=== PATIENT | male | born 1940 | race Caucasian/White ===

== ENCOUNTER 2016-08-03 08:36 | Outpatient (RCR) | payer MEDICARE, OTHER ==
[~2016-08-03 08:36] MED LIST: ACHD5005 PO; ACHYD1T PO; AMLO5TAB2 PO; ASP81TEC PO; BNZ20T PO; BNZ40T PO; CARV25TA PO; CARV6.252 PO; CEFU500T PO; CPR500T PO; CRAN1TAB PO; CRAN450T4 PO; DIGO125T PO; FAMO-119 PO; FAMO20TA5 PO; FENO134C PO; FURO20TA4 PO; GLIP10TA13 PO; HYDR118S PO; LEVO112T55 PO; LEVO125T6 PO; LEVO175T2 PO; LOVA20TA2 PO; MAGN400T6 PO; METF-380 PO; MTF500T PO; NITR100C3 PO; OMG1KC PO; SALM1CAP4 PO; SPIR25TA3 PO; TAMS0.4C98 PO; TRZS2T PO
--- OUTSIDE RECORDS SUMMARY | 2016-08-03 08:39 | XMS REPORT | Continuity of Care Document ---
Author Author [facility] Organization [facility] Address Unknown Phone Unavailable Care Team Providers Care Loader Name Role Phone PCP Unavailable Source Comments Some departments are not documenting in the electronic medical record. If you do not see the information that you expected, contact Release of Information in the Health Information Management department at [phone] for further assistance in locating additional records.[facility] Active Allergies and Adverse Reactions Allergen Noted Date Severity Reactions Comments Sulfa (Sulfonamide 01/20/2014 BLISTERS Antibiotics) Zocor 01/20/2014 BLISTERS Current Medications Prescription Sig. Disp. Refills Start End Date Status Date aspirin EC 81 mg tablet Take 81 mg by mouth Active daily. magnesium 800 mEq. Active CRANBERRY EXTRACT Take 1,000 mg by mouth. Active (CRANBERRY PO) SALMON OIL/OMEGA-3 FATTY Take by mouth four times Active ACIDS (SALMON OIL-1000 daily. PO) digoxin (LANOXIN) 125 mcg Take 0.125 mg by mouth Active tablet daily. carvedilol (COREG) 6.25 Take 6.25 mg by mouth Active mg tablet twice daily with meals. famotidine (PEPCID) 20 mg Take 20 mg by mouth twice Active tablet daily. furosemide (LASIX) 20 mg Take 20 mg by mouth Active tablet daily. levothyroxine (SYNTHROID) Take 112 mcg by mouth Active 112 mcg tablet twice daily. FENOFIBRATE PO Take 134 mg by mouth. Active terazosin (HYTRIN) 2 mg Take 2 mg by mouth twice Active capsule daily. glipiZIDE (GLUCOTROL) 10 Take 10 mg by mouth twice Active mg tablet daily. metFORMIN (GLUCOPHAGE) Take 1,000 mg by mouth Active 500 mg tablet twice daily. lovastatin(+) (MEVACOR) Take 20 mg by mouth at Active 20 mg tablet bedtime daily. benazepril (LOTENSIN) 20 Take 40 mg by mouth Active mg tablet daily. Active Problems Problem Noted Date Prostate cancer (HCC) 01/20/2014 Overview: [place] 3+3=6, [place] 4+3=7, [place] 4+4=8 all on the left side involving between 50-80% of the core. PSA 7.1 at that time. L ast Assessment & Plan: I reviewed with the patient his treatment options one more time including observation, prostatectomy, radiotherapy, hormone therapy as well as cryotherapy. The patient has elected to undergo prostatectomy. I explained to him that I would strongly consider adjuvant radiation therapy for his high risk cancer. We discussed a prostatectomy. I believe the patient is a poor candidate for surgery due to his poor pulmonary functionary status, previous history of [place], and mid section obesity. - We will have him return to radiation oncology for treatment of his prostate cancer. - RTC PRN Social History Tobacco Use Types Packs/Day Years Used Date Former Smoker Cigarettes 3 50 Smokeless Tobacco: Former Chew User Alcohol Use Drinks/Week oz/Week Comments No 24 Cans of 14.4 beer Last Filed Vital Signs Vital Sign Reading Time Taken Blood Pressure 160/80 01/20/2014 1:11 PM CDT Pulse 72 01/20/2014 1:11 PM CDT Temperature - - Respiratory Rate - - Height 1.778 m (5' 10") 01/20/2014 1:11 PM CDT Weight 103.783 kg (228 lb 12.8 01/20/2014 1:11 PM CDT oz) Body Mass Index 32.83 01/20/2014 1:11 PM CDT Oxygen Saturation - - Plan of Care Health Maintenance Due Date Last Done Comments Physical (Comprehensive) 1948 Exam Pertussis Vaccine 1952 Tetanus Vaccine 1958 Colorectal Cancer 1991 Screening Shingles Vaccine 2001 Prevnar/Pneumovax (#1) 2006 Influenza Vaccine 03/02/2016 Results from Last 3 Months Not on file
[2016-08-03 09:26] LABS: BASOPHILS % (AUTO) 0 % (0-10); EOSINOPHILS # (AUTO) 0.3 10^3/uL (0.0-0.3); EOSINOPHILS % (AUTO) 4 % (0-10); LYMPHOCYTES # (AUTO) 1.4 X 10^3 (1.0-4.0); LYMPHOCYTES % (AUTO) 23 % (12-44); MEAN CORPUSCULAR HEMOGLOBIN 33 PG (25-34); MEAN CORPUSCULAR HGB CONC 37 G/DL (32-36); MEAN CORPUSCULAR VOLUME 88 FL (80-99); MEAN PLATELET VOLUME 9.1 FL (7.4-10.4); MONOCYTES # (AUTO) 0.6 X 10^3 (0.0-1.0); MONOCYTES % (AUTO) 9 % (0-12); NEUTROPHILS # (AUTO) 3.9 X 10^3 (1.8-7.8); NEUTROPHILS % (AUTO) 63 % (42-75); PLATELET COUNT 209 10^3/uL (130-400); RED BLOOD COUNT 4.42 10^6/uL (4.35-5.85); RED CELL DISTRIBUTION WIDTH 13.6 % (10.0-14.5); WHITE BLOOD COUNT 6.2 10^3/uL (4.3-11.0)
[2016-08-03 10:17] LABS: ALANINE AMINOTRANSFERASE 15 U/L (0-55); ALBUMIN 4.2 G/DL (3.2-4.5); ANION GAP 10 MMOL/L (5-14); ASPARTATE AMINO TRANSFERASE 16 U/L (5-34); BILIRUBIN,TOTAL 1.2 MG/DL (0.1-1.0); BLOOD UREA NITROGEN 5 MG/DL (7-18); BUN/CREATININE RATIO 6; CALCIUM 9.4 MG/DL (8.5-10.1); CARBON DIOXIDE 21 MMOL/L (21-32); CHLORIDE 106 MMOL/L (98-107); CREATININE SERUM 0.79 MG/DL (0.60-1.30); GFR ESTIMATED > 60; GLUCOSE 197 MG/DL (70-105); POTASSIUM 4.5 MMOL/L (3.6-5.0); SODIUM 137 MMOL/L (135-145)
[2016-08-03 10:36] LABS: THYROID STIMULATING HORMONE 0.03 UIU/ML (0.35-4.94)
[2016-08-04 07:43] LABS: THYROGLOBULIN LEVELC <0.20 ng/mL (1.60-59.90)
[2016-08-04 16:49] LABS: THYROGLOBULIN AUTOANTIBODY PT 0.04 Units (0.00-0.50)
== END 2016-11-01 | disposition home or self-care (01) ==
LOC: ONC 08:36
PROVIDERS: ATTEND Internal Medicine Hematology & Oncology
DX: C73 Malignant neoplasm of thyroid gland (principal); C61 Malignant neoplasm of prostate; I25.10 Atherosclerotic heart disease of native coronary artery without angina pectoris; I10 Essential (primary) hypertension; E11.9 Type 2 diabetes mellitus without complications; E78.5 Hyperlipidemia, unspecified; Z95.1 Presence of aortocoronary bypass graft; Z79.899 Other long term (current) drug therapy
CPT/HCPCS: 36415; 80053; 84153; 84432; 84443; 85025; 86800; 99213

== ENCOUNTER → 2016-08-09 | Outpatient (CLI) | payer MEDICARE, OTHER ==
[~2016-08-09] MED LIST changes: +CATHETER FLUSH 10 ML SYR IV PRN; +IOHEXOL 350 MG/ML 100 ML (OMNIPAQUE 350) VIAL IV ONE; +NS 100 ML (IVPB) BAG IV ONE
--- OUTSIDE RECORDS SUMMARY | 2016-08-09 09:32 | XMS REPORT | Continuity of Care Document ---
Author Author [facility] Organization [facility] Address Unknown Phone Unavailable Care Team Providers Care Javascript Software Engineer Name Role Phone PCP Unavailable Source Comments Some departments are not documenting in the electronic medical record. If you do not see the information that you expected, contact Release of Information in the Health Information Management department at [phone] for further assistance in locating additional records.[facility] Active Allergies and Adverse Reactions Allergen Noted [...] Prostate cancer (HCC) 01/20/2014 Overview: [place] 3+3=6, [place] 4+3=7, [place] 4+4=8 all on the left side involving [...] poor pulmonary functionary status, previous history of [place], and mid section obesity. - We will [...]
--- NOTE | 2016-08-09 11:17 | Diagnostic Imaging Report ---
PROCEDURE: CT abdomen and pelvis with contrast. TECHNIQUE: Multiple contiguous axial images were obtained through the abdomen and pelvis after administration of intravenous contrast. INDICATION: Back pain. COMPARISON: 03/26/2015. FINDINGS: The lung bases demonstrates mild nonspecific scarring. The liver, the spleen, the adrenal glands and the pancreas demonstrate no significant abnormality. A tiny left adrenal myelolipoma is unchanged. The kidneys have symmetric enhancement and contrast excretion. No hydronephrosis. The abdominal aorta is normal in caliber. No para-aortic significantly enlarged lymph nodes is seen. The appendix is normal. There is no bowel obstruction. There is however thickening in the rectosigmoid with no significant surrounding inflammatory changes or fluid collection in the abdomen or pelvis. Tiny amount of free fluid is seen in the pelvis however. There are prostate fiducial markers seen. There are multiple diverticula particularly involving the proximal sigmoid colon. This segment however is not associated with the wall thickening described above seen in the distal sigmoid. Fat-containing tiny umbilical hernia is seen. The osseous structures demonstrate a subtle sclerotic focus seen at lower endplate of T12 vertebral body measuring 1.3 cm. This is more prominent compared to the prior study. The location adjacent to the endplates may suggest degenerative etiology. Old mild compression fracture at this level is seen without change. IMPRESSION: 1. Mild thickening in the rectosigmoid colon wall. This may relate to an inflammatory or infectious colitis. Radiation colitis could be considered. 2. Unchanged fat-containing small umbilical hernia. 3. Subtle sclerotic focus more prominent compared to the prior study near the inferior endplate of T12 could be degenerative. Early metastatic disease is not excluded. Correlation with bone scan and followup studies recommended. Dictated by: Dictated on workstation # [id number]
== END ==
LOC: RAD 09:29
PROVIDERS: ATTEND Internal Medicine Hematology & Oncology
DX: C61 Malignant neoplasm of prostate (principal); K42.9 Umbilical hernia without obstruction or gangrene; K63.89 Other specified diseases of intestine; R93.7 Abnormal findings on diagnostic imaging of other parts of musculoskeletal system
CPT/HCPCS: 74177

== ENCOUNTER → 2016-08-21 | Outpatient (CLI) | payer MEDICARE, OTHER ==
[~2016-08-21] MED LIST changes: -CATHETER FLUSH 10 ML SYR IV PRN; -IOHEXOL 350 MG/ML 100 ML (OMNIPAQUE 350) VIAL IV ONE; -NS 100 ML (IVPB) BAG IV ONE
--- OUTSIDE RECORDS SUMMARY | 2016-08-21 10:30 | XMS REPORT | Continuity of Care Document ---
Author Author [facility] Organization [facility] Address Unknown Phone Unavailable Care Team Providers Care Outboard Motors Experimental Mechanic Name Role Phone PCP Unavailable Source Comments Some departments are not documenting in the electronic medical record. If you do not see the information that you expected, contact Release of Information in the Health Information Management department at [phone] for further assistance in locating additional records.[facility] Active Allergies and Adverse Reactions Allergen Noted [...] Prostate cancer (HCC) 01/20/2014 Overview: [place] 3+3=6, [place] 4+3=7, [place] 4+4=8 all on the left side involving [...] poor pulmonary functionary status, previous history of [place], and mid section obesity. - We will [...]
--- NOTE | 2016-08-21 19:36 | Diagnostic Imaging Report ---
INDICATION: Prostate cancer. TECHNIQUE: Anterior and posterior whole body planar imaging was performed after administration of 26.7 mCi of technetium 99m MDP. FINDINGS: There is persistent uptake overlying the midthoracic spine at approximately T6. There is faint uptake in the lateral aspect of the right scapula. The previously seen rib activity has resolved. There is otherwise normal uptake of isotope throughout the remainder of the axial and appendicular skeleton. There is physiologic uptake in the kidneys bilaterally with excretion into urinary bladder. IMPRESSION: Stable areas of increased activity in midthoracic spine and right scapula. Dictated by: Dictated on workstation # [id number]
== END ==
LOC: CARD 10:25
PROVIDERS: ATTEND Internal Medicine Hematology & Oncology
DX: R93.8 Abnormal findings on diagnostic imaging of other specified body structures (principal); C61 Malignant neoplasm of prostate; C73 Malignant neoplasm of thyroid gland
CPT/HCPCS: 78306

== ENCOUNTER 2016-11-14 06:45 | Day surgery (SDC) | payer MEDICARE, OTHER ==
[2016-11-14] VITALS (11 sets, daily range): BP systolic 131–173; BP diastolic 63–84
[~2016-11-14] VITALS: Ht 177.8 cm; Wt 106.6 kg
[2016-11-14] MEDS ORDERED: NS IV 1000 ML 1,000 ML ONE (06:58)
[2016-11-14] MEDS ORDERED: LIDOCAINE 1% INJ 20 ML (XYLOCAINE) VIAL ONE (06:58)
[2016-11-14] MEDS ORDERED: HEParin (CATH LAB) 2,000 ML IV ONE (06:59)
[2016-11-14 07:30] LABS: MEAN PLATELET VOLUME 9.1 FL (7.4-10.4); RED BLOOD COUNT 4.47 10^6/uL (4.35-5.85); RED CELL DISTRIBUTION WIDTH 12.6 % (10.0-14.5); WHITE BLOOD COUNT 6.4 10^3/uL (4.3-11.0)
[2016-11-14 07:42] LABS: PROTHROMBIN TIME PATIENT 12.9 SEC (12.2-14.7)
[2016-11-14] MEDS ORDERED: NS IV 1000 ML 1,000 ML IV SCH ×3 (07:45→09:42)
[2016-11-14 07:49] LABS: ALANINE AMINOTRANSFERASE 21 U/L (0-55); ALBUMIN 4.3 G/DL (3.2-4.5); ANION GAP 13 MMOL/L (5-14); ASPARTATE AMINO TRANSFERASE 19 U/L (5-34); BILIRUBIN,TOTAL 0.8 MG/DL (0.1-1.0); BLOOD UREA NITROGEN 9 MG/DL (7-18); BUN/CREATININE RATIO 12; CALCIUM 9.5 MG/DL (8.5-10.1); CARBON DIOXIDE 20 MMOL/L (21-32); CHLORIDE 106 MMOL/L (98-107); CHOLESTEROL 104 MG/DL (< 200); CREATININE SERUM 0.77 MG/DL (0.60-1.30); DIRECT LDL 64 MG/DL (1-129); GFR ESTIMATED > 60; GLUCOSE 180 MG/DL (70-105); POTASSIUM 3.7 MMOL/L (3.6-5.0); SODIUM 139 MMOL/L (135-145); TOTAL PROTEIN 7.2 G/DL (6.4-8.2); TRIGLYCERIDES 138 MG/DL (<150); VLDL CHOLESTEROL 28 MG/DL (5-40)
[2016-11-14] MEDS ORDERED: diphenhydrAMINE 50 MG/ML INJ (BENADRYL) ONE (08:20)
[2016-11-14] MEDS ORDERED: MIDAZOLAM 5 MG/5 ML (VERSED) VIAL ONE (08:20)
[2016-11-14] MEDS ORDERED: fentaNYL INJECTION 100 MCG/2 ML AMP ONE (08:20)
[2016-11-14] MEDS ORDERED: NITR0.4T SL (08:39)
[2016-11-14] MEDS ORDERED: LEVO25TA5 PO (08:39)
[2016-11-14] MEDS ORDERED: ALBU2.5V4 NEB (08:39)
[2016-11-14] MEDS ORDERED: MEGE20TA PO (08:39)
[2016-11-14] MEDS ORDERED: LEUP30KI IM (08:39)
[2016-11-14] MEDS ORDERED: FLUT1AER IH (08:39)
[2016-11-14] MEDS ORDERED: DICY20TA10 PO (08:39)
--- NOTE | 2016-11-14 09:42 | Cardiac Procedure Note-CS/ASA ---
Pre-Procedure Note Pre-Op Procedure Note H&P Reviewed The H&P was reviewed, patient examined and no changes noted. Date H&P Reviewed: November 14, 2016 Time H&P Reviewed: 08:50 Conscious Sedation Pre-Proced Time Reviewed: 08:50 ASA Class: 3 Airway Mallampati Classification: (pilot point appropriate class) I. II. III, IV Lungs Heart ASA score ASA 1: a normal healthy patient ASA 2: a patient with a mild systemic disease (mid diabetes, controlled hypertension, obesity ASA 3: a patient with a severe systemic disease that limits activity (angina , COPD, prior Myocardial infarction) ASA 4: a patient with an incapacitating disease that is a constant threat to life (CHF, renal failure) ASA 5: a moribund patient not expected to survive 24 hrs. (ruptured aneurysm) ASA 6: a declared brain patient whose organs are being harvested. For emergent operations, add the letter E after the classification Grade 3 Sedation Plan: Analgesia, Amnesia, Plan communicated to team members, Discussed options with patient/fam, Discussed risks with patient/fam Note The patient is an appropriate candidate to undergo the planned procedure, sedation, and anesthesia. The patient immediately re-assessed prior to indication. BLADE PICKERING MD FACP FAC CCDS November 14, 2016 09:42
[2016-11-14] MEDS ORDERED: PATIENT MAY USE OWN MEDS, ALL PO SCH (09:45)
[2016-11-14] MEDS ORDERED: ASPI-999 PO (09:45)
--- NOTE | 2016-11-14 09:46 | Discharge Inst-Post CATH ---
Discharge Inst-CATH Post Cardiac Cath D/C Inst Follow Up/Plan F/u with Dr Barreto in 1-2 weeks CARDIAC CATH DISCHARGE INSTRUCTIONS *Hold Metformin for 72 hours post heart cath. ACTIVITY * Go Home directly and rest. * Limit activity of the leg (or wrist if it was used) for 7 days including aerobics, swimming, jogging, bicycling, etc. * Restrict stair-climbing for 7 days if possible, if not, climb up with your non -cath leg, then bring together on the same step. * Avoid lifting, pushing, pulling or excessive movement of the affected extremity for 7 days. * Customary sexual activity may be resumed after 2 days-use caution not to use a position that strains or causes pain to the affected extremity. * No driving for 24 hours. * NO SMOKING. * Avoid straining for bowel movements for 7 days. * Gentle walking on level ground is allowed. * Returning to work will depend on the type of procedure and the results. Your doctor will discuss this with you. CALL YOUR DOCTOR FOR ANY OF THE FOLLOWING: *If bleeding from the puncture site occurs- Apply gentle pressure to site with clean cloth and call your doctor or EMS. * If a knot or lump forms under the skin, increases in size, or causes pain. * If bruising appears to be worsening or moving further down your leg instead of disappearing. * Temperature above 101 F. CARE OF YOUR GROIN INCISION; * Bruising or purple discoloration of the skin near the puncture site is common. * You may shower only, no bathtub bathing for 5 days. Be careful to avoid slipping as your leg may feel stiff. * If a closure device was used on your femoral artery, please see the attached guide regarding care of the device and your leg. * REMOVE the dressing from your groin the next day after your procedure in the shower. CARE OF YOUR WRIST INCISION; * Bruising or purple discoloration of the skin near the puncture site is common. * You may shower. * DO NOT submerge wrist. * Remove dressing in 24 hours. BLADE BARRETO MD [facility] CCDS November 14, 2016 09:46
--- NOTE | 2016-11-14 09:48 | Discharge Inst-Cardiology ---
Discharge Inst-Cardiac Discharge Medications New Medications: Aspirin (Aspirin) 81 Mg Tab.chew 81 MG PO DAILY, #90 TAB 3 Refills Continued Medications: Albuterol Sulfate (Albuterol Sulfate) 2.5 Mg/3 Ml Vial.neb 2.5 MG NEB Q6H PRN for SHORTNESS OF BREATH, EA Amlodipine Besylate (Amlodipine Besylate) 5 Mg Tablet 5 MG PO DAILY, TAB Benazepril HCl (Benazepril HCl) 40 Mg Tab 40 MG PO DAILY, TAB Carvedilol (Carvedilol) 25 Mg Tablet 25 MG PO BID, TAB Cranberry Fruit Concentrate (Cranberry) 450 Mg Tablet 450 MG PO BID, TAB Dicyclomine HCl (Dicyclomine HCl) 20 Mg Tablet 20 MG PO QID, TAB Digoxin (Digitek 125 Mcg) 125 Mcg Tablet 125 MCG PO HS, TAB Famotidine (Pepcid) 20 Mg Tablet 20 MG PO DAILY, TAB Fluticasone/Vilanterol (Breo Ellipta 100-25 Mcg INH) 1 Each Blst.w.dev 1 PUFF IH DAILY Furosemide (Furosemide) 20 Mg Tablet 20 MG PO DAILY, TAB Glipizide (Glipizide) 10 Mg Tablet 20 MG PO BID, TAB TAKES 2 (10MG) TABLETS Leuprolide Acetate (Lupron Depot) 30 Mg/Kit Soln 30 MG IM EVERY 4 MONTHS, EA Levothyroxine Sodium (Levothyroxine Sodium) 112 Mcg Tablet 224 MCG PO DAILY, TAB TAKES 2 (112MCG) TABLETS - TAKES ALONG WITH 1 (25MCG) TABLET Levothyroxine Sodium (Levothyroxine Sodium) 25 Mcg Tablet 25 MCG PO DAILY, TAB TAKES ALONG WITH 2 (112MCG) TABLETS Lovastatin (Lovastatin 20 Mg) 20 Mg Tablet 20 MG PO HS, TAB Megestrol Acetate (Megestrol Acetate) 20 Mg Tablet 20 MG PO BID, TAB Nitroglycerin (Nitrostat) 0.4 Mg Tab.subl 0.4 MG SL UD PRN for CHEST PAIN, TAB [place] 3 Polyunsat Fatty Acids (Fish Oil 1,000 mg Capsule) 1,000 Mg Cap 2000 MG PO BID, CAP TAKES 2 (1000MG) CAPSULES Terazosin Hcl (Hytrin 2 Mg) 2 Mg Tab 2 MG PO BID, CAP Discontinued Medications: Aspirin (Aspirin Ec 81 Mg) 81 Mg Tabec 81 MG PO HS, TAB Metformin Hcl (Metformin 500 Mg) 500 Mg Tablet 1000 MG PO BID, TAB TAKES 2 (500MG) TABLETS Patient Instructions Patient Instructions: Change aspirin to 81 mg chewable aspirin daily (instead of coated aspirin) Do NOT stop aspirin Restart metformin at previous home dose beginning on the morning of 11/17/16 BLADE PICKERING MD FACP FAC CCDS November 14, 2016 09:48
--- NOTE | 2016-11-14 19:10 | CARDIAC CATHETERIZATION ---
DATE OF SERVICE: 11/14/2016 HISTORY: The patient is a 76-year-old man with a history of coronary artery bypass surgery several years ago. He has been experiencing exertional angina. Today, his symptoms are lot of felt to be new onset. Cardiac catheterization was carried out the day after having obtained an informed consent. PROCEDURE: He was brought to the cardiac catheterization laboratory in a fasting state. The right groin was prepared and draped in the usual sterile fashion. A 1% lidocaine was used for local anesthesia. A modified Seldinger technique was used to advance a 5-[place] sheath in the right femoral artery. Angiography of the right femoral artery was carried out through the sheath. We used 5-[place] JL4 catheter for left coronary angiography and 5-[place] JR4 catheter for right coronary angiography. We were not able to engage the aortocoronary grafts with the 5-[place] JR4 catheter. We used a pigtail catheter to carry out left heart catheterization, left ventricular angiography. The pigtail catheter was then pulled back to the aortic root and aortic root angiography was performed to delineate the sites of the aortocoronary grafts. The pigtail catheter was removed due to significant tortuosity of the right iliac artery system. We are experiencing significant difficulty in torquing the catheters. Therefore, we anticipated to exchange the short sheath for a 6-[place] 45 cm sheath. We performed the exchange of a 0.035 inch wire. We then used a 6-[place] JR4 catheter to carry out angiography of the aortocoronary graft. We used a 6-[place] EARLENE catheter to carry out selective angiography of the internal mammary artery graft to the left anterior descending artery. Because that was difficulty with advancement of the long sheath across the aortoiliac junction, we decided to carry out angiography of the abdominal aorta and the aortoiliac system. We exchanged the long sheath over a wire for a short 6-[place] sheath and then advanced a pigtail catheter to the level of L1 and abdominal aortic angiography was performed. The catheter was then removed. Mynx was used to achieve hemostasis following sheath removal. He tolerated the procedure well. HEMODYNAMICS: Left ventricular end-diastolic pressure following coronary angiography was 23 mmHg. There was no significant pressure gradient on pullback across the aortic valve. The ascending aortic pressure was 100/71 with a mean of 84 mmHg. CORONARY ANGIOGRAPHY: Coronary artery calcification is present, especially involving the entire extent of the right coronary artery. Left main coronary artery is at least 20-30% proximal and mid vessel stenosis. Left anterior descending artery is completely occluded in its mid portion at the origin of a small caliber first diagonal branch that itself has considerable disease. A ramus intermedius artery has approximately 40% stenosis at its proximal portion. The left circumflex artery is small in caliber, nondominant and does not exhibit significant obstructive disease. Left to right collaterals were seen from the left circumflex system to the distal right coronary artery. The right coronary artery has a severe mid vessel disease and is occluded in its distal portion. AORTOCORONARY GRAFT ANGIOGRAPHY: Aortocoronary graft was noted at the ostia. These are known to be into the right coronary and to the ramus intermedius arteries. LEFT INTERNAL MAMMARY ARTERY ANGIOGRAPHY: Left internal mammary artery graft to the distal left anterior descending artery is likely patent and does not exhibit any significant disease. There is good distal runoff in the left anterior descending artery from the graft. AORTIC ROOT ANGIOGRAPHY: Aortic root angiography did not indicate any ascending aortic aneurysm or dissection. No thickened aortocoronary grafts were identified. There did not appear to be any significant aortic regurgitation. LEFT VENTRICULAR ANGIOGRAPHY: Left ventricular angiography was carried out in right anterior oblique projection. Global left ventricular systolic function is mildly impaired. Left ventricular ejection fraction is 45-50%. There is posterior basal akinesis. There does not appear to be significant mitral regurgitation. ABDOMINAL AORTIC ANGIOGRAPHY: Abdominal aortic angiography did not indicate any abdominal aortic aneurysm or dissection. There is, however, considerable atherosclerosis and ulcerated plaque and calcification of the distal abdominal aorta, aortoiliac bifurcation in both common arteries. There does not appear to be significant obstructive disease in the common iliac arteries. The left internal iliac artery does appear to have severe disease at its ostium. Both renal arteries were identified. The right renal artery has approximately 50% partial stenosis. CONCLUSIONS: 1. Coronary artery disease primarily consisting of mid vessel occlusion of the left anterior descending artery and distal occlusion of the right coronary artery. The distal right coronary artery receives collateral flow from the left circumflex system. The left circumflex artery is patent without significant disease. A ramus intermedius artery is patent with approximately 40% proximal stenosis. 2. Ostial occlusion of aortocoronary grafts to right coronary artery and ramus intermedius arteries. 3. Patent left internal mammary artery graft to distal left anterior descending artery. 4. Mild impairment of global left ventricular systolic function with posterobasal akinesis. 5. Left ventricular ejection fraction of 45-50%. 6. Elevated left ventricular and diastolic pressure. 7. Moderate atherosclerotic disease of the distal abdominal aorta and the aortoiliac bifurcation. 8. A 50% stenosis of the right renal artery. DISCUSSION AND RECOMMENDATIONS: Based on results of the study, it appears appropriate to continue a conservative approach and to optimize medications. This was discussed with him and close outpatient followup is advised for now. Job ID: [id number] DocumentID: [id number] Dictated Date: 11/14/2016 10:13:02 Machine Cage Maker Date: 11/14/2016 17:04:10 Dictated By: BLADE PICKERING MD, MA, FACP, FACC, MTDD
[2016-11-14] MEDS ORDERED: ISOS30TA3 PO (19:36)
== END 2016-11-14 13:10 | disposition home or self-care (01) ==
LOC: CATH 06:45 → SURG 09:56 → ENPENDDIS 13:00 → CATH 13:10
PROVIDERS: ATTEND Internal Medicine Cardiovascular Disease
DX: I25.118 Atherosclerotic heart disease of native coronary artery with other forms of angina pectoris (principal); I25.84 Coronary atherosclerosis due to calcified coronary lesion; I25.82 Chronic total occlusion of coronary artery; I70.1 Atherosclerosis of renal artery; I70.0 Atherosclerosis of aorta; E11.9 Type 2 diabetes mellitus without complications; E78.5 Hyperlipidemia, unspecified; I10 Essential (primary) hypertension; E66.9 Obesity, unspecified; G47.33 Obstructive sleep apnea (adult) (pediatric); Z87.891 Personal history of nicotine dependence; Z95.1 Presence of aortocoronary bypass graft; Z79.84 Long term (current) use of oral hypoglycemic drugs; Z79.899 Other long term (current) drug therapy; Z68.34 Body mass index [BMI] 34.0-34.9, adult
CPT/HCPCS: 36415; 75625; 80053; 80061; 85027; 85610; 85730; 87081; 93459; 93567

== ENCOUNTER 2016-11-14 15:50 | Emergency (ER) | payer MEDICARE, OTHER ==
[~2016-11-14] VITALS: Ht 177.8 cm; Wt 99.3 kg
[~2016-11-14 15:50] MED LIST changes: +ALBU2.5V4 NEB; +ASPI-999 PO; +DICY20TA10 PO; +FLUT1AER IH; +LEUP30KI IM; +LEVO25TA5 PO; +MEGE20TA PO; +NITR0.4T SL
[2016-11-14] MEDS ORDERED: RX-NITROGLYCERIN 0.4 MG TAB BTL 25'S SL PRN (16:00)
[2016-11-14] MEDS ORDERED: ASPIRIN 81 MG CHEW (CHILDREN'S ASA) PO ONE ×2 (16:00→17:45)
[2016-11-14 16:30] LABS: BASOPHILS % (AUTO) 0 % (0-10); EOSINOPHILS # (AUTO) 0.2 10^3/uL (0.0-0.3); EOSINOPHILS % (AUTO) 4 % (0-10); LYMPHOCYTES # (AUTO) 1.3 X 10^3 (1.0-4.0); LYMPHOCYTES % (AUTO) 23 % (12-44); MEAN CORPUSCULAR HEMOGLOBIN 32 PG (25-34); MEAN CORPUSCULAR HGB CONC 36 G/DL (32-36); MEAN CORPUSCULAR VOLUME 89 FL (80-99); MEAN PLATELET VOLUME 9.4 FL (7.4-10.4); MONOCYTES # (AUTO) 0.7 X 10^3 (0.0-1.0); MONOCYTES % (AUTO) 13 % (0-12); NEUTROPHILS # (AUTO) 3.4 X 10^3 (1.8-7.8); NEUTROPHILS % (AUTO) 60 % (42-75); PLATELET COUNT 201 10^3/uL (130-400); RED BLOOD COUNT 4.17 10^6/uL (4.35-5.85); RED CELL DISTRIBUTION WIDTH 12.4 % (10.0-14.5); WHITE BLOOD COUNT 5.7 10^3/uL (4.3-11.0)
[2016-11-14 16:43] LABS: INR 1.1 (0.8-1.4); PROTHROMBIN TIME PATIENT 14.2 SEC (12.2-14.7)
--- NOTE | 2016-11-14 16:43 | Diagnostic Imaging Report ---
INDICATION: Chest pain. Recent catheterization. COMPARISON: 05/04/2015. FINDINGS: Single frontal view of the chest demonstrates normal heart size and pulmonary vascularity. Left-sided AICD is noted. Sternotomy wires are also present. The lungs are well aerated and clear. No large pleural effusion or pneumothorax is seen. The visualized osseous structures show no acute abnormalities. IMPRESSION: 1. No acute cardiopulmonary process. Dictated by: Dictated on workstation # [id number]
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
[2016-11-14 16:51] LABS: ALANINE AMINOTRANSFERASE 18 U/L (0-55); ALBUMIN 3.8 G/DL (3.2-4.5); AMYLASE 30 U/L (25-125); ANION GAP 8 MMOL/L (5-14); ASPARTATE AMINO TRANSFERASE 16 U/L (5-34); BLOOD UREA NITROGEN 9 MG/DL (7-18); BUN/CREATININE RATIO 11; CALCIUM 9.1 MG/DL (8.5-10.1); CARBON DIOXIDE 23 MMOL/L (21-32); CHLORIDE 109 MMOL/L (98-107); CREATINE KINASE 88 U/L (30-200); CREATININE SERUM 0.79 MG/DL (0.60-1.30); GFR ESTIMATED > 60; GLUCOSE 227 MG/DL (70-105); LIPASE 36 U/L (8-78); POTASSIUM 3.8 MMOL/L (3.6-5.0); SODIUM 140 MMOL/L (135-145); TOTAL PROTEIN 6.3 G/DL (6.4-8.2)
[2016-11-14 17:06] LABS: TROPONIN I < 0.30 NG/ML (<0.30)
[2016-11-14] MEDS ORDERED: ISOSORBIDE MONONITRATE 30 MG (IMDUR) TAB PO ONE (17:45)
[2016-11-14] MEDS ORDERED: ISOS30TA3 PO (19:36)
[2016-11-14 19:41] VITALS: BP 126/58
== END 2016-11-14 19:41 | disposition home or self-care (01) ==
LOC: EDUNIT# 15:50 → ER 15:51
DX: R07.9 Chest pain, unspecified (principal); I10 Essential (primary) hypertension; E11.9 Type 2 diabetes mellitus without complications; I25.2 Old myocardial infarction; Z79.82 Long term (current) use of aspirin; Z79.84 Long term (current) use of oral hypoglycemic drugs; Z79.899 Other long term (current) drug therapy; Z98.890 Other specified postprocedural states; Z95.1 Presence of aortocoronary bypass graft; Z95.0 Presence of cardiac pacemaker; Z87.891 Personal history of nicotine dependence
CPT/HCPCS: 36415; 71010; 80053; 82150; 82550; 82553; 83690; 83880; 84484; 85025; 85610; 85730; 93005; 93041

== ENCOUNTER 2017-01-04 08:32 | Outpatient (RCR) | payer MEDICARE, OTHER ==
[~2017-01-04 08:32] MED LIST changes: +ISOS30TA3 PO
[2017-01-04 09:05] LABS: BASOPHILS % (AUTO) 0 % (0-10); EOSINOPHILS # (AUTO) 0.3 10^3/uL (0.0-0.3); EOSINOPHILS % (AUTO) 4 % (0-10); LYMPHOCYTES # (AUTO) 1.5 X 10^3 (1.0-4.0); LYMPHOCYTES % (AUTO) 23 % (12-44); MEAN CORPUSCULAR HEMOGLOBIN 32 PG (25-34); MEAN CORPUSCULAR HGB CONC 36 G/DL (32-36); MEAN CORPUSCULAR VOLUME 88 FL (80-99); MEAN PLATELET VOLUME 8.5 FL (7.4-10.4); MONOCYTES # (AUTO) 0.7 X 10^3 (0.0-1.0); MONOCYTES % (AUTO) 10 % (0-12); NEUTROPHILS # (AUTO) 4.2 X 10^3 (1.8-7.8); NEUTROPHILS % (AUTO) 63 % (42-75); PLATELET COUNT 221 10^3/uL (130-400); RED BLOOD COUNT 4.06 10^6/uL (4.35-5.85); RED CELL DISTRIBUTION WIDTH 12.8 % (10.0-14.5); WHITE BLOOD COUNT 6.7 10^3/uL (4.3-11.0)
[2017-01-04 09:32] LABS: ALANINE AMINOTRANSFERASE 18 U/L (0-55); ALBUMIN 3.9 GM/DL (3.2-4.5); ANION GAP 11 MMOL/L (5-14); ASPARTATE AMINO TRANSFERASE 17 U/L (5-34); BILIRUBIN,TOTAL 0.9 MG/DL (0.1-1.0); BLOOD UREA NITROGEN 8 MG/DL (7-18); BUN/CREATININE RATIO 10; CALCIUM 8.9 MG/DL (8.5-10.1); CARBON DIOXIDE 19 MMOL/L (21-32); CHLORIDE 106 MMOL/L (98-107); GFR ESTIMATED > 60; GLUCOSE 185 MG/DL (70-105); POTASSIUM 3.9 MMOL/L (3.6-5.0); SODIUM 136 MMOL/L (135-145); TOTAL PROTEIN 6.8 GM/DL (6.4-8.2)
[2017-01-04 09:54] LABS: THYROID STIMULATING HORMONE 0.01 UIU/ML (0.35-4.94)
[2017-01-08 07:22] LABS: THYROGLOBULIN LEVELC 0.58 ng/mL (1.60-59.90)
[2017-01-08 07:49] LABS: THYROGLOBULIN AUTOANTIBODY PT 0.05 Units (0.00-0.50)
== END 2017-03-31 | disposition home or self-care (01) ==
LOC: ONC 08:32
PROVIDERS: ATTEND Internal Medicine Hematology & Oncology
DX: E11.9 Type 2 diabetes mellitus without complications; C61 Malignant neoplasm of prostate; Z79.899 Other long term (current) drug therapy; E78.5 Hyperlipidemia, unspecified; C73 Malignant neoplasm of thyroid gland; I25.10 Atherosclerotic heart disease of native coronary artery without angina pectoris; Z95.1 Presence of aortocoronary bypass graft; I10 Essential (primary) hypertension
CPT/HCPCS: 36415; 80053; 84153; 84403; 84432; 84439; 84443; 85025; 86800; 99213

== ENCOUNTER 2017-04-05 09:03 | Outpatient (RCR) | payer MEDICARE, OTHER | END 2017-07-04 10:42 | disposition home or self-care (01) | LOC: ONC 09:03 | PROVIDERS: ATTEND Internal Medicine Hematology & Oncology | DX: C73 Malignant neoplasm of thyroid gland (principal); C61 Malignant neoplasm of prostate; I25.10 Atherosclerotic heart disease of native coronary artery without angina pectoris; I10 Essential (primary) hypertension; E11.9 Type 2 diabetes mellitus without complications; E78.5 Hyperlipidemia, unspecified; Z95.1 Presence of aortocoronary bypass graft; Z79.899 Other long term (current) drug therapy | CPT/HCPCS: 36415; 84443 ==

== ENCOUNTER → 2017-06-12 | Outpatient (CLI) | payer MEDICARE, OTHER ==
[2017-06-12 09:13] LABS: BASOPHILS % (AUTO) 0 % (0-10); EOSINOPHILS # (AUTO) 0.3 10^3/uL (0.0-0.3); EOSINOPHILS % (AUTO) 5 % (0-10); LYMPHOCYTES # (AUTO) 1.2 X 10^3 (1.0-4.0); LYMPHOCYTES % (AUTO) 20 % (12-44); MEAN CORPUSCULAR HEMOGLOBIN 30 PG (25-34); MEAN CORPUSCULAR HGB CONC 35 G/DL (32-36); MEAN CORPUSCULAR VOLUME 85 FL (80-99); MONOCYTES # (AUTO) 0.7 X 10^3 (0.0-1.0); MONOCYTES % (AUTO) 11 % (0-12); NEUTROPHILS # (AUTO) 3.8 X 10^3 (1.8-7.8); NEUTROPHILS % (AUTO) 64 % (42-75); PLATELET COUNT 217 10^3/uL (130-400); RED CELL DISTRIBUTION WIDTH 13.3 % (10.0-14.5); WHITE BLOOD COUNT 6.1 10^3/uL (4.3-11.0)
[2017-06-12 09:35] LABS: ALANINE AMINOTRANSFERASE 10 U/L (0-55); ALBUMIN 4.2 GM/DL (3.2-4.5); ANION GAP 11 MMOL/L (5-14); ASPARTATE AMINO TRANSFERASE 14 U/L (5-34); BILIRUBIN,TOTAL 0.8 MG/DL (0.1-1.0); BLOOD UREA NITROGEN 9 MG/DL (7-18); BUN/CREATININE RATIO 11; CARBON DIOXIDE 21 MMOL/L (21-32); CHLORIDE 103 MMOL/L (98-107); CREATININE SERUM 0.84 MG/DL (0.60-1.30); GFR ESTIMATED > 60; GLUCOSE 236 MG/DL (70-105); MAGNESIUM 1.6 MG/DL (1.8-2.4); POTASSIUM 3.7 MMOL/L (3.6-5.0); SODIUM 135 MMOL/L (135-145)
[2017-06-12 09:54] LABS: THYROID STIMULATING HORMONE 0.44 UIU/ML (0.35-4.94)
== END ==
LOC: LAB 08:53
PROVIDERS: ATTEND Internal Medicine Cardiovascular Disease
DX: E11.9 Type 2 diabetes mellitus without complications (principal); I25.110 Atherosclerotic heart disease of native coronary artery with unstable angina pectoris; I25.5 Ischemic cardiomyopathy; I65.23 Occlusion and stenosis of bilateral carotid arteries; E78.4 Other hyperlipidemia; I10 Essential (primary) hypertension; E66.9 Obesity, unspecified; G47.33 Obstructive sleep apnea (adult) (pediatric)
CPT/HCPCS: 36415; 80053; 83735; 84443; 85025

== ENCOUNTER → 2017-06-28 | Outpatient (CLI) | payer MEDICARE, OTHER ==
[2017-06-28 09:35] LABS: BUN/CREATININE RATIO 13; CALCIUM 9.1 MG/DL (8.5-10.1); CARBON DIOXIDE 19 MMOL/L (21-32); CHLORIDE 106 MMOL/L (98-107); CREATININE SERUM 0.79 MG/DL (0.60-1.30); GFR ESTIMATED > 60; GLUCOSE 199 MG/DL (70-105); MAGNESIUM 1.9 MG/DL (1.8-2.4); POTASSIUM 3.7 MMOL/L (3.6-5.0); SODIUM 137 MMOL/L (135-145)
== END ==
LOC: LAB 08:47
PROVIDERS: ATTEND Internal Medicine Cardiovascular Disease
DX: I25.10 Atherosclerotic heart disease of native coronary artery without angina pectoris (principal); E11.9 Type 2 diabetes mellitus without complications; E05.90 Thyrotoxicosis, unspecified without thyrotoxic crisis or storm; T38.1X5 Adverse effect of thyroid hormones and substitutes; G47.33 Obstructive sleep apnea (adult) (pediatric); E66.8 Other obesity
CPT/HCPCS: 36415; 80048; 83735

== ENCOUNTER 2017-07-12 13:20 | Outpatient (RCR) | payer MEDICARE, OTHER ==
[2017-07-12 13:46] LABS: BASOPHILS % (AUTO) 0 % (0-10); EOSINOPHILS # (AUTO) 0.2 10^3/uL (0.0-0.3); EOSINOPHILS % (AUTO) 3 % (0-10); HEMATOCRIT 36 % (40-54); LYMPHOCYTES # (AUTO) 1.8 X 10^3 (1.0-4.0); LYMPHOCYTES % (AUTO) 26 % (12-44); MEAN CORPUSCULAR HEMOGLOBIN 30 PG (25-34); MEAN CORPUSCULAR HGB CONC 36 G/DL (32-36); MEAN CORPUSCULAR VOLUME 84 FL (80-99); MEAN PLATELET VOLUME 8.9 FL (7.4-10.4); MONOCYTES # (AUTO) 0.8 X 10^3 (0.0-1.0); MONOCYTES % (AUTO) 12 % (0-12); NEUTROPHILS # (AUTO) 4.1 X 10^3 (1.8-7.8); NEUTROPHILS % (AUTO) 59 % (42-75); PLATELET COUNT 242 10^3/uL (130-400); RED CELL DISTRIBUTION WIDTH 13.3 % (10.0-14.5); WHITE BLOOD COUNT 6.9 10^3/uL (4.3-11.0)
[2017-07-12 14:04] LABS: ALANINE AMINOTRANSFERASE 14 U/L (0-55); ALBUMIN 4.3 GM/DL (3.2-4.5); ALKALINE PHOSPHATASE 44 U/L (40-136); BILIRUBIN,TOTAL 0.8 MG/DL (0.1-1.0); BUN/CREATININE RATIO 17; CALCIUM 9.6 MG/DL (8.5-10.1); CARBON DIOXIDE 19 MMOL/L (21-32); CHLORIDE 102 MMOL/L (98-107); CREATININE SERUM 0.78 MG/DL (0.60-1.30); GFR ESTIMATED > 60; GLUCOSE 112 MG/DL (70-105); POTASSIUM 4.4 MMOL/L (3.6-5.0); SODIUM 134 MMOL/L (135-145); TOTAL PROTEIN 7.3 GM/DL (6.4-8.2)
[2017-07-12 14:23] LABS: FREE T4 (FREE THYROXINE) 1.21 NG/DL (0.70-1.48)
== END 2017-10-10 | disposition home or self-care (01) ==
LOC: ONC 13:20
PROVIDERS: ATTEND Internal Medicine Hematology & Oncology
DX: C73 Malignant neoplasm of thyroid gland (principal); C61 Malignant neoplasm of prostate; I25.10 Atherosclerotic heart disease of native coronary artery without angina pectoris; I10 Essential (primary) hypertension; E11.9 Type 2 diabetes mellitus without complications; E78.5 Hyperlipidemia, unspecified; Z95.1 Presence of aortocoronary bypass graft; Z79.899 Other long term (current) drug therapy
CPT/HCPCS: 36415; 80053; 84153; 84432; 84439; 84443; 85025; 99213

== ENCOUNTER → 2017-07-18 | Outpatient (CLI) | payer MEDICARE, OTHER ==
[2017-07-18 09:58] LABS: BASOPHILS % (AUTO) 0 % (0-10); EOSINOPHILS # (AUTO) 0.3 10^3/uL (0.0-0.3); EOSINOPHILS % (AUTO) 4 % (0-10); HEMATOCRIT 36 % (40-54); HEMOGLOBIN 13.1 G/DL (13.3-17.7); LYMPHOCYTES # (AUTO) 1.6 X 10^3 (1.0-4.0); LYMPHOCYTES % (AUTO) 23 % (12-44); MEAN CORPUSCULAR HEMOGLOBIN 30 PG (25-34); MEAN CORPUSCULAR HGB CONC 36 G/DL (32-36); MEAN CORPUSCULAR VOLUME 83 FL (80-99); MONOCYTES # (AUTO) 0.8 X 10^3 (0.0-1.0); MONOCYTES % (AUTO) 11 % (0-12); NEUTROPHILS # (AUTO) 4.2 X 10^3 (1.8-7.8); NEUTROPHILS % (AUTO) 61 % (42-75); PLATELET COUNT 218 10^3/uL (130-400); RED BLOOD COUNT 4.37 10^6/uL (4.35-5.85); RED CELL DISTRIBUTION WIDTH 13.5 % (10.0-14.5); WHITE BLOOD COUNT 6.8 10^3/uL (4.3-11.0)
[2017-07-18 10:12] LABS: PROTHROMBIN TIME PATIENT 13.3 SEC (12.2-14.7)
[2017-07-18 10:17] LABS: BUN/CREATININE RATIO 12; CALCIUM 9.4 MG/DL (8.5-10.1); CARBON DIOXIDE 20 MMOL/L (21-32); CHLORIDE 100 MMOL/L (98-107); CREATININE SERUM 0.74 MG/DL (0.60-1.30); GFR ESTIMATED > 60; GLUCOSE 186 MG/DL (70-105); POTASSIUM 4.4 MMOL/L (3.6-5.0); SODIUM 131 MMOL/L (135-145)
== END ==
LOC: LAB 09:30
DX: R07.9 Chest pain, unspecified (principal)
CPT/HCPCS: 36415; 80048; 85025; 85610

== ENCOUNTER → 2017-09-10 | Outpatient (CLI) | payer MEDICARE, OTHER ==
--- NOTE | 2017-09-10 12:59 | Diagnostic Imaging Report ---
PROCEDURE: CT thoracic spine without contrast. TECHNIQUE: Multiple axial computerized tomography images were obtained from the base of the thoracic spine to the vertex without intravenous contrast. INDICATION: Sclerotic metastasis. FINDINGS: The previous CTA chest exam of 12/02/15 noted a 2.1 x 2.0 x 3.8 cm sclerotic lesion involving the right lateral aspect and the right pedicle of T6. That sclerotic lesion is again identified and now measures 2.1 x 2.1 x 3.8 cm. This area also showed increased activity on the recent nuclear medicine bone scan of 08/21/16. The previous exam also noted a roughly 1 cm rounded sclerotic lesion along the inferior endplate of T12. That sclerotic focus cannot be identified with certainty on this exam. There is another sclerotic focus along the posterior aspect of the inferior endplate of T12 measuring 0.74 cm in maximum dimension. On the prior exam, this lesion measured 0.67 cm. No other sclerotic focus is identified to suggest metastatic disease. The long-standing compression fractures of T3 and T12 noted previously are again identified and stable. The degenerative disc and bony disease at T7-T8 and T8-T9 seen previously has not progressed significantly. No new area of spinal stenosis or nerve root encroachment has developed. The lungs, where visualized, are generally clear. There is no sign of a paraspinal mass. IMPRESSION: 1. The large sclerotic focus involving the right lateral aspect of T6 seen previously is again evident and not significantly changed in size. The sclerotic focus along the anterior inferior endplate of T12 noted previously has resolved but there is still a small sclerotic focus along the posterior inferior endplate of T12. This finding is minimally larger than on the prior exam. 2. The overall appearance of the lumbar spine is stable when compared to the prior study. 3. There are long-standing compression fractures of T3 and T12 but there is no acute bony abnormality noted. Dictated by: Dictated on workstation # [id number]
== END ==
LOC: RAD 11:35
PROVIDERS: ATTEND Internal Medicine Interventional Cardiology
DX: C79.51 Secondary malignant neoplasm of bone (principal); C80.1 Malignant (primary) neoplasm, unspecified; M48.54XA Collapsed vertebra, not elsewhere classified, thoracic region, initial encounter for fracture; I20.9 Angina pectoris, unspecified
CPT/HCPCS: 72128

== ENCOUNTER → 2017-10-02 | Outpatient (CLI) | payer MEDICARE, OTHER ==
[2017-10-02 08:08] LABS: BASOPHILS % (AUTO) 0 % (0-10); EOSINOPHILS # (AUTO) 0.3 10^3/uL (0.0-0.3); EOSINOPHILS % (AUTO) 5 % (0-10); HEMATOCRIT 33 % (40-54); HEMOGLOBIN 11.3 G/DL (13.3-17.7); LYMPHOCYTES # (AUTO) 1.1 X 10^3 (1.0-4.0); LYMPHOCYTES % (AUTO) 20 % (12-44); MEAN CORPUSCULAR HEMOGLOBIN 26 PG (25-34); MEAN CORPUSCULAR HGB CONC 34 G/DL (32-36); MEAN CORPUSCULAR VOLUME 78 FL (80-99); MEAN PLATELET VOLUME 8.5 FL (7.4-10.4); MONOCYTES # (AUTO) 0.7 X 10^3 (0.0-1.0); MONOCYTES % (AUTO) 12 % (0-12); NEUTROPHILS # (AUTO) 3.5 X 10^3 (1.8-7.8); NEUTROPHILS % (AUTO) 63 % (42-75); PLATELET COUNT 246 10^3/uL (130-400); RED BLOOD COUNT 4.28 10^6/uL (4.35-5.85); RED CELL DISTRIBUTION WIDTH 13.9 % (10.0-14.5); WHITE BLOOD COUNT 5.6 10^3/uL (4.3-11.0)
[2017-10-02 08:28] LABS: ALANINE AMINOTRANSFERASE 15 U/L (0-55); ALBUMIN 4.2 GM/DL (3.2-4.5); ALKALINE PHOSPHATASE 41 U/L (40-136); BILIRUBIN,TOTAL 0.9 MG/DL (0.1-1.0); BUN/CREATININE RATIO 13; CALCIUM 9.3 MG/DL (8.5-10.1); CARBON DIOXIDE 18 MMOL/L (21-32); CHLORIDE 103 MMOL/L (98-107); CHOLESTEROL 103 MG/DL (< 200); CREATININE SERUM 0.79 MG/DL (0.60-1.30); GFR ESTIMATED > 60; GLUCOSE 165 MG/DL (70-105); HDL CHOLESTEROL 23 MG/DL (40-60); POTASSIUM 3.9 MMOL/L (3.6-5.0); SODIUM 134 MMOL/L (135-145); TOTAL PROTEIN 6.9 GM/DL (6.4-8.2); TRIGLYCERIDES 173 MG/DL (<150); VLDL CHOLESTEROL 35 MG/DL (5-40)
[2017-10-02 08:33] LABS: DIGOXIN < 0.30 NG/ML (0.80-2.00)
== END ==
LOC: LAB 07:48
PROVIDERS: ATTEND Internal Medicine Cardiovascular Disease
DX: I25.118 Atherosclerotic heart disease of native coronary artery with other forms of angina pectoris (principal); I25.5 Ischemic cardiomyopathy; I65.29 Occlusion and stenosis of unspecified carotid artery; E11.9 Type 2 diabetes mellitus without complications; Z95.1 Presence of aortocoronary bypass graft; E66.8 Other obesity; G47.33 Obstructive sleep apnea (adult) (pediatric); Z95.810 Presence of automatic (implantable) cardiac defibrillator
CPT/HCPCS: 36415; 80053; 80061; 80162; 83735; 83880; 85025

== ENCOUNTER → 2017-11-14 | Outpatient (CLI) | payer MEDICARE, OTHER ==
[~2017-11-14] MED LIST changes: +IOHEXOL 350 MG/ML 100 ML (OMNIPAQUE 350) VIAL IV ONE; +NS 250 ML (IVPB) BAG IV ONE
[2017-11-14 07:56] LABS: BASOPHILS % (AUTO) 0 % (0-10); EOSINOPHILS # (AUTO) 0.2 10^3/uL (0.0-0.3); EOSINOPHILS % (AUTO) 4 % (0-10); HEMATOCRIT 31 % (40-54); HEMOGLOBIN 10.5 G/DL (13.3-17.7); LYMPHOCYTES % (AUTO) 19 % (12-44); MEAN CORPUSCULAR HEMOGLOBIN 25 PG (25-34); MEAN CORPUSCULAR HGB CONC 34 G/DL (32-36); MEAN CORPUSCULAR VOLUME 75 FL (80-99); MEAN PLATELET VOLUME 8.2 FL (7.4-10.4); MONOCYTES # (AUTO) 0.7 X 10^3 (0.0-1.0); MONOCYTES % (AUTO) 13 % (0-12); NEUTROPHILS # (AUTO) 3.3 X 10^3 (1.8-7.8); NEUTROPHILS % (AUTO) 64 % (42-75); PLATELET COUNT 269 10^3/uL (130-400); RED BLOOD COUNT 4.14 10^6/uL (4.35-5.85); RED CELL DISTRIBUTION WIDTH 15.7 % (10.0-14.5); WHITE BLOOD COUNT 5.2 10^3/uL (4.3-11.0)
[2017-11-14 08:07] LABS: ALANINE AMINOTRANSFERASE 11 U/L (0-55); ALBUMIN 4.3 GM/DL (3.2-4.5); ALKALINE PHOSPHATASE 43 U/L (40-136); BILIRUBIN,TOTAL 0.6 MG/DL (0.1-1.0); BUN/CREATININE RATIO 12; CALCIUM 9.1 MG/DL (8.5-10.1); CARBON DIOXIDE 18 MMOL/L (21-32); CHLORIDE 105 MMOL/L (98-107); CREATININE SERUM 0.73 MG/DL (0.60-1.30); GFR ESTIMATED > 60; GLUCOSE 194 MG/DL (70-105); POTASSIUM 3.7 MMOL/L (3.6-5.0); SODIUM 135 MMOL/L (135-145); TOTAL PROTEIN 6.5 GM/DL (6.4-8.2)
[2017-11-14 08:23] LABS: ERYTHROCYTE SEDIMENTATION RATE 13 MM/HR (0-30)
--- NOTE | 2017-11-14 09:21 | Diagnostic Imaging Report ---
PROCEDURE: CT abdomen and pelvis with contrast. TECHNIQUE: Multiple contiguous axial images were obtained through the abdomen and pelvis after administration of intravenous contrast. INDICATION: Abdominal tenderness. COMPARISON: Comparison is made with prior CT from 08/09/2016. FINDINGS: The lung bases are clear. There appears to be trace pleural fluid in the right base, similar to prior exam. The liver demonstrates generalized low density consistent with hepatic steatosis. No discrete liver mass is detected. The gallbladder is surgically absent. The pancreas and spleen are unremarkable. No adrenal mass is identified. The kidneys are unremarkable. Aorta is heavily calcified but not aneurysmal. The small and large bowel loops appear to be normal caliber. No ascites is identified. No abdominal or pelvic lymphadenopathy is identified. The bladder is unremarkable. Prostate gland contains adjacent clips. IMPRESSION: Stable CT of the abdomen and pelvis when compared with prior exam from 08/09/2016. Trace right pleural fluid and hepatic steatosis is again noted. No acute features detected. No abdominal or pelvic lymphadenopathy or evidence of metastatic disease is detected. Dictated by: Dictated on workstation # [id number]
== END ==
LOC: RAD 07:27
PROVIDERS: ATTEND Internal Medicine Gastroenterology
DX: K76.0 Fatty (change of) liver, not elsewhere classified (principal); R16.2 Hepatomegaly with splenomegaly, not elsewhere classified; R79.9 Abnormal finding of blood chemistry, unspecified; R19.07 Generalized intra-abdominal and pelvic swelling, mass and lump
CPT/HCPCS: 36415; 74177; 80053; 82728; 83540; 85025; 85652; 86141

== ENCOUNTER → 2017-12-06 | Outpatient (CLI) | payer MEDICARE, OTHER ==
[~2017-12-06] MED LIST changes: -IOHEXOL 350 MG/ML 100 ML (OMNIPAQUE 350) VIAL IV ONE; -NS 250 ML (IVPB) BAG IV ONE
== END ==
LOC: LAB 08:38
PROVIDERS: ATTEND Internal Medicine Gastroenterology
DX: R19.7 Diarrhea, unspecified (principal)
CPT/HCPCS: 36415; 83880; 85652; 86141; 86200; 86235; 86430

== ENCOUNTER 2017-12-25 08:12 | Outpatient (RCR) | payer MEDICARE, OTHER ==
[~2017-12-25 08:12] MED LIST changes: +BENA40TA5 PO; -BNZ40T PO
== END 2018-03-25 | disposition home or self-care (01) ==
LOC: LAB 08:12
PROVIDERS: ATTEND Internal Medicine Gastroenterology
DX: R79.9 Abnormal finding of blood chemistry, unspecified (principal); R11.0 Nausea; R19.8 Other specified symptoms and signs involving the digestive system and abdomen; I10 Essential (primary) hypertension; K22.70 Barrett's esophagus without dysplasia
CPT/HCPCS: 36415; 82530; 82570; 84156; 84166

== ENCOUNTER 2018-02-21 08:44 | Outpatient (RCR) | payer MEDICARE, OTHER ==
[2018-01-10 09:50] LABS: BASOPHILS % (AUTO) 0 % (0-10); EOSINOPHILS # (AUTO) 0.3 10^3/uL (0.0-0.3); EOSINOPHILS % (AUTO) 5 % (0-10); HEMATOCRIT 33 % (40-54); HEMOGLOBIN 11.5 G/DL (13.3-17.7); LYMPHOCYTES # (AUTO) 1.3 X 10^3 (1.0-4.0); LYMPHOCYTES % (AUTO) 21 % (12-44); MEAN CORPUSCULAR HEMOGLOBIN 26 PG (25-34); MEAN CORPUSCULAR HGB CONC 35 G/DL (32-36); MEAN CORPUSCULAR VOLUME 76 FL (80-99); MEAN PLATELET VOLUME 8.8 FL (7.4-10.4); MONOCYTES # (AUTO) 0.6 X 10^3 (0.0-1.0); MONOCYTES % (AUTO) 10 % (0-12); NEUTROPHILS # (AUTO) 4.2 X 10^3 (1.8-7.8); NEUTROPHILS % (AUTO) 65 % (42-75); PLATELET COUNT 239 10^3/uL (130-400); RED BLOOD COUNT 4.37 10^6/uL (4.35-5.85); RED CELL DISTRIBUTION WIDTH 16.2 % (10.0-14.5); WHITE BLOOD COUNT 6.4 10^3/uL (4.3-11.0)
[2018-01-10 10:09] LABS: ALANINE AMINOTRANSFERASE 16 U/L (0-55); ALBUMIN 4.1 GM/DL (3.2-4.5); ALKALINE PHOSPHATASE 44 U/L (40-136); BILIRUBIN,TOTAL 0.6 MG/DL (0.1-1.0); BUN/CREATININE RATIO 14; CALCIUM 9.2 MG/DL (8.5-10.1); CARBON DIOXIDE 16 MMOL/L (21-32); CHLORIDE 109 MMOL/L (98-107); CREATININE SERUM 0.87 MG/DL (0.60-1.30); GFR ESTIMATED > 60; GLUCOSE 246 MG/DL (70-105); POTASSIUM 4.1 MMOL/L (3.6-5.0); SODIUM 137 MMOL/L (135-145); TOTAL PROTEIN 7.2 GM/DL (6.4-8.2)
== END 2018-04-10 | disposition home or self-care (01) ==
LOC: ONC 08:44
PROVIDERS: ATTEND Internal Medicine Hematology & Oncology
DX: C73 Malignant neoplasm of thyroid gland (principal); C61 Malignant neoplasm of prostate; I25.10 Atherosclerotic heart disease of native coronary artery without angina pectoris; I10 Essential (primary) hypertension; E11.9 Type 2 diabetes mellitus without complications; E78.5 Hyperlipidemia, unspecified; Z95.1 Presence of aortocoronary bypass graft; Z79.899 Other long term (current) drug therapy
CPT/HCPCS: 36415; 80053; 84153; 84432; 84436; 84443; 85025; 86800; 99213

== ENCOUNTER 2018-03-27 10:26 | Outpatient (RCR) | payer MEDICARE, OTHER | END 2018-03-28 | disposition home or self-care (01) | LOC: CR 10:26 | PROVIDERS: ATTEND Internal Medicine Cardiovascular Disease | DX: Z48.812 Encounter for surgical aftercare following surgery on the circulatory system (principal); Z95.5 Presence of coronary angioplasty implant and graft | CPT/HCPCS: 93798 ==

== ENCOUNTER 2018-03-29 10:00 | Outpatient (RCR) | payer MEDICARE, OTHER | END 2018-03-31 | disposition home or self-care (01) | LOC: CR 10:00 | PROVIDERS: ATTEND Internal Medicine Cardiovascular Disease | DX: Z48.812 Encounter for surgical aftercare following surgery on the circulatory system (principal); Z95.5 Presence of coronary angioplasty implant and graft | CPT/HCPCS: 93798 ==

== ENCOUNTER 2018-04-26 08:41 | Outpatient (RCR) | payer MEDICARE, OTHER | END 2018-05-01 | disposition home or self-care (01) | LOC: CR3 08:41 | PROVIDERS: ATTEND Internal Medicine Cardiovascular Disease | DX: Z29.8 Encounter for other specified prophylactic measures (principal); Z48.812 Encounter for surgical aftercare following surgery on the circulatory system; Z95.5 Presence of coronary angioplasty implant and graft ==

== ENCOUNTER 2018-07-11 10:39 | Outpatient (RCR) | payer MEDICARE, OTHER ==
[2018-07-03 10:01] LABS: BASOPHILS % (AUTO) 0 % (0-10); EOSINOPHILS # (AUTO) 0.4 10^3/uL (0.0-0.3); EOSINOPHILS % (AUTO) 7 % (0-10); HEMATOCRIT 37 % (40-54); HEMOGLOBIN 13.7 G/DL (13.3-17.7); LYMPHOCYTES # (AUTO) 1.2 X 10^3 (1.0-4.0); LYMPHOCYTES % (AUTO) 23 % (12-44); MEAN CORPUSCULAR HEMOGLOBIN 31 PG (25-34); MEAN CORPUSCULAR HGB CONC 37 G/DL (32-36); MEAN CORPUSCULAR VOLUME 85 FL (80-99); MONOCYTES # (AUTO) 0.6 X 10^3 (0.0-1.0); MONOCYTES % (AUTO) 12 % (0-12); NEUTROPHILS % (AUTO) 58 % (42-75); PLATELET COUNT 209 10^3/uL (130-400); RED CELL DISTRIBUTION WIDTH 14.2 % (10.0-14.5); WHITE BLOOD COUNT 5.2 10^3/uL (4.3-11.0)
[2018-07-03 10:19] LABS: ALANINE AMINOTRANSFERASE 21 U/L (0-55); ALBUMIN 4.3 GM/DL (3.2-4.5); ALKALINE PHOSPHATASE 70 U/L (40-136); BILIRUBIN,TOTAL 0.6 MG/DL (0.1-1.0); BUN/CREATININE RATIO 14; CALCIUM 9.2 MG/DL (8.5-10.1); CARBON DIOXIDE 18 MMOL/L (21-32); CHLORIDE 104 MMOL/L (98-107); CREATININE SERUM 0.73 MG/DL (0.60-1.30); GFR ESTIMATED > 60; GLUCOSE 171 MG/DL (70-105); SODIUM 137 MMOL/L (135-145); TOTAL PROTEIN 7.6 GM/DL (6.4-8.2)
[2018-07-03 10:41] LABS: FREE T4 (FREE THYROXINE) 1.17 NG/DL (0.70-1.48)
== END 2018-10-01 | disposition home or self-care (01) ==
LOC: ONC 10:39
PROVIDERS: ATTEND Internal Medicine Hematology & Oncology
DX: C73 Malignant neoplasm of thyroid gland (principal); C61 Malignant neoplasm of prostate; I25.10 Atherosclerotic heart disease of native coronary artery without angina pectoris; I10 Essential (primary) hypertension; E11.9 Type 2 diabetes mellitus without complications; E78.5 Hyperlipidemia, unspecified; Z95.1 Presence of aortocoronary bypass graft; Z79.899 Other long term (current) drug therapy
CPT/HCPCS: 80053; 84153; 84432; 84436; 84439; 84443; 85025; 86800; 99213

== ENCOUNTER 2019-01-09 10:17 | Outpatient (RCR) | payer MEDICARE, OTHER ==
[2019-01-01 09:44] LABS: BASOPHILS % (AUTO) 0 % (0-10); EOSINOPHILS # (AUTO) 0.2 10^3/uL (0.0-0.3); EOSINOPHILS % (AUTO) 5 % (0-10); HEMATOCRIT 37 % (40-54); HEMOGLOBIN 13.3 G/DL (13.3-17.7); LYMPHOCYTES # (AUTO) 1.1 X 10^3 (1.0-4.0); LYMPHOCYTES % (AUTO) 21 % (12-44); MEAN CORPUSCULAR HEMOGLOBIN 32 PG (25-34); MEAN CORPUSCULAR HGB CONC 36 G/DL (32-36); MEAN CORPUSCULAR VOLUME 89 FL (80-99); MONOCYTES # (AUTO) 0.5 X 10^3 (0.0-1.0); MONOCYTES % (AUTO) 10 % (0-12); NEUTROPHILS # (AUTO) 3.5 X 10^3 (1.8-7.8); NEUTROPHILS % (AUTO) 65 % (42-75); PLATELET COUNT 190 10^3/uL (130-400); WHITE BLOOD COUNT 5.3 10^3/uL (4.3-11.0)
[2019-01-01 10:02] LABS: ALANINE AMINOTRANSFERASE 22 U/L (0-55); ALBUMIN 4.2 GM/DL (3.2-4.5); ALKALINE PHOSPHATASE 66 U/L (40-136); BILIRUBIN,TOTAL 0.6 MG/DL (0.1-1.0); BUN/CREATININE RATIO 13; CALCIUM 9.3 MG/DL (8.5-10.1); CARBON DIOXIDE 21 MMOL/L (21-32); CHLORIDE 103 MMOL/L (98-107); CREATININE SERUM 0.84 MG/DL (0.60-1.30); GFR ESTIMATED > 60; GLUCOSE 249 MG/DL (70-105); POTASSIUM 3.9 MMOL/L (3.6-5.0); SODIUM 137 MMOL/L (135-145); TOTAL PROTEIN 7.1 GM/DL (6.4-8.2)
== END 2019-04-01 | disposition home or self-care (01) ==
LOC: ONC 10:17
PROVIDERS: ATTEND Internal Medicine Hematology & Oncology
DX: C73 Malignant neoplasm of thyroid gland (principal); C61 Malignant neoplasm of prostate; I25.10 Atherosclerotic heart disease of native coronary artery without angina pectoris; I10 Essential (primary) hypertension; E11.9 Type 2 diabetes mellitus without complications; E78.5 Hyperlipidemia, unspecified; Z95.1 Presence of aortocoronary bypass graft; Z79.899 Other long term (current) drug therapy
CPT/HCPCS: 36415; 80053; 84153; 84432; 84436; 84443; 85025; 86800; 99213

== ENCOUNTER → 2019-03-25 | Outpatient (CLI) | payer MEDICARE, OTHER ==
[2019-03-25 09:19] LABS: ALANINE AMINOTRANSFERASE 11 U/L (0-55); ALBUMIN 4.4 GM/DL (3.2-4.5); ALKALINE PHOSPHATASE 58 U/L (40-136); BILIRUBIN,TOTAL 0.6 MG/DL (0.1-1.0); BUN/CREATININE RATIO 12; CALCIUM 9.3 MG/DL (8.5-10.1); CARBON DIOXIDE 19 MMOL/L (21-32); CHLORIDE 107 MMOL/L (98-107); CREATININE SERUM 0.81 MG/DL (0.60-1.30); GFR ESTIMATED > 60; GLUCOSE 245 MG/DL (70-105); MAGNESIUM 1.9 MG/DL (1.6-2.4); POTASSIUM 3.7 MMOL/L (3.6-5.0); SODIUM 136 MMOL/L (135-145); TOTAL PROTEIN 7.4 GM/DL (6.4-8.2)
== END ==
LOC: LAB 08:49
PROVIDERS: ATTEND Internal Medicine Cardiovascular Disease
DX: I25.10 Atherosclerotic heart disease of native coronary artery without angina pectoris (principal); I50.22 Chronic systolic (congestive) heart failure; E11.9 Type 2 diabetes mellitus without complications; E78.5 Hyperlipidemia, unspecified; Z95.810 Presence of automatic (implantable) cardiac defibrillator
CPT/HCPCS: 36415; 80053; 83735

== ENCOUNTER → 2019-05-14 | Outpatient (CLI) | payer MEDICARE, OTHER ==
[2019-05-14 15:14] LABS: HEMOGLOBIN 14.5 G/DL (13.3-17.7); MEAN PLATELET VOLUME 9.2 FL (7.4-10.4); RED CELL DISTRIBUTION WIDTH 13.7 % (10.0-14.5); WHITE BLOOD COUNT 7.6 10^3/uL (4.3-11.0)
[2019-05-14 15:35] LABS: ALANINE AMINOTRANSFERASE 16 U/L (0-55); ALBUMIN 4.7 GM/DL (3.2-4.5); ALKALINE PHOSPHATASE 48 U/L (40-136); BILIRUBIN,TOTAL 0.9 MG/DL (0.1-1.0); BUN/CREATININE RATIO 9; CALCIUM 9.4 MG/DL (8.5-10.1); CARBON DIOXIDE 20 MMOL/L (21-32); CHLORIDE 108 MMOL/L (98-107); CREATININE SERUM 0.76 MG/DL (0.60-1.30); GFR ESTIMATED > 60; GLUCOSE 91 MG/DL (70-105); POTASSIUM 3.7 MMOL/L (3.6-5.0); SODIUM 139 MMOL/L (135-145); TOTAL PROTEIN 7.8 GM/DL (6.4-8.2)
== END ==
LOC: LAB 14:59
PROVIDERS: ATTEND Nurse Practitioner Community Health
DX: C61 Malignant neoplasm of prostate (principal)
CPT/HCPCS: 36415; 80053; 85027

== ENCOUNTER → 2019-07-07 | Outpatient (CLI) | payer MEDICARE, OTHER ==
[2019-07-07 09:49] LABS: BUN/CREATININE RATIO 11; CALCIUM 9.3 MG/DL (8.5-10.1); CARBON DIOXIDE 18 MMOL/L (21-32); CHLORIDE 104 MMOL/L (98-107); CREATININE SERUM 0.74 MG/DL (0.60-1.30); GFR ESTIMATED > 60; GLUCOSE 190 MG/DL (70-105); POTASSIUM 3.8 MMOL/L (3.6-5.0); SODIUM 136 MMOL/L (135-145)
== END ==
LOC: LAB 08:48
PROVIDERS: ATTEND Internal Medicine Interventional Cardiology
DX: R07.9 Chest pain, unspecified (principal)
CPT/HCPCS: 36415; 80048

== ENCOUNTER 2019-07-10 09:31 | Outpatient (RCR) | payer MEDICARE, OTHER ==
[~2019-07-10 09:31] MED LIST changes: -MAGN400T6 PO; +MAGN400T8 PO; -MEGE20TA PO; +MEGE20TA3 PO; -TAMS0.4C98 PO; +TMSL.4C PO
[2019-07-10 09:47] LABS: BASOPHILS % (AUTO) 0 % (0-10); EOSINOPHILS # (AUTO) 0.3 10^3/uL (0.0-0.3); EOSINOPHILS % (AUTO) 4 % (0-10); HEMATOCRIT 39 % (40-54); HEMOGLOBIN 14.1 G/DL (13.3-17.7); LYMPHOCYTES # (AUTO) 1.3 X 10^3 (1.0-4.0); LYMPHOCYTES % (AUTO) 18 % (12-44); MEAN CORPUSCULAR HEMOGLOBIN 32 PG (25-34); MEAN CORPUSCULAR HGB CONC 36 G/DL (32-36); MEAN CORPUSCULAR VOLUME 88 FL (80-99); MEAN PLATELET VOLUME 8.6 FL (7.4-10.4); MONOCYTES # (AUTO) 0.8 X 10^3 (0.0-1.0); MONOCYTES % (AUTO) 11 % (0-12); NEUTROPHILS % (AUTO) 67 % (42-75); PLATELET COUNT 203 10^3/uL (130-400); RED CELL DISTRIBUTION WIDTH 12.4 % (10.0-14.5); WHITE BLOOD COUNT 7.4 10^3/uL (4.3-11.0)
[2019-07-10 10:08] LABS: ALANINE AMINOTRANSFERASE 18 U/L (0-55); ALBUMIN 4.3 GM/DL (3.2-4.5); ALKALINE PHOSPHATASE 45 U/L (40-136); BILIRUBIN,TOTAL 0.7 MG/DL (0.1-1.0); BUN/CREATININE RATIO 9; CALCIUM 9.2 MG/DL (8.5-10.1); CARBON DIOXIDE 19 MMOL/L (21-32); CHLORIDE 104 MMOL/L (98-107); CREATININE SERUM 0.74 MG/DL (0.60-1.30); GFR ESTIMATED > 60; GLUCOSE 179 MG/DL (70-105); POTASSIUM 4.2 MMOL/L (3.6-5.0); SODIUM 135 MMOL/L (135-145); TOTAL PROTEIN 7.1 GM/DL (6.4-8.2)
[2019-07-31] MEDS ORDERED: FURO20TA4 PO (11:47)
[2019-07-31] MEDS ORDERED: LOVA40TA2 PO (11:47)
[2019-07-31] MEDS ORDERED: DIGO125T3 PO (11:47)
[2019-07-31] MEDS ORDERED: TERA2CAP4 PO (11:47)
[2019-07-31] MEDS ORDERED: AMLO10TA7 PO (11:47)
[2019-07-31] MEDS ORDERED: OMEP40CA27 PO (11:48)
[2019-07-31] MEDS ORDERED: CALC600T12 PO (11:48)
[2019-07-31] MEDS ORDERED: BUDE0.5A IH (11:48)
[2019-07-31] MEDS ORDERED: ARFO15VI3 IH (11:48)
[2019-07-31] MEDS ORDERED: METF-397 PO (11:48)
[2019-07-31] MEDS ORDERED: CRAN450C PO (11:48)
[2019-07-31] MEDS ORDERED: CLOP75TA69 PO (11:48)
[2019-07-31] MEDS ORDERED: ISM60TCR PO (11:48)
[2019-07-31] MEDS ORDERED: ACET-93 PO (11:48)
[2019-07-31] MEDS ORDERED: ASPI-983 PO (11:48)
[2019-07-31] MEDS ORDERED: PEDI300T11 PO (11:48)
[2019-08-06] MEDS ORDERED: ACHD5005 PO (09:56)
== END 2019-10-08 | disposition home or self-care (01) ==
LOC: ONC 09:31
PROVIDERS: ATTEND Internal Medicine Hematology & Oncology
DX: C73 Malignant neoplasm of thyroid gland (principal); C61 Malignant neoplasm of prostate; I25.10 Atherosclerotic heart disease of native coronary artery without angina pectoris; I10 Essential (primary) hypertension; E11.9 Type 2 diabetes mellitus without complications; E78.5 Hyperlipidemia, unspecified; I25.5 Ischemic cardiomyopathy; K43.9 Ventral hernia without obstruction or gangrene; Z95.1 Presence of aortocoronary bypass graft; Z79.899 Other long term (current) drug therapy; Z95.810 Presence of automatic (implantable) cardiac defibrillator; Z90.89 Acquired absence of other organs
CPT/HCPCS: 80053; 84153; 84432; 84436; 84443; 85025; 86800; 99213

== ENCOUNTER 2019-07-30 12:51 | Outpatient (CLI) | payer MEDICARE, OTHER ==
[~2019-07-30] VITALS: Ht 172.7 cm; Wt 94.2 kg
[~2019-07-30 12:51] MED LIST changes: +MEGE20TA PO; -MEGE20TA3 PO
[2019-07-30 12:57] VITALS: BP 152/72
[2019-07-31] MEDS ORDERED: DIGO125T3 PO (11:47)
[2019-07-31] MEDS ORDERED: TERA2CAP4 PO (11:47)
[2019-07-31] MEDS ORDERED: LOVA40TA2 PO (11:47)
[2019-07-31] MEDS ORDERED: FURO20TA4 PO (11:47)
[2019-07-31] MEDS ORDERED: AMLO10TA7 PO (11:47)
[2019-07-31] MEDS ORDERED: METF-397 PO (11:48)
[2019-07-31] MEDS ORDERED: BUDE0.5A IH (11:48)
[2019-07-31] MEDS ORDERED: ACET-93 PO (11:48)
[2019-07-31] MEDS ORDERED: CLOP75TA69 PO (11:48)
[2019-07-31] MEDS ORDERED: CRAN450C PO (11:48)
[2019-07-31] MEDS ORDERED: ASPI-983 PO (11:48)
[2019-07-31] MEDS ORDERED: PEDI300T11 PO (11:48)
[2019-07-31] MEDS ORDERED: OMEP40CA27 PO (11:48)
[2019-07-31] MEDS ORDERED: ISM60TCR PO (11:48)
[2019-07-31] MEDS ORDERED: CALC600T12 PO (11:48)
[2019-07-31] MEDS ORDERED: ARFO15VI3 IH (11:48)
== END 2019-07-30 13:30 | disposition home or self-care (01) ==
LOC: PREOP 12:51
PROVIDERS: ATTEND Surgery
DX: Z01.818 Encounter for other preprocedural examination (principal)
CPT/HCPCS: 87081

== ENCOUNTER 2020-01-08 09:39 | Outpatient (RCR) | payer MEDICARE, OTHER ==
[2020-01-01 10:00] LABS: BASOPHILS % (AUTO) 0 % (0-10); EOSINOPHILS # (AUTO) 0.3 10^3/uL (0.0-0.3); EOSINOPHILS % (AUTO) 5 % (0-10); HEMATOCRIT 36 % (40-54); HEMOGLOBIN 13.6 G/DL (13.3-17.7); LYMPHOCYTES # (AUTO) 1.4 X 10^3 (1.0-4.0); LYMPHOCYTES % (AUTO) 20 % (12-44); MEAN CORPUSCULAR HEMOGLOBIN 34 PG (25-34); MEAN CORPUSCULAR HGB CONC 38 G/DL (32-36); MEAN CORPUSCULAR VOLUME 89 FL (80-99); MEAN PLATELET VOLUME 8.9 FL (7.4-10.4); MONOCYTES # (AUTO) 0.7 X 10^3 (0.0-1.0); MONOCYTES % (AUTO) 10 % (0-12); NEUTROPHILS # (AUTO) 4.4 X 10^3 (1.8-7.8); NEUTROPHILS % (AUTO) 65 % (42-75); PLATELET COUNT 190 10^3/uL (130-400); WHITE BLOOD COUNT 6.8 10^3/uL (4.3-11.0)
[2020-01-01 10:23] LABS: ALANINE AMINOTRANSFERASE 14 U/L (0-55); ALBUMIN 4.3 GM/DL (3.2-4.5); ALKALINE PHOSPHATASE 38 U/L (40-136); BILIRUBIN,TOTAL 0.9 MG/DL (0.1-1.0); BUN/CREATININE RATIO 10; CALCIUM 8.9 MG/DL (8.5-10.1); CARBON DIOXIDE 19 MMOL/L (21-32); CHLORIDE 106 MMOL/L (98-107); CREATININE SERUM 0.71 MG/DL (0.60-1.30); GFR ESTIMATED > 60; GLUCOSE 142 MG/DL (70-105); POTASSIUM 3.4 MMOL/L (3.6-5.0); SODIUM 136 MMOL/L (135-145)
[2020-01-01 10:44] LABS: FREE T4 (FREE THYROXINE) 1.24 NG/DL (0.70-1.48)
[~2020-01-08 09:39] MED LIST changes: +ACET-93 PO; +AMLO10TA7 PO; +ARFO15VI3 IH; +ASPI-1238 PO; +BUDE0.5A IH; +CLC600T PO; +CLOP75TA69 PO; +CRAN450C PO; +DIGO125T3 PO; +ISM60TCR PO; +LOVA40TA2 PO; -MEGE20TA PO; +MEGE20TA3 PO; +METF-397 PO; +OMEP40CA27 PO; +PEDI300T11 PO; +TERA2CAP4 PO
== END 2020-03-19 11:10 | disposition home or self-care (01) ==
LOC: ONC 09:39
PROVIDERS: ATTEND Internal Medicine Hematology & Oncology
DX: C73 Malignant neoplasm of thyroid gland (principal); C61 Malignant neoplasm of prostate; I25.10 Atherosclerotic heart disease of native coronary artery without angina pectoris; I10 Essential (primary) hypertension; E11.9 Type 2 diabetes mellitus without complications; E78.5 Hyperlipidemia, unspecified; I25.5 Ischemic cardiomyopathy; K43.9 Ventral hernia without obstruction or gangrene; Z95.1 Presence of aortocoronary bypass graft; Z79.899 Other long term (current) drug therapy; Z95.810 Presence of automatic (implantable) cardiac defibrillator; Z90.89 Acquired absence of other organs
CPT/HCPCS: 80053; 84153; 84432; 84439; 84443; 85025; 86800; 99213

== ENCOUNTER 2020-08-10 10:07 | Outpatient (RCR) | payer MEDICARE, OTHER ==
[2020-08-03 09:24] LABS: BASOPHILS % (AUTO) 0 % (0-10); EOSINOPHILS # (AUTO) 0.3 10^3/uL (0.0-0.3); EOSINOPHILS % (AUTO) 5 % (0-10); HEMATOCRIT 38 % (40-54); HEMOGLOBIN 13.5 g/dL (13.3-17.7); LYMPHOCYTES # (AUTO) 1.7 10^3/uL (1.0-4.0); LYMPHOCYTES % (AUTO) 23 % (12-44); MEAN CORPUSCULAR HEMOGLOBIN 33 pg (25-34); MEAN CORPUSCULAR HGB CONC 36 g/dL (32-36); MEAN CORPUSCULAR VOLUME 91 fL (80-99); MEAN PLATELET VOLUME 9.2 fL (9.0-12.2); MONOCYTES # (AUTO) 0.8 10^3/uL (0.0-1.0); MONOCYTES % (AUTO) 10 % (0-12); NEUTROPHILS # (AUTO) 4.5 10^3/uL (1.8-7.8); NEUTROPHILS % (AUTO) 62 % (42-75); PLATELET COUNT 191 10^3/uL (130-400); WHITE BLOOD COUNT 7.3 10^3/uL (4.3-11.0)
[2020-08-03 09:49] LABS: ALANINE AMINOTRANSFERASE 13 U/L (0-55); ALBUMIN 4.2 GM/DL (3.2-4.5); ALKALINE PHOSPHATASE 47 U/L (40-136); BILIRUBIN,TOTAL 0.7 MG/DL (0.1-1.0); BUN/CREATININE RATIO 11; CALCIUM 8.9 MG/DL (8.5-10.1); CARBON DIOXIDE 19 MMOL/L (21-32); CHLORIDE 103 MMOL/L (98-107); GFR ESTIMATED > 60; GLUCOSE 199 MG/DL (70-105); POTASSIUM 3.9 MMOL/L (3.6-5.0); SODIUM 135 MMOL/L (135-145); TOTAL PROTEIN 7.3 GM/DL (6.4-8.2)
[2020-08-03 10:13] LABS: FREE T4 (FREE THYROXINE) 1.22 NG/DL (0.70-1.48)
[~2020-08-10 10:07] MED LIST changes: +AMLO-251 PO; -AMLO10TA7 PO; +CALC600T91 PO; -CLC600T PO; -ISM60TCR PO; -ISOS30TA3 PO; +ISOS30TA82 PO; +ISOS60TA63 PO
[2020-10-18] MEDS ORDERED: ONDA4TAB11 PO (16:06)
[2020-10-20] MEDS ORDERED: GLIP10TA13 PO ×2 (10:05)
[2020-10-20] MEDS ORDERED: OMG1KC PO ×2 (10:05)
[2020-10-20] MEDS ORDERED: ONDA4TAB11 PO ×2 (10:05)
[2020-10-20] MEDS ORDERED: CLOP75TA28 PO ×2 (10:05)
[2020-10-20] MEDS ORDERED: ISOS120T9 PO ×2 (10:05)
[2020-10-20] MEDS ORDERED: CRAN500C8 PO ×2 (10:05)
[2020-10-27] MEDS ORDERED: CHOL4PAC3 PO (09:14)
[2020-10-27] MEDS ORDERED: LEVO500T80 PO (09:14)
[2020-11-08] MEDS ORDERED: ACHD5005 PO ×2 (09:36)
[2020-11-08] MEDS ORDERED: GLIP5TAB13 PO ×2 (09:36)
[2020-11-08] MEDS ORDERED: LISI20TA26 PO ×2 (09:36)
[2020-11-08] MEDS ORDERED: FURO20TA4 PO ×2 (09:36)
[2020-11-08] MEDS ORDERED: CARV12.53 PO ×2 (09:36)
== END 2020-11-01 | disposition home or self-care (01) ==
LOC: ONC 10:07
PROVIDERS: ATTEND Internal Medicine Hematology & Oncology
DX: C73 Malignant neoplasm of thyroid gland (principal); C61 Malignant neoplasm of prostate; E11.9 Type 2 diabetes mellitus without complications; K21.9 Gastro-esophageal reflux disease without esophagitis; I50.22 Chronic systolic (congestive) heart failure; I25.10 Atherosclerotic heart disease of native coronary artery without angina pectoris; Z95.1 Presence of aortocoronary bypass graft
CPT/HCPCS: 80053; 84153; 84432; 84439; 84443; 85025; 86800; 99213

== ENCOUNTER 2020-10-18 11:35 | Emergency (ER) | payer MEDICARE, OTHER ==
[~2020-10-18] VITALS: Ht 170.1 cm; Wt 94.0 kg
[~2020-10-18 11:35] MED LIST changes: -CALC600T91 PO; +CLC600T PO
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
[2020-10-18] MEDS ORDERED: ONDANSETRON 4 MG/2 ML (SDV) Z0FRAN IVP ONE (12:15)
[2020-10-18] MEDS ORDERED: fentaNYL INJ 100 MCG/2 ML AMP IVP ONE (12:15)
[2020-10-18] MEDS ORDERED: NS IV 1000 ML 1,000 ML IV SCH (12:15)
[2020-10-18 12:17] LABS: BASOPHILS % (AUTO) 0 % (0-10); EOSINOPHILS % (AUTO) 0 % (0-10); HEMATOCRIT 42 % (40-54); HEMOGLOBIN 14.8 g/dL (13.3-17.7); LYMPHOCYTES # (AUTO) 0.8 10^3/uL (1.0-4.0); LYMPHOCYTES % (AUTO) 11 % (12-44); MEAN CORPUSCULAR HEMOGLOBIN 32 pg (25-34); MEAN CORPUSCULAR HGB CONC 35 g/dL (32-36); MEAN CORPUSCULAR VOLUME 92 fL (80-99); MEAN PLATELET VOLUME 9.5 fL (9.0-12.2); MONOCYTES # (AUTO) 1.1 10^3/uL (0.0-1.0); MONOCYTES % (AUTO) 15 % (0-12); NEUTROPHILS # (AUTO) 5.2 10^3/uL (1.8-7.8); NEUTROPHILS % (AUTO) 73 % (42-75); PLATELET COUNT 191 10^3/uL (130-400); WHITE BLOOD COUNT 7.1 10^3/uL (4.3-11.0)
[2020-10-18 12:18] LABS: ALBUMIN 4.4 GM/DL (3.2-4.5); POTASSIUM 3.2 MMOL/L (3.6-5.0)
[2020-10-18 12:19] LABS: CALCIUM 9.4 MG/DL (8.5-10.1)
[2020-10-18 12:21] LABS: TOTAL PROTEIN 7.9 GM/DL (6.4-8.2)
[2020-10-18 12:22] LABS: BILIRUBIN,TOTAL 1.1 MG/DL (0.1-1.0)
[2020-10-18 12:24] LABS: CREATININE SERUM 1.2 MG/DL (0.60-1.30)
[2020-10-18] MEDS ORDERED: CATHETER FLUSH 10 ML SYR IV PRN (13:15)
[2020-10-18] MEDS ORDERED: HOLD METFORMIN - RECEIVED CONTRAST 20 ML VIAL IV SCH (13:15)
[2020-10-18] MEDS ORDERED: NS 100 ML (IVPB) BAG IV ONE (13:15)
[2020-10-18] MEDS ORDERED: IOHEXOL 350 MG/ML 100 ML (OMNIPAQUE 350) VIAL IV ONE (13:15)
--- NOTE | 2020-10-18 13:48 | Diagnostic Imaging Report ---
INDICATION: Left ankle pain. EXAMINATION: AP, oblique, and lateral views of the left ankle are obtained. FINDINGS: No fracture or acute bony abnormality is seen. Joint spaces are unremarkable. IMPRESSION: Negative left ankle. Dictated by: Dictated on workstation # [id number]
--- NOTE | 2020-10-18 14:27 | Diagnostic Imaging Report ---
PROCEDURE: CT abdomen and pelvis with contrast. TECHNIQUE: Multiple contiguous axial images were obtained through the abdomen and pelvis after administration of intravenous contrast. Auto Exposure Controls were utilized during the CT exam to meet ALARA standards for radiation dose reduction. All CT scans use one or more of the following dose optimizing techniques: automated exposure control, MA and/or KvP adjustment based on patient size and exam type or iterative reconstruction. INDICATION: Nausea and vomiting and abdominal pain. COMPARISON: Correlation is made with prior CT from 11/14/2017. FINDINGS: Lung bases demonstrate trace bilateral effusions. Subsegmental atelectasis or scarring in both lung bases is noted. Liver again demonstrates diffuse low density, consistent with hepatic steatosis. No discrete liver mass is detected. Gallbladder is surgically absent. No biliary ductal dilatation is seen. The pancreas is unremarkable. The spleen contains a mass in the inferior aspect measuring 4.8 cm in size. This appears to be increased in size when compared with prior imaging. No adrenal mass is identified. The kidneys are unremarkable. Aorta and iliac vessels are heavily calcified but nonaneurysmal. No central retroperitoneal or mesenteric lymphadenopathy is identified. The small and large bowel loops are normal in caliber. No obstruction is identified. There is no free fluid or fluid collection. No pneumoperitoneum is identified. No iliac or inguinal lymphadenopathy is identified. The bladder is unopacified but otherwise unremarkable. Prostate is normal in size. The bony structures are nonacute. IMPRESSION: 1. Trace bilateral pleural effusions with bibasilar atelectasis or scarring. 2. Hepatic steatosis. 3. Increase in size of splenic mass when compared with prior exam. 4. No evidence of abdominal or pelvic lymphadenopathy. 5. No acute feature in the abdomen or pelvis is identified. Dictated by: Dictated on workstation # [id number]
--- NOTE | 2020-10-18 15:21 | Diagnostic Imaging Report ---
PROCEDURE: US left lower extremity venous. TECHNIQUE: Multiple Real-time grayscale images were obtained over the left lower extremity in various projections. Additional duplex Doppler and color Doppler images were also obtained. INDICATION: Swelling and pain. FINDINGS: The left lower extremity femoropopliteal deep venous system reveals normal color flow, normal compressibility, and normal waveforms. No deep or superficial thrombus is identified and there was no mass or fluid collection noted. IMPRESSION: Normal negative unilateral left lower extremity venous Doppler and ultrasound. Dictated by: Dictated on workstation # [id number]
[2020-10-18] MEDS ORDERED: ONDA4TAB11 PO (16:06)
[2020-10-18 16:13] VITALS: BP 126/62
== END 2020-10-18 16:28 | disposition home or self-care (01) ==
LOC: EDUNIT# 11:35 → ER 11:37
DX: R11.2 Nausea with vomiting, unspecified (principal); R16.1 Splenomegaly, not elsewhere classified; J44.9 Chronic obstructive pulmonary disease, unspecified; I25.2 Old myocardial infarction; I11.0 Hypertensive heart disease with heart failure; I50.9 Heart failure, unspecified; I25.10 Atherosclerotic heart disease of native coronary artery without angina pectoris; E78.00 Pure hypercholesterolemia, unspecified; E11.9 Type 2 diabetes mellitus without complications; Z95.810 Presence of automatic (implantable) cardiac defibrillator; Z95.1 Presence of aortocoronary bypass graft; Z95.5 Presence of coronary angioplasty implant and graft; Z79.82 Long term (current) use of aspirin; Z79.84 Long term (current) use of oral hypoglycemic drugs
CPT/HCPCS: 36415; 73610; 74177; 80053; 83690; 85025; 85379; 86141

== ENCOUNTER 2020-10-19 23:08 | Inpatient (IN) | payer MEDICARE, OTHER ==
[~2020-10-19] VITALS: Ht 170 cm; Wt 96.5 kg
[~2020-10-19 23:08] MED LIST changes: +CALC600T91 PO; -CLC600T PO; +ONDA4TAB11 PO
[2020-10-19] MEDS ORDERED: LACTATED RINGERS 1,000 ML IV ONE (23:15)
[2020-10-19] MEDS ORDERED: NS IV 1000 ML 1,000 ML ONE (23:24)
[2020-10-19] MEDS ORDERED: fentaNYL INJ 100 MCG/2 ML AMP IVP STA (23:24)
[2020-10-19] MEDS ORDERED: ONDANSETRON 4 MG/2 ML (SDV) Z0FRAN IVP ONE (23:30)
[2020-10-19] MEDS ORDERED: NS IV 1000 ML 1,000 ML IV SCH (23:30)
[2020-10-19 23:44] LABS: BASOPHILS % (AUTO) 1 % (0-10); EOSINOPHILS % (AUTO) 0 % (0-10); HEMATOCRIT 41 % (40-54); HEMOGLOBIN 15.1 g/dL (13.3-17.7); LYMPHOCYTES # (AUTO) 0.8 10^3/uL (1.0-4.0); LYMPHOCYTES % (AUTO) 12 % (12-44); MEAN CORPUSCULAR HEMOGLOBIN 32 pg (25-34); MEAN CORPUSCULAR HGB CONC 37 g/dL (32-36); MEAN CORPUSCULAR VOLUME 87 fL (80-99); MEAN PLATELET VOLUME 9.8 fL (9.0-12.2); MONOCYTES # (AUTO) 1.6 10^3/uL (0.0-1.0); MONOCYTES % (AUTO) 23 % (0-12); NEUTROPHILS # (AUTO) 4.4 10^3/uL (1.8-7.8); NEUTROPHILS % (AUTO) 63 % (42-75); PLATELET COUNT 230 10^3/uL (130-400)
[2020-10-19 23:49] LABS: BILIRUBIN,URINE NEGATIVE (NEGATIVE); CLARITY,URINE CLEAR; COLOR,URINE YELLOW; GLUCOSE, URINE (UA) NEGATIVE (NEGATIVE); KETONES,URINE NEGATIVE (NEGATIVE); LEUKOCYTE ESTERASE ,URINE NEGATIVE (NEGATIVE); NITRITE,URINE NEGATIVE (NEGATIVE); PH,URINE 5.5 (5-9); PROTEIN,URINE 1+ (NEGATIVE)
[2020-10-19 23:55] LABS: BACTERIA,URINE NEGATIVE /HPF; RBC,URINE RARE /HPF; SQUAMOUS EPITHELIAL CELL,UR RARE /HPF
[2020-10-19 23:55] LABS: ALBUMIN 4.6 GM/DL (3.2-4.5); CHLORIDE 94 MMOL/L (98-107); INR 1.1 (0.8-1.4); POTASSIUM 2.8 MMOL/L (3.6-5.0); PROTHROMBIN TIME PATIENT 14.1 SEC (12.2-14.7); SODIUM 132 MMOL/L (135-145)
[2020-10-19 23:57] LABS: AMYLASE 18 U/L (25-125); CALCIUM 9.5 MG/DL (8.5-10.1)
[2020-10-19 23:58] LABS: GLUCOSE 202 MG/DL (70-105); TOTAL PROTEIN 8.5 GM/DL (6.4-8.2)
[2020-10-19 23:59] LABS: CARBON DIOXIDE 10 MMOL/L (21-32)
[2020-10-20] LABS: BILIRUBIN,TOTAL 0.9 MG/DL (0.1-1.0)
[2020-10-20 00:01] LABS: ALKALINE PHOSPHATASE 41 U/L (40-136); CREATININE SERUM 3.96 MG/DL (0.60-1.30); GFR ESTIMATED 15
[2020-10-20 00:02] LABS: BUN/CREATININE RATIO 15
[2020-10-20 00:04] LABS: ALANINE AMINOTRANSFERASE 17 U/L (0-55)
[2020-10-20 00:06] LABS: LIPASE 12 U/L (8-78)
[2020-10-20 00:11] LABS: BAND NEUTROPHILS 19 %; LYMPHOCYTES % (MANUAL) 11 %; MONOCYTES % (MANUAL) 23 %; NEUTROPHILS % (MANUAL) 47 %; RBC MORPH NORMAL; TOXIC GRANULATION/VACUOLAZATIO 2+
[2020-10-20] MEDS ORDERED: NS IV 1000 ML 1,000 ML IV SCH ×2 (00:15→02:15)
[2020-10-20] MEDS ORDERED: LACTATED RINGERS 1,000 ML IV ONE (00:15)
[2020-10-20 00:26] LABS: TSH (THYROID ANALYZER) 0.82 UIU/ML (0.35-4.94)
[2020-10-20] MEDS ORDERED: CEFEPIME INJECTION 1,000 MG in WATER (STERILE) FOR INJECTION 10 ML IV ONE (00:45)
[2020-10-20] MEDS ORDERED: D5 1/2 NS W/KCL 20 MEQ/L 1,000 ML IV ONE (01:43)
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
[2020-10-20 01:55] LABS: BASOPHILS % (AUTO) 1 % (0-10); EOSINOPHILS % (AUTO) 0 % (0-10); HEMATOCRIT 36 % (40-54); HEMOGLOBIN 13.1 g/dL (13.3-17.7); LYMPHOCYTES # (AUTO) 0.6 10^3/uL (1.0-4.0); LYMPHOCYTES % (AUTO) 11 % (12-44); MEAN CORPUSCULAR HEMOGLOBIN 32 pg (25-34); MEAN CORPUSCULAR HGB CONC 36 g/dL (32-36); MEAN CORPUSCULAR VOLUME 89 fL (80-99); MEAN PLATELET VOLUME 9.6 fL (9.0-12.2); MONOCYTES # (AUTO) 1.5 10^3/uL (0.0-1.0); MONOCYTES % (AUTO) 25 % (0-12); NEUTROPHILS # (AUTO) 3.7 10^3/uL (1.8-7.8); NEUTROPHILS % (AUTO) 63 % (42-75); PLATELET COUNT 197 10^3/uL (130-400); WHITE BLOOD COUNT 5.8 10^3/uL (4.3-11.0)
[2020-10-20 02:01] LABS: ALBUMIN 3.7 GM/DL (3.2-4.5); POTASSIUM 2.9 MMOL/L (3.6-5.0)
[2020-10-20 02:03] LABS: CALCIUM 8.1 MG/DL (8.5-10.1)
[2020-10-20 02:04] LABS: TOTAL PROTEIN 6.8 GM/DL (6.4-8.2)
[2020-10-20 02:06] LABS: BILIRUBIN,TOTAL 0.7 MG/DL (0.1-1.0)
[2020-10-20 02:07] LABS: PHOSPHORUS 7.6 MG/DL (2.3-4.7)
[2020-10-20 02:08] LABS: CREATININE SERUM 3.52 MG/DL (0.60-1.30)
[2020-10-20 02:11] LABS: MAGNESIUM 1.7 MG/DL (1.6-2.4)
[2020-10-20] MEDS ORDERED: D5 1/2 NS W/KCL 20 MEQ/L 1,000 ML IV SCH (02:15)
[2020-10-20] MEDS ORDERED: ONDANSETRON 4 MG/2 ML (SDV) Z0FRAN IV PRN (02:15)
[2020-10-20] MEDS ORDERED: fentaNYL INJ 100 MCG/2 ML AMP IV PRN (02:15)
[2020-10-20] MEDS: DIPHENOXYLATE/ATROPINE 2.5MG/0.025MG (LOMOTIL) TAB PO PRN ×3 (02:25→18:03)
[2020-10-20] MEDS ORDERED: LACTATED RINGERS 1,000 ML IV SCH (03:00)
[2020-10-20] MEDS ORDERED: AZITHROMYCIN INJECTION 500 MG/5 ML VIAL ONE (03:39)
[2020-10-20] MEDS ORDERED: NS (IVPB) 250 ML ONE (03:39)
[2020-10-20] MEDS: POTASSIUM CL 10MEQ/50ML IVPB 50 ML IV SCH ×7 (03:51→16:06)
[2020-10-20 04:57] LABS: ABG BASE EXCESS -13.6 MMOL/L (-2.5-2.5); ABG OXYGEN SATURATION 97 % (94-100); ABG PCO2 24 MMHG (35-45); ABG PO2 97 MMHG (79-93); ABG TCO2 12.4 MMOL/L (21.0-31.0)
[2020-10-20 04:59] LABS: ALLENS TEST YES-POS; INSPIRED O2 3L
[2020-10-20 05:00] LABS: PATIENT TEMP 36.2; VENTILATOR NO
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
[2020-10-20] MEDS: inSUlin ASPART (NovoLOG) 1 UNIT/0.01 ML (CHARGE PER UNIT) SC SCH ×4 (05:27→23:05)
[2020-10-20] MEDS ORDERED: SODIUM BICARB 8.4% 50 MEQ/50 ML VIAL IV ONE (05:30)
--- NOTE | 2020-10-20 05:30 | Diagnostic Imaging Report ---
INDICATION: Chest pain COMPARISON: 11/14/2016 FINDINGS: Single frontal view of the chest demonstrates normal heart size and pulmonary vascularity. The lungs are hyperinflated with flattening of the hemidiaphragms and hyperlucent appearance of the lung bases, but are otherwise clear. No large pleural effusion or pneumothorax is seen. The visualized osseous structures show no acute abnormalities. Left-sided AICD and sternotomy wires are noted. IMPRESSION: 1. No acute cardiopulmonary process. 2. Background COPD changes. Dictated by: Dictated on workstation # [id number]
[2020-10-20] MEDS ORDERED: 1/2 NS IV SOLUTION 1,000 ML IV ONE (05:38)
[2020-10-20] MEDS ORDERED: SODIUM BICARBONATE 8.4% VIAL 100 MEQ in 1/2 NS IV SOLUTION 1,000 ML IV SCH (06:00)
[2020-10-20] MEDS: MAGNESIUM 1 GM/100 ML IVPB 100 ML IV SCH ×2 (06:33→07:34)
--- NOTE | 2020-10-20 08:16 | Consultation-Cardiology ---
HPI-Cardiology Cardiology Consultation: Date of Consultation 10/20/20 Date of Admission Attending Physician Joan Carrillo DO Admitting Physician [facility] Consulting Physician CANDY TRUJILLO PVI-Tozddo-Qeyizy Hx Patient Social History Smoking Status: Never a Smoker Former smoker/When Quit: May 04, 1992 Alcohol Use?: No Pt feels they are or have been: No Immunizations Up To Date Date of Pneumonia Vaccine: May 04, 2019 Date of Influenza Vaccine: Apr 10, 2020 Past Medical History PMH As described under Assessment. Allergies and Home Medications Allergies Coded Allergies: sulfamethoxazole (Verified Allergy, Severe, HIVES, 05/04/15) trimethoprim (Verified Allergy, Severe, HIVES, 05/04/15) Sulfa (Sulfonamide Antibiotics) (Verified Allergy, Unknown, HIVES, 05/04/15) dapagliflozin (Verified Allergy, Unknown, DIZZINESS, 05/04/15) simvastatin (Unverified Allergy, Unknown, TAKES LOVASTATIN AT HOME, 02/22/10) Home Medications Albuterol Sulfate 2.5 Mg/3 Ml Vial.neb, 2.5 MG NEB 1500, (Reported) Last Action: Reviewed Amlodipine Besylate 10 Mg Tablet, 10 MG PO DAILY, (Reported) Last Action: Reviewed Arformoterol Tartrate 15 Mcg/2 Ml Vial.neb, 15 MCG IH 2130, (Reported) MIXES BUDESONIDE AND BROVANA TOGETHER FOR NEBULIZER TREATMENT Last Action: Reviewed Aspirin 81 Mg Tablet.dr, 81 MG PO 1800, (Reported) Last Action: Reviewed Benazepril HCl 40 Mg Tab, 40 MG PO DAILY, (Reported) Last Action: Reviewed Budesonide 0.5 Mg/2 Ml Ampul.neb, 0.5 MG IH 2130, (Reported) MIXES BUDESONIDE AND BROVANA TOGETHER FOR NEBULIZER TREATMENT Last Action: Reviewed Calcium Carbonate 600 Mg Tablet, 600 MG PO DAILY, (Reported) Last Action: Reviewed Carvedilol 25 Mg Tablet, 25 MG PO BID, (Reported) Last Action: Reviewed Clopidogrel Bisulfate 75 Mg Tablet, 75 MG PO DAILY, (Reported) Last Action: Reviewed Cranberry Fruit Concentrate 500 Mg Capsule, 500 MG PO DAILY, (Reported) Last Action: Reviewed Dicyclomine HCl 20 Mg Tablet, 40 MG PO BID, (Reported) TAKES 2 (20MG) TABS Last Action: Reviewed Digoxin 125 Mcg Tablet, 125 MCG PO 1800, (Reported) Last Action: Reviewed Furosemide 20 Mg Tablet, 20 MG PO DAILY, (Reported) Last Action: Reviewed Glipizide 10 Mg Tablet, 10 MG PO BID, (Reported) Last Action: Reviewed Isosorbide Mononitrate 120 Mg Tab.er.24h, 60 MG PO BID, (Reported) TAKES OF A 120MG Last Action: Converted Levothyroxine Sodium 112 Mcg Tablet, 224 MCG PO DAILY, (Reported) TAKES 2 (112MCG) TABLETS Last Action: Reviewed Lovastatin 40 Mg Tablet, 40 MG PO DAILY, (Reported) Last Action: Reviewed Metformin HCl 500 Mg Tablet, 1,000 MG PO BID, (Reported) TAKES 2 (500MG) TABS Last Action: Reviewed Nitroglycerin 0.4 Mg Tab.subl, 0.4 MG SL UD PRN for CHEST PAIN, (Reported) Last Action: Reviewed [place] 3 Polyunsat Fatty Acids 1,000 Mg Cap, 2,000 MG PO DAILY, (Reported) TAKES 2 (1000MG) CAPSULES Last Action: Reviewed [place] 3 Polyunsat Fatty Acids 1,000 Mg Cap, 1,000 MG PO 1800, (Reported) Last Action: Reviewed Ondansetron 4 Mg Tab.rapdis, 4 MG PO Q6H PRN for NAUSEA/VOMITING-1ST LINE, (Reported) Last Action: Reviewed Terazosin HCl 2 Mg Capsule, 2 MG PO BID, (Reported) Last Action: Reviewed Physical Exam-Cardiology Physical Exam Vital Signs/I&O 10/21/20 10/21/20 10/21/20 10/21/20 19:57 20:00 21:00 21:00 Temp 36.7 Pulse 89 98 B/P (MAP) 153/67 (95) 136/73 (94) Pulse Ox 94 95 95 O2 Delivery Nasal Cannula Room Air Nasal Cannula O2 Flow Rate 3.00 3.00 10/21/20 10/21/20 10/22/20 10/22/20 22:00 23:00 00:00 01:00 Pulse 89 87 82 84 B/P (MAP) 154/70 (98) 144/66 (92) 168/75 (106) Pulse Ox 94 94 94 O2 Delivery Nasal Cannula Nasal Cannula Nasal Cannula O2 Flow Rate 3.00 3.00 3.00 10/22/20 10/22/20 10/22/20 10/22/20 01:00 02:00 03:00 04:00 Pulse 84 82 87 87 B/P (MAP) 178/72 (107) 184/74 (110) 172/70 (104) Pulse Ox 93 96 93 93 O2 Delivery Nasal Cannula Nasal Cannula Nasal Cannula Nasal Cannula O2 Flow Rate 3.00 3.00 3.00 3.00 10/22/20 10/22/20 10/22/20 10/22/20 05:00 06:00 07:00 07:00 Pulse 87 81 86 86 B/P (MAP) Pulse Ox 95 94 94 O2 Delivery Nasal Cannula Nasal Cannula Nasal Cannula O2 Flow Rate 3.00 3.00 3.00 10/22/20 07:52 Pulse Ox 96 O2 Delivery Room Air 10/22/20 00:00 Intake Total 2920 ml Output Total 3950 ml Balance -1030 ml Capillary Refill : Less Than 3 Seconds Skin: normal color, warm/dry Data Review Labs Laboratory Tests 10/21/20 12:22: Glucometer 141H 10/21/20 18:23: Sodium Level 135, Potassium Level 3.0L, Chloride Level 99, Carbon Dioxide Level 22, Anion Gap 14, Blood Urea Nitrogen 48H, Creatinine 1.65H, Estimat Glomerular Filtration Rate 40, BUN/Creatinine Ratio 29, Glucose Level 166H, Calcium Level 8.2L, Corrected Calcium 8.6, Phosphorus Level 1.5L, Magnesium Level 2.4, Total Bilirubin 0.9, Aspartate Amino Transf (AST/SGOT) 17, Alanine Aminotransferase (ALT/SGPT) 13, Alkaline Phosphatase 39L, Total Protein 6.5, Albumin 3.5 10/21/20 21:14: Glucometer 154H 10/22/20 01:37: Sodium Level 140, Potassium Level 2.4*L, Chloride Level 93L, Carbon Dioxide Level 35H, Anion Gap 12, Blood Urea Nitrogen 32H, Creatinine 0.86, Estimat Glomerular Filtration Rate > 60, BUN/Creatinine Ratio 37, Glucose Level 120H, Calcium Level 6.3L, Phosphorus Level 2.4, Magnesium Level 1.8, White Blood Count 4.4, Red Blood Count 3.35L, Hemoglobin 10.8L, Hematocrit 29L, Mean Corpuscular Volume 86, Mean Corpuscular Hemoglobin 32, Mean Corpuscular Hemoglobin Concent 38H, Red Cell Distribution Width 12.4, Platelet Count 164, Mean Platelet Volume 9.2, Immature Granulocyte % (Auto) 4, Neutrophils (%) (Auto) 53, Lymphocytes (%) (Auto) 17, Monocytes (%) (Auto) 23H, Eosinophils (%) (Auto) 3, Basophils (%) (Auto) 1, Neutrophils # (Auto) 2.4, Lymphocytes # (Auto) 0.8L, Monocytes # (Auto) 1.0, Eosinophils # (Auto) 0.1, Basophils # (Auto) 0.0, Immature Granulocyte # (Auto) 0.2H Microbiology 10/20/20 C. difficile GDH Antigen & Toxins - Final, Complete 10/20/20 MRSA Screen - Final, Complete MRSA not isolated 10/19/20 Blood Culture - Preliminary, Resulted No growth Radiology NAME: OSMAR MATTHEW [facility] REC#: [id number] PT STATUS: ADM IN : 1940 PHYSICIAN: CHELSEY TONG DO ADMIT DATE: 10/20/20/ICU Draft Date of Exam:10/20/20 CHEST 1 VIEW, AP/PA ONLY INDICATION: Chest pain COMPARISON: 11/14/2016 FINDINGS: Single frontal view of the chest demonstrates normal heart size and pulmonary vascularity. The lungs are hyperinflated with flattening of the hemidiaphragms and hyperlucent appearance of the lung bases, but are otherwise clear. No large pleural effusion or pneumothorax is seen. The visualized osseous structures show no acute abnormalities. Left-sided AICD and sternotomy wires are noted. IMPRESSION: 1. No acute cardiopulmonary process. 2. Background COPD changes. Dictated on workstation # [id number] Dict: 10/20/2028 Trans: 10/20/20 0530 KIMBERLY [id number] Interpreted by: JAXSON MONTILLA MD Electronically signed by: A/P-Cardiology Assessment/Admission Diagnosis Chronic stable exertional angina pectoris CAD, s/p CABG x 3 in 2004 - Last cath and PCI at [facility] in late 2017: LM 30 ostial, LAD 100 after D2, D2 with severe prox stenosis, LCS mod diff, RI 30-40 prox, RCA occluded distally and collateralized; underwent laser atherectomy and 2.5x22 Resolute Anastacio MARCUS to D2 that was post dilated with 3 mm balloon (RCA not intervened on) Rest/Stress Regadenoson Rubidium-82 PET/CT on 04/25/17: mild to mod ischemia in LAD territory mod-sized infarction with mild residual ischemia in the RCA territory, LVEF 36% Ischemic cardiomyopathy. Echo of 05-23-16 showed LVEF approx 35%. Global hypokinesis of the LV, somewhat more marked at the distal anteroapical area. Mild diastolic dysfunction of the LV. Mild diastolic dysfunction. Mild aortic, mitral and tricuspid regurg. No evidence of significant valvular stenosis. Mod enlargement of the LA and LV. Mild LVH Chronic systolic CHF, currently clinically compensated S/p single ch ICD implant on 05/04/15; device functioning normally per interrogation of May 2020 DM II Hyperlipidemia Hypertension Obesity with BMI approx 33.5 Obstructive sleep apnea, treated with CPAP, managed by Dr Wiley H/o prostate and thyroid cancers for which he has been fully treated and they are stated to be in chronic remission. Prostate cancer followed by Dr Lilly; thyroid cancer followed by Dr Blanco and Dr. De Los Santos Mild bilat carotid plaque per u/s of 08/19/18 Chronic hardness of hearing CANDY GARCIA Oct 20, 2020 08:16
[2020-10-20] MEDS: CALCIUM ACETATE 667 MG CAP (PHOSLO) PO SCH ×3 (09:45→18:05)
[2020-10-20] MEDS: CEFEPIME 1,000 MG/SWFI 10 ML IV PUSH IV SCH ×4 (09:45→22:51)
[2020-10-20] MEDS: AZITHROMYCIN INJECTION 500 MG in NS (IVPB) 250 ML IV SCH (09:45)
[2020-10-20] MEDS ORDERED: CLOP75TA28 PO (10:05)
[2020-10-20] MEDS ORDERED: ONDA4TAB11 PO (10:05)
[2020-10-20] MEDS ORDERED: GLIP10TA13 PO (10:05)
[2020-10-20] MEDS ORDERED: CRAN500C8 PO (10:05)
[2020-10-20] MEDS ORDERED: OMG1KC PO (10:05)
[2020-10-20] MEDS ORDERED: ISOS120T9 PO (10:05)
[2020-10-20 12:02] LABS: ALBUMIN 3.5 GM/DL (3.2-4.5); BILIRUBIN,TOTAL 0.7 MG/DL (0.1-1.0); CALCIUM 7.9 MG/DL (8.5-10.1); CREATININE SERUM 3.44 MG/DL (0.60-1.30); MAGNESIUM 2.5 MG/DL (1.6-2.4); PHOSPHORUS 6.1 MG/DL (2.3-4.7); POTASSIUM 2.6 MMOL/L (3.6-5.0); TOTAL PROTEIN 6.3 GM/DL (6.4-8.2)
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
--- NOTE | 2020-10-20 12:28 | Diagnostic Imaging Report ---
INDICATION: Pain. COMPARISON: None available. TECHNIQUE: Two radiographs of the left foot dated 10/20/2020. FINDINGS: A recent appearing nondisplaced fracture involving the proximal shaft of the 2nd metatarsal is noted. Based on the lateral radiograph, there may be an additional fracture involving the proximal shaft of the metatarsal although this is not well seen on the frontal radiograph. No additional acute fracture or dislocation. No destructive osseous process. The toes are flexed on all imaging which slightly limits evaluation of the toes themselves. Small plantar calcaneal enthesophyte. Mild vascular calcifications. Diffuse soft tissue swelling. IMPRESSION: Acute nondisplaced fracture involving the proximal shaft of the 2nd metatarsal. Lateral radiographs suggest possible additional fractures associated with a proximal metatarsal; therefore, recommend additional oblique imaging of the foot for further evaluation. Diffuse soft tissue swelling. The report was called to Dr. Carrillo by moises@12:27 PM. . Dictated by: Dictated on workstation # [id number]
--- NOTE | 2020-10-20 12:56 | Diagnostic Imaging Report ---
INDICATION: Fractures, broken foot. COMPARISON: Imaging from the same date. TECHNIQUE: A single oblique radiograph of the left foot was obtained dated 10/20/2020. FINDINGS: Essentially nondisplaced acute fractures involving the bases of the 2nd and 3rd metatarsals are identified without definite intra-articular extension. No additional fracture or dislocation. Lisfranc joint is not optimally visualized secondary to positioning. IMPRESSION: Acute nondisplaced fractures involving the bases of the 2nd and 3rd metatarsals without definite intra-articular extension. Dictated by: Dictated on workstation # [id number]
[2020-10-20] MEDS: SODIUM BICARBONATE 8.4% VIAL 100 MEQ in 1/2 NS IV SOLUTION 1,000 ML IV SCH ×2 (13:28→20:53)
[2020-10-20] MEDS ORDERED: POTASSIUM CL 10MEQ/50ML IVPB 250 ML IV ONE (13:48)
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
[2020-10-20] MEDS ORDERED: POTASSIUM CL 10MEQ/50ML IVPB 50 ML IV ONE (14:00)
[2020-10-20] MEDS ORDERED: CHOLESTYRAMINE 4 GM (QUESTRAN LITE, PREVALITE) PKT ONE (14:20)
[2020-10-20] MEDS ORDERED: CHOLESTYRAMINE 4 GM (QUESTRAN LITE, PREVALITE) PKT PO ONE (14:30)
[2020-10-20 15:26] LABS: CALCIUM 8.1 MG/DL (8.5-10.1)
[2020-10-20 15:31] LABS: CREATININE SERUM 3.2 MG/DL (0.60-1.30); PHOSPHORUS 5.5 MG/DL (2.3-4.7)
[2020-10-20 15:33] LABS: MAGNESIUM 2.3 MG/DL (1.6-2.4)
[2020-10-20 15:39] LABS: POTASSIUM 2.5 MMOL/L (3.6-5.0)
--- NOTE | 2020-10-20 16:04 | Consultation-Cardiology ---
HPI-Cardiology Cardiology Consultation: Date of Consultation 10/20/20 Time Seen by a Provider: 09:00 Date of Admission Attending Physician Joan Carrillo DO Admitting Physician [facility] Consulting Physician BLADE PICKERING MD, MA, FACP, FACC, [facility] [place], [facility] HPI: Chief Complaint: CC: Abdominal pain, nausea, vomiting, poor oral intake HPI 80 yo man admitted with abd pain and nausea and vomiting and poor oral intake. Found to have hypotension and acute renal failure at admission. Denies palp or syncope. Denies cp. Notes gen malaise and weakness. Denies fever or chills. Reports shortness of breath with mild activity Review of Systems-Cardiology Review of Systems Constitutional: As described under HPI Eyes: No vision change Ears/Nose/Throat: No ear discharge, No nasal drainage, No recent hearing loss Respiratory: As described under HPI Cardiovascular: As described under HPI Gastrointestinal: As described under HPI Genitourinary: No dysuria, No hematuria, No urine frequency changes Musculoskeletal: back pain (chronic), joint pain (chronic) Skin: No rash on exposed areas, No ulcerations on exposed areas Psychiatric/Neurological: No seizure, No focal weakness, No syncope [id number] Hx Patient Social History Smoking Status: Never a Smoker Former smoker/When Quit: May 04, 1992 Alcohol Use?: No Pt feels they are or have been: No Immunizations Up To Date Date of Pneumonia Vaccine: May 04, 2019 Date of Influenza Vaccine: Apr 10, 2020 Past Medical History PMH As described under Assessment. Family Medical History Family Medical History: Does not report fam h/o early CAD or SCD Allergies and Home Medications Allergies Coded Allergies: sulfamethoxazole (Verified Allergy, Severe, HIVES, 05/04/15) trimethoprim (Verified Allergy, Severe, HIVES, 05/04/15) Sulfa (Sulfonamide Antibiotics) (Verified Allergy, Unknown, HIVES, 05/04/15) dapagliflozin (Verified Allergy, Unknown, DIZZINESS, 05/04/15) simvastatin (Unverified Allergy, Unknown, TAKES LOVASTATIN AT HOME, 02/22/10) Home Medications Albuterol Sulfate 2.5 Mg/3 Ml Vial.neb, 2.5 MG NEB 1500, (Reported) Last Action: Reviewed Amlodipine Besylate 10 Mg Tablet, 10 MG PO DAILY, (Reported) Last Action: Reviewed Arformoterol Tartrate 15 Mcg/2 Ml Vial.neb, 15 MCG IH 2129, (Reported) MIXES BUDESONIDE AND BROVANA TOGETHER FOR NEBULIZER TREATMENT Last Action: Reviewed Aspirin 81 Mg Tablet.dr, 81 MG PO 1800, (Reported) Last Action: Reviewed Benazepril HCl 40 Mg Tab, 40 MG PO DAILY, (Reported) Last Action: Reviewed Budesonide 0.5 Mg/2 Ml Ampul.neb, 0.5 MG IH 2129, (Reported) MIXES BUDESONIDE AND BROVANA TOGETHER FOR NEBULIZER TREATMENT Last Action: Reviewed Calcium Carbonate 600 Mg Tablet, 600 MG PO DAILY, (Reported) Last Action: Reviewed Carvedilol 25 Mg Tablet, 25 MG PO BID, (Reported) Last Action: Reviewed Clopidogrel Bisulfate 75 Mg Tablet, 75 MG PO DAILY, (Reported) Last Action: Reviewed Cranberry Fruit Concentrate 500 Mg Capsule, 500 MG PO DAILY, (Reported) Last Action: Reviewed Dicyclomine HCl 20 Mg Tablet, 40 MG PO BID, (Reported) TAKES 2 (20MG) TABS Last Action: Reviewed Digoxin 125 Mcg Tablet, 125 MCG PO 1800, (Reported) Last Action: Reviewed Furosemide 20 Mg Tablet, 20 MG PO DAILY, (Reported) Last Action: Reviewed Glipizide 10 Mg Tablet, 10 MG PO BID, (Reported) Last Action: Reviewed Isosorbide Mononitrate 120 Mg Tab.er.24h, 60 MG PO BID, (Reported) TAKES OF A 120MG Last Action: Reviewed Levothyroxine Sodium 112 Mcg Tablet, 224 MCG PO DAILY, (Reported) TAKES 2 (112MCG) TABLETS Last Action: Reviewed Lovastatin 40 Mg Tablet, 40 MG PO DAILY, (Reported) Last Action: Reviewed Metformin HCl 500 Mg Tablet, 1,000 MG PO BID, (Reported) TAKES 2 (500MG) TABS Last Action: Reviewed Nitroglycerin 0.4 Mg Tab.subl, 0.4 MG SL UD PRN for CHEST PAIN, (Reported) Last Action: Reviewed [place] 3 Polyunsat Fatty Acids 1,000 Mg Cap, 2,000 MG PO DAILY, (Reported) TAKES 2 (1000MG) CAPSULES Last Action: Reviewed [place] 3 Polyunsat Fatty Acids 1,000 Mg Cap, 1,000 MG PO 1800, (Reported) Last Action: Reviewed Ondansetron 4 Mg Tab.rapdis, 4 MG PO Q6H PRN for NAUSEA/VOMITING-1ST LINE, (Reported) Last Action: Reviewed Terazosin HCl 2 Mg Capsule, 2 MG PO BID, (Reported) Last Action: Reviewed Patient Home Medication List Home Medication List Reviewed: Yes Physical Exam-Cardiology Physical Exam Vital Signs/I&O 10/20/20 10/20/20 10/20/20 10/20/20 04:00 04:00 05:00 06:00 Temp 36.0 36.0 Pulse 80 88 Resp 16 B/P (MAP) 106/48 (67) 104/44 (64) Pulse Ox 95 96 O2 Delivery Nasal Cannula Nasal Cannula O2 Flow Rate 3.00 3.00 3.00 10/20/20 10/20/20 10/20/20 10/20/20 06:30 06:42 07:00 07:55 Temp 36.4 Pulse 90 91 86 Resp 5 B/P (MAP) 121/56 (77) 132/56 (81) Pulse Ox 96 95 O2 Delivery Nasal Cannula Nasal Cannula O2 Flow Rate 3.00 3.00 10/20/20 10/20/20 10/20/20 10/20/20 08:00 08:00 09:00 10:00 Pulse 81 85 84 Resp 5 9 7 B/P (MAP) 125/54 (77) 121/62 (81) 127/53 (77) Pulse Ox 96 96 96 96 O2 Delivery Nasal Cannula Nasal Cannula Nasal Cannula Nasal Cannula O2 Flow Rate 3.00 3.00 3.00 3.00 10/20/20 10/20/20 10/20/20 10/20/20 11:00 11:30 13:11 14:00 Temp 36.5 Pulse 85 80 84 B/P (MAP) 129/49 (75) 116/98 (104) Pulse Ox 97 96 O2 Delivery Nasal Cannula Nasal Cannula O2 Flow Rate 3.00 3.00 10/20/20 10/20/20 15:00 15:30 Temp 36.2 Pulse 84 B/P (MAP) 123/56 (78) Pulse Ox 96 O2 Delivery Nasal Cannula O2 Flow Rate 3.00 10/20/20 00:00 Intake Total 2000 ml Balance 2000 ml Capillary Refill : Less Than 3 Seconds Constitutional: AAO x 3, well-developed, well-nourished HEENT: PERRL, EOMI, hard of hearing Neck: carotid pulses are 2 + bilaterally, with good upstrokes Respiratory: No accessory muscle use; other (fair to good, bilateral air entry, diminished at te bases) Cardiovascular: regular rate-rhythm, S1 and S2, systolic murmur (soft SHIKHA at card base) Gastrointestinal: distended; No guarding, No rebound; audible bowel sounds Rectal: deferred Extremities: No clubbing, No cyanosis Skin: normal color, warm/dry Lymphatic: no adenopathy (neck, axilla or groin) Data Review Labs Laboratory Tests 10/19/20 23:30: White Blood Count 7.0, Red Blood Count 4.69, Hemoglobin 15.1, Hematocrit 41, Mean Corpuscular Volume 87, Mean Corpuscular Hemoglobin 32, Mean Corpuscular Hemoglobin Concent 37H, Red Cell Distribution Width 12.9, Platelet Count 230, Mean Platelet Volume 9.8, Immature Granulocyte % (Auto) 1, Neutrophils (%) (Auto) 63, Lymphocytes (%) (Auto) 12, Monocytes (%) (Auto) 23H, Eosinophils (%) (Auto) 0, Basophils (%) (Auto) 1, Neutrophils # (Auto) 4.4, Lymphocytes # (Auto) 0.8L, Monocytes # (Auto) 1.6H, Eosinophils # (Auto) 0.0, Basophils # (Auto) 0.0, Immature Granulocyte # (Auto) 0.1, Neutrophils % (Manual) 47, Lymphocytes % (Manual) 11, Monocytes % (Manual) 23, Band Neutrophils 19, Toxic Granulation 2+, Blood Morphology Comment NORMAL, Prothrombin Time 14.1, INR Comment 1.1, Activated Partial Thromboplast Time 23L, Sodium Level 132L, Potassium Level 2.8L , Chloride Level 94L, Carbon Dioxide Level 10L, Anion Gap 28H, Blood Urea Nitrogen 59H, Creatinine 3.96#H, Estimat Glomerular Filtration Rate 15, BUN/Creatinine Ratio 15, Glucose Level 202H, Lactic Acid Level 3.68*H, Calcium Level 9.5, Corrected Calcium , Magnesium Level 2.0, Total Bilirubin 0.9, Aspartate Amino Transf (AST/SGOT) 15, Alanine Aminotransferase (ALT/SGPT) 17, Alkaline Phosphatase 41, Troponin I 0.058H, Total Protein 8.5H, Albumin 4.6H, Amylase Level 18L, Lipase 12, Procalcitonin 3.08H, TSH [place] Testing 0.82, Digoxin Level < 0.30L 10/19/20 23:40: Urine Color YELLOW, Urine Clarity CLEAR, Urine pH 5.5, Urine Specific [place] 1.025H, Urine Protein 1+H, Urine Glucose (UA) NEGATIVE, Urine Ketones NEGATIVE, Urine Nitrite NEGATIVE, Urine Bilirubin NEGATIVE, Urine Urobilinogen 0.2, Urine Leukocyte Esterase NEGATIVE, Urine RBC (Auto) NEGATIVE, Urine RBC RARE, Urine WBC NONE, Urine Squamous Epithelial Cells RARE, Urine Crystals NONE, Urine Bacteria NEGATIVE, Urine Casts NONE, Urine Mucus SMALLH, Urine Culture Indicated NO 10/20/20 01:40: White Blood Count 5.8, Red Blood Count 4.04L, Hemoglobin 13.1L, Hematocrit 36L, Mean Corpuscular Volume 89, Mean Corpuscular Hemoglobin 32, Mean Corpuscular Hemoglobin Concent 36, Red Cell Distribution Width 12.9, Platelet Count 197, Mean Platelet Volume 9.6, Immature Granulocyte % (Auto) 1, Neutrophils (%) (Auto) 63, Lymphocytes (%) (Auto) 11L, Monocytes (%) (Auto) 25H, Eosinophils (%) (Auto) 0, Basophils (%) (Auto) 1, Neutrophils # (Auto) 3.7, Lymphocytes # (Auto) 0.6L, Monocytes # (Auto) 1.5H, Eosinophils # (Auto) 0.0, Basophils # (Auto) 0.0, Immature Granulocyte # (Auto) 0.0, Sodium Level 132L, Potassium Level 2.9L, Chloride Level 101, Carbon Dioxide Level 10L, Anion Gap 21H, Blood Urea Nitrogen 57H, Creatinine 3.52#H, Estimat Glomerular Filtration Rate 17, BUN/Creatinine Ratio 16, Glucose Level 142H, Lactic Acid Level 3.60*H, Calcium Level 8.1L, Corrected Calcium 8.3L, Magnesium Level 1.7, Total Bilirubin 0.7, Aspartate Amino Transf (AST/SGOT) 13, Alanine Aminotransferase (ALT/SGPT) 15, Alkaline Phosphatase 34L, Troponin I 0.048H, Total Protein 6.8, Albumin 3.7, Phosphorus Level 7.6H, Total Creatine Kinase 35 10/20/20 02:45: Coronavirus 2019 (ROSIE) Not Detected 10/20/20 04:10: Lactic Acid Level 2.32*H 10/20/20 04:44: Blood Gas Puncture Site RIGHT RADIAL, Blood Gas Patient Temperature 36.2, Arterial Blood pH 7.30*L, Arterial Blood Partial Pressure CO2 24L, Arterial Blood Partial Pressure O2 97H, Arterial Blood HCO3 12*L, Arterial Blood Total CO2 12.4L, Arterial Blood Oxygen Saturation 97, Arterial Blood Base Excess - 13.6L, Samir Test YES-POS, Blood Gas Ventilator Setting NO, Blood Gas Inspired Oxygen 3L 10/20/20 06:49: Lactic Acid Level 1.85 10/20/20 11:31: Glucometer 146H 10/20/20 11:32: Sodium Level 134L, Potassium Level 2.6L, Chloride Level 100, Carbon Dioxide Level 13L, Anion Gap 21H, Blood Urea Nitrogen 61H, Creatinine 3.44H, Estimat Glomerular Filtration Rate 17, BUN/Creatinine Ratio 18, Glucose Level 145H, Calcium Level 7.9L, Corrected Calcium 8.3L, Phosphorus Level 6.1H, Magnesium Level 2.5H, Total Bilirubin 0.7, Aspartate Amino Transf (AST/SGOT) 16, Alanine Aminotransferase (ALT/SGPT) 15, Alkaline Phosphatase 36L, Total Protein 6.3L, Albumin 3.5 10/20/20 15:05: Sodium Level 134L, Potassium Level 2.5*L, Chloride Level 98, Carbon Dioxide Level 17L, Anion Gap 19H, Blood Urea Nitrogen 63H, Creatinine 3.20H, Estimat Glomerular Filtration Rate 19, BUN/Creatinine Ratio 20, Glucose Level 127H, Calcium Level 8.1L, Phosphorus Level 5.5H, Magnesium Level 2.3, Total Creatine Kinase 147 Microbiology 10/19/20 Blood Culture - Preliminary, Resulted No growth A/P-Cardiology Assessment/Admission Diagnosis Sepsis of undetermined source associated with septic shock Ac renal failure: likely ATN due to shock CAD, s/p CABG x 3 in 2004 - Rest/Stress Regadenoson Rubidium-82 PET/CT on 04/25/17: mild to mod ischemia in LAD territory mod-sized infarction with mild residual ischemia in the RCA territory, LVEF 36% Ischemic cardiomyopathy. - Last cath and PCI at [facility] in late 2016: LM 30 ostial, LAD 100 after D2, D2 with severe prox stenosis, LCS mod diff, RI 30-40 prox, RCA occluded distally and collateralized; underwent laser atherectomy and 2.5x22 Resolute [place] MARCUS to D2 that was post dilated with 3 mm balloon (RCA not intervened on) - Chronic stable exertional angina pectoris Ischemic cm and HFrEF - Echo of 05-23-16 showed LVEF approx 35%. Global hypokinesis of the LV, somewhat more marked at the distal anteroapical area. Mild diastolic dysfunction of the LV. Mild diastolic dysfunction. Mild aortic, mitral and tricuspid regurg. No evidence of significant valvular stenosis. Mod enlargement of the LA and LV. Mild LVH S/p single ch ICD implant on 05/04/15; device functioning normally per interrogation of May 2020 DM II Hyperlipidemia Hypertension Obesity with BMI approx 33.5 Obstructive sleep apnea, treated with CPAP, managed by Dr Wiley H/o prostate and thyroid cancers for which he has been fully treated and they are stated to be in chronic remission. Prostate cancer followed by Dr Lilly; thyroid cancer [facility] Mild bilat carotid plaque per u/s of 08/19/18 Chronic hardness of hearing Splenic mass diagnosed in September 2020 being managed by Med and Surg svces Discussion and Recomendations * iv fluids * Treat shock * Monitor labs * Prognosis guarded BLADE PICKERING MD FACP FAC CCDS Oct 20, 2020 16:04
[2020-10-20] MEDS ORDERED: KCL 20 MEQ TAB (K-DUR) PO ONE ×3 (20:44→22:45)
[2020-10-20] MEDS: ISOSORBIDE MONONITRATE 60 MG (IMDUR) TAB PO SCH (20:54)
[2020-10-20] MEDS ORDERED: ISOSORBIDE MONONITRATE 60 MG PO SCH (21:00)
[2020-10-21] MEDS: SODIUM BICARBONATE 8.4% VIAL 100 MEQ in 1/2 NS IV SOLUTION 1,000 ML IV SCH ×4 (00:01→22:19)
[2020-10-21] MEDS ORDERED: KCL 20 MEQ TAB (K-DUR) PO ONE (00:45)
[2020-10-21 03:31] LABS: BASOPHILS % (AUTO) 0 % (0-10); EOSINOPHILS # (AUTO) 0.1 10^3/uL (0.0-0.3); EOSINOPHILS % (AUTO) 3 % (0-10); HEMATOCRIT 34 % (40-54); HEMOGLOBIN 12.7 g/dL (13.3-17.7); LYMPHOCYTES # (AUTO) 0.8 10^3/uL (1.0-4.0); LYMPHOCYTES % (AUTO) 17 % (12-44); MEAN CORPUSCULAR HEMOGLOBIN 32 pg (25-34); MEAN CORPUSCULAR HGB CONC 37 g/dL (32-36); MEAN CORPUSCULAR VOLUME 86 fL (80-99); MEAN PLATELET VOLUME 9.6 fL (9.0-12.2); MONOCYTES # (AUTO) 1.5 10^3/uL (0.0-1.0); MONOCYTES % (AUTO) 31 % (0-12); NEUTROPHILS # (AUTO) 2.2 10^3/uL (1.8-7.8); NEUTROPHILS % (AUTO) 47 % (42-75); PLATELET COUNT 199 10^3/uL (130-400); WHITE BLOOD COUNT 4.8 10^3/uL (4.3-11.0)
[2020-10-21 03:41] LABS: POTASSIUM 2.8 MMOL/L (3.6-5.0)
[2020-10-21 03:42] LABS: CALCIUM 8.1 MG/DL (8.5-10.1)
[2020-10-21 03:46] LABS: CREATININE SERUM 2.73 MG/DL (0.60-1.30); PHOSPHORUS 3.5 MG/DL (2.3-4.7)
[2020-10-21 03:49] LABS: MAGNESIUM 2.4 MG/DL (1.6-2.4)
[2020-10-21] MEDS ORDERED: LACTATED RINGERS 1,000 ML IV SCH (04:45)
--- NOTE | 2020-10-21 04:46 | Pulmonary Progress Note ---
Subjective Time Seen by a Provider: 04:40 Subjective/Events-last exam No complications noted. Sepsis Event Evaluation Height, Weight, BMI Height: 5'10.00" Weight: 219lbs. 0.0oz. 99.423014mq; 32.52 BMI Method:Stated Focused Exam Lactate Level 10/20/20 01:40: Lactic Acid Level 3.60*H 10/20/20 04:10: Lactic Acid Level 2.32*H 10/20/20 06:49: Lactic Acid Level 1.85 Time of Focused Exam: 23:30 Exam Exam Vital Signs Date Time Temp Pulse Resp B/P (MAP) Pulse Ox O2 Delivery O2 Flow Rate FiO2 10/21/20 04:00 77 136/54 (81) 98 Nasal Cannula 3.00 10/21/20 03:00 90 142/56 (84) 90 Nasal Cannula 3.00 10/21/20 02:00 75 135/58 (83) 97 Nasal Cannula 3.00 10/21/20 01:00 79 134/58 (83) 96 Nasal Cannula 3.00 10/21/20 00:16 83 10/21/20 00:00 85 141/58 (85) 97 Nasal Cannula 3.00 10/20/20 23:00 89 134/67 (89) 96 Nasal Cannula 3.00 10/20/20 22:00 88 137/54 (81) 95 Nasal Cannula 3.00 10/20/20 21:00 90 126/73 (90) 96 Nasal Cannula 3.00 10/20/20 21:00 96 Nasal Cannula 3.00 10/20/20 20:00 81 176/64 (101) 95 Nasal Cannula 3.00 10/20/20 19:46 36.3 10/20/20 19:00 84 10/20/20 19:00 80 172/52 (92) 97 Nasal Cannula 3.00 10/20/20 18:00 81 20 165/69 (101) 96 Nasal Cannula 3.00 10/20/20 17:00 81 20 149/61 (90) 96 Nasal Cannula 3.00 10/20/20 16:00 83 18 171/67 (101) 96 Nasal Cannula 3.00 10/20/20 15:30 36.2 10/20/20 15:00 84 123/56 (78) 96 Nasal Cannula 3.00 10/20/20 14:00 84 116/98 (104) 96 Nasal Cannula 3.00 10/20/20 13:11 80 10/20/20 11:30 36.5 10/20/20 11:00 85 129/49 (75) 97 Nasal Cannula 3.00 10/20/20 10:00 84 7 127/53 (77) 96 Nasal Cannula 3.00 10/20/20 09:00 85 9 121/62 (81) 96 Nasal Cannula 3.00 10/20/20 08:00 96 Nasal Cannula 3.00 10/20/20 08:00 81 5 125/54 (77) 96 Nasal Cannula 3.00 10/20/20 07:55 36.4 10/20/20 07:00 86 5 132/56 (81) 95 Nasal Cannula 3.00 10/20/20 06:42 91 10/20/20 06:30 90 121/56 (77) 96 Nasal Cannula 3.00 10/20/20 06:00 36.0 10/20/20 05:00 88 104/44 (64) 96 Nasal Cannula 3.00 I & O 10/21/20 07:00 Intake Total 4800 ml Output Total 2100 ml Balance 2700 ml Height & Weight Height: 5'10.00" Weight: 219lbs. 0.0oz. [id number]; 32.52 BMI Method:Stated General Appearance: No Apparent Distress, WD/WN HEENT: PERRL/EOMI Neck: Normal Inspection, Non Tender, Supple Respiratory: Chest Non Tender, Lungs Clear, Normal Breath Sounds, No Accessory Muscle Use, No Respiratory Distress Cardiovascular: Regular Rate, Rhythm, No Edema, No JVD, No Murmur, Normal Peripheral Pulses Capillary Refill: Less Than 3 Seconds Gastrointestinal: soft, no organomegaly; No distended; guarding (voluntary); No rebound; tenderness (diffusely) Extremity: Normal Capillary Refill, No Pedal Edema, Other (L mangle tender to palpation especially dorsum of foot) Neurologic/Psychiatric: Alert, Oriented x3, Normal Mood/Affect Skin: Normal Color, Warm/Dry, Erythema (dorsum of left foot), Other (abrasion R knee) Lymphatic: No Adenopathy Results Lab Laboratory Tests 10/19/20 23:30 10/20/20 01:40 10/20/20 11:32 10/20/20 15:05 10/20/20 19:29 10/21/20 03:18 Assessment/Plan Assessment/Plan Acute renal failure with hyperkalemia and metabolic acidosis -Start Bicarb gtt -IVF -monitor UO -Possible need for transfer for HD -Repeat Labs 2hrs after KCL replacement. Hypokalemia -Replace -Monitor Abdominal pain with N/V Diarrhea -CDiff and cultures pending Splenic mass -Dr. Carrillo has working up as out patient CAD with hx of CABG Dehydration HX colon resection 5yrs ago RAMANA SUBRAMANIAN DO Oct 21, 2020 04:45
--- NOTE | 2020-10-21 05:25 | Diagnostic Imaging Report ---
INDICATION: Chest pain Portable chest 3:24 AM There are postoperative changes from median sternotomy. There is a single chamber pacemaker with lead projecting over the right ventricle. Heart size and pulmonary vascularity are normal. Lungs are clear. There are no effusions or pneumothoraces. IMPRESSION: Postsurgical changes in the chest. No acute abnormality seen. Dictated by: Dictated on workstation # [id number]
[2020-10-21] MEDS: DIPHENOXYLATE/ATROPINE 2.5MG/0.025MG (LOMOTIL) TAB PO PRN (05:27)
[2020-10-21] MEDS: POTASSIUM CL 10MEQ/50ML IVPB 50 ML IV SCH ×13 (05:27→20:55)
[2020-10-21] MEDS: inSUlin ASPART (NovoLOG) 1 UNIT/0.01 ML (CHARGE PER UNIT) SC SCH ×3 (07:33→21:56)
[2020-10-21] MEDS: MAGNESIUM 1 GM/100 ML IVPB 100 ML IV SCH (07:33)
[2020-10-21] MEDS: AZITHROMYCIN INJECTION 500 MG in NS (IVPB) 250 ML IV SCH (08:08)
[2020-10-21] MEDS: ISOSORBIDE MONONITRATE 60 MG (IMDUR) TAB PO SCH ×2 (08:09→20:06)
[2020-10-21] MEDS: CALCIUM ACETATE 667 MG CAP (PHOSLO) PO SCH ×3 (08:09→18:58)
[2020-10-21] MEDS: KCL 20 MEQ TAB (K-DUR) PO SCH (08:09)
--- NOTE | 2020-10-21 08:17 | Progress Note - Surgery ---
SALVADOR DA SILVA MED STUDENT 10/21/20 0817: Subjective Date Seen by a Provider: Oct 21, 2020 Time Seen by a Provider: 07:20 Subjective/Events-last exam Mr. Beck states his pain is decreased compared to previously. he admits to diarrhea but does not feel this is worse than he has had over the past 5 years. Admits some LLE pain near recently fractured foot as well. He denies fever, chills, cough, or SOB. Focused Exam Lactate Level 10/20/20 01:40: Lactic Acid Level 3.60*H 10/20/20 04:10: Lactic Acid Level 2.32*H 10/20/20 06:49: Lactic Acid Level 1.85 Time of Focused Exam: 23:30 Objective Exam Vital Signs Date Time Temp Pulse Resp B/P (MAP) Pulse Ox O2 Delivery O2 Flow Rate FiO2 10/21/20 07:00 81 10/21/20 06:00 84 146/67 (93) 96 Nasal Cannula 3.00 10/21/20 05:00 86 131/53 (79) 97 Nasal Cannula 3.00 10/21/20 04:00 77 136/54 (81) 98 Nasal Cannula 3.00 10/21/20 03:00 90 142/56 (84) 90 Nasal Cannula 3.00 10/21/20 02:00 75 135/58 (83) 97 Nasal Cannula 3.00 10/21/20 01:00 79 134/58 (83) 96 Nasal Cannula 3.00 10/21/20 00:16 83 10/21/20 00:00 85 141/58 (85) 97 Nasal Cannula 3.00 10/20/20 23:00 89 134/67 (89) 96 Nasal Cannula 3.00 10/20/20 22:00 88 137/54 (81) 95 Nasal Cannula 3.00 10/20/20 21:00 90 126/73 (90) 96 Nasal Cannula 3.00 10/20/20 21:00 96 Nasal Cannula 3.00 10/20/20 20:00 81 176/64 (101) 95 Nasal Cannula 3.00 10/20/20 19:46 36.3 10/20/20 19:00 84 10/20/20 19:00 80 172/52 (92) 97 Nasal Cannula 3.00 10/20/20 18:00 81 20 165/69 (101) 96 Nasal Cannula 3.00 10/20/20 17:00 81 20 149/61 (90) 96 Nasal Cannula 3.00 10/20/20 16:00 83 18 171/67 (101) 96 Nasal Cannula 3.00 10/20/20 15:30 36.2 10/20/20 15:00 84 123/56 (78) 96 Nasal Cannula 3.00 10/20/20 14:00 84 116/98 (104) 96 Nasal Cannula 3.00 10/20/20 13:11 80 10/20/20 11:30 36.5 10/20/20 11:00 85 129/49 (75) 97 Nasal Cannula 3.00 10/20/20 10:00 84 7 127/53 (77) 96 Nasal Cannula 3.00 10/20/20 09:00 85 9 121/62 (81) 96 Nasal Cannula 3.00 I & O 10/21/20 07:00 Intake Total 4800 ml Output Total 2100 ml Balance 2700 ml Capillary Refill : Less Than 3 Seconds General Appearance: Anxious, Chronically ill, Mild Distress HEENT: PERRL/EOMI, Normal ENT Inspection, Pharynx Normal, Moist Mucous Membranes Neck: Full Range of Motion, Normal Inspection, Non Tender Respiratory: Chest Non Tender, Lungs Clear, No Accessory Muscle Use, No Respiratory Distress, Decreased Breath Sounds Cardiovascular: Regular Rate, Rhythm, No Edema, No Gallop, No JVD, No Murmur, Normal Peripheral Pulses Gastrointestinal: soft, no organomegaly; No distended, No guarding, No rebound; tenderness (left upper quadrant) Extremity: Normal Capillary Refill, Normal Inspection, Normal Range of Motion, Non Tender, No Calf Tenderness, No Pedal Edema Neurologic/Psychiatric: Alert; No Oriented x3 (not oriented to place, thought he was in [facility]. Oriented x2); No Motor/Sensory Deficits, Normal Mood/Affect Skin: Normal Color, Warm/Dry Lymphatic: No Adenopathy Results Lab Laboratory Tests 10/20/20 11:31: Glucometer 146H 10/20/20 11:32: Sodium Level 134L, Potassium Level 2.6L, Chloride Level 100, Carbon Dioxide Level 13L, Anion Gap 21H, Blood Urea Nitrogen 61H, Creatinine 3.44H, Estimat Glomerular Filtration Rate 17, BUN/Creatinine Ratio 18, Glucose Level 145H, Calcium Level 7.9L, Corrected Calcium 8.3L, Phosphorus Level 6.1H, Magnesium Level 2.5H, Total Bilirubin 0.7, Aspartate Amino Transf (AST/SGOT) 16, Alanine Aminotransferase (ALT/SGPT) 15, Alkaline Phosphatase 36L, Total Protein 6.3L, Albumin 3.5 10/20/20 15:05: Sodium Level 134L, Potassium Level 2.5*L, Chloride Level 98, Carbon Dioxide Level 17L, Anion Gap 19H, Blood Urea Nitrogen 63H, Creatinine 3.20H, Estimat Glomerular Filtration Rate 19, BUN/Creatinine Ratio 20, Glucose Level 127H, Calcium Level 8.1L, Phosphorus Level 5.5H, Magnesium Level 2.3, Total Creatine Kinase 147 10/20/20 17:55: Glucometer 142H 10/20/20 19:29: Potassium Level 2.6L 10/20/20 23:01: Glucometer 120H 10/21/20 03:18: Potassium Level 2.8L, White Blood Count 4.8, Red Blood Count 3.96L, Hemoglobin 12.7L, Hematocrit 34L, Mean Corpuscular Volume 86, Mean Corpuscular Hemoglobin 32, Mean Corpuscular Hemoglobin Concent 37H, Red Cell Distribution Width 12.6, Platelet Count 199, Mean Platelet Volume 9.6, Immature Granulocyte % (Auto) 1, Neutrophils (%) (Auto) 47, Lymphocytes (%) (Auto) 17, Monocytes (%) (Auto) 31H, Eosinophils (%) (Auto) 3, Basophils (%) (Auto) 0, Neutrophils # (Auto) 2.2, Lymphocytes # (Auto) 0.8L, Monocytes # (Auto) 1.5H, Eosinophils # (Auto) 0.1, Basophils # (Auto) 0.0, Immature Granulocyte # (Auto) 0.1, Sodium Level 133L, Chloride Level 97L, Carbon Dioxide Level 17L, Anion Gap 19H, Blood Urea Nitrogen 61H, Creatinine 2.73#H, Estimat Glomerular Filtration Rate 23, BUN/Creatinine Ratio 22, Glucose Level 120H, Calcium Level 8.1L, Phosphorus Level 3.5, Magnesium Level 2.4 Microbiology 10/20/20 MRSA Screen - Final, Complete MRSA not isolated 10/19/20 Blood Culture - Preliminary, Resulted No growth Assessment/Plan Assessment/Plan Assessment/Plan Abdominal Pain Diarrhea -chronic plus tested + for c diff Nausea and Vomiting Dehydration Splenic Mass Hyponatremia Hypokalemia -continues to be severe despite replacement Acute Renal Failure -Creatinine 2.73 today, was 3.2 yesterday -Dr. doss would like central line for both K+ replacement and considering that dialysis may be necessary Foot fracture CAD s/p pacemaker implantation Pt has multiple medical problems, I am unsure why he is having abdominal pain. I doubt it is the splenic mass causing his pain; nothing acute about that. states pain is overall decreased. Priority should be management of electrolyte issues, renal problems, c. diff diarrhea. His CT abd/pelvis from 10/18 has nothing acute seen in the abdomen, no inflammatory process or indication of obstruction. Will monitor closely, but no surgical indications at this time. PRANEETH MERCER DO 10/21/20 1604: Subjective Time Seen by a Provider: 12:51 Subjective/Events-last exam Pt seen and examined, states his abdominal pain is much better. "I've got food in there now". Review of Systems General: Fatigue Pulmonary: No Dyspnea, No Cough Cardiovascular: No: Chest Pain, Palpitations Gastrointestinal: No: Nausea, Vomiting, Abdominal Pain Objective Exam General Appearance: No Apparent Distress, Chronically ill HEENT: Moist Mucous Membranes Respiratory: No Accessory Muscle Use, No Respiratory Distress, Decreased Breath Sounds Cardiovascular: Regular Rate, Rhythm, No Murmur Gastrointestinal: no organomegaly; No distended, No guarding, No rebound; tenderness (left upper quadrant) Assessment/Plan Assessment/Plan Assessment/Plan Abdominal Pain Diarrhea - tested negative for c diff, has rectal tube in place Nausea and Vomiting - resolved Dehydration - continue fluid Splenic Mass Hyponatremia Hypokalemia -continues to be severe despite replacement Acute Renal Failure -Creatinine 2.73 today, was 3.2 yesterday Foot fracture CAD s/p pacemaker implantation Pt has multiple medical problems, I am unsure why he is having abdominal pain. I doubt it is the splenic mass causing his pain; nothing acute about that. states pain is overall decreased. Priority should be management of electrolyte issues, renal problems, diarrhea. His CT abd/pelvis from 10/18 has nothing acute seen in the abdomen, no inflammatory process or indication of obstruction. Will monitor closely, but no surgical indications at this time. Supervisory-Addendum Brief Verification & Attestation Participated in pt care: history, MDM, physical Personally performed: exam, history, MDM Care discussed with: Medical Student Procedures: n/a Verification and Attestation of Medical Student E/M Service A medical student performed and documented this service. I then reviewed and verified all information documented by the medical student and made modifications to such information, when appropriate. I personally performed a physical exam, medical decision making and then discussed any differences between the notes and made revisions as necessary to create one note. Praneeth Mercer , 10/21/20 , 16:04 SALVADOR DA SILVA MED STUDENT Oct 21, 2020 08:17 PRANEETH MERCER DO Oct 21, 2020 16:04
--- NOTE | 2020-10-21 08:31 | Progress Note - Cardiology ---
Cardiology SOAP Progress Note Objective: I&O/Vital Signs 10/21/20 10/21/20 10/21/20 10/21/20 19:57 20:00 21:00 21:00 Temp 36.7 Pulse 89 98 B/P (MAP) 153/67 (95) 136/73 (94) Pulse Ox 94 95 95 O2 Delivery Nasal Cannula Room Air Nasal Cannula O2 Flow Rate 3.00 3.00 10/21/20 10/21/20 10/22/20 10/22/20 22:00 23:00 00:00 01:00 Pulse 89 87 82 84 B/P (MAP) 154/70 (98) 144/66 (92) 168/75 (106) Pulse Ox 94 94 94 O2 Delivery Nasal Cannula Nasal Cannula Nasal Cannula O2 Flow Rate 3.00 3.00 3.00 10/22/20 10/22/20 10/22/20 10/22/20 01:00 02:00 03:00 04:00 Pulse 84 82 87 87 B/P (MAP) 178/72 (107) 184/74 (110) 172/70 (104) Pulse Ox 93 96 93 93 O2 Delivery Nasal Cannula Nasal Cannula Nasal Cannula Nasal Cannula O2 Flow Rate 3.00 3.00 3.00 3.00 10/22/20 10/22/20 10/22/20 10/22/20 05:00 06:00 07:00 07:00 Pulse 87 81 86 86 B/P (MAP) Pulse Ox 95 94 94 O2 Delivery Nasal Cannula Nasal Cannula Nasal Cannula O2 Flow Rate 3.00 3.00 3.00 10/22/20 07:52 Pulse Ox 96 O2 Delivery Room Air 10/22/20 00:00 Intake Total 2920 ml Output Total 3950 ml Balance -1030 ml Weight (Pounds): 219 Weight (Ounces): 0.0 Weight (Calculated Kilograms): [id number] Constitutional: AAO x 3, well-developed, well-nourished Respiratory: No accessory muscle use; other (fair to good, bilateral air entry, diminished at te bases) Cardiovascular: regular rate-rhythm, S1 and S2, systolic murmur (soft SHIKHA at card base) Gastrointestional: distended; No guarding, No rebound; audible bowel sounds Extremities: No clubbing, No cyanosis Skin: normal color, warm/dry Results/Procedures: Labs Laboratory Tests 10/21/20 12:22: Glucometer 141H 10/21/20 18:23: Sodium Level 135, Potassium Level 3.0L, Chloride Level 99, Carbon Dioxide Level 22, Anion Gap 14, Blood Urea Nitrogen 48H, Creatinine 1.65H, Estimat Glomerular Filtration Rate 40, BUN/Creatinine Ratio 29, Glucose Level 166H, Calcium Level 8.2L, Corrected Calcium 8.6, Phosphorus Level 1.5L, Magnesium Level 2.4, Total Bilirubin 0.9, Aspartate Amino Transf (AST/SGOT) 17, Alanine Aminotransferase (ALT/SGPT) 13, Alkaline Phosphatase 39L, Total Protein 6.5, Albumin 3.5 10/21/20 21:14: Glucometer 154H 10/22/20 01:37: Sodium Level 140, Potassium Level 2.4*L, Chloride Level 93L, Carbon Dioxide Level 35H, Anion Gap 12, Blood Urea Nitrogen 32H, Creatinine 0.86, Estimat Glomerular Filtration Rate > 60, BUN/Creatinine Ratio 37, Glucose Level 120H, Calcium Level 6.3L, Phosphorus Level 2.4, Magnesium Level 1.8, White Blood Count 4.4, Red Blood Count 3.35L, Hemoglobin 10.8L, Hematocrit 29L, Mean Corpuscular Volume 86, Mean Corpuscular Hemoglobin 32, Mean Corpuscular Hemoglobin Concent 38H, Red Cell Distribution Width 12.4, Platelet Count 164, Mean Platelet Volume 9.2, Immature Granulocyte % (Auto) 4, Neutrophils (%) (Auto) 53, Lymphocytes (%) (Auto) 17, Monocytes (%) (Auto) 23H, Eosinophils (%) (Auto) 3, Basophils (%) (Auto) 1, Neutrophils # (Auto) 2.4, Lymphocytes # (Auto) 0.8L, Monocytes # (Aut o) 1.0, Eosinophils # (Auto) 0.1, Basophils # (Auto) 0.0, Immature Granulocyte # (Auto) 0.2H Microbiology 10/20/20 C. difficile GDH Antigen & Toxins - Final, Complete 10/20/20 MRSA Screen - Final, Complete MRSA not isolated 10/19/20 Blood Culture - Preliminary, Resulted No growth Procedures NAME: OSMAR [facility]THEW [facility] REC#: [id number] PT STATUS: ADM IN : 1940 PHYSICIAN: MARY ARGUETA DO ADMIT DATE: 10/20/20/ICU Signed Date of Exam:10/21/20 CHEST 1 VIEW, AP/PA ONLY INDICATION: Chest pain Portable chest 3:24 AM There are postoperative changes from median sternotomy. There is a single chamber pacemaker with lead projecting over the right ventricle. Heart size and pulmonary vascularity are normal. Lungs are clear. There are no effusions or pneumothoraces. IMPRESSION: Postsurgical changes in the chest. No acute abnormality seen. Dictated by: Dictated on workstation # [id number] Dict: 10/21/20 0432 Trans: 10/21/20 0647 KIMBERLY [id number] Interpreted by: NAT RAYMOND MD Electronically signed by: NTA RAYMOND MD 10/21/20 0647 A/P: Assessment: Sepsis of undetermined source associated with septic shock Ac renal failure: likely ATN due to shock Abdominal pain - management per medical/surgical services C-diff (+) CAD, s/p CABG x 3 in 2004 - Rest/Stress Regadenoson Rubidium-82 PET/CT on 04/25/17: mild to mod ischemia in LAD territory mod-sized infarction with mild residual ischemia in the RCA territory, LVEF 36% Ischemic cardiomyopathy. - Last cath and PCI at [facility] in late 2016: LM 30 ostial, LAD 100 after D2, D2 with severe prox stenosis, LCS mod diff, RI 30-40 prox, RCA occluded distally and collateralized; underwent laser atherectomy and 2.5x22 Resolute Anastacio MARCUS to D2 that was post dilated with 3 mm balloon (RCA not intervened on) - Chronic stable exertional angina pectoris Ischemic cm and HFrEF - Echo of 05-23-16 showed LVEF approx 35%. Global hypokinesis of the LV, somewhat more marked at the distal anteroapical area. Mild diastolic dysfunction of the LV. Mild diastolic dysfunction. Mild aortic, mitral and tricuspid regurg. No evidence of significant valvular stenosis. Mod enlargement of the LA and LV. Mild LVH S/p single ch ICD implant on 05/04/15; device functioning normally per interrogation of May 2020 DM II Hyperlipidemia Hypertension Obesity with BMI approx 33.5 Obstructive sleep apnea, treated with CPAP, managed by Dr Wiley H/o prostate and thyroid cancers for which he has been fully treated and they are stated to be in chronic remission. Prostate cancer followed by Dr Lilly; thyroid cancer [facility] Mild bilat carotid plaque per u/s of 08/19/18 Chronic hardness of hearing Splenic mass diagnosed in September 2020 being managed by Med and Surg svces Plan: * Management of c-diff is per medical/surgical services * Replace electrolytes * Continue IV fluids * Treat shock * Renal function improving * Monitor labs CANDY GARCIA Oct 21, 2020 08:31
[2020-10-21] MEDS: CEFEPIME 1,000 MG/SWFI 10 ML IV PUSH IV SCH ×4 (09:59→22:18)
[2020-10-21] MEDS: CHOLESTYRAMINE 4 GM (QUESTRAN LITE, PREVALITE) PKT PO SCH (09:59)
--- NOTE | 2020-10-21 10:04 | Consultation - Ortho ---
Consult - Ortho Subjective Date of Exam 10/21/20 Chief Complaint Metatarsal fractures left foot HPI/Events since last exam Mr. Plascencia is a 80-year-old white male who is complaining of pain in left foot. He denies any fall or injury to the foot. Nothing dropped on his foot. He stated it started bothering him when he came into the hospital. He was seen in the emergency room on 10/18 and x-rays were obtained of his ankle which were negative.He had x-rays taken on 10/20 which did show a nondisplaced fracture of the base of the second and third metatarsal left foot. At the present time he is still at bedrest.He is having some mild pain but nothing significant since he is not been Medical, Surgical History Reviewed and no additions or changes Social History Reviewed and no additions or changes Family History Reviewed and no additions or changes Review of Systems Reviewed and no additions or changes Allergies: Coded Allergies: sulfamethoxazole (Verified Allergy, Severe, HIVES, 05/04/15) trimethoprim (Verified Allergy, Severe, HIVES, 05/04/15) Sulfa (Sulfonamide Antibiotics) (Verified Allergy, Unknown, HIVES, 05/04/15) dapagliflozin (Verified Allergy, Unknown, DIZZINESS, 05/04/15) simvastatin (Unverified Allergy, Unknown, TAKES LOVASTATIN AT HOME, 02/22/10) Home Meds Reported Medications [place] 3 Polyunsat Fatty Acids (Fish Oil 1,000 mg Capsule) 1,000 Mg Cap, 1000 MG PO 1800, CAP 10/20/20 Clopidogrel Bisulfate (Clopidogrel) 75 Mg Tablet, 75 MG PO DAILY, TAB 10/20/20 Isosorbide Mononitrate (Isosorbide Mononitrate ER) 120 Mg Tab.er.24h, 60 MG PO BID, TAB TAKES OF A 120MG 10/20/20 Glipizide (Glipizide) 10 Mg Tablet, 10 MG PO BID, TAB 10/20/20 Ondansetron (Ondansetron Odt) 4 Mg Tab.rapdis, 4 MG PO Q6H PRN for NAUSEA/VOMITING-1ST LINE, TAB 10/20/20 Cranberry Fruit Concentrate (Cran-Max) 500 Mg Capsule, 500 MG PO DAILY, CAP 10/20/20 Budesonide (Budesonide) 0.5 Mg/2 Ml Ampul.neb, 0.5 MG IH 2130, ML MIXES BUDESONIDE AND BROVANA TOGETHER FOR NEBULIZER TREATMENT 07/31/19 Arformoterol Tartrate (Brovana) 15 Mcg/2 Ml Vial.neb, 15 MCG IH 2130, VIAL MIXES BUDESONIDE AND BROVANA TOGETHER FOR NEBULIZER TREATMENT 07/31/19 Aspirin (Aspirin EC) 81 Mg Tablet.dr, 81 MG PO 1800, TAB 07/31/19 Metformin HCl (Metformin HCl) 500 Mg Tablet, 1000 MG PO BID, TAB TAKES 2 (500MG) TABS 07/31/19 Calcium Carbonate (Calcium) 600 Mg Tablet, 600 MG PO DAILY, TAB 07/31/19 Amlodipine Besylate (Amlodipine Besylate) 10 Mg Tablet, 10 MG PO DAILY, TAB 07/31/19 Lovastatin (Lovastatin) 40 Mg Tablet, 40 MG PO DAILY, TAB 07/31/19 Terazosin HCl (Terazosin HCl) 2 Mg Capsule, 2 MG PO BID, CAP 07/31/19 Furosemide (Furosemide) 20 Mg Tablet, 20 MG PO DAILY, TAB 07/31/19 Digoxin (Digoxin) 125 Mcg Tablet, 125 MCG PO 1800, TAB 07/31/19 Albuterol Sulfate (Albuterol Sulfate) 2.5 Mg/3 Ml Vial.neb, 2.5 MG NEB 1500, EA 11/14/16 Nitroglycerin (Nitrostat) 0.4 Mg Tab.subl, 0.4 MG SL UD PRN for CHEST PAIN, TAB 11/14/16 Dicyclomine HCl (Dicyclomine HCl) 20 Mg Tablet, 40 MG PO BID, TAB TAKES 2 (20MG) TABS 11/14/16 [place] 3 Polyunsat Fatty Acids (Fish Oil 1,000 mg Capsule) 1,000 Mg Cap, 2000 MG PO DAILY, CAP TAKES 2 (1000MG) CAPSULES 05/04/15 Levothyroxine Sodium (Levothyroxine Sodium) 112 Mcg Tablet, 224 MCG PO DAILY, TAB TAKES 2 (112MCG) TABLETS 05/04/15 Carvedilol (Carvedilol) 25 Mg Tablet, 25 MG PO BID, TAB 05/04/15 Benazepril HCl (Benazepril HCl) 40 Mg Tab, 40 MG PO DAILY, TAB 05/04/15 Discontinued Reported Medications Acetaminophen (Acetaminophen) Unknown Strength Tablet, 4 TAB PO DAILY, TAB 07/31/19 Pediatric Multivit Comb #25/FA (Flintstones Multivit Chew Tab) 300 Mcg Tab.chew, 300 MCG PO DAILY, TAB 07/31/19 Isosorbide Mononitrate (Isosorbide Mononitrate ER) 60 Mg Tab, 60 MG PO BID, TAB 07/31/19 Omeprazole (Omeprazole) 40 Mg Capsule.dr, 40 MG PO DAILY, CAP 07/31/19 Clopidogrel Bisulfate (Plavix) 75 Mg Tablet, 75 MG PO DAILY, TAB 07/31/19 Cranberry Fruit Concentrate (Cranberry) 450 Mg Capsule, 450 MG PO BID, CAP 07/31/19 Levothyroxine Sodium (Levothyroxine Sodium) 25 Mcg Tablet, 25 MCG PO DAILY, TAB TAKES ALONG WITH 2 (112MCG) TABLETS 11/14/16 Glipizide (Glipizide) 10 Mg Tablet, 10 MG PO BID, TAB 11/24/09 Discontinued Scripts Ondansetron (Ondansetron Odt) 4 Mg Tab.rapdis, 4 MG PO Q6H PRN for NAUSEA/VOMITING, #15 TAB 0 Refills Prov:KALEB MILLS 10/18/20 Hydrocodone Bit/Acetaminophen (LORTAB 5 MG TABLET) 1 Tab Tab, 1 TAB PO Q6H PRN for PAIN-MODERATE MDD 10, #14 TAB Prov:JUAN LUIS MERCER DO 08/06/19 Objective Exam Constitutional: [] HEENT: [] Neck: [] Cardiovascular: [] Respiratory: [] Gastrointestinal: [] Genitourinary: [] Skin: [] Back/Spine: [] Extremities: [Left lower extremityshe does have calf tenderness on the left. He does have a see the both lower extremities. He has some mild swelling in the ankle and foot. No pain over the Achilles. Pain both medial and lateral ankle. No obvious deformity.Minimal bruising is noted. Pain over the midfoot.No skin changes or breakdown.He can move his foot and toes with minimal pain] Neurologic: [] Psychiatric: [] Hematologic/lymphatic/immunologic: [] Vital Signs Vital Signs Date Time Temp Pulse Resp B/P (MAP) Pulse Ox O2 Delivery O2 Flow Rate FiO2 10/21/20 08:38 36.6 10/21/20 08:00 93 161/76 (104) 96 Nasal Cannula 3.00 10/21/20 07:45 Nasal Cannula 3.00 10/21/20 07:00 81 10/21/20 07:00 80 155/65 (95) 96 Nasal Cannula 3.00 10/21/20 06:00 84 146/67 (93) 96 Nasal Cannula 3.00 10/21/20 05:00 86 131/53 (79) 97 Nasal Cannula 3.00 10/21/20 04:00 77 136/54 (81) 98 Nasal Cannula 3.00 10/21/20 03:00 90 142/56 (84) 90 Nasal Cannula 3.00 10/21/20 02:00 75 135/58 (83) 97 Nasal Cannula 3.00 10/21/20 01:00 79 134/58 (83) 96 Nasal Cannula 3.00 10/21/20 00:16 83 10/21/20 00:00 85 141/58 (85) 97 Nasal Cannula 3.00 10/20/20 23:00 89 134/67 (89) 96 Nasal Cannula 3.00 10/20/20 22:00 88 137/54 (81) 95 Nasal Cannula 3.00 10/20/20 21:00 90 126/73 (90) 96 Nasal Cannula 3.00 10/20/20 21:00 96 Nasal Cannula 3.00 10/20/20 20:00 81 176/64 (101) 95 Nasal Cannula 3.00 10/20/20 19:46 36.3 10/20/20 19:00 84 10/20/20 19:00 80 172/52 (92) 97 Nasal Cannula 3.00 10/20/20 18:00 81 20 165/69 (101) 96 Nasal Cannula 3.00 10/20/20 17:00 81 20 149/61 (90) 96 Nasal Cannula 3.00 10/20/20 16:00 83 18 171/67 (101) 96 Nasal Cannula 3.00 10/20/20 15:30 36.2 10/20/20 15:00 84 123/56 (78) 96 Nasal Cannula 3.00 10/20/20 14:00 84 116/98 (104) 96 Nasal Cannula 3.00 10/20/20 13:11 80 10/20/20 11:30 36.5 10/20/20 11:00 85 129/49 (75) 97 Nasal Cannula 3.00 10/20/20 10:00 84 7 127/53 (77) 96 Nasal Cannula 3.00 I & O 10/21/20 07:00 Intake Total 5800 ml Output Total 2100 ml Balance 3700 ml Lab Results Laboratory Tests 10/20/20 11:31: Glucometer 146H 10/20/20 11:32: Sodium Level 134L, Potassium Level 2.6L, Chloride Level 100, Carbon Dioxide Level 13L, Anion Gap 21H, Blood Urea Nitrogen 61H, Creatinine 3.44H, Estimat Glomerular Filtration Rate 17, BUN/Creatinine Ratio 18, Glucose Level 145H, Calcium Level 7.9L, Corrected Calcium 8.3L, Phosphorus Level 6.1H, Magnesium Level 2.5H, Total Bilirubin 0.7, Aspartate Amino Transf (AST/SGOT) 16, Alanine Aminotransferase (ALT/SGPT) 15, Alkaline Phosphatase 36L, Total Protein 6.3L, Albumin 3.5 10/20/20 15:05: Sodium Level 134L, Potassium Level 2.5*L, Chloride Level 98, Carbon Dioxide Level 17L, Anion Gap 19H, Blood Urea Nitrogen 63H, Creatinine 3.20H, Estimat Glomerular Filtration Rate 19, BUN/Creatinine Ratio 20, Glucose Level 127H, Calcium Level 8.1L, Phosphorus Level 5.5H, Magnesium Level 2.3, Total Creatine Kinase 147 10/20/20 17:55: Glucometer 142H 10/20/20 19:29: Potassium Level 2.6L 10/20/20 23:01: Glucometer 120H 10/21/20 03:18: Potassium Level 2.8L, White Blood Count 4.8, Red Blood Count 3.96L, Hemoglobin 12.7L, Hematocrit 34L, Mean Corpuscular Volume 86, Mean Corpuscular Hemoglobin 32, Mean Corpuscular Hemoglobin Concent 37H, Red Cell Distribution Width 12.6, Platelet Count 199, Mean Platelet Volume 9.6, Immature Granulocyte % (Auto) 1, Neutrophils (%) (Auto) 47, Lymphocytes (%) (Auto) 17, Monocytes (%) (Auto) 31H, Eosinophils (%) (Auto) 3, Basophils (%) (Auto) 0, Neutrophils # (Auto) 2.2, Lymphocytes # (Auto) 0.8L, Monocytes # (Auto) 1.5H, Eosinophils # (Auto) 0.1, Basophils # (Auto) 0.0, Immature Granulocyte # (Auto) 0.1, Sodium Level 133L, Chloride Level 97L, Carbon Dioxide Level 17L, Anion Gap 19H, Blood Urea Nitrogen 61H, Creatinine 2.73#H, Estimat Glomerular Filtration Rate 23, BUN/Creatinine Ratio 22, Glucose Level 120H, Calcium Level 8.1L, Phosphorus Level 3.5, Magnesium Level 2.4 Microbiology 10/20/20 C. difficile GDH Antigen & Toxins - Final, Complete 10/20/20 MRSA Screen - Final, Complete MRSA not isolated 10/19/20 Blood Culture - Preliminary, Resulted No growth Imaging X-rays of the left ankle were reviewed which shows no evidence of fracture on 10/18. X-rays of the left foot were obtained on 10/20 which shows fractures of the base of the second and third metatarsals which are minimally displaced Assessment and Plan Assessment Fracture base of the second third metatarsal left foot Problem List Sprain left ankle Minimally displaced fractures base of the second and third metatarsals left foot Plan At the present time, I would recommend holding off on any immobilization to keep an eye on his skin around the heel.He is comfortable with no immobilization right now. Once he gets up and starts transferring And ambulating then we will apply a cam walker. This can be done by physical therapy. I would recommend partial weightbearing for about 3 weeks and then full weightbearing at that point. Final Diagonsis Fracture of the base of the second and third metatarsals left foot Level of the visit: Level 3 LOR DAVIS MD Oct 21, 2020 10:04
--- NOTE | 2020-10-21 10:52 | Progress Note - Cardiology ---
Cardiology SOAP Progress Note Subjective: No cp or palp or syncope No shortness of breath at rest Diarrhea and nausea have improved Gen malaise and weakness present Objective: I&O/Vital Signs 10/20/20 10/21/20 10/21/20 10/21/20 23:00 00:00 00:16 01:00 Pulse 89 85 83 79 B/P (MAP) 134/67 (89) 141/58 (85) 134/58 (83) Pulse Ox 96 97 96 O2 Delivery Nasal Cannula Nasal Cannula Nasal Cannula O2 Flow Rate 3.00 3.00 3.00 10/21/20 10/21/20 10/21/20 10/21/20 02:00 03:00 04:00 05:00 Pulse 75 90 77 86 B/P (MAP) 135/58 (83) 142/56 (84) 136/54 (81) 131/53 (79) Pulse Ox 97 90 98 97 O2 Delivery Nasal Cannula Nasal Cannula Nasal Cannula Nasal Cannula O2 Flow Rate 3.00 3.00 3.00 3.00 10/21/20 10/21/20 10/21/20 10/21/20 06:00 07:00 07:00 07:45 Pulse 84 80 81 B/P (MAP) 146/67 (93) 155/65 (95) Pulse Ox 96 96 O2 Delivery Nasal Cannula Nasal Cannula Nasal Cannula O2 Flow Rate 3.00 3.00 3.00 10/21/20 10/21/20 08:00 08:38 Temp 36.6 Pulse 93 B/P (MAP) 161/76 (104) Pulse Ox 96 O2 Delivery Nasal Cannula O2 Flow Rate 3.00 10/21/20 00:00 Intake Total 3730 ml Output Total 450 ml Balance 3280 ml Weight (Pounds): 219 Weight (Ounces): 0.0 Weight (Calculated Kilograms): [id number] Constitutional: AAO x 3, well-developed, well-nourished Respiratory: No accessory muscle use; other (fair to good, bilateral air entry, diminished at te bases) Cardiovascular: regular rate-rhythm, S1 and S2, systolic murmur (soft SHIKHA at card base) Gastrointestional: distended; No guarding, No rebound; audible bowel sounds Extremities: No clubbing, No cyanosis Skin: normal color, warm/dry Results/Procedures: Labs Laboratory Tests 10/20/20 11:31: Glucometer 146H 10/20/20 11:32: Sodium Level 134L, Potassium Level 2.6L, Chloride Level 100, Carbon Dioxide Level 13L, Anion Gap 21H, Blood Urea Nitrogen 61H, Creatinine 3.44H, Estimat Glomerular Filtration Rate 17, BUN/Creatinine Ratio 18, Glucose Level 145H, C alcium Level 7.9L, Corrected Calcium 8.3L, Phosphorus Level 6.1H, Magnesium Level 2.5H, Total Bilirubin 0.7, Aspartate Amino Transf (AST/SGOT) 16, Alanine Aminotransferase (ALT/SGPT) 15, Alkaline Phosphatase 36L, Total Protein 6.3L, Albumin 3.5 10/20/20 15:05: Sodium Level 134L, Potassium Level 2.5*L, Chloride Level 98, Carbon Dioxide Level 17L, Anion Gap 19H, Blood Urea Nitrogen 63H, Creatinine 3.20H, Estimat Glomerular Filtration Rate 19, BUN/Creatinine Ratio 20, Glucose Level 127H, Calcium Level 8.1L, Phosphorus Level 5.5H, Magnesium Level 2.3, Total Creatine Kinase 147 10/20/20 17:55: Glucometer 142H 10/20/20 19:29: Potassium Level 2.6L 10/20/20 23:01: Glucometer 120H 10/21/20 03:18: Potassium Level 2.8L, White Blood Count 4.8, Red Blood Count 3.96L, Hemoglobin 12.7L, Hematocrit 34L, Mean Corpuscular Volume 86, Mean Corpuscular Hemoglobin 32, Mean Corpuscular Hemoglobin Concent 37H, Red Cell Distribution Width 12.6, Platelet Count 199, Mean Platelet Volume 9.6, Immature Granulocyte % (Auto) 1, Neutrophils (%) (Auto) 47, Lymphocytes (%) (Auto) 17, Monocytes (%) (Auto) 31H, Eosinophils (%) (Auto) 3, Basophils (%) (Auto) 0, Neutrophils # (Auto) 2.2, Lymphocytes # (Auto) 0.8L, Monocytes # (Auto) 1.5H, Eosinophils # (Auto) 0.1, Basophils # (Auto) 0.0, Immature Granulocyte # (Auto) 0.1, Sodium Level 133L, Chloride Level 97L, Carbon Dioxide Level 17L, Anion Gap 19H, Blood Urea Nitrogen 61H, Creatinine 2.73#H, Estimat Glomerular Filtration Rate 23, BUN/Creatinine Ratio 22, Glucose Level 120H, Calcium Level 8.1L, Phosphorus Level 3.5, Magnesi um Level 2.4 Microbiology 10/20/20 C. difficile GDH Antigen & Toxins - Final, Complete 10/20/20 MRSA Screen - Final, Complete MRSA not isolated 10/19/20 Blood Culture - Preliminary, Resulted No growth Laboratory Tests 10/19/20 23:30 10/20/20 01:40 10/20/20 11:32 10/20/20 15:05 10/20/20 19:29 10/21/20 03:18 A/P: Assessment: Sepsis of undetermined source associated with septic shock Ac renal failure: likely ATN due to shock Abdominal pain - management per medical/surgical services C-diff (+) CAD, s/p CABG x 3 in 2004 - Rest/Stress Regadenoson Rubidium-82 PET/CT on 04/25/17: mild to mod ischemia in LAD territory mod-sized infarction with mild residual ischemia in the RCA territory, LVEF 36% Ischemic cardiomyopathy. - Last cath and PCI at [facility] in late 2016: LM 30 ostial, LAD 100 after D2, D2 with severe prox stenosis, LCS mod diff, RI 30-40 prox, RCA occluded distally and collateralized; underwent laser atherectomy and 2.5x22 Resolute [place] MARCUS to D2 that was post dilated with 3 mm balloon (RCA not intervened on) - Chronic stable exertional angina pectoris Ischemic cm and HFrEF - Echo of 05-23-16 showed LVEF approx 35%. Global hypokinesis of the LV, somewhat more marked at the distal anteroapical area. Mild diastolic dysfunction of the LV. Mild diastolic dysfunction. Mild aortic, mitral and tricuspid regurg. No evidence of significant valvular stenosis. Mod enlargement of the LA and LV. Mild LVH S/p single ch ICD implant on 05/04/15; device functioning normally per interrogation of May 2020 DM II Hyperlipidemia Hypertension Obesity with BMI approx 33.5 Obstructive sleep apnea, treated with CPAP, managed by Dr Wiley H/o prostate and thyroid cancers for which he has been fully treated and they are stated to be in chronic remission. Prostate cancer followed by Dr Lilly; thyroid cancer [facility] Mild bilat carotid plaque per u/s of 08/19/18 Chronic hardness of hearing Splenic mass diagnosed in September 2020 being managed by Med and Surg svces Plan: * Management of c-diff is per medical/surgical services * Replace electrolytes * Continue IV fluids * Treat shock * Renal function improving * Monitor labs BLADE PICKERING MD FACP FAC CCDS Oct 21, 2020 10:52
--- NOTE | 2020-10-21 13:04 | Progress Note - Hospitalist ---
SIMEON BALDERAS MED STUDENT 10/21/20 1304: Subjective HPI/CC On Admission Date Seen by Provider: Oct 21, 2020 Time Seen by Provider: 09:15 CC: Abdominal pain HPI: This is a 80yoWM who presented Sunday with flu-like symptoms. Sunday he went to the ER found to have a splenic mass and a PET scan was ordered by Dr. Bernstein and Dr. Hurd. Elevated lactic acid prompted admission of 3.38, creatinine did go from 3.9 to 3.5 overnight with IV fluids and hypokalemia continues and ordered supplement. He did have multiple falls and left foot appeared to be fractured so will consult Dr. Nicholas. Pt also has had diarrhea for five years, he also has a history of thyroid cancer and prostate cancer along with CAD, pre vious bypass, peripheral vascular disease, DM and ELLA. His daughter is at the bedside. Currently, he is doing okay and feels much better than last night. Subjective/Events-last exam 10/21/20 Pt feeling much better today, abdominal pain subsided Clinical Documentation Clerk improved 2.73 today down from 3.2 Continues to be hypokalemic (2.8) but did have 10 bowel movements yesterday Aggressively replacing potassium and will recheck labs - possible central line for larger dose of K Surgery consulted regarding splenic mass and does not see any indication to operate Base of 2nd and 3rd metatarsals are fractured; Dr. Nicholas consulted and will place patient in boot when discharged PT will work with patient to get him moving around today Encouraged use of IS Focused Exam Lactate Level 10/20/20 01:40: Lactic Acid Level 3.60*H 10/20/20 04:10: Lactic Acid Level 2.32*H 10/20/20 06:49: Lactic Acid Level 1.85 Time of Focused Exam: 23:30 Objective Exam Vital Signs Vital Signs Date Time Temp Pulse Resp B/P (MAP) Pulse Ox O2 Delivery O2 Flow Rate FiO2 10/21/20 12:36 36.5 10/21/20 11:00 91 147/68 (94) 94 Nasal Cannula 3.00 10/20/20 18:00 20 Capillary Refill : Less Than 3 Seconds General Appearance: No Apparent Distress, WD/WN HEENT: PERRL/EOMI, Moist Mucous Membranes Neck: Full Range of Motion, Non Tender Respiratory: Chest Non Tender, Lungs Clear, Normal Breath Sounds, No Accessory Muscle Use, No Respiratory Distress Cardiovascular: Regular Rate, Rhythm, No Edema, No JVD, No Murmur, Normal Peripheral Pulses Gastrointestinal: Normal Bowel Sounds, Non Tender, Soft Extremity: Normal Capillary Refill, Non Tender, No Calf Tenderness, No Pedal Edema, Other (L crusher tender at fracture) Neurologic/Psychiatric: Alert, Oriented x3, No Motor/Sensory Deficits Skin: Normal Color, Warm/Dry Lymphatic: No Adenopathy Results/Procedures Lab Laboratory Tests 10/20/20 15:05 10/20/20 19:29 10/21/20 03:18 Patient resulted labs reviewed. Assessment/Plan Assessment and Plan Assess & Plan/Chief Complaint Assessment: -Splenic mass : Surgery consulted. Reviewed imaging with radiology and no acute issue; surgical intervention not recommended. 4.8 cm. Enlarged compared to previous CT. Ddx: Benign splenic cyst, hamartoma, lymphangioma, sarcoidosis, lymphoma, splenic angiosarcoma, METS from undiagnosed primary -Sepsis -ARF; improving -Metabolic acidosis; improving -Hypokalemia -Hyponatremia -Dehydration; improving -Elevated Troponin -Abdominal pain; epigastric and LLQ - resolved -Diarrhea; chronic -Left 2nd and 3rd metatarsal fracture DM HTN HLD CHF CAD/PVD/ASVD post stent placement Hx of [place] x2 Hx of CABG ELLA COPD Hx of prostate cancer Hx of thyroid cancer Plan: IVF IV abx Central line to replace K Pain control Monitor closely in ICU PT started Diagnosis/Problems Diagnosis/Problems (1) Acute renal failure Status: Acute (2) Diarrhea Status: Chronic (3) Electrolyte imbalance Status: Acute (4) Elevated troponin Status: Acute (5) Splenic mass Status: Acute (6) Dehydration Status: Acute (7) Sepsis Status: Acute (8) Hypotension Status: Resolved Resolution Date/Time: 10/20/20 @ 13:13 (9) Cardiac defibrillator in place Status: Chronic (10) Metabolic acidosis Status: Acute (11) CAD (coronary artery disease) Status: Chronic (12) PVD (peripheral vascular disease) Status: Chronic (13) ASCVD (arteriosclerotic cardiovascular disease) Status: Chronic (14) History of [place] (myocardial infarction) Status: Chronic (15) HTN (hypertension) Status: Chronic (16) HLD (hyperlipidemia) Status: Chronic (17) Diabetes Status: Chronic (18) History of prostate cancer Status: Resolved (19) History of thyroid cancer Status: Resolved JOAN ARGUETA DO 10/22/20 0539: Subjective Subjective/Events-last exam Pt much improved Left foot fracture managed by Dr. Nicholas with placement of boot Central line will be placed for aggressive potassium supplementation CXR was negative Hypotension resolved C-diff is negative Overall much improved Review of Systems General: Fatigue Neurological: Weakness Objective Exam General Appearance: No Apparent Distress, WD/WN Respiratory: Lungs Clear Cardiovascular: Regular Rate, Rhythm Neurologic/Psychiatric: Alert, Oriented x3 Assessment/Plan Assessment and Plan Assess & Plan/Chief Complaint ICU Replace potassium Left foot bot Supervisory-Addendum Brief Verification & Attestation Participated in pt care: history, MDM, physical Personally performed: exam, history, MDM, supervision of care Care discussed with: Medical Student Procedures: n/a Results interpretation: Verified all documentation Verification and Attestation of Medical Student E/M Service A medical student performed and documented this service in my presence. I reviewed and verified all information documented by the medical student and made modifications to such information, when appropriate. I personally performed the physical exam and medical decision making. Joan Argueta, Oct 22, 2020,05:37 SIMEON BALDERAS MED STUDENT Oct 21, 2020 13:04 JOAN ARGUETA DO Oct 22, 2020 05:39
--- NOTE | 2020-10-21 13:41 | Occupational Therapy Eval ---
OT Evaluation-General/PLF Medical Diagnosis Admission Date Oct 20, 2020 at 00:25 Medical Diagnosis: ABD pain, n/v, splemic mass Onset Date: Oct 18, 2020 Therapy Diagnosis Therapy Diagnosis: weakness, decreased ADL Status Height/Weight Height (Feet): 5 Height (Inches): 10.00 Weight (Pounds): 219 Weight (Ounces): 0.0 Precautions Precautions/Isolations: Contact Isolation, Fall Prevention, Standard Precautions Referral Physician: Lorena Referral Reason: Evaluation/Treatment Medical History Pertinent Medical History: CAD, COPD, DM, HTN, [place], Prostate CA, PVD Additional Medical History ICD, HLD, ELLA, thyroid cancer Current History ED Via EMS 10/18/20 due to nausea, abdominal pain, L leg cramp. CT showed mass on spleen. D/C from ED 10/18/20. Returned to ED 10/19 with worsening symptoms. Acute nondisplaced fractures involving bases of 2nd & 3rd metatarsals. Social History Home: Single Level Current Living Status: Alone Entry Into Home: Stairs With Railing Steps Into Home: 3 ADL-Prior Level of Function SCALE: Activities may be completed with or without assistive devices. 0-Kdwaaufuyf-ukuyalj completes the activity by him/herself with no assistance from a helper. 5-Set-up or Clean-up Assistance-helper sets up or cleans up; patient completes activity. [place] assists only prior to or following the activity. 4-Supervision or Touching Assistance-helper provides verbal cues and/or touchi ng/steadying and/or contact guard assistance as patient completes activity. Assistance may be provided throughout the activity or intermittently. 3-Partial/Moderate Assistance-helper does LESS THAN HALF the effort. [place] lifts, holds or supports trunk or limbs, but provides less than half the effort. 2-Substantial/Maximal Assistance-helper does MORE THAN HALF the effort. [place] lifts or holds trunk or limbs and provides more than half the effort. 8-Iqnhpdpox-xveakg does ALL the effort. Patient does none of the effort to complete the activity. Or, the assistance of 2 or more helpers is required for the patient to complete the activity. If activity was not attempted, code reason: 7-Patient Refused. 9-Not Applicable-not attempted and the patient did not perform the activity before the current illness, exacerbation or injury. 10-Not Attempted due to Environmental Limitations-(lack of equipment, weather restraints, etc.). 88-Not Attempted due to Medical Conditions or Safety Concerns. ADL PLOF Comments Pt reports IND with ADLS and functional mobility at PLOF, no AD/AE Self Care: Independent Functional Cognition: Independent DME/Equipment: Tub/Shower OT Current Status Subjective Pt laying in bed, agreeable to OT evaluation and tx. Nurse states pt OK for therapy, but requests for bed level activity as pt has rectal tubing for management of bowels. Mental Status/Objective Attachments: Torres Catheter, IV, Oxygen, Other-See Comments (rectal tubing) Current Glasses/Contacts: Yes Hand Dominance: Right Upper Extremity ROM WFL, BUE shoulder flexion to approx 140 degrees. Upper Extremity Coordination WFL Upper Extremity Sensation WFL, pt denies tingling/numbness Upper Extremity Strength grossly 3+/5 ADL-Treatment Eating (QC): 6 (Pt independent with liquid diet, able to open containers.) Oral Hygiene (QC): 5 (based on clinical jdugement, pt would require set up assist with task.) On/Off Footwear (QC): 1 (Based on clinical judgement, pt would require total assist with footwear due to pain/fractures in L foot.) Toileting Hygiene (QC): 88 (Pt had torres catheter and rectal tube) Other Treatments Pt laying in bed, agreeable to OT eval/tx. OT educated pt on purpose and benefit of OT, he verbalized understanding. Pt provided information about PLOF and home set up, and participated in UE screen. Pt indicates L foot pain with movement/touch due to having broken 2nd and 3rd metatarsals. Nurse states pt ok for bed level activities as he has rectal tubing to manage bowels. OT educated pt on purpose and benefit of exercises, instructing him to complete exercises throughout the day, increasing reps as tolerated, he verbalized understanding. Pt completed x10 reps BUE shoulder flexion, elbow flexion/extension, and wrist flexion/extension. Pt repositioned and boosted towards HOB, assist x2. Post tx, pt laying in bed, call light in reach and all needs met. Education OT Patient Education: Correct positioning, Modified ADL techniques, Progress toward Goal/Update tx plan, Purpose of tx/functional activities Teaching Recipient: Patient Teaching Methods: Discussion Response to Teaching: Verbalize Understanding OT Fdc Goals Scout Executive Goals Time Frame: November 12, 2020 Eating (QC): 6 Oral Hygiene (QC): 6 Toileting Hygiene (QC): 6 Shower/Bathe Self (QC): 6 Upper Body Dressing (QC): 6 Lower Body Dressing (QC): 6 On/Off Footwear (QC): 6 Additional Goals: 1-Demonstrate ADL Tasks, 2-Verbalize Understanding, 3- ImproveStrength/Ashley 1=Demonstrate adherence to instructed precautions during ADL tasks. 2=Patient will verbalize/demonstrate understanding of assistive devices/modifications for ADL. 3=Patient will improve strength/tolerance for activity to enable patient to perform ADL's. OT Education/Plan Problem List/Assessment Assessment: Decreased Activ Tolerance, Decreased UE Strength, Impaired Bed Mobility, Impaired Funct Balance, Impaired I ADL's, Impaired Self-Care Skills Discharge Recommendations Plan/Recommendations: Continue POC Treatment Plan/Plan of Care Patient would benefit from OT for education, treatment and training to promote independence in ADL's, mobility, safety and/or upper extremity function for ADL's. Plan of Care: ADL Retraining, Functional Mobility, UE Funct Exercise/Act Treatment Duration: November 12, 2020 Frequency: 5 times per week Estimated Hrs Per Day: .25 hour per day Time/GCodes Start Time: 13:15 Stop Time: 13:30 Total Time Billed (hr/min): 15 Billed Treatment Time 1, PETEY DELA CRUZ OT Oct 21, 2020 13:41
--- NOTE | 2020-10-21 13:55 | Physical Therapy Evaluation ---
PT Evaluation-General Medical Diagnosis Admission Date Oct 20, 2020 at 00:25 Medical Diagnosis: ABD pain, n/v, splenic mass Onset Date: Oct 18, 2020 Therapy Diagnosis Therapy Diagnosis: generalized weakness/debility Height/Weight Height (Feet): 5 Height (Inches): 10.00 Weight (Pounds): 219 Weight (Ounces): 0.0 Precautions Precautions/Isolations: Contact Isolation, Fall Prevention, Standard Precautions Weight Bear Status Right Lower Extremity: Right Full Weight Bearing Left Lower Extremity: Left Partial Weight Bearing with CAM boot in place and FWW use Referral Physician: Lorena Reason for Referral: Evaluation/Treatment Medical History Pertinent Medical History: CAD, COPD, DM, HTN, [place], Prostate CA, PVD Current History EMS secondary to N&V Reviewed History: Yes Social History Home: Single Level Current Living Status: Alone Entry Into Home: Stairs With Railing PT Steps Into Home: 3 Prior Prior Level of Function SCALE: Activities may be completed with or without assistive devices. 7-Vhtjehgyax-qgsjwul completes the activity by him/herself with no assistance fr om a helper. 5-Set-up or Clean-up Assistance-helper sets up or cleans up; patient completes activity. [place] assists only prior to or following the activity. 4-Supervision or Touching Assistance-helper provides verbal cues and/or touching/steadying and/or contact guard assistance as patient completes activity. Assistance may be provided throughout the activity or intermittently. 3-Partial/Moderate Assistance-helper does LESS THAN HALF the effort. [place] lifts, holds or supports trunk or limbs, but provides less than half the effort. 2-Substantial/Maximal Assistance-helper does MORE THAN HALF the effort. [place] lifts or holds trunk or limbs and provides more than half the effort. 2-Igukpdase-megczx does ALL the effort. Patient does none of the effort to complete the activity. Or, the assistance of 2 or more helpers is required for the patient to complete the activity. If activity was not attempted, code reason: 7-Patient Refused. 9-Not Applicable-not attempted and the patient did not perform the activity before the current illness, exacerbation or injury. 10-Not Attempted due to Environmental Limitations-(lack of equipment, weather restraints, etc.). 88-Not Attempted due to Medical Conditions or Safety Concerns. Bed Mobility: 6 Transfers (B,C,W/C): 6 Gait: 6 Stairs: 6 Indoor Mobility (Ambulation): Independent Stairs: Independent Prior Devices Use: None PT Evaluation-Current Subjective Patient agrees to PT. Pain Numeric Pain Scale: 5-Moderate Pain Location: Left Location Body Site: Foot Pain Description: Acute Objective Patient Orientation: Normal For Age Attachments: Oxygen, Taylor Catheter, IV rectal tube ROM/Strength ROM Lower Extremities bilateral LE WFL Strength Lower Extremities 3/5 grossly bilateral LE Integumentary/Posture Bladder Incontinence: Taylor Cath Neuromuscular (Tone, Coordination, Reflexes) grossly intact Sensory Vision: Wears Glasses Hearing: Impaired Hand Dominance: Right Transfers Roll Left to Right (QC): 1 no OOB activity per RN due to rectal tube Gait Does the Patient Walk?: No and Walking Goal IS indicated Assessment/Needs 80 y.o. male, will benefit from skilled PT to address functional strength and mobility to improve current LOF to safely return to home at maximum LOF. Rehab Potential: Fair PT Short Term Goals Short Term Goals Time Frame: Oct 29, 2020 Roll Left & Right: 3 Sit to lyin Lying to sitting on side of be: 3 Sit to stand: 3 Chair/zqw-lb-ascof transfer: 3 Walk 10 feet: 3 Walk 50 feet with two turns: 3 Walk 150 feet: 3 PT Skilled Nursing Goals Skilled Nursing Goals PT Front Office Specialist Goals Time Frame: November 06, 2020 Roll Left & Right (QC): 5 Sit to Lying (QC): 5 Lying-Sitting on Side/Bed(QC): 5 Sit to Stand (QC): 5 Chair/Czv-ga-Rkxta Xfer(QC): 5 Toilet Transfer (QC): 5 Does the Patient Walk: Yes Walk 10 feet (QC): 5 Walk 50ft with 2 Turns (QC): 5 Walk 150 ft (QC): 5 PT Plan Problem List Problem List: Activity Tolerance, Functional Strength, Safety, Balance, Gait, Transfer, Bed Mobility Treatment/Plan Treatment Plan: Continue Plan of Care Treatment Plan: Bed Mobility, Education, Functional Activity [place], Functional Strength, Gait, Safety, Therapeutic Exercise, Transfers Treatment Duration: November 06, 2020 Frequency: 6 times per week Estimated Hrs Per Day: .25 hour per day Patient and/or Family Agrees t: Yes Time/GCodes Time In: 1320 Time Out: 1330 Total Billed Treatment Time: 101 Total Billed Treatment 1 visit EVModC 10 min DORI ADAMS PT Oct 21, 2020 13:55
[2020-10-21 18:37] LABS: ALBUMIN 3.5 GM/DL (3.2-4.5)
[2020-10-21 18:38] LABS: CALCIUM 8.2 MG/DL (8.5-10.1)
[2020-10-21 18:40] LABS: TOTAL PROTEIN 6.5 GM/DL (6.4-8.2)
[2020-10-21 18:41] LABS: BILIRUBIN,TOTAL 0.9 MG/DL (0.1-1.0)
[2020-10-21 18:43] LABS: CREATININE SERUM 1.65 MG/DL (0.60-1.30); PHOSPHORUS 1.5 MG/DL (2.3-4.7)
[2020-10-21 18:46] LABS: MAGNESIUM 2.4 MG/DL (1.6-2.4)
[2020-10-21] MEDS ORDERED: POTASSIUM PHOSPHATE INJ 30 MM in NS (IVPB) 250 ML IV ONE (19:30)
[2020-10-22 01:48] LABS: BASOPHILS % (AUTO) 1 % (0-10); EOSINOPHILS # (AUTO) 0.1 10^3/uL (0.0-0.3); EOSINOPHILS % (AUTO) 3 % (0-10); HEMATOCRIT 29 % (40-54); HEMOGLOBIN 10.8 g/dL (13.3-17.7); LYMPHOCYTES # (AUTO) 0.8 10^3/uL (1.0-4.0); LYMPHOCYTES % (AUTO) 17 % (12-44); MEAN CORPUSCULAR HEMOGLOBIN 32 pg (25-34); MEAN CORPUSCULAR HGB CONC 38 g/dL (32-36); MEAN CORPUSCULAR VOLUME 86 fL (80-99); MEAN PLATELET VOLUME 9.2 fL (9.0-12.2); MONOCYTES % (AUTO) 23 % (0-12); NEUTROPHILS # (AUTO) 2.4 10^3/uL (1.8-7.8); NEUTROPHILS % (AUTO) 53 % (42-75); PLATELET COUNT 164 10^3/uL (130-400); WHITE BLOOD COUNT 4.4 10^3/uL (4.3-11.0)
[2020-10-22 01:54] LABS: CHLORIDE 93 MMOL/L (98-107); SODIUM 140 MMOL/L (135-145)
[2020-10-22 01:55] LABS: CALCIUM 6.3 MG/DL (8.5-10.1); GLUCOSE 120 MG/DL (70-105)
[2020-10-22 01:57] LABS: CARBON DIOXIDE 35 MMOL/L (21-32)
[2020-10-22 01:59] LABS: CREATININE SERUM 0.86 MG/DL (0.60-1.30); GFR ESTIMATED > 60; PHOSPHORUS 2.4 MG/DL (2.3-4.7)
[2020-10-22 02:00] LABS: BUN/CREATININE RATIO 37
[2020-10-22 02:01] LABS: MAGNESIUM 1.8 MG/DL (1.6-2.4)
[2020-10-22 02:07] LABS: POTASSIUM 2.4 MMOL/L (3.6-5.0)
[2020-10-22] MEDS: POTASSIUM CL 10MEQ/50ML IVPB 50 ML IV SCH ×11 (03:00→09:29)
--- NOTE | 2020-10-22 04:30 | Pulmonary Progress Note ---
Subjective Time Seen by a Provider: 04:23 Subjective/Events-last exam Pt now has central access with PICC line. We can now transfuse KCL at 20meq/hr Sepsis Event Evaluation Height, Weight, BMI Height: 5'10.00" Weight: 219lbs. 0.0oz. [id number]; 32.52 BMI Method:Stated Focused Exam Lactate Level 10/20/20 01:40: Lactic Acid Level 3.60*H 10/20/20 04:10: Lactic Acid Level 2.32*H 10/20/20 06:49: Lactic Acid Level 1.85 Time of Focused Exam: 23:30 Exam Exam Vital Signs Date Time Temp Pulse Resp B/P (MAP) Pulse Ox O2 Delivery O2 Flow Rate FiO2 10/22/20 02:00 82 184/74 (110) 96 Nasal Cannula 3.00 10/22/20 01:00 84 178/72 (107) 93 Nasal Cannula 3.00 10/22/20 01:00 84 10/22/20 00:00 82 168/75 (106) 94 Nasal Cannula 3.00 10/21/20 23:00 87 144/66 (92) 94 Nasal Cannula 3.00 10/21/20 22:00 89 154/70 (98) 94 Nasal Cannula 3.00 10/21/20 21:00 98 136/73 (94) 95 Nasal Cannula 3.00 10/21/20 21:00 95 Room Air 10/21/20 20:00 89 153/67 (95) 94 Nasal Cannula 3.00 10/21/20 19:57 36.7 10/21/20 19:00 86 10/21/20 19:00 86 165/69 (101) 94 Nasal Cannula 3.00 10/21/20 18:00 90 95 Nasal Cannula 3.00 10/21/20 17:00 98 96 Nasal Cannula 3.00 10/21/20 16:00 92 175/73 (107) 96 Nasal Cannula 3.00 10/21/20 15:00 90 180/92 (121) 96 Nasal Cannula 3.00 10/21/20 14:00 96 179/79 (112) 97 Nasal Cannula 3.00 10/21/20 13:07 90 10/21/20 13:00 90 146/78 (100) 96 Nasal Cannula 3.00 10/21/20 12:36 36.5 10/21/20 12:00 85 158/97 (117) 96 Nasal Cannula 3.00 10/21/20 11:00 92 3.00 10/21/20 11:00 91 147/68 (94) 94 Nasal Cannula 3.00 10/21/20 10:00 97 172/83 (112) 95 Nasal Cannula 3.00 10/21/20 09:00 89 147/69 (95) 97 Nasal Cannula 3.00 10/21/20 08:38 36.6 10/21/20 08:00 93 161/76 (104) 96 Nasal Cannula 3.00 10/21/20 07:45 Nasal Cannula 3.00 10/21/20 07:00 81 10/21/20 07:00 80 155/65 (95) 96 Nasal Cannula 3.00 10/21/20 06:00 84 146/67 (93) 96 Nasal Cannula 3.00 10/21/20 05:00 86 131/53 (79) 97 Nasal Cannula 3.00 I & O 10/22/20 07:00 Intake Total 4220 ml Output Total 6750 ml Balance -2530 ml Height & Weight Height: 5'10.00" Weight: 219lbs. 0.0oz. 99.614390fs; 32.52 BMI Method:Stated General Appearance: No Apparent Distress, Chronically ill HEENT: Moist Mucous Membranes Neck: Full Range of Motion, Non Tender Respiratory: No Accessory Muscle Use, No Respiratory Distress, Decreased Breath Sounds Cardiovascular: Regular Rate, Rhythm, No Murmur Capillary Refill: Less Than 3 Seconds Gastrointestinal: no organomegaly; No distended, No guarding, No rebound; tenderness (left upper quadrant) Extremity: Normal Capillary Refill, Non Tender, No Calf Tenderness, No Pedal Edema, Other (L quill machine tender at fracture) Neurologic/Psychiatric: Alert, Oriented x3, No Motor/Sensory Deficits Skin: Normal Color, Warm/Dry Lymphatic: No Adenopathy Results Lab Laboratory Tests 10/20/20 11:32 10/20/20 15:05 10/20/20 19:29 10/21/20 03:18 10/21/20 18:23 10/22/20 01:37 Assessment/Plan Assessment/Plan Acute renal failure with hyperkalemia and metabolic acidosis -- Improving -D/C Bicarb gtt -Start LR at 100 -IVF -monitor UO -Possible need for transfer for HD -Repeat Labs 2hrs after KCL replacement. Hypokalemia -Replace -Pt finally has central access with Picc line. -We can now replace KCL at 20meq/hr -Will keep in ICU until K+ >3.5 -Monitor Abdominal pain with N/V Diarrhea -CDiff and cultures pending Splenic mass -Dr. Carrillo has working up as out patient CAD with hx of CABG Dehydration HX colon resection 5yrs ago RAMANA SUBRAMANIAN DO Oct 22, 2020 04:30
[2020-10-22] MEDS: LACTATED RINGERS 1,000 ML IV SCH ×2 (04:37→14:28)
[2020-10-22] MEDS: MAGNESIUM 1 GM/100 ML IVPB 100 ML IV SCH (04:40)
[2020-10-22] MEDS: KCL 20 MEQ TAB (K-DUR) PO SCH (04:40)
[2020-10-22] MEDS: inSUlin ASPART (NovoLOG) 1 UNIT/0.01 ML (CHARGE PER UNIT) SC SCH ×4 (04:41→20:49)
--- NOTE | 2020-10-22 06:22 | Diagnostic Imaging Report ---
INDICATION: Hypotension, sepsis. Portable chest 3:24 AM FINDINGS: There are postoperative changes from median sternotomy. There is unipolar pacemaker. Right upper extremity PICC line tip projects over the SVC. Heart size and pulmonary vascularity are normal. Lungs are clear. There are no effusions or pneumothoraces. IMPRESSION: No acute abnormalities in the chest. Dictated by: Dictated on workstation # [id number]
[2020-10-22] MEDS: ISOSORBIDE MONONITRATE 60 MG (IMDUR) TAB PO SCH ×2 (07:41→21:00)
[2020-10-22] MEDS: AZITHROMYCIN INJECTION 500 MG in NS (IVPB) 250 ML IV SCH (07:41)
[2020-10-22] MEDS: CALCIUM ACETATE 667 MG CAP (PHOSLO) PO SCH (07:51)
[2020-10-22 09:27] LABS: ALANINE AMINOTRANSFERASE 14 U/L (0-55); ALBUMIN 3.5 GM/DL (3.2-4.5); ALKALINE PHOSPHATASE 43 U/L (40-136); BILIRUBIN,TOTAL 0.8 MG/DL (0.1-1.0); BUN/CREATININE RATIO 29; CALCIUM 8.2 MG/DL (8.5-10.1); CARBON DIOXIDE 23 MMOL/L (21-32); CHLORIDE 99 MMOL/L (98-107); CREATININE SERUM 1.03 MG/DL (0.60-1.30); GFR ESTIMATED > 60; GLUCOSE 181 MG/DL (70-105); MAGNESIUM 2.3 MG/DL (1.6-2.4); PHOSPHORUS 1.5 MG/DL (2.3-4.7); POTASSIUM 3.2 MMOL/L (3.6-5.0); SODIUM 136 MMOL/L (135-145); TOTAL PROTEIN 6.6 GM/DL (6.4-8.2)
[2020-10-22] MEDS: CHOLESTYRAMINE 4 GM (QUESTRAN LITE, PREVALITE) PKT PO SCH (09:28)
[2020-10-22] MEDS: CEFEPIME 1,000 MG/SWFI 10 ML IV PUSH IV SCH ×4 (09:28→21:01)
--- NOTE | 2020-10-22 09:38 | Progress Note - Cardiology ---
Cardiology SOAP Progress Note Subjective: Sitting up in bed No c/o CP or SOB C/O RLE discomfort Objective: I&O/Vital Signs 10/25/20 10/26/20 10/26/20 10/26/20 23:45 01:00 04:22 06:33 Temp 36.1 35.7 Pulse 77 70 77 Resp 22 22 B/P (MAP) 134/74 (94) 152/78 (102) Pulse Ox 95 96 96 O2 Delivery Room Air Room Air Nasal Cannula O2 Flow Rate 1.00 10/26/20 10/26/20 10/26/20 06:45 07:40 08:00 Temp 36.3 Pulse 77 66 Resp 17 B/P (MAP) 155/82 (106) Pulse Ox 95 O2 Delivery Room Air Room Air 10/25/20 23:59 Intake Total 3005 ml Output Total 2450 ml Balance 555 ml Weight (Pounds): 219 Weight (Ounces): 0.0 Weight (Calculated Kilograms): 99.080841 Constitutional: AAO x 3, well-developed, well-nourished Respiratory: No accessory muscle use; other (fair to good, bilateral air entry, diminished at te bases) Cardiovascular: regular rate-rhythm, S1 and S2, systolic murmur (soft SHIKHA at card base) Gastrointestional: distended; No guarding, No rebound; audible bowel sounds Extremities: No clubbing, No cyanosis Skin: normal color, warm/dry Results/Procedures: Labs Laboratory Tests 10/25/20 11:12: Glucometer 197H 10/25/20 16:11: Glucometer 143H 10/25/20 20:27: Glucometer 194H 10/26/20 05:15: White Blood Count 11.3H, Red Blood Count 3.76L, Hemoglobin 12.2L, Hematocrit 34L , Mean Corpuscular Volume 91, Mean Corpuscular Hemoglobin 32, Mean Corpuscular Hemoglobin Concent 36, Red Cell Distribution Width 12.6, Platelet Count 198, Mean Platelet Volume 9.0, Sodium Level 137, Potassium Level 4.1, Chloride Level 104, Carbon Dioxide Level 24, Anion Gap 9, Blood Urea Nitrogen 8, Creatinine 0.70, Estimat Glomerular Filtration Rate > 60, BUN/Creatinine Ratio 11, Glucose Level 155H, Calcium Level 8.4L 10/26/20 05:35: Glucometer 155H Microbiology 10/22/20 Cryptosporidium/Giardia - Final, Complete 10/20/20 MRSA Screen - Final, Complete MRSA not isolated 10/19/20 Blood Culture - Final, Complete No growth A/P: Assessment: Sepsis of undetermined source associated with septic shock Ac renal failure: likely ATN due to shock - renal function improving Abdominal pain - management per medical/surgical services C-diff (+) CAD, s/p CABG x 3 in 2004 - Rest/Stress Regadenoson Rubidium-82 PET/CT on 04/25/17: mild to mod ischemia in LAD territory mod-sized infarction with mild residual ischemia in the RCA territory, LVEF 36% Ischemic cardiomyopathy. - Last cath and PCI at [facility] in late 2016: LM 30 ostial, LAD 100 after D2, D2 with severe prox stenosis, LCS mod diff, RI 30-40 prox, RCA occluded distally and collateralized; underwent laser atherectomy and 2.5x22 Resolute Anastacio MARCUS to D2 that was post dilated with 3 mm balloon (RCA not intervened on) - Chronic stable exertional angina pectoris Ischemic cm and HFrEF - Echo of 05-23-16 showed LVEF approx 35%. Global hypokinesis of the LV, somewhat more marked at the distal anteroapical area. Mild diastolic dysfunction of the LV. Mild diastolic dysfunction. Mild aortic, mitral and tricuspid regurg. No evidence of significant valvular stenosis. Mod enlargement of the LA and LV. Mild LVH S/p single ch ICD implant on 05/04/15; device functioning normally per interrogation of May 2020 DM II Hyperlipidemia Hypertension Obesity with BMI approx 33.5 Obstructive sleep apnea, treated with CPAP, managed by Dr Wiley H/o prostate and thyroid cancers for which he has been fully treated and they are stated to be in chronic remission. Prostate cancer followed by Dr Lilly; thyroid cancer [facility] Mild bilat carotid plaque per u/s of 08/19/18 Chronic hardness of hearing Splenic mass diagnosed in September 2020 being managed by Med and Surg svces Right foot fracture Plan: * Management of c-diff is per medical/surgical services * Replace electrolytes * Continue IV fluids * Renal function improving * Replace electrolytes * Monitor labs * Management of right foot fracture is per medical services * Resume Plavix and ASA d/t known h/o CAD * BP is not well controlled restart BB tx - adjust as indicated * Hold NEETA (-) for now d/t ARF at time of admission CANDY GARCIA [facility] Oct 22, 2020 09:38
[2020-10-22] MEDS ORDERED: ASPIRIN 81 MG CHEW (CHILDREN'S ASA) PO ONE (09:45)
[2020-10-22] MEDS ORDERED: POTASSIUM PHOSPHATE INJ 30 MM in NS (IVPB) 250 ML IV ONE (10:00)
--- NOTE | 2020-10-22 10:07 | Physical Therapy Daily Note ---
PT Daily Note-Current Subjective Patient agrees to PT. Mental Status Patient Orientation: Person, Time, Situation Attachments: Central Line, Oxygen, Taylor Catheter rectal tube Transfers SCALE: Activities may be completed with or without assistive devices. 9-Tumwubmlpk-wvizuua completes the activity by him/herself with no assistance from a helper. 5-Set-up or Clean-up Assistance-helper sets up or cleans up; patient completes activity. [place] assists only prior to or following the activity. 4-Supervision or Touching Assistance-helper provides verbal cues and/or touching/steadying and/or contact guard assistance as patient completes a ctivity. Assistance may be provided throughout the activity or intermittently. 3-Partial/Moderate Assistance-helper does LESS THAN HALF the effort. [place] lifts, holds or supports trunk or limbs, but provides less than half the effort. 2-Substantial/Maximal Assistance-helper does MORE THAN HALF the effort. [place] lifts or holds trunk or limbs and provides more than half the effort. 5-Tgzzpjftv-lwsjmq does ALL the effort. Patient does none of the effort to complete the activity. Or, the assistance of 2 or more helpers is required for the patient to complete the activity. If activity was not attempted, code reason: 7-Patient Refused. 9-Not Applicable-not attempted and the patient did not perform the activity before the current illness, exacerbation or injury. 10-Not Attempted due to Environmental Limitations-(lack of equipment, weather restraints, etc.). 88-Not Attempted due to Medical Conditions or Safety Concerns. Weight Bearing Right Lower Extremity: Right Full Weight Bearing Left Lower Extremity: Left Partial Weight Bearing with CAM boot in place and FWW use Exercises Supine Ex: Ankle pumps, Quad Set, Heel Slides, Straight leg raise, Hip abd/add Supine Reps: 15 (2 sets) Assessment No OOB activity per RN due to rectal tube. PT to increase activity when patient is able to safely do so. PT Short Term Goals Short Term Goals Time Frame: Oct 29, 2020 Roll Left & Right: 3 Sit to lyin Lying to sitting on side of be: 3 Sit to stand: 3 Chair/tee-ke-mfrdl transfer: 3 Walk 10 feet: 3 Walk 50 feet with two turns: 3 Walk 150 feet: 3 PT Skilled Nursing Goals Skilled Nursing Goals PT Skilled Nursing Goals Time Frame: November 06, 2020 Roll Left & Right (QC): 5 Sit to Lying (QC): 5 Lying-Sitting on Side/Bed(QC): 5 Sit to Stand (QC): 5 Chair/Xuk-ox-Cphho Xfer(QC): 5 Toilet Transfer (QC): 5 Does the Patient Walk: Yes Walk 10 feet (QC): 5 Walk 50ft with 2 Turns (QC): 5 Walk 150 ft (QC): 5 PT Plan Treatment/Plan Treatment Plan: Continue Plan of Care Treatment Plan: Bed Mobility, Education, Functional Activity Ashley, Functional Strength, Gait, Safety, Therapeutic Exercise, Transfers Treatment Duration: November 06, 2020 Frequency: 6 times per week Estimated Hrs Per Day: .25 hour per day Patient and/or Family Agrees t: Yes Time/GCodes Time In: 830 Time Out: 842 Total Billed Treatment Time: 12 Total Billed Treatment 1 visit EX 12 min DORI ADAMS PT Oct 22, 2020 10:07
--- NOTE | 2020-10-22 10:13 | Progress Note - Surgery ---
SALVADOR DA SILVA MED STUDENT 10/22/20 1012: Subjective Date Seen by a Provider: Oct 22, 2020 Time Seen by a Provider: 09:45 Subjective/Events-last exam Ray states his abdominal pain is "under control". Says his pain is mainly lower abdominal. Admits to diarrhea. Focused Exam Lactate Level 10/20/20 01:40: Lactic Acid Level 3.60*H 10/20/20 04:10: Lactic Acid Level 2.32*H 10/20/20 06:49: Lactic Acid Level 1.85 Time of Focused Exam: 23:30 Objective Exam Vital Signs Date Time Temp Pulse Resp B/P (MAP) Pulse Ox O2 Delivery O2 Flow Rate FiO2 10/22/20 09:00 98 169/75 (106) 94 Nasal Cannula 3.00 10/22/20 08:05 36.0 10/22/20 08:00 88 97 Nasal Cannula 3.00 10/22/20 07:52 96 Room Air 10/22/20 07:00 86 94 Nasal Cannula 3.00 10/22/20 07:00 86 10/22/20 06:00 81 94 Nasal Cannula 3.00 10/22/20 05:00 87 95 Nasal Cannula 3.00 10/22/20 04:00 87 93 Nasal Cannula 3.00 10/22/20 03:00 87 172/70 (104) 93 Nasal Cannula 3.00 10/22/20 02:00 82 184/74 (110) 96 Nasal Cannula 3.00 10/22/20 01:00 84 178/72 (107) 93 Nasal Cannula 3.00 10/22/20 01:00 84 10/22/20 00:00 82 168/75 (106) 94 Nasal Cannula 3.00 10/21/20 23:00 87 144/66 (92) 94 Nasal Cannula 3.00 10/21/20 22:00 89 154/70 (98) 94 Nasal Cannula 3.00 10/21/20 21:00 98 136/73 (94) 95 Nasal Cannula 3.00 10/21/20 21:00 95 Room Air 10/21/20 20:00 89 153/67 (95) 94 Nasal Cannula 3.00 10/21/20 19:57 36.7 10/21/20 19:00 86 10/21/20 19:00 86 165/69 (101) 94 Nasal Cannula 3.00 10/21/20 18:00 90 95 Nasal Cannula 3.00 10/21/20 17:00 98 96 Nasal Cannula 3.00 10/21/20 16:00 92 175/73 (107) 96 Nasal Cannula 3.00 10/21/20 15:00 90 180/92 (121) 96 Nasal Cannula 3.00 10/21/20 14:00 96 179/79 (112) 97 Nasal Cannula 3.00 10/21/20 13:07 90 10/21/20 13:00 90 146/78 (100) 96 Nasal Cannula 3.00 10/21/20 12:36 36.5 10/21/20 12:00 85 158/97 (117) 96 Nasal Cannula 3.00 10/21/20 11:00 92 3.00 10/21/20 11:00 91 147/68 (94) 94 Nasal Cannula 3.00 I & O 10/22/20 06:59 Intake Total 5320 ml Output Total 8100 ml Balance -2780 ml Capillary Refill : Less Than 3 Seconds General Appearance: No Apparent Distress, WD/WN HEENT: PERRL/EOMI; No Moist Mucous Membranes Neck: Full Range of Motion, Non Tender Respiratory: Chest Non Tender, Lungs Clear, Normal Breath Sounds, No Accessory Muscle Use, No Respiratory Distress Cardiovascular: Regular Rate, Rhythm, No Edema Gastrointestinal: no organomegaly, abnormal bowel sounds (hyperactive); No distended, No guarding, No rebound; tenderness (mild suprapubic and LLQ) Extremity: Normal Capillary Refill, Non Tender, No Calf Tenderness, No Pedal Edema, Other (L foot roentgenologist at fracture) Neurologic/Psychiatric: Alert, Oriented x3 Skin: Normal Color, Warm/Dry Lymphatic: No Adenopathy Results Lab Laboratory Tests 10/21/20 12:22: Glucometer 141H 10/21/20 18:23: Sodium Level 135, Potassium Level 3.0L, Chloride Level 99, Carbon Dioxide Level 22, Anion Gap 14, Blood Urea Nitrogen 48H, Creatinine 1.65H, Estimat Glomerular Filtration Rate 40, BUN/Creatinine Ratio 29, Glucose Level 166H, Calcium Level 8.2L, Corrected Calcium 8.6, Phosphorus Level 1.5L, Magnesium Level 2.4, Total Bilirubin 0.9, Aspartate Amino Transf (AST/SGOT) 17, Alanine Aminotransferase (ALT/SGPT) 13, Alkaline Phosphatase 39L, Total Protein 6.5, Albumin 3.5 10/21/20 21:14: Glucometer 154H 10/22/20 01:37: Sodium Level 140, Potassium Level 2.4*L, Chloride Level 93L, Carbon Dioxide Level 35H, Anion Gap 12, Blood Urea Nitrogen 32H, Creatinine 0.86, Estimat Glomerular Filtration Rate > 60, BUN/Creatinine Ratio 37, Glucose Level 120H, Calcium Level 6.3L, Phosphorus Level 2.4, Magnesium Level 1.8, White Blood Count 4.4, Red Blood Count 3.35L, Hemoglobin 10.8L, Hematocrit 29L, Mean Corpuscular Volume 86, Mean Corpuscular Hemoglobin 32, Mean Corpuscular Hemoglobin Concent 38H, Red Cell Distribution Width 12.4, Platelet Count 164, Mean Platelet Volume 9.2, Immature Granulocyte % (Auto) 4, Neutrophils (%) (Auto) 53, Lymphocytes (%) (Auto) 17, Monocytes (%) (Auto) 23H, Eosinophils (%) (Auto) 3, Basophils (%) (Auto) 1, Neutrophils # (Auto) 2.4, Lymphocytes # (Auto) 0.8L, Monocytes # (Auto) 1.0, Eosinophils # (Auto) 0.1, Basophils # (Auto) 0.0, Immature Granulocyte # (Auto) 0.2H 10/22/20 08:23: Sodium Level 136, Potassium Level 3.2L, Chloride Level 99, Carbon Dioxide Level 23, Anion Gap 14, Blood Urea Nitrogen 30H, Creatinine 1.03, Estimat Glomerular Filtration Rate > 60, BUN/Creatinine Ratio 29, Glucose Level 181H, Calcium Level 8.2L, Corrected Calcium 8.6, Phosphorus Level 1.5L, Magnesium Level 2.3, Total Bilirubin 0.8, Aspartate Amino Transf (AST/SGOT) 15, Alanine Aminotransferase (A LT/SGPT) 14, Alkaline Phosphatase 43, Total Protein 6.6, Albumin 3.5 Microbiology 10/20/20 C. difficile GDH Antigen & Toxins - Final, Complete 10/20/20 MRSA Screen - Final, Complete MRSA not isolated 10/19/20 Blood Culture - Preliminary, Resulted No growth Assessment/Plan Assessment/Plan Assessment/Plan Abdominal Pain Diarrhea - tested negative for c diff, has rectal tube in place Nausea and Vomiting - resolved Dehydration - continue fluid Splenic Mass Hyponatremia Hypokalemia -continues to be severe despite replacement Acute Renal Failure -Creatinine improved to 0.86 Foot fracture CAD s/p pacemaker implantation Whereas yesterday the patient did have some LUQ tenderness, today he has suprapubic and LLQ tenderness. Suspect his tenderness is due to overactive bowels at this time. Pt has multiple medical problems, I am unsure why he is having abdominal pain. I doubt it is the splenic mass causing his pain; nothing acute about that. states pain is overall decreased. Priority should be management of electrolyte issues, renal problems, diarrhea. His CT abd/pelvis from 10/18 has nothing acute seen in the abdomen, no inflammatory process or indication of obstruction. Will monitor closely, but no surgical indications at this time. PRANEETH HURD DO 10/22/20 1141: Subjective Time Seen by a Provider: 10:41 Subjective/Events-last exam Pt seen and examined, states he has some pain but only when he eats. He is having BM, "all over the place"; but actually has rectal tube in place. Review of Systems General: Fatigue Pulmonary: No Dyspnea, No Cough Cardiovascular: No: Chest Pain, Palpitations Gastrointestinal: Abdominal Pain, Diarrhea; No: Nausea, Vomiting Objective Exam General Appearance: No Apparent Distress, WD/WN HEENT: PERRL/EOMI; No Moist Mucous Membranes Respiratory: Lungs Clear, Normal Breath Sounds, No Accessory Muscle Use, No Respiratory Distress Cardiovascular: Regular Rate, Rhythm, No JVD Gastrointestinal: abnormal bowel sounds (hyperactive); No distended, No guarding, No rebound; tenderness (mild suprapubic and LLQ) Extremity: No Calf Tenderness, No Pedal Edema, Other (L foot roentgenologist at fracture) Neurologic/Psychiatric: Alert, Oriented x3 Assessment/Plan Assessment/Plan Assessment/Plan Abdominal Pain - mostly improved Diarrhea - tested negative for c diff, has rectal tube in place Nausea and Vomiting - resolved Dehydration - continue fluid Splenic Mass Hyponatremia - resolved Hypokalemia -continues to be severe despite replacement,but slightly better Acute Renal Failure - resolved, Creatinine improved to 0.86 and then 1.03 Foot fracture CAD s/p pacemaker implantation Whereas yesterday the patient did have some LUQ tenderness, today he has suprapubic and LLQ tenderness. Suspect his tenderness is due to overactive bowels at this time. Pt has multiple medical problems, I am unsure why he is having abdominal pain. I doubt it is the splenic mass causing his pain; nothing acute about that. states pain is overall decreased. Priority should be management of electrolyte issues, renal problems, diarrhea. His CT abd/pelvis from 10/18 has nothing acute seen in the abdomen, no inflammatory process or indication of obstruction. Will monitor closely, but no surgical indications at this time. Supervisory-Addendum Brief Verification & Attestation Participated in pt care: history, MDM, physical Personally performed: exam, history, MDM Care discussed with: Medical Student Procedures: n/a Verification and Attestation of Medical Student E/M Service A medical student performed and documented this service. I then reviewed and verified all information documented by the medical student and made modifications to such information, when appropriate. I personally performed a p hysical exam, medical decision making and then discussed any differences between the notes and made revisions as necessary to create one note. Praneeth Hurd , 10/22/20 , 11:41 SALVADOR DA SILVA MED STUDENT Oct 22, 2020 10:12 PRANEETH HURD DO Oct 22, 2020 11:41
--- NOTE | 2020-10-22 11:54 | Occupational Ther Daily Note ---
OT Current Status-Daily Note Subjective Pt laying in bed, agreeable to OT Tx. Per nurse, no OOB activities on this date due to rectal tube. ADL-Treatment Therapy Code Descriptions/Definitions Functional [place] Measure: 0=Not Assessed/NA 4=Minimal Assistance 1=Total Assistance 5=Supervision or Setup 2=Maximal Assistance 6=Modified [place] 3=Moderate Assistance 7=Complete IndependenceSCALE: Activities may be completed with or without assistive devices. 6-Ldxxepsmvh-aydlezg completes the activity by him/herself with no assistance from a helper. 5-Set-up or Clean-up Assistance-helper sets up or cleans up; patient completes activity. [place] assists only prior to or following the activity. 4-Supervision or Touching Assistance-helper provides verbal cues and/or touching/steadying and/or contact guard assistance as patient completes activity. Assistance may be provided throughout the activity or intermittently. 3-Partial/Moderate Assistance-helper does LESS THAN HALF the effort. [place] lifts, holds or supports trunk or limbs, but provides less than half the effort. 2-Substantial/Maximal Assistance-helper does MORE THAN HALF the effort. [place] lifts or holds trunk or limbs and provides more than half the effort. 3-Xuabfcygi-yhyrbs does ALL the effort. Patient does none of the effort to complete the activity. Or, the assistance of 2 or more helpers is required for the patient to complete the activity. If activity was not attempted, code reason: 7-Patient Refused. 9-Not Applicable-not attempted and the patient did not perform the activity before the current illness, exacerbation or injury. 10-Not Attempted due to Environmental Limitations-(lack of equipment, weather restraints, etc.). 88-Not Attempted due to Medical Conditions or Safety Concerns. Other Treatment In order to increase BUE strength and activity tolerance, pt completed x15 reps each of the following exercises: shoulder flexion, elbow flexion/extension, finger flexion/extension. OT instructed pt to complete x15 reps each, pt would count and occasionally repeat numbers, or go past 15 reps. When OT asked pt how many reps he was supposed to complete, he was unable to recall. Pt required moderate cues overall with counting and with exercises. Post tx, pt laying in bed, call light in reach and all needs met. Education OT Patient Education: Correct positioning, Modified ADL techniques, Progress toward Goal/Update tx plan, Purpose of tx/functional activities Teaching Recipient: Patient Teaching Methods: Discussion Response to Teaching: Verbalize Understanding OT Longterm Goals Solid Die Cutter Goals Time Frame: November 12, 2020 Eating (QC): 6 Oral Hygiene (QC): 6 Toileting Hygiene (QC): 6 Shower/Bathe Self (QC): 6 Upper Body Dressing (QC): 6 Lower Body Dressing (QC): 6 On/Off Footwear (QC): 6 Additional Goals: 1-Demonstrate ADL Tasks, 2-Verbalize Understanding, 3- ImproveStrength/Ashley 1=Demonstrate adherence to instructed precautions during ADL tasks. 2=Patient will verbalize/demonstrate understanding of assistive devices/modifications for ADL. 3=Patient will improve strength/tolerance for activity to enable patient to perform ADL's. OT Education/Plan Problem List/Assessment Assessment: Decreased Activ Tolerance, Decreased UE Strength, Impaired I ADL's, Impaired Self-Care Skills, Restricted Funct UE ROM Discharge Recommendations Plan/Recommendations: Continue POC Treatment Plan/Plan of Care Patient would benefit from OT for education, treatment and training to promote independence in ADL's, mobility, safety and/or upper extremity function for ADL's. Plan of Care: ADL Retraining, Functional Mobility, UE Funct Exercise/Act Treatment Duration: November 12, 2020 Frequency: 5 times per week Estimated Hrs Per Day: .25 hour per day Rehab Potential: Fair Time/GCodes Start Time: 11:05 Stop Time: 11:15 Total Time Billed (hr/min): 10 Billed Treatment Time 1, EX PETEY BELLA OT Oct 22, 2020 11:53
[2020-10-22] MEDS ORDERED: NITROGLYCERIN 0.4 MG SL TABS BTL 25'S SL PRN (12:15)
--- NOTE | 2020-10-22 12:35 | Progress Note - Cardiology ---
Cardiology SOAP Progress Note Subjective: No shortness of breath at rest Malaise is improving Abd discomfort is improving Intermittent nausea and diarrhea present No cp or palp or syncope Objective: I&O/Vital Signs 10/22/20 10/22/20 10/22/20 10/22/20 01:00 01:00 02:00 03:00 Pulse 84 84 82 87 B/P (MAP) 178/72 (107) 184/74 (110) 172/70 (104) Pulse Ox 93 96 93 O2 Delivery Nasal Cannula Nasal Cannula Nasal Cannula O2 Flow Rate 3.00 3.00 3.00 10/22/20 10/22/20 10/22/20 10/22/20 04:00 05:00 06:00 07:00 Pulse 87 87 81 86 B/P (MAP) Pulse Ox 93 95 94 O2 Delivery Nasal Cannula Nasal Cannula Nasal Cannula O2 Flow Rate 3.00 3.00 3.00 10/22/20 10/22/20 10/22/20 10/22/20 07:00 07:52 08:00 08:05 Temp 36.0 Pulse 86 88 B/P (MAP) Pulse Ox 94 96 97 O2 Delivery Nasal Cannula Room Air Nasal Cannula O2 Flow Rate 3.00 3.00 10/22/20 10/22/20 10/22/20 10/22/20 09:00 10:00 10:00 11:00 Pulse 98 91 87 B/P (MAP) 169/75 (106) Pulse Ox 94 95 95 92 O2 Delivery Nasal Cannula Nasal Cannula Nasal Cannula O2 Flow Rate 3.00 3.00 3.00 3.00 10/22/20 10/22/20 11:38 12:00 Temp 35.5 Pulse 89 B/P (MAP) Pulse Ox 92 O2 Delivery Nasal Cannula O2 Flow Rate 3.00 10/22/20 00:00 Intake Total 2920 ml Output Total 3950 ml Balance -1030 ml Weight (Pounds): 219 Weight (Ounces): 0.0 Weight (Calculated Kilograms): [id number] Constitutional: AAO x 3, well-developed, well-nourished Respiratory: No accessory muscle use; other (fair to good, bilateral air entry, diminished at te bases) Cardiovascular: regular rate-rhythm, S1 and S2, systolic murmur (soft SHIKHA at card base) Gastrointestional: distended; No guarding, No rebound; audible bowel sounds Extremities: No clubbing, No cyanosis Skin: normal color, warm/dry Results/Procedures: Labs Laboratory Tests 10/21/20 18:23: Sodium Level 135, Potassium Level 3.0L, Chloride Level 99, Carbon Dioxide Level 22, Anion Gap 14, Blood Urea Nitrogen 48H, Creatinine 1.65H, Estimat Glomerular Filtration Rate 40, BUN/Creatinine Ratio 29, Glucose Level 166H, Calcium Level 8.2L, Corrected Calcium 8.6, Phosphorus Level 1.5L, Magnesium Level 2.4, Total Bilirubin 0.9, Aspartate Amino Transf (AST/SGOT) 17, Alanine Aminotransferase (ALT/SGPT) 13, Alkaline Phosphatase 39L, Total Protein 6.5, Albumin 3.5 10/21/20 21:14: Glucometer 154H 10/22/20 01:37: Sodium Level 140, Potassium Level 2.4*L, Chloride Level 93L, Carbon Dioxide Level 35H, Anion Gap 12, Blood Urea Nitrogen 32H, Creatinine 0.86, Estimat Glomerular Filtration Rate > 60, BUN/Creatinine Ratio 37, Glucose Level 120H, Calcium Level 6.3L, Phosphorus Level 2.4, Magnesium Level 1.8, White Blood Count 4.4, Red Blood Count 3.35L, Hemoglobin 10.8L, Hematocrit 29L, Mean Corpuscular Volume 86, Mean Corpuscular Hemoglobin 32, Mean Corpuscular Hemoglobin Concent 38H, Red Cell Distribution Width 12.4, Platelet Count 164, Mean Platelet Volume 9.2, Immature Granulocyte % (Auto) 4, Neutrophils (%) (Auto) 53, Lymphocytes (%) (Auto) 17, Monocytes (%) (Auto) 23H, Eosinophils (%) (Auto) 3, Basophils (%) (Auto) 1, Neutrophils # (Auto) 2.4, Lymphocytes # (Auto) 0.8L, Monocytes # (Auto) 1.0, Eosinophils # (Auto) 0.1, Basophils # (Auto) 0.0, Immature Gra nulocyte # (Auto) 0.2H 10/22/20 08:23: Sodium Level 136, Potassium Level 3.2L, Chloride Level 99, Carbon Dioxide Level 23, Anion Gap 14, Blood Urea Nitrogen 30H, Creatinine 1.03, Estimat Glomerular Filtration Rate > 60, BUN/Creatinine Ratio 29, Glucose Level 181H, Calcium Level 8.2L, Corrected Calcium 8.6, Phosphorus Level 1.5L, Magnesium Level 2.3, Total Bilirubin 0.8, Aspartate Amino Transf (AST/SGOT) 15, Alanine Aminotransferase (ALT/SGPT) 14, Alkaline Phosphatase 43, Total Protein 6.6, Albumin 3.5 10/22/20 10:35: Glucometer 140H Microbiology 10/20/20 C. difficile GDH Antigen & Toxins - Final, Complete 10/20/20 MRSA Screen - Final, Complete MRSA not isolated 10/19/20 Blood Culture - Preliminary, Resulted No growth A/P: Assessment: Sepsis of undetermined source associated with septic shock Ac renal failure: likely ATN due to shock - renal function improving Abdominal pain - management per medical/surgical services C-diff (+) CAD, s/p CABG x 3 in 2004 - Rest/Stress Regadenoson Rubidium-82 PET/CT on 04/25/17: mild to mod ischemia in LAD territory mod-sized infarction with mild residual ischemia in the RCA territory, LVEF 36% Ischemic cardiomyopathy. - Last cath and PCI at [facility] in late 2016: LM 30 ostial, LAD 100 after D2, D2 with severe prox stenosis, LCS mod diff, RI 30-40 prox, RCA occluded distally and collateralized; underwent laser atherectomy and 2.5x22 Resolute [place] MARCUS to D2 that was post dilated with 3 mm balloon (RCA not intervened on) - Chronic stable exertional angina pectoris Ischemic cm and HFrEF - Echo of 05-23-16 showed LVEF approx 35%. Global hypokinesis of the LV, somewhat more marked at the distal anteroapical area. Mild diastolic dysfunction of the LV. Mild diastolic dysfunction. Mild aortic, mitral and tricuspid regurg. No evidence of significant valvular stenosis. Mod enlargement of the LA and LV. Mild LVH S/p single ch ICD implant on 05/04/15; device functioning normally per interrogation of May 2020 DM II Hyperlipidemia Hypertension Obesity with BMI approx 33.5 Obstructive sleep apnea, treated with CPAP, managed by Dr Wiley H/o prostate and thyroid cancers for which he has been fully treated and they are stated to be in chronic remission. Prostate cancer followed by Dr Lilly; thyroid cancer [facility] Mild bilat carotid plaque per u/s of 08/19/18 Chronic hardness of hearing Splenic mass diagnosed in September 2020 being managed by Med and Surg svces Right foot fracture Plan: * Management of c-diff is by Medical and Surgical services * Replace electrolytes * Continue IV fluids * Renal function improving * Replace electrolytes * Monitor labs * Management of right foot fracture is per medical services * Resume Plavix and ASA d/t known h/o CAD * BP is not well controlled restart BB tx - adjust as indicated * Hold NEETA (-) for now d/t ARF at time of admission BLADE PICKERING MD FACP FACC CCDS Oct 22, 2020 12:35
[2020-10-22] MEDS ORDERED: POTASSIUM CL 10MEQ/50ML IVPB 50 ML IV SCH (13:00)
--- NOTE | 2020-10-22 13:00 | Progress Note - Hospitalist ---
SIMEON BALDERAS MED STUDENT 10/22/20 1300: Subjective HPI/CC On Admission Date Seen by Provider: Oct 22, 2020 Time Seen by Provider: 09:45 CC: Abdominal pain HPI: This is a 80yoWM who presented Sunday with flu-like symptoms. Sunday he went to the ER found to have a splenic mass and a PET scan was ordered by Dr. Bernstein and Dr. Hurd. Elevated lactic acid prompted admission of 3.38, creatinine did go from 3.9 to 3.5 overnight with IV fluids and hypokalemia continues and ordered supplement. He did have multiple falls and left foot appeared to be fractured so will consult Dr. Nicholas. Pt also has had diarrhea for five years, he also has a history of thyroid cancer and prostate cancer along with CAD, pre vious bypass, peripheral vascular disease, DM and ELLA. His daughter is at the bedside. Currently, he is doing okay and feels much better than last night. 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 from 1.65 and 3.96 on admission) PICC line placed and replacing potassium aggressively (last checked K = 3.2 up from 2.4 ~seven hours earlier) Abdominal pain subsided Left foot still painful at area of fracture; patient's boot obtained and he will wear when up and around Cardiology added ASA to med list Blood culture came back positive with G- rods; awaiting final diagnosis to tailor abx Focused Exam Lactate Level 10/20/20 01:40: Lactic Acid Level 3.60*H 10/20/20 04:10: Lactic Acid Level 2.32*H 10/20/20 06:49: Lactic Acid Level 1.85 Time of Focused Exam: 23:30 Objective Exam Vital Signs Vital Signs Date Time Temp Pulse Resp B/P (MAP) Pulse Ox O2 Delivery O2 Flow Rate FiO2 10/22/20 12:47 79 10/22/20 12:00 92 Nasal Cannula 3.00 10/22/20 11:38 35.5 10/20/20 18:00 20 Capillary Refill : Less Than 3 Seconds General Appearance: No Apparent Distress, WD/WN HEENT: PERRL/EOMI, Moist Mucous Membranes Neck: Normal Inspection, Non Tender Respiratory: Chest Non Tender, Lungs Clear, Normal Breath Sounds, No Accessory Muscle Use, No Respiratory Distress Cardiovascular: Regular Rate, Rhythm, No Murmur, Normal Peripheral Pulses Gastrointestinal: Normal Bowel Sounds, Non Tender, Soft Genital/Rectal: Other (rectal tube in place) Extremity: Normal Capillary Refill, No Pedal Edema, Swelling (mild; dorsum left foot over fractured area) Neurologic/Psychiatric: Alert, Oriented x3, No Motor/Sensory Deficits, Normal Mood/Affect Skin: Normal Color, Warm/Dry Lymphatic: No Adenopathy Results/Procedures Lab Laboratory Tests 10/21/20 18:23 10/22/20 01:37 10/22/20 08:23 Patient resulted labs reviewed. Assessment/Plan Assessment and Plan Assess & Plan/Chief Complaint Assessment: -Positive blood cultures with g- rods --> further studies pending -Splenic mass : Surgery consulted. Reviewed imaging with radiology and no acute issue; surgical intervention not recommended. 4.8 cm. Enlarged compared to previous CT -Sepsis: resolved -ARF: markedly improved -Metabolic acidosis: improving -Hypokalemia: improving -Hyponatremia: resolved -Dehydration: resolved -Elevated Troponin -Abdominal pain; epigastric and LLQ - resolved -Diarrhea; chronic -Left 2nd and 3rd metatarsal fracture DM HTN HLD CHF CAD/PVD/ASVD post stent placement Hx of NE x2 Hx of CABG ELLA COPD Hx of prostate cancer Hx of thyroid cancer Plan: IVF IV abx tailored to blood culture results Aggressively replace K PICC line Monitor closely in ICU PT/OT Potentially move to 4th floor if K > 3.5 Diagnosis/Problems Diagnosis/Problems (1) Acute renal failure Status: Acute (2) Diarrhea Status: Chronic (3) Electrolyte imbalance Status: Acute (4) Elevated troponin Status: Acute (5) Splenic mass Status: Acute (6) Dehydration Status: Acute (7) Sepsis Status: Acute (8) Hypotension Status: Resolved Resolution Date/Time: 10/20/20 @ 13:13 (9) Cardiac defibrillator in place Status: Chronic (10) Metabolic acidosis Status: Acute (11) CAD (coronary artery disease) Status: Chronic (12) PVD (peripheral vascular disease) Status: Chronic (13) ASCVD (arteriosclerotic cardiovascular disease) Status: Chronic (14) History of NE (myocardial infarction) Status: Chronic (15) HTN (hypertension) Status: Chronic (16) HLD (hyperlipidemia) Status: Chronic (17) Diabetes Status: Chronic (18) History of prostate cancer Status: Resolved (19) History of thyroid cancer Status: Resolved (20) Bacteremia Status: Acute JOAN ARGUETA DO 10/23/20 0710: Subjective Subjective/Events-last exam Improved status Move to 4th floor Potassium improved PICC in place Review of Systems General: Fatigue Objective Exam General Appearance: No Apparent Distress, WD/WN, Chronically ill Respiratory: Lungs Clear Cardiovascular: Regular Rate, Rhythm Neurologic/Psychiatric: Alert, Oriented x3 Assessment/Plan Assessment and Plan Assess & Plan/Chief Complaint Move to 4th Pain control Monitor electrolytes Supervisory-Addendum Brief Verification & Attestation Participated in pt care: history, MDM, physical Personally performed: exam, history, MDM, supervision of care Care discussed with: Medical Student Procedures: n/a Results interpretation: Verified all documentation Verification and Attestation of Medical Student E/M Service A medical student performed and documented this service in my presence. I reviewed and verified all information documented by the medical student and made modifications to such information, when appropriate. I personally performed the physical exam and medical decision making. Joan Argueta, Oct 23, 2020,07:09 SIMEON BALDERAS MED STUDENT Oct 22, 2020 13:00 JOAN ARGUETA DO Oct 23, 2020 07:10
[2020-10-22] MEDS ORDERED: RT-ALBUTEROL SULF 2.5 MG/3 ML PRE-MIX VIAL IH SCH (15:00)
[2020-10-22] MEDS: ASPIRIN E.C. 81 MG (ECOTRIN) TAB PO SCH (17:00)
[2020-10-22 17:36] LABS: BUN/CREATININE RATIO 29; CARBON DIOXIDE 24 MMOL/L (21-32); CHLORIDE 102 MMOL/L (98-107); CREATININE SERUM 0.83 MG/DL (0.60-1.30); GFR ESTIMATED > 60; GLUCOSE 137 MG/DL (70-105); MAGNESIUM 2.2 MG/DL (1.6-2.4); PHOSPHORUS 2.6 MG/DL (2.3-4.7); POTASSIUM 3.5 MMOL/L (3.6-5.0); SODIUM 137 MMOL/L (135-145)
[2020-10-22] MEDS ORDERED: WATER (STERILE) FOR INJECTION 10 ML ONE (20:47)
[2020-10-22] MEDS ORDERED: CEFEPIME 1 GM/10 ML (MAXIPIME) VIAL ONE (20:47)
[2020-10-22] MEDS ORDERED: ACETAMINOPHEN 500 MG TAB (TYLENOL) PO PRN (21:00)
[2020-10-22] MEDS ORDERED: CALCIUM CARBONATE 500 MG (TUMS) TAB.CHEW PO PRN (21:00)
[2020-10-22] MEDS ORDERED: ALPRAZolam 0.25 MG (XANAX) TAB PO PRN (21:00)
[2020-10-22] MEDS: DICYCLOMINE 10 MG (BENTYL) CAP PO SCH (21:00)
[2020-10-22] MEDS ORDERED: ARFORMOTEROL 15 MCG/2 ML (BROVANA) INH SOLUTIION IH SCH ×2 (21:00→21:30)
[2020-10-22] MEDS ORDERED: diphenhydrAMINE 25 MG TAB (BENADRYL) PO PRN (21:00)
[2020-10-22] MEDS ORDERED: MELATONIN 3 MG TABLET PO PRN (21:00)
[2020-10-22] MEDS: RT-ALBUTEROL SULF 2.5 MG/3 ML PRE-MIX VIAL IH SCH (21:17)
[2020-10-22] MEDS: RT-BUDESONIDE NEBS 0.5 MG/2ML (PULMICORT) AMP IH SCH (21:17)
[2020-10-22] MEDS ORDERED: RT-BUDESONIDE NEBS 0.5 MG/2ML (PULMICORT) AMP IH SCH (21:30)
[2020-10-22] MEDS: HYDROcodone/APAP 5 MG/325 MG (LORTAB) TAB PO PRN (22:23)
[2020-10-23] MEDS: LACTATED RINGERS 1,000 ML IV SCH ×3 (00:30→21:28)
[2020-10-23 05:17] LABS: BASOPHILS # (AUTO) 0.1 10^3/uL (0.0-0.1); BASOPHILS % (AUTO) 1 % (0-10); EOSINOPHILS # (AUTO) 0.3 10^3/uL (0.0-0.3); EOSINOPHILS % (AUTO) 4 % (0-10); HEMATOCRIT 32 % (40-54); HEMOGLOBIN 11.8 g/dL (13.3-17.7); LYMPHOCYTES # (AUTO) 1.1 10^3/uL (1.0-4.0); LYMPHOCYTES % (AUTO) 13 % (12-44); MEAN CORPUSCULAR HEMOGLOBIN 32 pg (25-34); MEAN CORPUSCULAR HGB CONC 37 g/dL (32-36); MEAN CORPUSCULAR VOLUME 88 fL (80-99); MEAN PLATELET VOLUME 9.1 fL (9.0-12.2); MONOCYTES # (AUTO) 1.5 10^3/uL (0.0-1.0); MONOCYTES % (AUTO) 17 % (0-12); NEUTROPHILS # (AUTO) 5.1 10^3/uL (1.8-7.8); NEUTROPHILS % (AUTO) 60 % (42-75); PLATELET COUNT 198 10^3/uL (130-400); WHITE BLOOD COUNT 8.5 10^3/uL (4.3-11.0)
[2020-10-23 05:41] LABS: ALANINE AMINOTRANSFERASE 13 U/L (0-55); ALBUMIN 3.1 GM/DL (3.2-4.5); ALKALINE PHOSPHATASE 44 U/L (40-136); BILIRUBIN,TOTAL 0.8 MG/DL (0.1-1.0); BUN/CREATININE RATIO 24; CALCIUM 7.8 MG/DL (8.5-10.1); CARBON DIOXIDE 23 MMOL/L (21-32); CHLORIDE 100 MMOL/L (98-107); GFR ESTIMATED > 60; GLUCOSE 126 MG/DL (70-105); POTASSIUM 3.1 MMOL/L (3.6-5.0); SODIUM 135 MMOL/L (135-145); TOTAL PROTEIN 5.9 GM/DL (6.4-8.2)
[2020-10-23] MEDS: inSUlin ASPART (NovoLOG) 1 UNIT/0.01 ML (CHARGE PER UNIT) SC SCH ×4 (05:43→21:28)
[2020-10-23] MEDS: LEVOTHYROXINE 112 MCG (LEVOTHROID) TAB PO SCH (06:13)
--- NOTE | 2020-10-23 08:21 | Progress Note - Surgery ---
SALVADOR DA SILVA MED STUDENT 10/23/20 0821: Subjective Date Seen by a Provider: Oct 23, 2020 Time Seen by a Provider: 07:55 Subjective/Events-last exam Ray states he is not having abdominal pain at rest. Reports pain near rectum. He also complained today of right calf pain. He states he has had this for nearly a week, although he did deny pain in the right leg to me yesterday. Denies pain in the left calf or thigh. Admits pain at the left foot. The patient denies fever, chills, nausea, vomiting, and shortness of breath. States cough has not increase d from chronic cough, has not worsened compared to yesterday. Focused Exam Time of Focused Exam: 23:30 Objective Exam Vital Signs Date Time Temp Pulse Resp B/P (MAP) Pulse Ox O2 Delivery O2 Flow Rate FiO2 10/23/20 07:38 93 Room Air 10/23/20 07:00 81 10/23/20 03:15 36.5 70 20 170/66 (100) 94 Room Air 10/22/20 23:55 36.0 70 20 127/62 (83) 95 Room Air 10/22/20 21:18 91 Room Air 10/22/20 21:00 Room Air 10/22/20 19:03 36.9 90 20 160/70 (100) 93 Room Air 10/22/20 19:00 94 10/22/20 16:23 94 Room Air 10/22/20 15:28 36.4 85 16 174/67 (102) 95 Room Air 10/22/20 14:55 36.0 88 20 180/79 (112) 94 Room Air 10/22/20 14:45 36.0 88 180/79 (112) Room Air 10/22/20 14:40 92 Room Air 10/22/20 12:47 79 10/22/20 12:00 89 92 Nasal Cannula 3.00 10/22/20 11:38 35.5 10/22/20 11:00 87 92 Nasal Cannula 3.00 10/22/20 10:00 95 3.00 10/22/20 10:00 91 95 Nasal Cannula 3.00 10/22/20 09:00 98 169/75 (106) 94 Nasal Cannula 3.00 I & O 10/23/20 07:00 Intake Total 2985 ml Output Total 4375 ml Balance -1390 ml Capillary Refill : Less Than 3 Seconds General Appearance: No Apparent Distress, WD/WN, Chronically ill HEENT: PERRL/EOMI; No Moist Mucous Membranes Neck: Normal Inspection, Non Tender Respiratory: Chest Non Tender, Lungs Clear, Normal Breath Sounds, No Accessory Muscle Use, No Respiratory Distress; No Crackles Cardiovascular: Regular Rate, Rhythm, No Edema, No JVD, No Murmur, Gallop/S3 Gastrointestinal: normal bowel sounds; No distended, No guarding, No rebound; tenderness (mild suprapubic and Left sided) Extremity: Normal Capillary Refill, Calf Tenderness (right side), Swelling (mild; dorsum left foot over fractured area) Neurologic/Psychiatric: Alert, Oriented x3 (mild conversational confusion but answers orientation questions appropriately) Skin: Normal Color, Warm/Dry Lymphatic: No Adenopathy Results Lab Laboratory Tests 10/22/20 08:23: Sodium Level 136, Potassium Level 3.2L, Chloride Level 99, Carbon Dioxide Level 23, Anion Gap 14, Blood Urea Nitrogen 30H, Creatinine 1.03, Estimat Glomerular Filtration Rate > 60, BUN/Creatinine Ratio 29, Glucose Level 181H, Calcium Level 8.2L, Corrected Calcium 8.6, Phosphorus Level 1.5L, Magnesium Level 2.3, Total Bilirubin 0.8, Aspartate Amino Transf (AST/SGOT) 15, Alanine Aminotransferase (ALT/SGPT) 14, Alkaline Phosphatase 43, Total Protein 6.6, Albumin 3.5 10/22/20 10:35: Glucometer 140H 10/22/20 15:32: Glucometer 128H 10/22/20 17:05: Sodium Level 137, Potassium Level 3.5L, Chloride Level 102, Carbon Dioxide Level 24, Anion Gap 11, Blood Urea Nitrogen 24H, Creatinine 0.83, Estimat Glomerular Filtration Rate > 60, BUN/Creatinine Ratio 29, Glucose Level 137H, Calcium Level 8.0L, Phosphorus Level 2.6, Magnesium Level 2.2 10/22/20 20:28: Glucometer 145H 10/23/20 05:10: White Blood Count 8.5, Red Blood Count 3.65L, Hemoglobin 11.8L, Hematocrit 32L, Mean Corpuscular Volume 88, Mean Corpuscular Hemoglobin 32, Mean Corpuscular Hemoglobin Concent 37H, Red Cell Distribution Width 12.3, Platelet Count 198, Mean Platelet Volume 9.1, Immature Granulocyte % (Auto) 6, Neutrophils (%) (Auto) 60, Lymphocytes (%) (Auto) 13, Monocytes (%) (Auto) 17H, Eosinophils (%) (Auto) 4, Basophils (%) (Auto) 1, Neutrophils # (Auto) 5.1, Lymphocytes # (Auto) 1.1, Monocytes # (Auto) 1.5H, Eosinophils # (Auto) 0.3, Basophils # (Auto) 0.1, Immature Granulocyte # (Auto) 0.5H, Sodium Level 135, Potassium Level 3.1L, Chloride Level 100, Carbon Dioxide Level 23, Anion Gap 12, Blood Urea Nitrogen 17, Creatinine 0.70, Estimat Glomerular Filtration Rate > 60, BUN/Creatinine Ratio 24, Glucose Level 126H, Calcium Level 7.8L, Corrected Calcium 8.5, Total Bilirubin 0.8, Aspartate Amino Transf (AST/SGOT) 16, Alanine Aminotransferase (ALT/SGPT) 13, Alkaline Phosphatase 44, Total Protein 5.9L, Albumin 3.1L Microbiology 10/20/20 C. difficile GDH Antigen & Toxins - Final, Complete 10/20/20 MRSA Screen - Final, Complete MRSA not isolated 10/19/20 Blood Culture - Preliminary, Resulted No growth Assessment/Plan Assessment/Plan Assessment/Plan right calf pain - obtain venous doppler bilateral LE time of onset of pain is unclear as patient does seem somewhat confused, although he is a&ox3. Started 81mg ASA last night, is starting Plavix today for cardiac issues patient currently denies respiratory symptoms which would be concerning for PE and is not tachycardic Abdominal Pain - mostly improved Diarrhea - tested negative for c diff, has rectal tube in place Nausea and Vomiting - resolved Dehydration - continue fluid Splenic Mass Hyponatremia - resolved Hypokalemia -continues to be severe despite replacement,but slightly better Acute Renal Failure - resolved, Creatinine improved to 0.86 and then 1.03 Left foot fracture CAD s/p pacemaker implantation the patient's abdominal tenderness is mild and only present when provoked by palpation Pt has multiple medical problems, I am unsure why he is having abdominal pain. I doubt it is the splenic mass causing his pain; nothing acute about that. states pain is overall decreased. Priority should be management of electrolyte issues, renal problems, diarrhea. His CT abd/pelvis from 10/18 has nothing acute seen in the abdomen, no inflammatory process or indication of obstruction. Will monitor closely, but no surgical indications at this time. PRANEETH HURD DO 10/23/20 1334: Subjective Time Seen by a Provider: 12:38 Subjective/Events-last exam Pt seen and examined, denies abdominal pain but now complaining of B/L calf pain Review of Systems General: No Chills, No Night Sweats Pulmonary: No Dyspnea, No Cough Cardiovascular: No: Chest Pain, Palpitations Gastrointestinal: No: Nausea, Vomiting, Abdominal Pain Objective Exam General Appearance: No Apparent Distress, WD/WN HEENT: PERRL/EOMI; No Moist Mucous Membranes Respiratory: Lungs Clear, Normal Breath Sounds, No Accessory Muscle Use, No Respiratory Distress Cardiovascular: Regular Rate, Rhythm, No Murmur Gastrointestinal: soft; No distended, No guarding, No rebound; tenderness (mild suprapubic and Left sided with deep palpation) Extremity: Calf Tenderness (bilateral), Swelling (mild; dorsum left foot over fractured area) Neurologic/Psychiatric: Alert, Oriented x3 (mild conversational confusion but answers orientation questions appropriately) Assessment/Plan Assessment/Plan Assessment/Plan Bilateral calf pain - obtain venous doppler bilateral LE, start anticoagulation, ASA last night, is starting Plavix today for cardiac issues patient currently denies respiratory symptoms which would be concerning for PE and is not tachycardic Abdominal Pain - mostly improved Diarrhea - tested negative for c diff, has rectal tube in place Nausea and Vomiting - resolved Dehydration - continue fluid Splenic Mass Hyponatremia - resolved Hypokalemia -continues to be severe despite replacement,but slightly better Acute Renal Failure - resolved Left foot fracture CAD s/p pacemaker implantation Supervisory-Addendum Brief Verification & Attestation Participated in pt care: history, MDM, physical Personally performed: exam, history, MDM Care discussed with: Medical Student Procedures: n/a Verification and Attestation of Medical Student E/M Service A medical student performed and documented this service. I then reviewed and verified all information documented by the medical student and made modifications to such information, when appropriate. I personally performed a physical exam, medical decision making and then discussed any differences between the notes and made revisions as necessary to create one note. Praneeth Hurd , 10/23/20 , 13:34 SALVADOR DA SILVA MED STUDENT Oct 23, 2020 08:21 PRANEETH HURD DO Oct 23, 2020 13:34
[2020-10-23] MEDS ORDERED: ASPIRIN 81 MG CHEW (CHILDREN'S ASA) PO SCH (09:00)
[2020-10-23] MEDS: CLOPIDOGREL 75 MG (PLAVIX) TABLET PO SCH (09:14)
[2020-10-23] MEDS: DICYCLOMINE 10 MG (BENTYL) CAP PO SCH ×2 (09:14→21:28)
[2020-10-23] MEDS: CALCIUM CARBONATE 600 MG (CALCARB) TAB PO SCH (09:14)
[2020-10-23] MEDS: HYDROcodone/APAP 5 MG/325 MG (LORTAB) TAB PO PRN (09:15)
[2020-10-23] MEDS: ISOSORBIDE MONONITRATE 60 MG (IMDUR) TAB PO SCH ×2 (09:15→21:28)
[2020-10-23] MEDS: AZITHROMYCIN INJECTION 500 MG in NS (IVPB) 250 ML IV SCH (09:15)
[2020-10-23] MEDS: POTASSIUM CL 10MEQ/50ML IVPB 50 ML IV SCH ×7 (09:15→17:19)
[2020-10-23] MEDS ORDERED: CEFEPIME 1,000 MG/SWFI 10 ML IV PUSH IV SCH ×2 (10:00)
[2020-10-23] MEDS: RT-BUDESONIDE NEBS 0.5 MG/2ML (PULMICORT) AMP IH SCH ×2 (10:49→18:45)
[2020-10-23] MEDS: RT-ALBUTEROL SULF 2.5 MG/3 ML PRE-MIX VIAL IH SCH ×4 (10:49→18:45)
--- NOTE | 2020-10-23 11:12 | Physical Therapy Daily Note ---
PT Daily Note-Current Subjective Pt. just returning to bed from toilet with assist from nurse. Agrees to LE exercises. Mental Status Patient Orientation: Person, Place, Time, Situation Transfers SCALE: Activities may be completed with or without assistive devices. 2-Gknngdwexr-avyrdyz completes the activity by him/herself with no assistance from a helper. 5-Set-up or Clean-up Assistance-helper sets up or cleans up; patient completes activity. [place] assists only prior to or following the activity. 4-Supervision or Touching Assistance-helper provides verbal cues and/or touching/steadying and/or contact guard assistance as patient completes activity. Assistance may be provided throughout the activity or intermittently. 3-Partial/Moderate Assistance-helper does LESS THAN HALF the effort. [place] lifts, holds or supports trunk or limbs, but provides less than half the effort. 2-Substantial/Maximal Assistance-helper does MORE THAN HALF the effort. [place] lifts or holds trunk or limbs and provides more than half the effort. 4-Wpzekwdiy-ujieff does ALL the effort. Patient does none of the effort to complete the activity. Or, the assistance of 2 or more helpers is required for the patient to complete the activity. If activity was not attempted, code reason: 7-Patient Refused. 9-Not Applicable-not attempted and the patient did not perform the activity before the current illness, exacerbation or injury. 10-Not Attempted due to Environmental Limitations-(lack of equipment, weather restraints, etc.). 88-Not Attempted due to Medical Conditions or Safety Concerns. Weight Bearing Right Lower Extremity: Right Full Weight Bearing Left Lower Extremity: Left Partial Weight Bearing with CAM boot in place and FWW use Exercises Supine Ex: Ankle pumps (R only), Quad Set, Glut sets, Heel Slides, Straight leg raise, Hip abd/add Supine Reps: 20 Treatments LE exercises Assessment Current Status: Good Progress Pt. does well with LE exercises and states he is getting around pretty good with minimal help from staff. Pt. in bed with call light and all needs met. PT Short Term Goals Short Term Goals Time Frame: Oct 29, 2020 Roll Left & Right: 3 Sit to lyin Lying to sitting on side of be: 3 Sit to stand: 3 Chair/blm-qd-ggbos transfer: 3 Walk 10 feet: 3 Walk 50 feet with two turns: 3 Walk 150 feet: 3 PT Nursing Home Goals Nursing Home Goals PT Pneudraulic Systems Mechanic Goals Time Frame: November 06, 2020 Roll Left & Right (QC): 5 Sit to Lying (QC): 5 Lying-Sitting on Side/Bed(QC): 5 Sit to Stand (QC): 5 Chair/Ytm-qb-Biylt Xfer(QC): 5 Toilet Transfer (QC): 5 Does the Patient Walk: Yes Walk 10 feet (QC): 5 Walk 50ft with 2 Turns (QC): 5 Walk 150 ft (QC): 5 PT Plan Treatment/Plan Treatment Plan: Continue Plan of Care Treatment Plan: Bed Mobility, Education, Functional Activity Ashley, Functional Strength, Gait, Safety, Therapeutic Exercise, Transfers Treatment Duration: November 06, 2020 Frequency: 6 times per week Estimated Hrs Per Day: .25 hour per day Patient and/or Family Agrees t: Yes Time/GCodes Time In: 1033 Time Out: 1044 Total Billed Treatment Time: 11 Total Billed Treatment 1, Ex 11' JUSTO WERNER PT Oct 23, 2020 11:12
[2020-10-23] MEDS: CHOLESTYRAMINE 4 GM (QUESTRAN LITE, PREVALITE) PKT PO SCH (11:18)
[2020-10-23] MEDS ORDERED: AZITHROMYCIN 250 MG TAB (ZITHROMAX) PO SCH (12:00)
--- NOTE | 2020-10-23 12:59 | Progress Note - Hospitalist ---
Subjective HPI/CC On Admission Date Seen by Provider: Oct 23, 2020 Time Seen by Provider: 12:00 CC: Abdominal pain HPI: This is a 80yoWM who presented Sunday with flu-like symptoms. Sunday he went to the ER found to have a splenic mass and a PET scan was ordered by Dr. Bernstein and Dr. Hurd. Elevated lactic acid prompted admission of 3.38, creatinine did go from 3.9 to 3.5 overnight with IV fluids and hypokalemia continues and or dered supplement. He did have multiple falls and left foot appeared to be fractured so will consult Dr. Nicholas. Pt also has had diarrhea for five years, he also has a history of thyroid cancer and prostate cancer along with CAD, previous bypass, peripheral vascular disease, DM and ELLA. His daughter is at the bedside. Currently, he is doing okay and feels much better than last night. Subjective/Events-last exam Patient doing better Salmonella in BCx Azithromycin and Cefepime maintained so changed to Levaquin with Azithro No pain reported PT OT ordered Very debilitated Review of Systems General: Fatigue Neurological: Weakness Focused Exam Time of Focused Exam: 23:30 Objective Exam Vital Signs Vital Signs Date Time Temp Pulse Resp B/P (MAP) Pulse Ox O2 Delivery O2 Flow Rate FiO2 10/24/20 04:20 35.7 73 16 151/71 (97) 95 Nasal Cannula 2.00 Capillary Refill : Less Than 3 Seconds General Appearance: No Apparent Distress, WD/WN, Chronically ill Respiratory: Lungs Clear, Normal Breath Sounds Cardiovascular: Regular Rate, Rhythm Neurologic/Psychiatric: Alert, Oriented x3 Results/Procedures Lab Patient resulted labs reviewed. Assessment/Plan Assessment and Plan Assess & Plan/Chief Complaint Assessment: Sepsis from Salmonella Hypokalemia ELA CAD PVD DM COPD ELLA Left foot fracture Plan: IVF Abx changes Critical Care Critically Ill Patient ELLIEMARY CHAPIN Oct 23, 2020 12:59
[2020-10-23] MEDS: ENOXAPARIN 40 MG/0.4 ML (LOVENOX) SYR SC SCH (13:10)
[2020-10-23] MEDS ORDERED: lisINopril 20 MG (PRINIVIL) TABLET PO ONE (14:45)
--- NOTE | 2020-10-23 14:45 | Progress Note - Cardiology ---
Cardiology SOAP Progress Note Subjective: No cp or palp or syncope or shortness of breath Abd discomfort and n/v/d have improved Some gen malaise present Objective: I&O/Vital Signs 10/23/20 10/23/20 10/23/20 10/23/20 03:15 07:00 07:38 08:00 Temp 36.5 36.9 Pulse 70 81 77 Resp 20 20 B/P (MAP) 170/66 (100) 180/73 (108) Pulse Ox 94 93 95 O2 Delivery Room Air Room Air Room Air 10/23/20 10/23/20 10/23/20 10/23/20 09:00 10:51 12:01 12:33 Temp 36.2 Pulse 79 80 Resp 20 B/P (MAP) 168/70 (102) Pulse Ox 96 96 O2 Delivery Room Air Room Air Room Air 10/23/20 00:00 Intake Total 2410 ml Output Total 2000 ml Balance 410 ml Weight (Pounds): 219 Weight (Ounces): 0.0 Weight (Calculated Kilograms): 99.910469 Constitutional: AAO x 3, well-developed, well-nourished Respiratory: No accessory muscle use; other (fair to good, bilateral air entry, diminished at te bases) Cardiovascular: regular rate-rhythm, S1 and S2, systolic murmur (soft SHIKHA at card base) Gastrointestional: distended; No guarding, No rebound; audible bowel sounds Extremities: No clubbing, No cyanosis Skin: normal color, warm/dry Results/Procedures: Labs Laboratory Tests 10/22/20 15:32: Glucometer 128H 10/22/20 17:05: Sodium Level 137, Potassium Level 3.5L, Chloride Level 102, Carbon Dioxide Level 24, Anion Gap 11, Blood Urea Nitrogen 24H, Creatinine 0.83, Estimat Glomerular Filtration Rate > 60, BUN/Creatinine Ratio 29, Glucose Level 137H, Calcium Level 8.0L, Phosphorus Level 2.6, Magnesium Level 2.2 10/22/20 20:28: Glucometer 145H 10/23/20 05:10: Sodium Level 135, Potassium Level 3.1L, Chloride Level 100, Carbon Dioxide Level 23, Anion Gap 12, Blood Urea Nitrogen 17, Creatinine 0.70, Estimat Glomerular Filtration Rate > 60, BUN/Creatinine Ratio 24, Glucose Level 126H, Calcium Level 7.8L, White Blood Count 8.5, Red Blood Count 3.65L, Hemoglobin 11.8L, Hematocrit 32L, Mean Corpuscular Volume 88, Mean Corpuscular Hemoglobin 32, Mean Corpuscular Hemoglobin Concent 37H, Red Cell Distribution Width 12.3, Platelet Count 198, Mean Platelet Volume 9.1, Immature Granulocyte % (Auto) 6, Neutrophils (%) (Auto) 60, Lymphocytes (%) (Auto) 13, Monocytes (%) (Auto) 17H, Eosinophils (%) (Auto) 4, Basophils (%) (Auto) 1, Neutrophils # (Auto) 5.1, Lymphocytes # (Auto) 1.1, Monocytes # (Auto) 1.5H, Eosinophils # (Auto) 0.3, Basophils # (Auto) 0.1, Immature Granulocyte # (Auto) 0.5H, Corrected Calcium 8.5, Total Bilirubin 0.8, Aspartate Amino Transf (AST/SGOT) 16, Alanine Aminotransferase (ALT/SGPT) 13, Alkaline Phosphatase 44, Total Protein 5.9L, Albumin 3.1L 10/23/20 11:26: Glucometer 156H Microbiology 10/22/20 Stool Culture - Preliminary, Resulted Culture In Progress 10/20/20 MRSA Screen - Final, Complete MRSA not isolated 10/19/20 Blood Culture - Preliminary, Resulted No growth Laboratory Tests 10/21/20 18:23 10/22/20 01:37 10/22/20 08:23 10/22/20 17:05 10/23/20 05:10 A/P: Assessment: Sepsis of undetermined source associated with septic shock Ac renal failure: likely ATN due to shock - resolved Abdominal pain - management per medical/surgical services C-diff (+) CAD, s/p CABG x 3 in 2004 - Rest/Stress Regadenoson Rubidium-82 PET/CT on 04/25/17: mild to mod ischemia in LAD territory mod-sized infarction with mild residual ischemia in the RCA territory, LVEF 36% Ischemic cardiomyopathy. - Last cath and PCI at [facility] in late 2016: LM 30 ostial, LAD 100 after D2, D2 with severe prox stenosis, LCS mod diff, RI 30-40 prox, RCA occluded distally and collateralized; underwent laser atherectomy and 2.5x22 Resolute [place] MARCUS to D2 that was post dilated with 3 mm balloon (RCA not intervened on) - Chronic stable exertional angina pectoris Ischemic cm and HFrEF - Echo of 05-23-16 showed LVEF approx 35%. Global hypokinesis of the LV, somewhat more marked at the distal anteroapical area. Mild diastolic dysfunction of the LV. Mild diastolic dysfunction. Mild aortic, mitral and tricuspid regurg. No evidence of significant valvular stenosis. Mod enlargement of the LA and LV. Mild LVH S/p single ch ICD implant on 05/04/15; device functioning normally per interrogation of May 2020 DM II Hyperlipidemia Hypertension Obesity with BMI approx 33.5 Obstructive sleep apnea, treated with CPAP, managed by Dr Wiley H/o prostate and thyroid cancers for which he has been fully treated and they are stated to be in chronic remission. Prostate cancer followed by Dr Lilly; [facility] Mild bilat carotid plaque per u/s of 08/19/18 Chronic hardness of hearing Splenic mass diagnosed in September 2020 being managed by Med and Surg svces Right foot fracture Plan: * BP is not well controlled - BB restarted * Resume NEETA inhib * Management of C-diff is by Medical and Surgical services * Replace electrolytes * Management of right foot fracture is per medical services * Monitor labs BLADE PICKERING MD FACP FAC CCDS Oct 23, 2020 14:45
[2020-10-23] MEDS ORDERED: lisINopril 20 MG (PRINIVIL) TABLET ONE (17:17)
[2020-10-23] MEDS: ASPIRIN E.C. 81 MG (ECOTRIN) TAB PO SCH (17:29)
[2020-10-23] MEDS ORDERED: ZINC OXIDE 16% OINT (BUTT PASTE) 57 GM TUBE TOP PRN (17:45)
[2020-10-24] MEDS: LEVOTHYROXINE 112 MCG (LEVOTHROID) TAB PO SCH (06:32)
[2020-10-24] MEDS: LACTATED RINGERS 1,000 ML IV SCH (06:32)
[2020-10-24] MEDS: inSUlin ASPART (NovoLOG) 1 UNIT/0.01 ML (CHARGE PER UNIT) SC SCH ×4 (06:32→21:37)
[2020-10-24 06:46] LABS: BASOPHILS # (AUTO) 0.1 10^3/uL (0.0-0.1); BASOPHILS % (AUTO) 1 % (0-10); EOSINOPHILS # (AUTO) 0.5 10^3/uL (0.0-0.3); EOSINOPHILS % (AUTO) 5 % (0-10); HEMATOCRIT 33 % (40-54); HEMOGLOBIN 11.9 g/dL (13.3-17.7); LYMPHOCYTES # (AUTO) 1.4 10^3/uL (1.0-4.0); LYMPHOCYTES % (AUTO) 15 % (12-44); MEAN CORPUSCULAR HEMOGLOBIN 32 pg (25-34); MEAN CORPUSCULAR HGB CONC 36 g/dL (32-36); MEAN CORPUSCULAR VOLUME 89 fL (80-99); MEAN PLATELET VOLUME 8.8 fL (9.0-12.2); MONOCYTES # (AUTO) 1.2 10^3/uL (0.0-1.0); MONOCYTES % (AUTO) 13 % (0-12); NEUTROPHILS # (AUTO) 5.5 10^3/uL (1.8-7.8); NEUTROPHILS % (AUTO) 58 % (42-75); PLATELET COUNT 202 10^3/uL (130-400); WHITE BLOOD COUNT 9.5 10^3/uL (4.3-11.0)
--- NOTE | 2020-10-24 06:57 | Progress Note - Hospitalist ---
Subjective HPI/CC On Admission Date Seen by Provider: Oct 24, 2020 Time Seen by Provider: 11:00 CC: Abdominal pain HPI: This is a 80yoWM who presented Sunday with flu-like symptoms. Sunday he went to the ER found to have a splenic mass and a PET scan was ordered by Dr. Bernstein and Dr. Hurd. Elevated lactic acid prompted admission of 3.38, creatinine did go from 3.9 to 3.5 overnight with IV fluids and hypokalemia continues and ordered supplement. He did have multiple falls and left foot appeared to be fractured so will consult Dr. Nicholas. Pt also has had diarrhea for five years, he also has a history of thyroid cancer and prostate cancer along with CAD, previous bypass, peripheral vascular disease, DM and ELLA. His daughter is at the bedside. Currently, he is doing okay and feels much better than last night. Subjective/Events-last exam Patient doing well Weakness noted Potassium 4.0 finally HLIVF Eating well No pain Review of Systems General: Fatigue, Malaise Pulmonary: Dyspnea Musculoskeletal: foot pain Focused Exam Time of Focused Exam: 23:30 Objective Exam Vital Signs Vital Signs Date Time Temp Pulse Resp B/P (MAP) Pulse Ox O2 Delivery O2 Flow Rate FiO2 10/24/20 19:39 35.9 87 18 155/74 (101) 96 Room Air 10/24/20 07:30 2.00 Capillary Refill : Less Than 3 Seconds General Appearance: No Apparent Distress, WD/WN, Chronically ill Respiratory: Lungs Clear, Normal Breath Sounds Cardiovascular: Regular Rate, Rhythm Neurologic/Psychiatric: Alert, Oriented x3 Results/Procedures Lab Laboratory Tests 10/24/20 06:35 Patient resulted labs reviewed. Assessment/Plan Assessment and Plan Assess & Plan/Chief Complaint Assessment: Sepsis from Salmonella Hypokalemia ELA CAD PVD DM COPD ELLA Left foot fracture Plan: IVF Abx changes 10/24/20: HLIVF Abx Critical Care Critically Ill Patient MARY ARGUETA DO Oct 24, 2020 06:57
[2020-10-24 07:07] LABS: ALANINE AMINOTRANSFERASE 14 U/L (0-55); ALBUMIN 3.1 GM/DL (3.2-4.5); ALKALINE PHOSPHATASE 50 U/L (40-136); BILIRUBIN,TOTAL 0.7 MG/DL (0.1-1.0); BUN/CREATININE RATIO 12; CALCIUM 8.4 MG/DL (8.5-10.1); CARBON DIOXIDE 26 MMOL/L (21-32); CHLORIDE 104 MMOL/L (98-107); CREATININE SERUM 0.66 MG/DL (0.60-1.30); GFR ESTIMATED > 60; GLUCOSE 135 MG/DL (70-105); MAGNESIUM 1.6 MG/DL (1.6-2.4); SODIUM 135 MMOL/L (135-145); TOTAL PROTEIN 5.9 GM/DL (6.4-8.2)
[2020-10-24] MEDS: RT-ALBUTEROL SULF 2.5 MG/3 ML PRE-MIX VIAL IH SCH ×4 (07:29→18:50)
[2020-10-24] MEDS: RT-BUDESONIDE NEBS 0.5 MG/2ML (PULMICORT) AMP IH SCH ×2 (07:29→22:05)
--- NOTE | 2020-10-24 09:19 | Progress Note - Surgery ---
SALVADOR DA SILVA MED STUDENT 10/24/20 0919: Subjective Date Seen by a Provider: Oct 24, 2020 Time Seen by a Provider: 08:05 Subjective/Events-last exam Ray Ebony states continued pain in both calves and left foot. Denies abdominal pain, chest pain, SOB, cough, fever, chills, nausea. Focused Exam Time of Focused Exam: 23:30 Objective Exam Vital Signs Date Time Temp Pulse Resp B/P (MAP) Pulse Ox O2 Delivery O2 Flow Rate FiO2 10/24/20 08:00 36.3 83 18 157/84 (108) 98 Room Air 10/24/20 07:30 94 Nasal Cannula 2.00 10/24/20 07:00 75 10/24/20 04:20 35.7 73 16 151/71 (97) 95 Nasal Cannula 2.00 10/24/20 01:00 78 10/23/20 23:59 35.5 76 18 151/66 (94) 94 Nasal Cannula 2.00 10/23/20 21:30 Nasal Cannula 2.00 10/23/20 20:00 36.6 97 20 160/72 (101) 92 Nasal Cannula 2.00 10/23/20 19:00 95 10/23/20 18:48 94 Nasal Cannula 2.00 10/23/20 18:47 87 Room Air 10/23/20 16:00 36.5 81 20 152/73 (99) 92 Room Air 10/23/20 14:57 95 Room Air 10/23/20 12:33 80 10/23/20 12:01 36.2 79 20 168/70 (102) 96 Room Air 10/23/20 10:51 96 Room Air I & O 10/24/20 07:00 Intake Total 2230 ml Output Total 3350 ml Balance -1120 ml Capillary Refill : Less Than 3 Seconds General Appearance: No Apparent Distress, WD/WN HEENT: PERRL/EOMI; No Moist Mucous Membranes Neck: Normal Inspection, Non Tender Respiratory: Chest Non Tender, Lungs Clear, Normal Breath Sounds, No Accessory Muscle Use, No Respiratory Distress Cardiovascular: Regular Rate, Rhythm, No Murmur Gastrointestinal: non tender, soft; No distended, No guarding, No rebound Extremity: Calf Tenderness (bilateral), Swelling (mild; dorsum left foot over fractured area) Neurologic/Psychiatric: Alert, Oriented x3 Skin: Normal Color, Warm/Dry Lymphatic: No Adenopathy Results Lab Laboratory Tests 10/23/20 11:26: Glucometer 156H 10/23/20 16:00: Glucometer 158H 10/23/20 20:25: Glucometer 149H 10/24/20 05:42: Glucometer 133H 10/24/20 06:35: White Blood Count 9.5, Red Blood Count 3.72L, Hemoglobin 11.9L, Hematocrit 33L, Mean Corpuscular Volume 89, Mean Corpuscular Hemoglobin 32, Mean Corpuscular Hemoglobin Concent 36, Red Cell Distribution Width 12.3, Platelet Count 202, Mean Platelet Volume 8.8L, Immature Granulocyte % (Auto) 8, Neutrophils (%) (Auto) 58, Lymphocytes (%) (Auto) 15, Monocytes (%) (Auto) 13H, Eosinophils (%) (Auto) 5, Basophils (%) (Auto) 1, Neutrophils # (Auto) 5.5, Lymphocytes # (Auto) 1.4, Monocytes # (Auto) 1.2H, Eosinophils # (Auto) 0.5H, Basophils # (Auto) 0.1, Immature Granulocyte # (Auto) 0.8H, Sodium Level 135, Potassium Level 4.0, Chloride Level 104, Carbon Dioxide Level 26, Anion Gap 5, Blood Urea Nitrogen 8, Creatinine 0.66, Estimat Glomerular Filtration Rate > 60, BUN/Creatinine Ratio 12, Glucose Level 135H, Calcium Level 8.4L, Corrected Calcium 9.1, Magnesium Level 1.6, Total Bilirubin 0.7, Aspartate Amino Transf (AST/SGOT) 17, Alanine Aminotransferase (ALT/SGPT) 14, Alkaline Phosphatase 50, Total Protein 5.9L, Albumin 3.1L Microbiology 10/22/20 Cryptosporidium/Giardia - Final, Complete 10/20/20 MRSA Screen - Final, Complete MRSA not isolated 10/19/20 Blood Culture - Preliminary, Resulted No growth Assessment/Plan Assessment/Plan Assessment/Plan Bilateral calf pain - obtain venous doppler bilateral LE tomorrow restarted ASA, plavix, in-hospital Lovenox. patient denies respiratory symptoms which would be concerning for PE and is not tachycardic Abdominal Pain - mostly improved Diarrhea - culture positive for salmonella. has rectal tube in place. Started on Levofloxacin and Azithromycin. Dehydration d/t diarrhea- continue fluid Splenic Mass Left foot fracture CAD s/p pacemaker implantation Nausea and Vomiting - resolved Hyponatremia - resolved, 135 this morning Hypokalemia -resolved, 4.0 this morning Acute Renal Failure - resolved, creatinine 0.66 this morning PRANEETH HURD DO 10/25/20 1605: Subjective Time Seen by a Provider: 17:46 Subjective/Events-last exam Pt seen and examined, states he is doing better. Review of Systems General: No Chills; Fatigue Pulmonary: No Dyspnea, No Cough Cardiovascular: No: Chest Pain, Palpitations Gastrointestinal: No: Nausea, Vomiting, Abdominal Pain Objective Exam General Appearance: No Apparent Distress, WD/WN HEENT: PERRL/EOMI, Moist Mucous Membranes Respiratory: Lungs Clear, Normal Breath Sounds, No Accessory Muscle Use, No Respiratory Distress Cardiovascular: Regular Rate, Rhythm, No Murmur Gastrointestinal: non tender, soft; No distended, No guarding, No rebound Extremity: Calf Tenderness (bilateral), Swelling (mild; dorsum left foot over fractured area) Assessment/Plan Assessment/Plan Assessment/Plan Bilateral calf pain - obtain venous doppler bilateral LE tomorrow restarted ASA, plavix, in-hospital Lovenox. patient denies respiratory symptoms which would be concerning for PE and is not tachycardic Abdominal Pain - mostly improved Diarrhea - culture positive for salmonella. has rectal tube in place. Started on Levofloxacin and Azithromycin. Dehydration d/t diarrhea- continue fluid Splenic Mass Left foot fracture CAD s/p pacemaker implantation Nausea and Vomiting - resolved Hyponatremia - resolved, 135 this morning Hypokalemia -resolved, 4.0 this morning Acute Renal Failure - resolved, creatinine 0.66 this morning Pt no longer has not needed any surgical intervention, is being treated correctly. I will sign off and reconsult if needed. Supervisory-Addendum Brief Verification & Attestation Participated in pt care: history, MDM, physical Personally performed: exam, history, MDM Care discussed with: Medical Student Procedures: n/a Verification and Attestation of Medical Student E/M Service A medical student performed and documented this service. I then reviewed and verified all information documented by the medical student and made modification s to such information, when appropriate. I personally performed a physical exam, medical decision making and then discussed any differences between the notes and made revisions as necessary to create one note. Praneeth Hurd , 10/25/20 , 15:17 SALVADOR DA SILVA MED STUDENT Oct 24, 2020 09:19 PRANEETH HURD DO Oct 25, 2020 16:05
[2020-10-24] MEDS: ISOSORBIDE MONONITRATE 60 MG (IMDUR) TAB PO SCH ×2 (09:36→21:37)
[2020-10-24] MEDS: CALCIUM CARBONATE 600 MG (CALCARB) TAB PO SCH (09:36)
[2020-10-24] MEDS: lisINopril 20 MG (PRINIVIL) TABLET PO SCH (09:36)
[2020-10-24] MEDS: AZITHROMYCIN 250 MG TAB (ZITHROMAX) PO SCH (09:36)
[2020-10-24] MEDS: DICYCLOMINE 10 MG (BENTYL) CAP PO SCH ×2 (09:36→21:36)
[2020-10-24] MEDS: CLOPIDOGREL 75 MG (PLAVIX) TABLET PO SCH (09:37)
[2020-10-24] MEDS: CHOLESTYRAMINE 4 GM (QUESTRAN LITE, PREVALITE) PKT PO SCH (11:11)
[2020-10-24] MEDS: HYDROcodone/APAP 5 MG/325 MG (LORTAB) TAB PO PRN (11:23)
[2020-10-24] MEDS: ENOXAPARIN 40 MG/0.4 ML (LOVENOX) SYR SC SCH (12:15)
--- NOTE | 2020-10-24 16:32 | Progress Note - Cardiology ---
Cardiology SOAP Progress Note Subjective: No cp or palp or syncope Shortness fo breath and malaise are better No n/v. Diarrhea improved Objective: I&O/Vital Signs 10/24/20 10/24/20 10/24/20 10/24/20 07:00 07:30 08:00 08:00 Temp 36.3 Pulse 75 83 Resp 18 B/P (MAP) 157/84 (108) Pulse Ox 94 98 O2 Delivery Nasal Cannula Room Air Room Air O2 Flow Rate 2.00 10/24/20 10/24/20 10/24/20 10/24/20 10:42 12:00 12:35 14:26 Temp 36.1 Pulse 75 79 Resp 18 B/P (MAP) 130/70 (90) Pulse Ox 94 90 O2 Delivery Room Air Room Air Room Air 10/24/20 15:44 Temp 35.9 Pulse 80 Resp 18 B/P (MAP) 144/73 (96) Pulse Ox 94 O2 Delivery Room Air 10/23/20 23:59 Intake Total 1570 ml Output Total 2150 ml Balance -580 ml Weight (Pounds): 219 Weight (Ounces): 0.0 Weight (Calculated Kilograms): 99.210561 Constitutional: AAO x 3, well-developed, well-nourished Respiratory: No accessory muscle use; other (fair to good, bilateral air entry, diminished at te bases) Cardiovascular: regular rate-rhythm, S1 and S2, systolic murmur (soft SHIKHA at card base) Gastrointestional: distended; No guarding, No rebound; audible bowel sounds Extremities: No clubbing, No cyanosis Skin: normal color, warm/dry Results/Procedures: Labs Laboratory Tests 10/23/20 20:25: Glucometer 149H 10/24/20 05:42: Glucometer 133H 10/24/20 06:35: White Blood Count 9.5, Red Blood Count 3.72L, Hemoglobin 11.9L, Hematocrit 33L, Mean Corpuscular Volume 89, Mean Corpuscular Hemoglobin 32, Mean Corpuscular Hemoglobin Concent 36, Red Cell Distribution Width 12.3, Platelet Count 202, Mean Platelet Volume 8.8L, Immature Granulocyte % (Auto) 8, Neutrophils (%) (Auto) 58, Lymphocytes (%) (Auto) 15, Monocytes (%) (Auto) 13H, Eosinophils (%) (Auto) 5, Basophils (%) (Auto) 1, Neutrophils # (Auto) 5.5, Lymphocytes # (Auto) 1.4, Monocytes # (Auto) 1.2H, Eosinophils # (Auto) 0.5H, Basophils # (Auto) 0.1, Immature Granulocyte # (Auto) 0.8H, Sodium Level 135, Potassium Level 4.0, Chloride Level 104, Carbon Dioxide Level 26, Anion Gap 5, Blood Urea Nitrogen 8, Creatinine 0.66, Estimat Glomerular Filtration Rate > 60, BUN/Creatinine Ratio 12, Glucose Level 135H, Calcium Level 8.4L, Corrected Calcium 9.1, Magnesium Level 1.6, Total Bilirubin 0.7, Aspartate Amino Transf (AST/SGOT) 17, Alanine Aminotransferase (ALT/SGPT) 14, Alkaline Phosphatase 50, Total Protein 5.9L, Albumin 3.1L 10/24/20 11:11: Glucometer 164H 10/24/20 15:12: Glucometer 164H Microbiology 10/22/20 Cryptosporidium/Giardia - Final, Complete 10/20/20 MRSA Screen - Final, Complete MRSA not isolated 10/19/20 Blood Culture - Preliminary, Resulted No growth Laboratory Tests 10/22/20 17:05 10/23/20 05:10 10/24/20 06:35 A/P: Assessment: Sepsis of undetermined source associated with septic shock Ac renal failure: likely ATN due to shock - resolved Abdominal pain - management per medical/surgical services C-diff (+) CAD, s/p CABG x 3 in 2004 - Rest/Stress Regadenoson Rubidium-82 PET/CT on 04/25/17: mild to mod ischemia in LAD territory mod-sized infarction with mild residual ischemia in the RCA territory, LVEF 36% Ischemic cardiomyopathy. - Last cath and PCI at [facility] in late 2016: LM 30 ostial, LAD 100 after D 2, D2 with severe prox stenosis, LCS mod diff, RI 30-40 prox, RCA occluded distally and collateralized; underwent laser atherectomy and 2.5x22 Resolute [place] MARCUS to D2 that was post dilated with 3 mm balloon (RCA not intervened on) - Chronic stable exertional angina pectoris Ischemic cm and HFrEF - Echo of 05-23-16 showed LVEF approx 35%. Global hypokinesis of the LV, somewhat more marked at the distal anteroapical area. Mild diastolic dysfunction of the LV. Mild diastolic dysfunction. Mild aortic, mitral and tricuspid regurg. No evidence of significant valvular stenosis. Mod enlargement of the LA and LV. Mild LVH S/p single ch ICD implant on 05/04/15; device functioning normally per interro gation of May 2020 DM II Hyperlipidemia Hypertension Obesity with BMI approx 33.5 Obstructive sleep apnea, treated with CPAP, managed by Dr Wiley H/o prostate and thyroid cancers for which he has been fully treated and they are stated to be in chronic remission. Prostate cancer followed by Dr Lilly; [facility] Mild bilat carotid plaque per u/s of 08/19/18 Chronic hardness of hearing Splenic mass diagnosed in September 2020 being managed by Med and Surg svces Right foot fracture Plan: * BP is now better controlled - continue current regimen * Management of C-diff is by Medical and Surgical services * Management of right foot fracture is per Medical services * Monitor labs BLADE PICKERING MD FACP FAC CCDS Oct 24, 2020 16:31
[2020-10-24] MEDS: ASPIRIN E.C. 81 MG (ECOTRIN) TAB PO SCH (18:29)
[2020-10-25] MEDS: LEVOTHYROXINE 112 MCG (LEVOTHROID) TAB PO SCH (05:41)
[2020-10-25] MEDS: inSUlin ASPART (NovoLOG) 1 UNIT/0.01 ML (CHARGE PER UNIT) SC SCH ×4 (05:41→20:28)
[2020-10-25 05:56] LABS: BASOPHILS # (AUTO) 0.1 10^3/uL (0.0-0.1); BASOPHILS % (AUTO) 1 % (0-10); EOSINOPHILS # (AUTO) 0.4 10^3/uL (0.0-0.3); EOSINOPHILS % (AUTO) 4 % (0-10); HEMATOCRIT 35 % (40-54); HEMOGLOBIN 12.5 g/dL (13.3-17.7); LYMPHOCYTES # (AUTO) 1.5 10^3/uL (1.0-4.0); LYMPHOCYTES % (AUTO) 14 % (12-44); MEAN CORPUSCULAR HEMOGLOBIN 32 pg (25-34); MEAN CORPUSCULAR HGB CONC 36 g/dL (32-36); MEAN CORPUSCULAR VOLUME 89 fL (80-99); MEAN PLATELET VOLUME 9.2 fL (9.0-12.2); MONOCYTES # (AUTO) 1.1 10^3/uL (0.0-1.0); MONOCYTES % (AUTO) 11 % (0-12); NEUTROPHILS # (AUTO) 6.6 10^3/uL (1.8-7.8); NEUTROPHILS % (AUTO) 62 % (42-75); PLATELET COUNT 214 10^3/uL (130-400); WHITE BLOOD COUNT 10.5 10^3/uL (4.3-11.0)
[2020-10-25 06:10] LABS: SMEAR SCAN COMMENT YES
[2020-10-25 06:19] LABS: ALANINE AMINOTRANSFERASE 14 U/L (0-55); ALBUMIN 3.2 GM/DL (3.2-4.5); ALKALINE PHOSPHATASE 54 U/L (40-136); BILIRUBIN,TOTAL 0.7 MG/DL (0.1-1.0); BUN/CREATININE RATIO 13; CALCIUM 8.7 MG/DL (8.5-10.1); CARBON DIOXIDE 23 MMOL/L (21-32); CHLORIDE 105 MMOL/L (98-107); CREATININE SERUM 0.67 MG/DL (0.60-1.30); GFR ESTIMATED > 60; GLUCOSE 151 MG/DL (70-105); SODIUM 137 MMOL/L (135-145); TOTAL PROTEIN 6.2 GM/DL (6.4-8.2)
[2020-10-25] MEDS: RT-ALBUTEROL SULF 2.5 MG/3 ML PRE-MIX VIAL IH SCH ×4 (07:12→18:13)
--- NOTE | 2020-10-25 08:57 | Occupational Ther Daily Note ---
OT Current Status-Daily Note Subjective Pt laying in bed, agreeable to OT tx. Family member present. Mental Status/Objective Patient Orientation: Person, Situation Attachments: Oxygen, Telemetry, Other-See Comments (rectal tube) ADL-Treatment Therapy Code Descriptions/Definitions Functional [place] Measure: 0=Not Assessed/NA 4=Minimal Assistance 1=Total Assistance 5=Supervision or Setup 2=Maximal Assistance 6=Modified [place] 3=Moderate Assistance 7=Complete IndependenceSCALE: Activities may be completed with or without assistive devices. 5-Jtjqvajmqk-rbjpfde completes the activity by him/herself with no assistance from a helper. 5-Set-up or Clean-up Assistance-helper sets up or cleans up; patient completes activity. Mccune assists only prior to or following the activity. 4-Supervision or Touching Assistance-helper provides verbal cues and/or touching/steadying and/or contact guard assistance as patient completes activity . Assistance may be provided throughout the activity or intermittently. 3-Partial/Moderate Assistance-helper does LESS THAN HALF the effort. Mccune lifts, holds or supports trunk or limbs, but provides less than half the effort. 2-Substantial/Maximal Assistance-helper does MORE THAN HALF the effort. Mccune lifts or holds trunk or limbs and provides more than half the effort. 9-Wdccdklss-ypemgo does ALL the effort. Patient does none of the effort to complete the activity. Or, the assistance of 2 or more helpers is required for the patient to complete the activity. If activity was not attempted, code reason: 7-Patient Refused. 9-Not Applicable-not attempted and the patient did not perform the activity before the current illness, exacerbation or injury. 10-Not Attempted due to Environmental Limitations-(lack of equipment, weather restraints, etc.). 88-Not Attempted due to Medical Conditions or Safety Concerns. Other Treatment Pt laying in bed, no OOB activities performed on this date due to rectal tubing. In order to increase BUE strength and activity tolerance, pt completed x15 reps of the following BUE exercises: shoulder flexion, elbow flexion, elbow extension, and finger flexion/extension. Pt had poor recall, recalling 0 exe rcises from previous sessions. Pt took a rest break between each exercise, stating overhead exercises caused slight SOB. Ot instructed pt to complete exercises throughout the day, increasing reps as tolerated. Post tx, pt laying in bed, call light in reach and all needs met. Education OT Patient Education: Correct positioning, Energy conservation, Exercise program, Modified ADL techniques, Progress toward Goal/Update tx plan, Purpose of tx/functional activities, Rehab process Teaching Recipient: Patient Teaching Methods: Discussion Response to Teaching: Verbalize Understanding OT Retirement Goals Station Superintendent Goals Time Frame: November 12, 2020 Eating (QC): 6 Oral Hygiene (QC): 6 Toileting Hygiene (QC): 6 Shower/Bathe Self (QC): 6 Upper Body Dressing (QC): 6 Lower Body Dressing (QC): 6 On/Off Footwear (QC): 6 Additional Goals: 1-Demonstrate ADL Tasks, 2-Verbalize Understanding, 3- ImproveStrength/Ashley 1=Demonstrate adherence to instructed precautions during ADL tasks. 2=Patient will verbalize/demonstrate understanding of assistive devices/modifications for ADL. 3=Patient will improve strength/tolerance for activity to enable patient to perform ADL's. OT Education/Plan Problem List/Assessment Assessment: Decreased Activ Tolerance, Decreased UE Strength, Impaired I ADL's, Impaired Self-Care Skills Discharge Recommendations Plan/Recommendations: Continue POC Treatment Plan/Plan of Care Patient would benefit from OT for education, treatment and training to promote independence in ADL's, mobility, safety and/or upper extremity function for ADL's. Plan of Care: ADL Retraining, Functional Mobility, UE Funct Exercise/Act Treatment Duration: November 12, 2020 Frequency: 5 times per week Estimated Hrs Per Day: .25 hour per day Rehab Potential: Fair Time/GCodes Start Time: 08:42 Stop Time: 08:52 Total Time Billed (hr/min): 10 Billed Treatment Time 1, EX PETEY BELLA OT Oct 25, 2020 08:57
[2020-10-25] MEDS: ISOSORBIDE MONONITRATE 60 MG (IMDUR) TAB PO SCH ×2 (09:18→20:37)
[2020-10-25] MEDS: CALCIUM CARBONATE 600 MG (CALCARB) TAB PO SCH (09:18)
[2020-10-25] MEDS: lisINopril 20 MG (PRINIVIL) TABLET PO SCH (09:18)
[2020-10-25] MEDS: AZITHROMYCIN 250 MG TAB (ZITHROMAX) PO SCH (09:18)
[2020-10-25] MEDS: CLOPIDOGREL 75 MG (PLAVIX) TABLET PO SCH (09:18)
[2020-10-25] MEDS: DICYCLOMINE 10 MG (BENTYL) CAP PO SCH ×2 (09:19→15:41)
[2020-10-25] MEDS: RT-BUDESONIDE NEBS 0.5 MG/2ML (PULMICORT) AMP IH SCH ×2 (09:51→18:13)
--- NOTE | 2020-10-25 10:17 | Physical Therapy Daily Note ---
PT Daily Note-Current Subjective Patient incontinent BM with rectal tube in place. Agrees to PT. Mental Status Patient Orientation: Normal For Age Attachments: Oxygen, Taylor Catheter rectal tube Transfers SCALE: Activities may be completed with or without assistive devices. 1-Izxfbuyexl-jvihrhs completes the activity by him/herself with no assistance from a helper. 5-Set-up or Clean-up Assistance-helper sets up or cleans up; patient completes activity. [place] assists only prior to or following the activity. 4-Supervision or Touching Assistance-helper provides verbal cues and/or touching/steadying and/or contact guard assistance as patient completes activity. Assistance may be provided throughout the activity or intermittently. 3-Partial/Moderate Assistance-helper does LESS THAN HALF the effort. [place] lifts, holds or supports trunk or limbs, but provides less than half the effort. 2-Substantial/Maximal Assistance-helper does MORE THAN HALF the effort. [place] lifts or holds trunk or limbs and provides more than half the effort. 9-Uaicoevwb-ngzqjj does ALL the effort. Patient does none of the effort to complete the activity. Or, the assistance of 2 or more helpers is required for the patient to complete the activity. If activity was not attempted, code reason: 7-Patient Refused. 9-Not Applicable-not attempted and the patient did not perform the activity before the current illness, exacerbation or injury. 10-Not Attempted due to Environmental Limitations-(lack of equipment, weather restraints, etc.). 88-Not Attempted due to Medical Conditions or Safety Concerns. Roll Left & Right (QC): 3 Weight Bearing Right Lower Extremity: Right Full Weight Bearing Left Lower Extremity: Left Partial Weight Bearing with CAM boot in place and FWW use Exercises Supine Ex: Ankle pumps, Quad Set, Heel Slides, Straight leg raise Supine Reps: 15 Assessment Patient improving with bed mobility activity. Increase activity when rectal tube is removed. PT Short Term Goals Short Term Goals Time Frame: Oct 29, 2020 Roll Left & Right: 3 Sit to lyin Lying to sitting on side of be: 3 Sit to stand: 3 Chair/gtn-by-apfda transfer: 3 Walk 10 feet: 3 Walk 50 feet with two turns: 3 Walk 150 feet: 3 PT Skilled Nursing Goals Electrical Contacts Adjuster Goals PT Skilled Nursing Goals Time Frame: November 06, 2020 Roll Left & Right (QC): 5 Sit to Lying (QC): 5 Lying-Sitting on Side/Bed(QC): 5 Sit to Stand (QC): 5 Chair/Jya-te-Hlvnl Xfer(QC): 5 Toilet Transfer (QC): 5 Does the Patient Walk: Yes Walk 10 feet (QC): 5 Walk 50ft with 2 Turns (QC): 5 Walk 150 ft (QC): 5 PT Plan Treatment/Plan Treatment Plan: Continue Plan of Care Treatment Plan: Bed Mobility, Education, Functional Activity Ashley, Functional Strength, Gait, Safety, Therapeutic Exercise, Transfers Treatment Duration: November 06, 2020 Frequency: 6 times per week Estimated Hrs Per Day: .25 hour per day Patient and/or Family Agrees t: Yes Time/GCodes Time In: 919 Time Out: 936 Total Billed Treatment Time: 17 Total Billed Treatment 1 visit FA 17 min DORI ADAMS PT Oct 25, 2020 10:17
[2020-10-25] MEDS: CHOLESTYRAMINE 4 GM (QUESTRAN LITE, PREVALITE) PKT PO SCH (10:36)
--- NOTE | 2020-10-25 13:14 | Progress Note - Cardiology ---
Cardiology SOAP Progress Note Subjective: Some gen malaise No cp or palp or syncope No n/v Diarrhea improved Objective: I&O/Vital Signs 10/25/20 10/25/20 10/25/20 10/25/20 03:52 06:27 08:00 08:07 Temp 35.6 35.7 Pulse 83 88 83 Resp 18 16 B/P (MAP) 152/77 (102) 154/71 (98) Pulse Ox 94 97 O2 Delivery Room Air Nasal Cannula Nasal Cannula O2 Flow Rate 2.00 2.00 10/25/20 10/25/20 10/25/20 10/25/20 09:51 09:51 12:24 12:38 Temp 35.5 Pulse 81 90 Resp 17 B/P (MAP) 148/82 (104) Pulse Ox 97 97 O2 Delivery Nasal Cannula Nasal Cannula Nasal Cannula O2 Flow Rate 2.00 1.00 1.00 10/25/20 00:00 Intake Total 2330 ml Output Total 2600 ml Balance -270 ml Weight (Pounds): 219 Weight (Ounces): 0.0 Weight (Calculated Kilograms): 99.515657 Constitutional: AAO x 3, well-developed, well-nourished Respiratory: other Cardiovascular: regular rate-rhythm, S1 and S2, systolic murmur Gastrointestional: distended, audible bowel sounds Extremities: No clubbing, No cyanosis Skin: normal color, warm/dry Results/Procedures: Labs Laboratory Tests 10/24/20 15:12: Glucometer 164H 10/24/20 20:05: Glucometer 176H 10/25/20 05:37: Glucometer 150H, White Blood Count 10.5, Red Blood Count 3.89L, Hemoglobin 12.5L , Hematocrit 35L, Mean Corpuscular Volume 89, Mean Corpuscular Hemoglobin 32, Me an Corpuscular Hemoglobin Concent 36, Red Cell Distribution Width 12.4, Platelet Count 214, Mean Platelet Volume 9.2, Immature Granulocyte % (Auto) 8, Neutrophils (%) (Auto) 62, Lymphocytes (%) (Auto) 14, Monocytes (%) (Auto) 11, Eosinophils (%) (Auto) 4, Basophils (%) (Auto) 1, Neutrophils # (Auto) 6.6, Lymphocytes # (Auto) 1.5, Monocytes # (Auto) 1.1H, Eosinophils # (Auto) 0.4H, Basophils # (Auto) 0.1, Immature Granulocyte # (Auto) 0.9H, Sodium Level 137, Potassium Level 4.0, Chloride Level 105, Carbon Dioxide Level 23, Anion Gap 9, Blood Urea Nitrogen 9, Creatinine 0.67, Estimat Glomerular Filtration Rate > 60, BUN/Creatinine Ratio 13, Glucose Level 151H, Calcium Level 8.7, Corrected Calcium 9.3, Total Bilirubin 0.7, Aspartate Amino Transf (AST/SGOT) 17, Alanine Aminotransferase (ALT/SGPT) 14, Alkaline Phosphatase 54, Total Protein 6.2L, Albumin 3.2, Smear Scan YES 10/25/20 11:12: Glucometer 197H Microbiology 10/22/20 Cryptosporidium/Giardia - Final, Complete 10/20/20 MRSA Screen - Final, Complete MRSA not isolated 10/19/20 Blood Culture - Preliminary, Resulted No growth Laboratory Tests 10/24/20 06:35 10/25/20 05:37 A/P: Assessment: Sepsis of undetermined source associated with septic shock, resolved Ac renal failure: likely ATN due to shock - resolved Abdominal pain - management per medical/surgical services C-diff (+) CAD, s/p CABG x 3 in 2004 - Rest/Stress Regadenoson Rubidium-82 PET/CT on 04/25/17: mild to mod ischemia in LAD territory mod-sized infarction with mild residual ischemia in the RCA territory, LVEF 36% Ischemic cardiomyopathy. - Last cath and PCI at [facility] in late 2016: LM 30 ostial, LAD 100 after D2, D2 with severe prox stenosis, LCS mod diff, RI 30-40 prox, RCA occluded distally and collateralized; underwent laser atherectomy and 2.5x22 Resolute [place] MARCUS to D2 that was post dilated with 3 mm balloon (RCA not intervened on) - Chronic stable exertional angina pectoris Ischemic cm and HFrEF - Echo of 05-23-16 showed LVEF approx 35%. Global hypokinesis of the LV, somewhat more marked at the distal anteroapical area. Mild diastolic dysfunction of the LV. Mild diastolic dysfunction. Mild aortic, mitral and tricuspid regurg. No evidence of significant valvular stenosis. Mod enlargement of the LA and LV. Mild LVH S/p single ch ICD implant on 05/04/15; device functioning normally per interrogation of May 2020 DM II Hyperlipidemia Hypertension Obesity with BMI approx 33.5 Obstructive sleep apnea, treated with CPAP, managed by Dr Wiley H/o prostate and thyroid cancers for which he has been fully treated and they are stated to be in chronic remission. Prostate cancer followed by Dr Lilly; thyroid cancer [facility] Mild bilat carotid plaque per u/s of 08/19/18 Chronic hardness of hearing Splenic mass diagnosed in September 2020 being managed by Med and Surg svces Right foot fracture Plan: * BP has improved * Management of C-diff is by Medical and Surgical services * Management of right foot fracture is per Medical services * Monitor labs BLADE PICKERING MD FACP FAC CCDS Oct 25, 2020 13:14
[2020-10-25] MEDS: ENOXAPARIN 40 MG/0.4 ML (LOVENOX) SYR SC SCH (13:17)
--- NOTE | 2020-10-25 15:34 | Progress Note ---
Subjective Subjective/Events-last exam Afebrile, states he doesn't feel well but isn't able to clarify any specific symptoms. Says stomach pain is better and stool output less. Focused Exam Time of Focused Exam: 23:30 Objective Exam Last Set of Vital Signs Vital Signs Date Time Temp Pulse Resp B/P (MAP) Pulse Ox O2 Delivery O2 Flow Rate FiO2 10/25/20 15:02 96 Nasal Cannula 10/25/20 12:38 90 10/25/20 12:24 35.5 17 148/82 (104) 1.00 Capillary Refill : Less Than 3 Seconds I&O Intake and Output 10/25/20 00:00 Intake Total 2990 ml Output Total 3800 ml Balance -810 ml Intake Oral 1880 ml IV Total 1110 ml Output Urine Total 3675 ml Stool Total 125 ml General: Alert, No Acute Distress Lungs: Clear to Auscultation, Normal Air Movement Heart: Regular Rate, No Murmurs Abdomen: Normal Bowel Sounds, Soft, No Tenderness Neuro: Normal Speech Psych/Mental Status: Other (flat affect) Results/Procedures Lab Laboratory Tests 10/24/20 20:05: Glucometer 176H 10/25/20 05:37: Glucometer 150H, White Blood Count 10.5, Red Blood Count 3.89L, Hemoglobin 12.5L , Hematocrit 35L, Mean Corpuscular Volume 89, Mean Corpuscular Hemoglobin 32, Mean Corpuscular Hemoglobin Concent 36, Red Cell Distribution Width 12.4, Platelet Count 214, Mean Platelet Volume 9.2, Immature Granulocyte % (Auto) 8, Neutrophils (%) (Auto) 62, Lymphocytes (%) (Auto) 14, Monocytes (%) (Auto) 11, Eosinophils (%) (Auto) 4, Basophils (%) (Auto) 1, Neutrophils # (Auto) 6.6, Lymphocytes # (Auto) 1.5, Monocytes # (Auto) 1.1H, Eosinophils # (Auto) 0.4H, Basophils # (Auto) 0.1, Immature Granulocyte # (Auto) 0.9H, Sodium Level 137, Potassium Level 4.0, Chloride Level 105, Carbon Dioxide Level 23, Anion Gap 9, Blood Urea Nitrogen 9, Creatinine 0.67, Estimat Glomerular Filtration Rate > 60, BUN/Creatinine Ratio 13, Glucose Level 151H, Calcium Level 8.7, Corrected Calcium 9.3, Total Bilirubin 0.7, Aspartate Amino Transf (AST/SGOT) 17, Alanine Aminotransferase (ALT/SGPT) 14, Alkaline Phosphatase 54, Total Protein 6.2L, Albumin 3.2, Smear Scan YES 10/25/20 11:12: Glucometer 197H Microbiology 10/22/20 Cryptosporidium/Giardia - Final, Complete 10/20/20 MRSA Screen - Final, Complete MRSA not isolated 10/19/20 Blood Culture - Preliminary, Resulted No growth Radiology Date of Exam:10/18/20 CT ABDOMEN/PELVIS W PROCEDURE: CT abdomen and pelvis with contrast. TECHNIQUE: Multiple contiguous axial images were obtained through the abdomen and pelvis after administration of intravenous contrast. Auto Exposure Controls were utilized during the CT exam to meet ALARA standards for radiation dose reduction. All CT scans use one or more of the following dose optimizing techniques: automated exposure control, MA and/or KvP adjustment based on patient size and exam type or iterative reconstruction. INDICATION: Nausea and vomiting and abdominal pain. COMPARISON: Correlation is made with prior CT from 11/14/2017. FINDINGS: Lung bases demonstrate trace bilateral effusions. Subsegmental atelectasis or scarring in both lung bases is noted. Liver again demonstrates diffuse low density, consistent with hepatic steatosis. No discrete liver mass is detected. Gallbladder is surgically absent. No biliary ductal dilatation is seen. The pancreas is unremarkable. The spleen contains a mass in the inferior aspect measuring 4.8 cm in size. This appears to be increased in size when compared with prior imaging. No adrenal mass is identified. The kidneys are unremarkable. Aorta and iliac vessels are heavily calcified but nonaneurysmal. No central retroperitoneal or mesenteric lymphadenopathy is identified. The small and large bowel loops are normal in caliber. No obstruction is identified. There is no free fluid or fluid collection. No pneumoperitoneum is identified. No iliac or inguinal lymphadenopathy is identified. The bladder is unopacified but otherwise unremarkable. Prostate is normal in size. The bony structures are nonacute. IMPRESSION: 1. Trace bilateral pleural effusions with bibasilar atelectasis or scarring. 2. Hepatic steatosis. 3. Increase in size of splenic mass when compared with prior exam. 4. No evidence of abdominal or pelvic lymphadenopathy. 5. No acute feature in the abdomen or pelvis is identified. Dictated by: Dictated on workstation # [id number] Dict: 10/18/20 1413 Trans: 10/18/20 1621 [id number] Interpreted by: ELMER SMALL MD Electronically signed by: ELMER SMALL MD 10/18/20 1621 Assessment/Plan Assessment/Plan (1) Sepsis Status: Acute Assessment & Plan: Improving, renal function normal, blood pressure good. Blood culture with salmonella. On levofloxacin, will d/c azithromycin. Qualifiers: Qualified Codes: A02.1 - Salmonella sepsis; R65.20 - Severe sepsis without septic shock; N17.0 - Acute kidney failure with tubular necrosis (2) Acute renal failure Status: Resolved (3) Splenic mass Status: Acute Assessment & Plan: Unclear work-up to date, will follow up with Oncology. (4) Diarrhea Status: Chronic Assessment & Plan: Improving, continue salmonella treatment. Qualifiers: Qualified Codes: A09 - Infectious gastroenteritis and colitis, unspecified (5) ASCVD (arteriosclerotic cardiovascular disease) Status: Chronic Assessment & Plan: Aspirin (6) Diabetes Status: Chronic Assessment & Plan: Sliding scale insulin. Home meds held due to ELA. Qualifiers: Qualified Codes: E11.65 - Type 2 diabetes mellitus with hyperglycemia (7) Metabolic acidosis Status: Resolved Assessment & Plan: Secondary to ELA (8) HTN (hypertension) Status: Chronic Assessment & Plan: Resume home medications as able based on renal function and BP need. Qualifiers: Qualified Codes: I10 - Essential (primary) hypertension (9) HLD (hyperlipidemia) Status: Chronic (10) History of thyroid cancer Status: Chronic (11) History of prostate cancer Status: Chronic (12) Bacteremia Status: Acute (13) COPD (chronic obstructive pulmonary disease) Status: Chronic Assessment & Plan: Albuterol, budesonide (14) Hypoxia Status: Acute Assessment & Plan: Not on chronic supplemental oxygen, wean as tolerated. (15) DVT prophylaxis Status: Acute Assessment & Plan: Enoxaparin MAYRA PADRON MD Oct 25, 2020 15:34
[2020-10-25] MEDS: HYDROcodone/APAP 5 MG/325 MG (LORTAB) TAB PO PRN ×2 (15:44→20:38)
[2020-10-25] MEDS: ASPIRIN E.C. 81 MG (ECOTRIN) TAB PO SCH (17:37)
--- NOTE | 2020-10-25 17:38 | Diagnostic Imaging Report ---
PROCEDURE: US Venous Lower Ext Jonathon. TECHNIQUE: Multiple real-time grayscale images were obtained over the lower extremities in various projections, bilaterally. Additional duplex Doppler and color Doppler images were also obtained. INDICATION: Swelling, pain. FINDINGS: Bilateral lower extremity femoral popliteal deep veins showed normal color flow, normal compressibility and normal waveforms. There is no evidence for DVT. Superficial venous structures appeared patent. No mass or fluid collection. IMPRESSION: Negative bilateral lower extremity venous Doppler and ultrasound exam. Dictated by: Dictated on workstation # [id number]
[2020-10-26 05:24] LABS: HEMOGLOBIN 12.2 g/dL (13.3-17.7); WHITE BLOOD COUNT 11.3 10^3/uL (4.3-11.0)
[2020-10-26] MEDS: inSUlin ASPART (NovoLOG) 1 UNIT/0.01 ML (CHARGE PER UNIT) SC SCH ×2 (05:38→13:07)
[2020-10-26 05:43] LABS: BUN/CREATININE RATIO 11; CALCIUM 8.4 MG/DL (8.5-10.1); CARBON DIOXIDE 24 MMOL/L (21-32); CHLORIDE 104 MMOL/L (98-107); GFR ESTIMATED > 60; GLUCOSE 155 MG/DL (70-105); POTASSIUM 4.1 MMOL/L (3.6-5.0); SODIUM 137 MMOL/L (135-145)
[2020-10-26] MEDS: HYDROcodone/APAP 5 MG/325 MG (LORTAB) TAB PO PRN (05:46)
[2020-10-26] MEDS: LEVOTHYROXINE 112 MCG (LEVOTHROID) TAB PO SCH (05:46)
[2020-10-26] MEDS: RT-ALBUTEROL SULF 2.5 MG/3 ML PRE-MIX VIAL IH SCH ×4 (06:33→18:37)
[2020-10-26] MEDS: RT-BUDESONIDE NEBS 0.5 MG/2ML (PULMICORT) AMP IH SCH ×2 (06:33→18:38)
[2020-10-26] MEDS: ISOSORBIDE MONONITRATE 60 MG (IMDUR) TAB PO SCH ×2 (08:26→20:55)
[2020-10-26] MEDS: lisINopril 20 MG (PRINIVIL) TABLET PO SCH (08:26)
[2020-10-26] MEDS: CLOPIDOGREL 75 MG (PLAVIX) TABLET PO SCH (08:26)
[2020-10-26] MEDS: CHOLESTYRAMINE 4 GM (QUESTRAN LITE, PREVALITE) PKT PO SCH (08:27)
[2020-10-26] MEDS: CALCIUM CARBONATE 600 MG (CALCARB) TAB PO SCH (08:32)
[2020-10-26] MEDS: DICYCLOMINE 10 MG (BENTYL) CAP PO SCH ×2 (08:32→20:56)
--- NOTE | 2020-10-26 09:34 | Occupational Ther Daily Note ---
OT Current Status-Daily Note Subjective Pt alert, lying in bed. Nrsg present in room. PT/OT treated pt for mobility, transfers and ADLs. Pt agrees to therapy. C/o pain only with ambulation on L foot. Mental Status/Objective Patient Orientation: Person, Place, Time, Situation Attachments: Taylor Catheter, IV ADL-Treatment Pt able to roll side to side and hold position. Assist given by nrsg to cleanse after anal tube removed and placing brief. Min A for supine to EOB, dizziness with sitting though cleared quickly. Assist to stand and ambulate using FWW then verbal cues for hand placement. After therapy, pt sitting in recliner with call light/phone in reach. All needs met in room. Therapy Code Descriptions/Definitions Functional [place] Measure: 0=Not Assessed/NA 4=Minimal Assistance 1=Total Assistance 5=Supervision or Setup 2=Maximal Assistance 6=Modified [place] 3=Moderate Assistance 7=Complete IndependenceSCALE: Activities may be completed with or without assistive devices. 8-Vowjuflfpm-ekrjmtm completes the activity by him/herself with no assistance from a helper. 5-Set-up or Clean-up Assistance-helper sets up or cleans up; patient completes activity. [place] assists only prior to or following the activity. 4-Supervision or Touching Assistance-helper provides verbal cues and/or to uching/steadying and/or contact guard assistance as patient completes activity. Assistance may be provided throughout the activity or intermittently. 3-Partial/Moderate Assistance-helper does LESS THAN HALF the effort. [place] lifts, holds or supports trunk or limbs, but provides less than half the effort. 2-Substantial/Maximal Assistance-helper does MORE THAN HALF the effort. [place] lifts or holds trunk or limbs and provides more than half the effort. 6-Tmsmuaqrm-ikcaby does ALL the effort. Patient does none of the effort to complete the activity. Or, the assistance of 2 or more helpers is required for the patient to complete the activity. If activity was not attempted, code reason: 7-Patient Refused. 9-Not Applicable-not attempted and the patient did not perform the activity before the current illness, exacerbation or injury. 10-Not Attempted due to Environmental Limitations-(lack of equipment, weather restraints, etc.). 88-Not Attempted due to Medical Conditions or Safety Concerns. OT Chcf Goals Chcf Goals Time Frame: November 12, 2020 Eating (QC): 6 Oral Hygiene (QC): 6 Toileting Hygiene (QC): 6 Shower/Bathe Self (QC): 6 Upper Body Dressing (QC): 6 Lower Body Dressing (QC): 6 On/Off Footwear (QC): 6 Additional Goals: 1-Demonstrate ADL Tasks, 2-Verbalize Understanding, 3-Im proveStrength/Ashley 1=Demonstrate adherence to instructed precautions during ADL tasks. 2=Patient will verbalize/demonstrate understanding of assistive devices/modifications for ADL. 3=Patient will improve strength/tolerance for activity to enable patient to perform ADL's. OT Education/Plan Problem List/Assessment Assessment: Decreased Activ Tolerance, Decreased UE Strength, Impaired Self- Care Skills Discharge Recommendations Plan/Recommendations: Continue POC Treatment Plan/Plan of Care Patient would benefit from OT for education, treatment and training to promote independence in ADL's, mobility, safety and/or upper extremity function for ADL's. Plan of Care: ADL Retraining, Functional Mobility, UE Funct Exercise/Act Treatment Duration: November 12, 2020 Frequency: 5 times per week Estimated Hrs Per Day: .25 hour per day Rehab Potential: Fair Time/GCodes Start Time: 09:10 Stop Time: 09:33 Total Time Billed (hr/min): 23 Billed Treatment Time 1 visit-ADL 1 (13 min) FA 1 (10 min) BRISEIDA DURAN Oct 26, 2020 09:34
--- NOTE | 2020-10-26 09:38 | Physical Therapy Daily Note ---
PT Daily Note-Current Subjective Patient agrees to therapy. Highly motivated with rectal tube removal. Mental Status Patient Orientation: Normal For Age Transfers SCALE: Activities may be completed with or without assistive devices. 9-Dgcyfvajoo-rmiwsnw completes the activity by him/herself with no assistance from a helper. 5-Set-up or Clean-up Assistance-helper sets up or cleans up; patient completes activity. [place] assists only prior to or following the activity. 4-Supervision or Touching Assistance-helper provides verbal cues and/or touching/steadying and/or contact guard assistance as patient completes activity. Assistance may be provided throughout the activity or intermittently. 3-Partial/Moderate Assistance-helper does LESS THAN HALF the effort. [place] lifts, holds or supports trunk or limbs, but provides less than half the effort. 2-Substantial/Maximal Assistance-helper does MORE THAN HALF the effort. [place] lifts or holds trunk or limbs and provides more than half the effort. 7-Uhpluxxsf-nsnsjf does ALL the effort. Patient does none of the effort to complete the activity. Or, the assistance of 2 or more helpers is required for the patient to complete the activity. If activity was not attempted, code reason: 7-Patient Refused. 9-Not Applicable-not attempted and the patient did not perform the activity before the current illness, exacerbation or injury. 10-Not Attempted due to Environmental Limitations-(lack of equipment, weather restraints, etc.). 88-Not Attempted due to Medical Conditions or Safety Concerns. Roll Left & Right (QC): 4 Sit to Lying (QC): 3 Sit to Stand (QC): 3 Chair/Iuy-rt-[place] Xfer(QC): 3 Weight Bearing Right Lower Extremity: Right Full Weight Bearing Left Lower Extremity: Left Partial Weight Bearing with CAM boot in place and FWW use Gait Training Does the Patient Walk?: Yes Distance: 10' Walk 10 feet (QC): 3 Gait Assistive Device: FWW CAM boot left foot PWB compliance with FWW use/shuffle gait sequence Exercises Supine Ex: Ankle pumps, Rolling, Heel Slides Supine Reps: 12 Seated Therapy Exercises: Ankle pumps, Long arc quads Seated Reps: 15 Assessment Patient tolerated treatment well and is up in recliner with needs met. Patient's first time OOB since admit. Increase activity as tolerated by patient. PT Short Term Goals Short Term Goals Time Frame: Oct 29, 2020 Roll Left & Right: 3 Sit to lyin Lying to sitting on side of be: 3 Sit to stand: 3 Chair/qnv-ni-ioefi transfer: 3 Walk 10 feet: 3 Walk 50 feet with two turns: 3 Walk 150 feet: 3 PT Custodial Goals Custodial Goals PT Analyst [employer] Goals Time Frame: November 06, 2020 Roll Left & Right (QC): 5 Sit to Lying (QC): 5 Lying-Sitting on Side/Bed(QC): 5 Sit to Stand (QC): 5 Chair/Odj-sf-Ainhf Xfer(QC): 5 Toilet Transfer (QC): 5 Does the Patient Walk: Yes Walk 10 feet (QC): 5 Walk 50ft with 2 Turns (QC): 5 Walk 150 ft (QC): 5 PT Plan Treatment/Plan Treatment Plan: Continue Plan of Care Treatment Plan: Bed Mobility, Education, Functional Activity Ashley, Functional Strength, Gait, Safety, Therapeutic Exercise, Transfers Treatment Duration: November 06, 2020 Frequency: 6 times per week Estimated Hrs Per Day: .25 hour per day Patient and/or Family Agrees t: Yes Time/GCodes Time In: 910 Time Out: 933 Total Billed Treatment Time: 23 Total Billed Treatment 1 visit FA x 2 23 min DORI ADAMS PT Oct 26, 2020 09:38
--- NOTE | 2020-10-26 10:19 | Progress Note - Cardiology ---
Cardiology SOAP Progress Note Subjective: Sitting up in recliner at the bedside No c/o CP or SOB No c/o abd pain C/O left foot pain Objective: I&O/Vital Signs 10/26/20 10/27/20 10/27/20 10/27/20 23:10 01:00 03:32 06:44 Temp 36.2 36.1 Pulse 77 70 75 71 Resp 20 20 B/P (MAP) 130/60 (83) 150/70 (96) Pulse Ox 95 94 O2 Delivery Room Air Room Air 10/27/20 10/27/20 10/27/20 07:47 07:51 08:18 Temp 35.0 Pulse 87 Resp 16 B/P (MAP) 161/76 (104) Pulse Ox 94 94 96 O2 Delivery Room Air Room Air Room Air 10/27/20 00:00 Intake Total 900 ml Output Total 1650 ml Balance -750 ml Weight (Pounds): 219 Weight (Ounces): 0.0 Weight (Calculated Kilograms): 99.788941 Constitutional: AAO x 3, well-developed, well-nourished Respiratory: other Cardiovascular: regular rate-rhythm, S1 and S2, systolic murmur Gastrointestional: distended, audible bowel sounds Extremities: No clubbing, No cyanosis Skin: normal color, warm/dry Results/Procedures: Labs Laboratory Tests 10/26/20 11:17: Glucometer 172H Microbiology 10/22/20 Cryptosporidium/Giardia - Final, Complete 10/20/20 MRSA Screen - Final, Complete MRSA not isolated 10/19/20 Blood Culture - Final, Complete No growth A/P: Assessment: Sepsis of undetermined source associated with septic shock, resolved Ac renal failure: likely ATN due to shock - resolved Abdominal pain - management per medical/surgical services C-diff (+) CAD, s/p CABG x 3 in 2004 - Rest/Stress Regadenoson Rubidium-82 PET/CT on 04/25/17: mild to mod ischemia in LAD territory mod-sized infarction with mild residual ischemia in the RCA territory, LVEF 36% Ischemic cardiomyopathy. - Last cath and PCI at [facility] in late 2016: LM 30 ostial, LAD 100 after D2, D2 with severe prox stenosis, LCS mod diff, RI 30-40 prox, RCA occluded distally and collateralized; underwent laser atherectomy and 2.5x22 Resolute [place] MARCUS to D2 that was post dilated with 3 mm balloon (RCA not intervened on) - Chronic stable exertional angina pectoris Ischemic cm and HFrEF - Echo of 05-23-16 showed LVEF approx 35%. Global hypokinesis of the LV, somewhat more marked at the distal anteroapical area. Mild diastolic dysfunction of the LV. Mild diastolic dysfunction. Mild aortic, mitral and tricuspid regurg. No evidence of significant valvular stenosis. Mod enlargement of the LA and LV. Mild LVH S/p single ch ICD implant on 05/04/15; device functioning normally per interrogation of May 2020 DM II Hyperlipidemia Hypertension Obesity with BMI approx 33.5 Obstructive sleep apnea, treated with CPAP, managed by Dr Wiley H/o prostate and thyroid cancers for which he has been fully treated and they are stated to be in chronic remission. Prostate cancer followed by Dr Lilly; [facility] Mild bilat carotid plaque per u/s of 08/19/18 Chronic hardness of hearing Splenic mass diagnosed in September 2020 being managed by Med and Surg svces Right foot fracture Plan: * Continue current medication regimen * Management of C-diff is by Medical and Surgical services * Management of right foot fracture is per Medical services * Monitor labs CANDY GARCIA Oct 26, 2020 10:19
[2020-10-26] MEDS: ENOXAPARIN 40 MG/0.4 ML (LOVENOX) SYR SC SCH (13:28)
--- NOTE | 2020-10-26 16:41 | Progress Note - Cardiology ---
Cardiology SOAP Progress Note Subjective: Gen malaise, but improving No cp or palp or syncope Poor stamina, but improving No shortness of breath at rest No n/v/d Objective: I&O/Vital Signs 10/26/20 10/26/20 10/26/20 10/26/20 06:33 06:45 07:40 08:00 Temp 36.3 Pulse 77 66 Resp 17 B/P (MAP) 155/82 (106) Pulse Ox 96 95 O2 Delivery Nasal Cannula Room Air Room Air O2 Flow Rate 1.00 10/26/20 10/26/20 10/26/20 10/26/20 10:27 11:35 12:15 14:42 Temp 36.0 Pulse 82 89 Resp 18 B/P (MAP) 114/64 (81) Pulse Ox 96 96 95 O2 Delivery Room Air Room Air Room Air 10/26/20 15:34 Temp 36.2 Pulse 85 Resp 18 B/P (MAP) 163/78 (106) Pulse Ox 96 O2 Delivery Nasal Cannula O2 Flow Rate 2.00 10/26/20 00:00 Intake Total 3005 ml Output Total 2450 ml Balance 555 ml Weight (Pounds): 219 Weight (Ounces): 0.0 Weight (Calculated Kilograms): 99.650713 Constitutional: AAO x 3, well-developed, well-nourished Respiratory: other Cardiovascular: regular rate-rhythm, S1 and S2, systolic murmur Gastrointestional: distended, audible bowel sounds Extremities: No clubbing, No cyanosis Skin: normal color, warm/dry Results/Procedures: Labs Laboratory Tests 10/25/20 20:27: Glucometer 194H 10/26/20 05:15: White Blood Count 11.3H, Red Blood Count 3.76L, Hemoglobin 12.2L, Hematocrit 34L , Mean Corpuscular Volume 91, Mean Corpuscular Hemoglobin 32, Mean Corpuscular Hemoglobin Concent 36, Red Cell Distribution Width 12.6, Platelet Count 198, Mean Platelet Volume 9.0, Sodium Level 137, Potassium Level 4.1, Chloride Level 104, Carbon Dioxide Level 24, Anion Gap 9, Blood Urea Nitrogen 8, Creatinine 0.70, Estimat Glomerular Filtration Rate > 60, BUN/Creatinine Ratio 11, Glucose Level 155H, Calcium Level 8.4L 10/26/20 05:35: Glucometer 155H Microbiology 10/22/20 Cryptosporidium/Giardia - Final, Complete 10/20/20 MRSA Screen - Final, Complete MRSA not isolated 10/19/20 Blood Culture - Final, Complete No growth Laboratory Tests 10/25/20 05:37 10/26/20 05:15 A/P: Assessment: Sepsis of undetermined source associated with septic shock, resolved Ac renal failure: likely ATN due to shock - resolved Abdominal pain - management per medical/surgical services C-diff (+) CAD, s/p CABG x 3 in 2004 - Rest/Stress Regadenoson Rubidium-82 PET/CT on 04/25/17: mild to mod ischemia in LAD territory mod-sized infarction with mild residual ischemia in the RCA territory, LVEF 36% Ischemic cardiomyopathy. - Last cath and PCI at [facility] in late 2016: LM 30 ostial, LAD 100 after D2, D2 with severe prox stenosis, LCS mod diff, RI 30-40 prox, RCA occluded distally and collateralized; underwent laser atherectomy and 2.5x22 Resolute [place] MARCUS to D2 that was post dilated with 3 mm balloon (RCA not intervened on) - Chronic stable exertional angina pectoris Ischemic cm and HFrEF - Echo of 05-23-16 showed LVEF approx 35%. Global hypokinesis of the LV, somewhat more marked at the distal anteroapical area. Mild diastolic dysfunction of the LV. Mild diastolic dysfunction. Mild aortic, mitral and tricuspid regurg. No evidence of significant valvular stenosis. Mod enlargement of the LA and LV. Mild LVH S/p single ch ICD implant on 05/04/15; device functioning normally per interrogation of May 2020 DM II Hyperlipidemia Hypertension Obesity with BMI approx 33.5 Obstructive sleep apnea, treated with CPAP, managed by Dr Wiley H/o prostate and thyroid cancers for which he has been fully treated and they are stated to be in chronic remission. Prostate cancer followed by Dr Lilly; [facility] Mild bilat carotid plaque per u/s of 08/19/18 Chronic hardness of hearing Splenic mass diagnosed in September 2020 being managed by Med and Surg svces Right foot fracture Plan: * Continue current medication regimen * Management of C-diff is by Medical and Surgical services * Management of right foot fracture is per Medical services * Monitor labs BLADE PICKERING MD FACP FAC CCDS Oct 26, 2020 16:41
--- NOTE | 2020-10-26 18:43 | Progress Note ---
Subjective Subjective/Events-last exam Pt sitting up in chair and states he is feeling much better. He is hoping to go home soon. He lives alone. He does admit getting around with his foot fracture and boot was a little difficult. Focused Exam Time of Focused Exam: 23:30 Objective Exam Last Set of Vital Signs Vital Signs Date Time Temp Pulse Resp B/P (MAP) Pulse Ox O2 Delivery O2 Flow Rate FiO2 10/26/20 15:34 36.2 85 18 163/78 (106) 96 Nasal Cannula 2.00 Capillary Refill : Less Than 3 Seconds I&O Intake and Output 10/26/20 00:00 Intake Total 3305 ml Output Total 2700 ml Balance 605 ml Intake Oral 3305 ml Output Urine Total 2700 ml General: Alert, No Acute Distress Lungs: Clear to Auscultation, Normal Air Movement Heart: Regular Rate, No Murmurs Neuro: Normal Speech Psych/Mental Status: Mood NL Results/Procedures Lab Laboratory Tests 10/25/20 20:27: Glucometer 194H 10/26/20 05:15: White Blood Count 11.3H, Red Blood Count 3.76L, Hemoglobin 12.2L, Hematocrit 34L , Mean Corpuscular Volume 91, Mean Corpuscular Hemoglobin 32, Mean Corpuscular Hemoglobin Concent 36, Red Cell Distribution Width 12.6, Platelet Count 198, Mean Platelet Volume 9.0, Sodium Level 137, Potassium Level 4.1, Chloride Level 104, Carbon Dioxide Level 24, Anion Gap 9, Blood Urea Nitrogen 8, Creatinine 0.70, Estimat Glomerular Filtration Rate > 60, BUN/Creatinine Ratio 11, Glucose Level 155H, Calcium Level 8.4L 10/26/20 05:35: Glucometer 155H Microbiology 10/22/20 Cryptosporidium/Giardia - Final, Complete 10/20/20 MRSA Screen - Final, Complete MRSA not isolated 10/19/20 Blood Culture - Final, Complete No growth Radiology Date of Exam:10/18/20 CT ABDOMEN/PELVIS W PROCEDURE: CT abdomen and pelvis with contrast. TECHNIQUE: Multiple contiguous axial images were obtained through the abdomen and pelvis after administration of intravenous contrast. Auto Exposure Controls were utilized during the CT exam to meet ALARA standards for radiation dose reduction. All CT scans use one or more of the following dose optimizing techniques: automated exposure control, MA and/or KvP adjustment based on patient size and exam type or iterative reconstruction. INDICATION: Nausea and vomiting and abdominal pain. COMPARISON: Correlation is made with prior CT from 11/14/2017. FINDINGS: Lung bases demonstrate trace bilateral effusions. Subsegmental atelectasis or scarring in both lung bases is noted. Liver again demonstrates diffuse low density, consistent with hepatic steatosis. No discrete liver mass is detected. Gallbladder is surgically absent. No biliary ductal dilatation is seen. The pancreas is unremarkable. The spleen contains a mass in the inferior aspect measuring 4.8 cm in size. This appears to be increased in size when compared with prior imaging. No adrenal mass is identified. The kidneys are unremarkable. Aorta and iliac vessels are heavily calcified but nonaneurysmal. No central retroperitoneal or mesenteric lymphadenopathy is identified. The small and large bowel loops are normal in caliber. No obstruction is identified. There is no free fluid or fluid collection. No pneumoperitoneum is identified. No iliac or inguinal lymphadenopathy is identified. The bladder is unopacified but otherwise unremarkable. Prostate is normal in size. The bony structures are nonacute. IMPRESSION: 1. Trace bilateral pleural effusions with bibasilar atelectasis or scarring. 2. Hepatic steatosis. 3. Increase in size of splenic mass when compared with prior exam. 4. No evidence of abdominal or pelvic lymphadenopathy. 5. No acute feature in the abdomen or pelvis is identified. Dictated by: Dictated on workstation # [id number] Dict: 10/18/20 1413 Trans: 10/18/20 1621 [id number] [id number] Interpreted by: ELMER SMALL MD Electronically signed by: ELMER SMALL MD 10/18/20 1621 Assessment/Plan Assessment/Plan (1) Sepsis Status: Acute Assessment & Plan: Improving, renal function normal, blood pressure good. Blood culture with salmonella. On levofloxacin, will d/c azithromycin. Qualifiers: Qualified Codes: A02.1 - Salmonella sepsis; R65.20 - Severe sepsis without septic shock; N17.0 - Acute kidney failure with tubular necrosis (2) Acute renal failure Status: Resolved (3) Splenic mass Status: Acute Assessment & Plan: Unclear work-up to date, will follow up with Oncology. (4) Diarrhea Status: Chronic Assessment & Plan: Improving, continue salmonella treatment. 10/26 rectal tube d/c'd, monitor output Qualifiers: Qualified Codes: A09 - Infectious gastroenteritis and colitis, unspecified (5) ASCVD (arteriosclerotic cardiovascular disease) Status: Chronic Assessment & Plan: Aspirin (6) Diabetes Status: Chronic Assessment & Plan: Sliding scale insulin. Home meds held due to ELA. Qualifiers: Qualified Codes: E11.65 - Type 2 diabetes mellitus with hyperglycemia (7) Metabolic acidosis Status: Resolved Assessment & Plan: Secondary to ELA (8) HTN (hypertension) Status: Chronic Assessment & Plan: Resume home medications as able based on renal function and BP need. Qualifiers: Qualified Codes: I10 - Essential (primary) hypertension (9) HLD (hyperlipidemia) Status: Chronic (10) History of thyroid cancer Status: Chronic (11) History of prostate cancer Status: Chronic (12) Bacteremia Status: Acute (13) COPD (chronic obstructive pulmonary disease) Status: Chronic Assessment & Plan: Albuterol, budesonide (14) Hypoxia Status: Acute Assessment & Plan: Not on chronic supplemental oxygen, wean as tolerated. (15) Metatarsal bone fracture Status: Acute Assessment & Plan: Ortho consulted, appreciate recommendations, CAM walker and partial weight bearing x 3 weeks Qualifiers: Qualified Codes: S92.325A - Nondisplaced fracture of second metatarsal bone, left foot, initial encounter for closed fracture (16) Fracture of third metatarsal bone Status: Acute Qualifiers: Qualified Codes: S92.335A - Nondisplaced fracture of third metatarsal bone, left foot, initial encounter for closed fracture (17) DVT prophylaxis Status: Acute Assessment & Plan: Enoxaparin MAYRA PADRON MD Oct 26, 2020 18:43
[2020-10-26] MEDS: ASPIRIN E.C. 81 MG (ECOTRIN) TAB PO SCH (18:54)
[2020-10-27] MEDS: LEVOTHYROXINE 112 MCG (LEVOTHROID) TAB PO SCH (05:48)
[2020-10-27] MEDS: RT-ALBUTEROL SULF 2.5 MG/3 ML PRE-MIX VIAL IH SCH (07:44)
[2020-10-27] MEDS: RT-BUDESONIDE NEBS 0.5 MG/2ML (PULMICORT) AMP IH SCH (07:47)
[2020-10-27] MEDS: lisINopril 20 MG (PRINIVIL) TABLET PO SCH (07:49)
[2020-10-27] MEDS: DICYCLOMINE 10 MG (BENTYL) CAP PO SCH (07:49)
[2020-10-27] MEDS: CHOLESTYRAMINE 4 GM (QUESTRAN LITE, PREVALITE) PKT PO SCH (07:49)
[2020-10-27] MEDS: CLOPIDOGREL 75 MG (PLAVIX) TABLET PO SCH (07:49)
[2020-10-27] MEDS: CALCIUM CARBONATE 600 MG (CALCARB) TAB PO SCH (07:49)
[2020-10-27] MEDS: ISOSORBIDE MONONITRATE 60 MG (IMDUR) TAB PO SCH (07:50)
[2020-10-27 08:18] VITALS: BP 161/76
[2020-10-27] MEDS: HYDROcodone/APAP 5 MG/325 MG (LORTAB) TAB PO PRN (08:35)
[2020-10-27] MEDS ORDERED: CHOL4PAC3 PO (09:14)
[2020-10-27] MEDS ORDERED: LEVO500T80 PO (09:14)
--- NOTE | 2020-10-27 09:14 | Discharge Summary ---
Discharge Summary Hospital Course Problems/Diagnosis: (1) Sepsis Status: Acute Assessment & Plan: Improving, renal function normal, blood pressure good. Blood culture with salmonella. Discharging to IRB, will continue levofloxacin to complete a total of 14 days of antibiotics. Qualifiers: Qualified Codes: A02.1 - Salmonella sepsis; R65.20 - Severe sepsis without septic shock; N17.0 - Acute kidney failure with tubular necrosis (2) Acute renal failure Status: Resolved Resolution Date/Time: 10/24/20 @ 15:36 (3) Splenic mass Status: Acute Assessment & Plan: Unclear work-up to date, will follow up with Oncology. (4) Diarrhea Status: Chronic Assessment & Plan: Improving, continue salmonella treatment. 10/26 rectal tube d/c'd, monitor output Qualifiers: Qualified Codes: A09 - Infectious gastroenteritis and colitis, unspecified (5) ASCVD (arteriosclerotic cardiovascular disease) Status: Chronic Assessment & Plan: Aspirin (6) Diabetes Status: Chronic Assessment & Plan: Sliding scale insulin. Home meds held due to ELA. Qualifiers: Qualified Codes: E11.65 - Type 2 diabetes mellitus with hyperglycemia (7) Metabolic acidosis Status: Resolved Resolution Date/Time: 10/24/20 @ 15:40 Assessment & Plan: Secondary to ELA (8) HTN (hypertension) Status: Chronic Assessment & Plan: Resume home medications as able based on renal function and BP need. Qualifiers: Qualified Codes: I10 - Essential (primary) hypertension (9) HLD (hyperlipidemia) Status: Chronic (10) History of thyroid cancer Status: Chronic (11) History of prostate cancer Status: Chronic (12) Bacteremia Status: Acute (13) COPD (chronic obstructive pulmonary disease) Status: Chronic Assessment & Plan: Albuterol, budesonide (14) Hypoxia Status: Acute Assessment & Plan: Not on chronic supplemental oxygen, wean as tolerated. (15) Metatarsal bone fracture Status: Acute Assessment & Plan: Ortho consulted, appreciate recommendations, CAM walker and partial weight bearing x 3 weeks 10/27 d/c to inpatient rehab Qualifiers: Qualified Codes: S92.325A - Nondisplaced fracture of second metatarsal bone, left foot, initial encounter for closed fracture (16) Fracture of third metatarsal bone Status: Acute Qualifiers: Qualified Codes: S92.335A - Nondisplaced fracture of third metatarsal bone, left foot, initial encounter for closed fracture Hospital Course Date of Admission: Oct 20, 2020 at 00:25 Admission Diagnosis : [facility] Date of Discharge: 10/27/20 Discharge Diagnosis: See problem list Hospital Course: See problem list Labs and Pending Lab Test: Laboratory Tests 10/26/20 11:17: Glucometer 172H Microbiology 10/22/20 Cryptosporidium/Giardia - Final, Complete 10/20/20 MRSA Screen - Final, Complete MRSA not isolated 10/19/20 Blood Culture - Final, Complete No growth Home Meds Active Prevalite Packet (Cholestyramine/Aspartame) 4 Gm Powd.pack 4 Gm PO DAILY@1000 Levofloxacin 500 Mg Tablet 500 Mg PO DAILY@11 8 Days Reported Fish Oil 1,000 mg Capsule ([place] 3 Polyunsat Fatty Acids) 1,000 Mg Cap 1,000 Mg PO 1800 Clopidogrel (Clopidogrel Bisulfate) 75 Mg Tablet 75 Mg PO DAILY Isosorbide Mononitrate ER (Isosorbide Mononitrate) 120 Mg Tab.er.24h 60 Mg PO BID TAKES OF A 120MG Glipizide 10 Mg Tablet 10 Mg PO BID Ondansetron Odt (Ondansetron) 4 Mg Tab.rapdis 4 Mg PO Q6H PRN Cran-Max (Cranberry Fruit Concentrate) 500 Mg Capsule 500 Mg PO DAILY Budesonide 0.5 Mg/2 Ml Ampul.neb 0.5 Mg IH 2130 MIXES BUDESONIDE AND BROVANA TOGETHER FOR NEBULIZER TREATMENT Brovana (Arformoterol Tartrate) 15 Mcg/2 Ml Vial.neb 15 Mcg IH 2130 MIXES BUDESONIDE AND BROVANA TOGETHER FOR NEBULIZER TREATMENT Aspirin EC (Aspirin) 81 Mg Tablet.dr 81 Mg PO 1800 Metformin HCl 500 Mg Tablet 1,000 Mg PO BID TAKES 2 (500MG) TABS Calcium (Calcium Carbonate) 600 Mg Tablet 600 Mg PO DAILY Amlodipine Besylate 10 Mg Tablet 10 Mg PO DAILY Lovastatin 40 Mg Tablet 40 Mg PO DAILY Terazosin HCl 2 Mg Capsule 2 Mg PO BID Furosemide 20 Mg Tablet 20 Mg PO DAILY Digoxin 125 Mcg Tablet 125 Mcg PO 1800 Albuterol Sulfate 2.5 Mg/3 Ml Vial.neb 2.5 Mg NEB 1500 Nitrostat (Nitroglycerin) 0.4 Mg Tab.subl 0.4 Mg SL UD PRN Dicyclomine HCl 20 Mg Tablet 40 Mg PO BID TAKES 2 (20MG) TABS Fish Oil 1,000 mg Capsule ([place] 3 Polyunsat Fatty Acids) 1,000 Mg Cap 2,000 Mg PO DAILY TAKES 2 (1000MG) CAPSULES Levothyroxine Sodium 112 Mcg Tablet 224 Mcg PO DAILY TAKES 2 (112MCG) TABLETS Carvedilol 25 Mg Tablet 25 Mg PO BID Benazepril HCl 40 Mg Tab 40 Mg PO DAILY Assessment/Pt DC Instructions Discharged to inpatient rehab. Discharge Physical Examination Allergies: Coded Allergies: sulfamethoxazole (Verified Allergy, Severe, HIVES, 05/04/15) trimethoprim (Verified Allergy, Severe, HIVES, 05/04/15) Sulfa (Sulfonamide Antibiotics) (Verified Allergy, Unknown, HIVES, 05/04/15) dapagliflozin (Verified Allergy, Unknown, DIZZINESS, 05/04/15) simvastatin (Unverified Allergy, Unknown, TAKES LOVASTATIN AT HOME, 02/22/10) General Appearance: No Apparent Distress, WD/WN Respiratory: Lungs Clear Cardiovascular: Regular Rate, Rhythm, No Murmur Gastrointestinal: Normal Bowel Sounds, Non Tender Skin: Normal Color, Warm/Dry Neurologic/Psychiatric: Alert, Normal Mood/Affect MAYRA PADRON MD Oct 27, 2020 09:14
--- NOTE | 2020-10-27 09:23 | Progress Note - Cardiology ---
Cardiology SOAP Progress Note Subjective: Sitting up in bed Denies any c/o CP, SOB, palpitations or abd pain C/O foot pain, unchanged from yesterday Objective: I&O/Vital Signs 10/26/20 10/27/20 10/27/20 10/27/20 23:10 01:00 03:32 06:44 Temp 36.2 36.1 Pulse 77 70 75 71 Resp 20 20 B/P (MAP) 130/60 (83) 150/70 (96) Pulse Ox 95 94 O2 Delivery Room Air Room Air 10/27/20 10/27/20 10/27/20 07:47 07:51 08:18 Temp 35.0 Pulse 87 Resp 16 B/P (MAP) 161/76 (104) Pulse Ox 94 94 96 O2 Delivery Room Air Room Air Room Air 10/27/20 00:00 Intake Total 900 ml Output Total 1650 ml Balance -750 ml Weight (Pounds): 219 Weight (Ounces): 0.0 Weight (Calculated Kilograms): 99.268636 Constitutional: AAO x 3, well-developed, well-nourished Respiratory: other Cardiovascular: regular rate-rhythm, S1 and S2, systolic murmur Gastrointestional: distended, audible bowel sounds Extremities: No clubbing, No cyanosis Skin: normal color, warm/dry Results/Procedures: Labs Laboratory Tests 10/26/20 11:17: Glucometer 172H Microbiology 10/22/20 Cryptosporidium/Giardia - Final, Complete 10/20/20 MRSA Screen - Final, Complete MRSA not isolated 10/19/20 Blood Culture - Final, Complete No growth Laboratory Tests 10/26/20 05:15 A/P: Assessment: Sepsis of undetermined source associated with septic shock, resolved Ac renal failure: likely ATN due to shock - resolved Abdominal pain - management per medical/surgical services C-diff (+) CAD, s/p CABG x 3 in 2004 - Rest/Stress Regadenoson Rubidium-82 PET/CT on 04/25/17: mild to mod ischemia in LAD territory mod-sized infarction with mild residual ischemia in the RCA territory, LVEF 36% Ischemic cardiomyopathy. - Last cath and PCI at [facility] in late 2016: LM 30 ostial, LAD 100 after D2, D2 with severe prox stenosis, LCS mod diff, RI 30-40 prox, RCA occluded distally and collateralized; underwent laser atherectomy and 2.5x22 Resolute [place] MARCUS to D2 that was post dilated with 3 mm balloon (RCA not intervened on) - Chronic stable exertional angina pectoris Ischemic cm and HFrEF - Echo of 05-23-16 showed LVEF approx 35%. Global hypokinesis of the LV, somewhat more marked at the distal anteroapical area. Mild diastolic dysfunction of the LV. Mild diastolic dysfunction. Mild aortic, mitral and tricuspid regurg. No evidence of significant valvular stenosis. Mod enlargement of the LA and LV. Mild LVH S/p single ch ICD implant on 05/04/15; device functioning normally per interrogation of May 2020 DM II Hyperlipidemia Hypertension Obesity with BMI approx 33.5 Obstructive sleep apnea, treated with CPAP, managed by Dr Wiley H/o prostate and thyroid cancers for which he has been fully treated and they are stated to be in chronic remission. Prostate cancer followed by Dr Lilly; [facility] Mild bilat carotid plaque per u/s of 08/19/18 Chronic hardness of hearing Splenic mass diagnosed in September 2020 being managed by Med and Surg svces Right foot fracture Plan: * Continue current medication regimen * Management of C-diff is by Medical and Surgical services * Management of right foot fracture is per Medical services * Monitor labs CANDY GARCIA Oct 27, 2020 09:23
--- NOTE | 2020-10-27 13:21 | Progress Note - Cardiology ---
Cardiology SOAP Progress Note Subjective: Gen weakness and malaise present No cp or palp or syncope or swelling No n/v/d Objective: I&O/Vital Signs 10/27/20 10/27/20 10/27/20 10/27/20 03:32 06:44 07:47 07:51 Temp 36.1 Pulse 75 71 Resp 20 B/P (MAP) 150/70 (96) Pulse Ox 94 94 94 O2 Delivery Room Air Room Air Room Air 10/27/20 10/27/20 08:00 08:18 Temp 35.0 Pulse 87 Resp 16 B/P (MAP) 161/76 (104) Pulse Ox 96 O2 Delivery Room Air Room Air 10/26/20 23:59 Intake Total 900 ml Output Total 1650 ml Balance -750 ml Weight (Pounds): 219 Weight (Ounces): 0.0 Weight (Calculated Kilograms): 99.297459 Constitutional: AAO x 3, well-developed, well-nourished Respiratory: other Cardiovascular: regular rate-rhythm, S1 and S2, systolic murmur Gastrointestional: distended, audible bowel sounds Extremities: No clubbing, No cyanosis Skin: normal color, warm/dry Results/Procedures: Labs Microbiology 10/22/20 Cryptosporidium/Giardia - Final, Complete 10/20/20 MRSA Screen - Final, Complete MRSA not isolated 10/19/20 Blood Culture - Final, Complete No growth Laboratory Tests 10/26/20 05:15 A/P: Assessment: Gen malaise and physical deconditioning Sepsis of undetermined source associated with septic shock, resolved Ac renal failure: likely ATN due to shock - resolved Abdominal pain - management per medical/surgical services C-diff (+) CAD, s/p CABG x 3 in 2004 - Rest/Stress Regadenoson Rubidium-82 PET/CT on 04/25/17: mild to mod ischemia in LAD territory mod-sized infarction with mild residual ischemia in the RCA territory, LVEF 36% Ischemic cardiomyopathy. - Last cath and PCI at [facility] in late 2016: LM 30 ostial, LAD 100 after D2, D2 with severe prox stenosis, LCS mod diff, RI 30-40 prox, RCA occluded distally and collateralized; underwent laser atherectomy and 2.5x22 Resolute Gibbon MARCUS to D2 that was post dilated with 3 mm balloon (RCA not intervened on) - Chronic stable exertional angina pectoris Ischemic cm and HFrEF - Echo of 05-23-16 showed LVEF approx 35%. Global hypokinesis of the LV, somewhat more marked at the distal anteroapical area. Mild diastolic dysfunction of the LV. Mild diastolic dysfunction. Mild aortic, mitral and tricuspid regurg. No evidence of significant valvular stenosis. Mod enlargement of the LA and LV. Mild LVH S/p single ch ICD implant on 05/04/15; device functioning normally per interrogation of May 2020 DM II Hyperlipidemia Hypertension Obesity with BMI approx 33.5 Obstructive sleep apnea, treated with CPAP, managed by Dr Wiley H/o prostate and thyroid cancers for which he has been fully treated and they are stated to be in chronic remission. Prostate cancer followed by Dr Lilly; thyroid cancer [facility] Mild bilat carotid plaque per u/s of 08/19/18 Chronic hardness of hearing Splenic mass diagnosed in September 2020 being managed by Med and Surg svces Right foot fracture Plan: * Continue current medication regimen * Management of C-diff is by Medical and Surgical services * Management of right foot fracture is per Medical services * Monitor labs BLADE PICKERING MD FACP FACC CCDS Oct 27, 2020 13:21
== END 2020-10-27 10:30 | DRG 871 ==
LOC: EDUNIT# 23:08 → ER 23:09 → ICU 10-20 00:25 → 4TH 10-22 13:40
PROVIDERS: ADMIT Internal Medicine; ATTEND Family Medicine
DX: A02.1 Salmonella sepsis (principal); R65.21 Severe sepsis with septic shock; N17.0 Acute kidney failure with tubular necrosis; A02.0 Salmonella enteritis; E87.2 Acidosis; E87.1 Hypo-osmolality and hyponatremia; E86.0 Dehydration; I95.9 Hypotension, unspecified; Z20.822 Contact with and (suspected) exposure to COVID-19; E87.6 Hypokalemia; I25.5 Ischemic cardiomyopathy; I08.1 Rheumatic disorders of both mitral and tricuspid valves; I49.3 Ventricular premature depolarization; R16.1 Splenomegaly, not elsewhere classified; E66.9 Obesity, unspecified; Z68.33 Body mass index [BMI] 33.0-33.9, adult; J44.9 Chronic obstructive pulmonary disease, unspecified; G47.33 Obstructive sleep apnea (adult) (pediatric); E11.9 Type 2 diabetes mellitus without complications; M19.91 Primary osteoarthritis, unspecified site; I70.0 Atherosclerosis of aorta; I70.1 Atherosclerosis of renal artery; S92.325A Nondisplaced fracture of second metatarsal bone, left foot, initial encounter for closed fracture; S92.335A Nondisplaced fracture of third metatarsal bone, left foot, initial encounter for closed fracture; I25.10 Atherosclerotic heart disease of native coronary artery without angina pectoris; I25.2 Old myocardial infarction; Z87.891 Personal history of nicotine dependence; Z85.850 Personal history of malignant neoplasm of thyroid; Z85.46 Personal history of malignant neoplasm of prostate; Z85.828 Personal history of other malignant neoplasm of skin; Z79.84 Long term (current) use of oral hypoglycemic drugs; Z79.82 Long term (current) use of aspirin; Z88.2 Allergy status to sulfonamides; Z95.1 Presence of aortocoronary bypass graft; Z95.5 Presence of coronary angioplasty implant and graft; Z95.810 Presence of automatic (implantable) cardiac defibrillator; W19.XXXA Unspecified fall, initial encounter
CPT/HCPCS: 36415; 36569; 51702; 71045; 73620; 76937; 80048; 80053; 80162; 81000; 82150; 82550; 82805; 82947; 82962; 83605; 83690; 83735; 84100; 84132; 84145; 84443; 84484; 85007; 85025; 85027; 85610; 85730; 87015; 87040; 87045; 87046; 87077; 87081; 87181; 87186; 87324; 87328; 87329; 87449; 87635; 87899; 93005; 93041; 93970; 94640; 94760; 99291

== ENCOUNTER 2020-10-27 09:31 | Inpatient (IN) | payer MEDICARE, OTHER ==
[~2020-10-27] VITALS: Ht 170 cm; Wt 89.2 kg
[~2020-10-27 09:31] MED LIST changes: +CHOL4PAC3 PO; +CLOP75TA28 PO; +CRAN500C8 PO; +ISOS120T9 PO; +LEVO500T80 PO
[2020-10-27] MEDS ORDERED: MELATONIN 3 MG TABLET PO PRN ×2 (09:45→12:30)
[2020-10-27] MEDS ORDERED: diphenhydrAMINE 25 MG TAB (BENADRYL) PO PRN ×2 (09:45→12:30)
[2020-10-27] MEDS ORDERED: LACTULOSE SYRUP 10GM/15ML (ENULOSE) 30ML UDC PO PRN (09:45)
[2020-10-27] MEDS ORDERED: guaiFENesin/CODEINE (ROBITUSSIN AC) 10ML UDC PO PRN (09:45)
[2020-10-27] MEDS ORDERED: FLEET ENEMA ADULT 1 EA BTL PR PRN (09:45)
[2020-10-27] MEDS ORDERED: BISACODYL 10 MG SUPP (DULCOLAX) PR PRN (09:45)
[2020-10-27] MEDS ORDERED: DOCUSATE SODIUM 100 MG (COLACE) CAP PO PRN (09:45)
[2020-10-27] MEDS ORDERED: ALPRAZolam 0.25 MG (XANAX) TAB PO PRN ×2 (09:45→12:30)
[2020-10-27] MEDS ORDERED: ONDANSETRON 4 MG (ZOFRAN) ORAL DISSOLVE TAB PO PRN (09:45)
[2020-10-27] MEDS ORDERED: LOPERAMIDE 2 MG (IMODIUM) TABLET PO PRN (09:45)
[2020-10-27] MEDS ORDERED: CALCIUM CARBONATE 500 MG (TUMS) TAB.CHEW PO PRN ×2 (09:45→12:30)
[2020-10-27] MEDS ORDERED: ENOXAPARIN 40 MG/0.4 ML (LOVENOX) SYR SC SCH (09:45)
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
--- NOTE | 2020-10-27 11:52 | Physical Therapy Evaluation ---
PT Evaluation-General Medical Diagnosis Admission Date Oct 27, 2020 at 10:12 Medical Diagnosis: sepsis Onset Date: Oct 19, 2020 Therapy Diagnosis Therapy Diagnosis: debility Height/Weight Height (Feet): 5 Height (Inches): 10.00 Weight (Pounds): 219 Weight (Ounces): 0.0 Weight Bear Status Right Lower Extremity: Right Full Weight Bearing Left Lower Extremity: Left Partial Weight Bearing CAM Boot Referral Physician: Lorena Reason for Referral: Evaluation/Treatment Medical History Pertinent Medical History: CAD, COPD, DM, HTN, [place], Prostate CA, PVD Reviewed History: Yes Social History Home: Single Level Current Living Status: Alone Entry Into Home: Stairs With Railing (garage) PT Steps Into Home: 4 Prior Prior Level of Function SCALE: Activities may be completed with or without assistive devices. 2-Yvrsftlxju-irdrsbd completes the activity by him/herself with no assistance from a helper. 5-Set-up or Clean-up Assistance-helper sets up or cleans up; patient completes activity. [place] assists only prior to or following the activity. 4-Supervision or Touching Assistance-helper provides verbal cues and/or touching /steadying and/or contact guard assistance as patient completes activity. Assistance may be provided throughout the activity or intermittently. 3-Partial/Moderate Assistance-helper does LESS THAN HALF the effort. [place] lifts, holds or supports trunk or limbs, but provides less than half the effort. 2-Substantial/Maximal Assistance-helper does MORE THAN HALF the effort. [place] lifts or holds trunk or limbs and provides more than half the effort. 2-Foxbcblmr-sursnh does ALL the effort. Patient does none of the effort to complete the activity. Or, the assistance of 2 or more helpers is required for the patient to complete the activity. If activity was not attempted, code reason: 7-Patient Refused. 9-Not Applicable-not attempted and the patient did not perform the activity before the current illness, exacerbation or injury. 10-Not Attempted due to Environmental Limitations-(lack of equipment, weather restraints, etc.). 88-Not Attempted due to Medical Conditions or Safety Concerns. Bed Mobility: 6 Transfers (B,C,W/C): 6 Gait: 6 Stairs: 6 Indoor Mobility (Ambulation): Independent Stairs: Independent Prior Devices Use: None Prior Device Use: Has cane and walker, does not use regularly PT Evaluation-Current Subjective Patient supine in bed pre tx. Patient reports unrated pain in L foot, secondary to fx. Patient consents to treatment. Pt/Family Goals Return home with PLOF Objective Patient Orientation: Person, Place, Time, Normal For Age Attachments: Oxygen ROM/Strength ROM Lower Extremities WFL Strength Lower Extremities R (hip flexion 4+/5, knee flexion/extension 4/5, DF 4+/5) L (hip flexion 3+/5, knee flexion/extension 4-/5, DF not tested secondary to boot (L LE MMT sub jective pain reports)) Integumentary/Posture Integumentary see nursing report Bowel Incontinence: No Bladder Incontinence: No Posture mild kyphosis Sensory Vision: Wears Glasses Hearing: Functional Sensation Right Lower Extremit: Intact Sensation Left Lower Extremity: Intact Transfers Roll Left & Right (QC): 6 Sit to Lying (QC): 4 (CGA) Lying to Sitting/Side of Bed(Q: 4 (CGA) Sit to Stand (QC): 3 (Min) Chair/Aky-ss-Algjt Xfer(QC): 3 (Min) Toilet Transfer (QC): 3 (Min) Car Transfer (QC): 3 (Min) Patient ranges from CGA to min Assist with Sit <-> stand transfers Gait Does the Patient Walk?: Yes Mode of Locomotion: Walk Anticipated Mode of Locomotion: Both Walk 10 feet (QC): 4 Walk 50 ft with 2 Turns(QC): 88 Walk 150 ft (QC): 8 Walking 10ft/uneven surface-QC: 3 Distance: 10' x2 Gait Assistive Device: FWW Comments/Gait Description Patient requires cues to maintain partial weightbearing status on L LE. Patient is overall steady with gait but shuffles laterally to navigate CAM boot. Wheelchair Training Does the Pt Use a Wheelchair?: Yes Distance: 100' x2 Wheel 50 ft with 2 turns (QC): 6 Wheel 150 ft (QC): 88 Type of Wheelchair: Manual Stairs 1 Step (curb) (QC): 88 4 Steps (QC): 88 12 Steps (QC): 88 Balance Sitting Static: Good Sitting Dynamic: Good Standing Static: Fair Standing Dynamic: Fair Picking up an Object (QC): 88 Treatment Co-treated with OT secondary to patient impairments, decreased conditioning, and level of assistance required with functional mobility. OT focused on self-care and ADLs, while PT focused on balance and transfers required with ADL tasks. PT/OT worked on static and dynamic sitting balance (secondary to WB precautions) by utilizing 2 sets of B UE functioning with reaching outside of JOHN and incorporated 3 x10 twists using piping to facilitate thoracic twisting and core activation required to promote functional mobility. Patient was SOB after each activity, and required frequent rest breaks. Assessment/Needs Patient requires cues for safe reaching back to chair and pushing up from chair with sit <-> stand transfers. Patient will benefit from interventions targeted at functional strength and mobility to ensure safe return home. Rehab Potential: Fair PT Short Term Goals Short Term Goals Time Frame: November 03, 2020 Roll Left & Right: 6 Sit to lyin (SBA) Lying to sitting on side of be: 4 (SBA) Sit to stand: 4 (BA) Chair/spl-fl-zvrzq transfer: 4 (CGA) Walk 10 feet: 4 (CGA) Walk 50 feet with two turns: 4 (CGA) PT Fci Goals Fci Goals PT Fci Goals Time Frame: November 17, 2020 Roll Left & Right (QC): 6 Sit to Lying (QC): 6 Lying-Sitting on Side/Bed(QC): 6 Sit to Stand (QC): 5 Chair/Sfg-ys-Twarn Xfer(QC): 5 Toilet Transfer (QC): 5 Car Transfer (QC): 5 Does the Patient Walk: Yes Walk 10 feet (QC): 5 Walk 50ft with 2 Turns (QC): 5 Walk 150 ft (QC): 5 Walking 10ft on Uneven Surface: 5 1 Step (curb) (QC): 4 4 Steps (QC): 4 12 Steps (QC): 9 Picking up an Object (QC): 4 Wheel 50 feet with 2 turns (QC: 6 Type: Manual Wheel 150 feet: 6 PT Plan Problem List Problem List: Activity Tolerance, Functional Strength, Safety, Balance, Gait, Transfer, Bed Mobility, ROM Treatment/Plan Treatment Plan: Continue Plan of Care Treatment Plan: Bed Mobility, Education, Functional Activity Ashley, Functional Strength, Group Therapy, Gait, Safety, Therapeutic Exercise, Transfers Treatment Duration: November 17, 2020 Frequency: At least 5 of 7 days/Wk (IRF) Estimated Hrs Per Day: 1.5 hours per day Patient and/or Family Agrees t: Yes Safety Risks/Education Patient Education: Gait Training, Transfer Techniques, Reviewed Precautions, Correct Positioning, W/C Management, Safety Issues Teaching Recipient: Patient Teaching Methods: Demonstration, Discussion Response to Teaching: Verbalize Understanding, Return Demonstration Discharge Recommendations Plan Incorporate functional strengthening, mobility, gait and transfer training for safe return home alone. Time/GCodes Time In: 1012 Time Out: 1152 Total Billed Treatment Time: 90 Total Billed Treatment 1 visit: EVM: 10' EX x2: 35' FA x3: 45' PT Eval: 7012-3211 OT Eval: 1022 1032 Co-treat: 1032 - 1152 NATACHA BAE PT Oct 27, 2020 11:52
--- NOTE | 2020-10-27 12:00 | Occupational Therapy Eval ---
OT Evaluation-General/PLF Medical Diagnosis Admission Date Oct 27, 2020 at 10:12 Medical Diagnosis: debility Onset Date: Oct 18, 2020 Therapy Diagnosis Therapy Diagnosis: decreased ADL status, weakness Height/Weight Height (Feet): 5 Height (Inches): 10.00 Weight (Pounds): 219 Weight (Ounces): 0.0 Weight Bear Status Weight Bearing Restriction: Partial Weight Bearing Location Restriction: L LE CAM boot LLE Referral Physician: Lorena Referral Reason: Evaluation/Treatment Medical History Pertinent Medical History: CAD, COPD, DM, HTN, [place], Prostate CA, PVD Additional Medical History ICD, HLD, ELLA, thyroid cancer Current History ED Via EMS 10/18/20 due to nausea, abdominal pain, L leg cramp. CT showed mass on spleen. D/C from ED 10/18/20. Returned to ED 10/19 with worsening symptoms. Acute nondisplaced fractures involving bases of 2nd & 3rd metatarsals.. 10/27/20 trans hiwot to ARU for continued medication management and skilled therapy. Reviewed History: Yes Social History Home: Single Level Current Living Status: Alone Entry Into Home: Stairs With Railing Steps Into Home: 3 ADL-Prior Level of Function SCALE: Activities may be completed with or without assistive devices. 7-Pytjlxhwzl-fywogwm completes the activity by him/herself with no assistance from a helper. 5-Set-up or Clean-up Assistance-helper sets up or cleans up; patient completes activity. [place] assists only prior to or following the activity. 4-Supervision or Touching Assistance-helper provides verbal cues and/or touching/steadying and/or contact guard assistance as patient completes activity. Assistance may be provided throughout the activity or intermittently. 3-Partial/Moderate Assistance-helper does LESS THAN HALF the effort. [place] lifts, holds or supports trunk or limbs, but provides less than half the effort. 2-Substantial/Maximal Assistance-helper does MORE THAN HALF the effort. [place] lifts or holds trunk or limbs and provides more than half the effort. 7-Eqymgpokt-rpanat does ALL the effort. Patient does none of the effort to complete the activity. Or, the assistance of 2 or more helpers is required for the patient to complete the activity. If activity was not attempted, code reason: 7-Patient Refused. 9-Not Applicable-not attempted and the patient did not perform the activity before the current illness, exacerbation or injury. 10-Not Attempted due to Environmental Limitations-(lack of equipment, weather restraints, etc.). 88-Not Attempted due to Medical Conditions or Safety Concerns. ADL PLOF Comments Pt reports IND with ADLs and functional mobility at PLOF, no AE/AD. Pt owns a cane and walker but does not use regularly. Self Care: Independent Functional Cognition: Independent DME/Equipment: Tub/Shower OT Current Status Subjective Pt agreeable to OT evaluation, then OT/PT cotreat. Mental Status/Objective Patient Orientation: Person, Place, Time, Situation Attachments: Oxygen, Telemetry Current Glasses/Contacts: Yes Dentures/Partials: Yes Hand Dominance: Right Upper Extremity ROM WFL, BUE shoulder flexion to approx 140 degrees Upper Extremity Coordination WFL Upper Extremity Sensation WFL Upper Extremity Strength grossly 3+/5 ADL-Treatment Eating (QC): 6 (Per pt report and clinical judement.) Oral Hygiene (QC): 4 (SBA at sink) Shower/Bathe Self (QC): 3 (Min A with washing buttocks and LLE lower leg/foot) Upper Body Dressing (QC): 5 (set up) Lower Body Dressing (QC): 3 (min A with threading LLE ) On/Off Footwear (QC): 3 (Mod A, assist donning/doffing LLE boot. Pt able to doff/don RLE gripper sock.) Toileting Hygiene (QC): 3 (Min A, assist to wash buttocks, pt able to complete pant hike.) Other Treatments OT evaluation complete, then OT/PT cotreat due to skill of 2 clinicians required which a clinical rehabilitation specialist could not perform in order to coordinate UE/LEs, decrease fall risk, and due to pt's limitations in weight bearing status, mobility, transfers, activity tolerance and strength. OT focused on UE placement, cues for sequencing and [id number] and ADLs, PT focused on LE placement, gross overall movement, transfers/mobility. Pt performed functional transfer in/out of car simulation, over uneven surface, in/out of bed. Pt declines shower but agreeable to sponge bath. Pt completed sponge bath and dressing at EOB, then used FWW to ambulate into the bathroom to sink. Pt stood at sink to brush teeth. Pt propelled w/c to therapy gym, transferring to mat. Pt completed functional reaching x2 in all planes with bilateral UEs. Pt then completed rotation activities holding a dowel kathy, rotating/reaching in various planes. Pt propelled w/c back to room, transferring to recliner. OT tx: OT assisted pt with ordering his lunch, oriented pt to his room and educated him on rehab process. Post tx, pt seated in recliner, call light in reach and all need met. Education OT Patient Education: Correct positioning, Modified ADL techniques, Progress toward Goal/Update tx plan, Purpose of tx/functional activities Teaching Recipient: Patient Teaching Methods: Discussion Response to Teaching: Verbalize Understanding OT Short Term Goals Short Term Goals Time Frame: November 03, 2020 Oral hygiene: 5 Shower/bathe self: 4 Lower body dressin Putting on/taking off footwear: 4 OT Deputy Sheriff Lieutenant Goals Deputy Sheriff Lieutenant Goals Time Frame: November 19, 2020 Eating (QC): 6 Oral Hygiene (QC): 6 Toileting Hygiene (QC): 6 Shower/Bathe Self (QC): 6 Upper Body Dressing (QC): 6 Lower Body Dressing (QC): 6 On/Off Footwear (QC): 6 Additional Goals: 1-Demonstrate ADL Tasks, 2-Verbalize Understanding, 3- ImproveStrength/Ashley 1=Demonstrate adherence to instructed precautions during ADL tasks. 2=Patient will verbalize/demonstrate understanding of assistive devices/modifications for ADL. 3=Patient will improve strength/tolerance for activity to enable patient to perform ADL's. OT Education/Plan Problem List/Assessment Assessment: Decreased Activ Tolerance, Decreased UE Strength, Impaired Funct Balance, Impaired I ADL's, Impaired Self-Care Skills Discharge Recommendations Plan/Recommendations: Continue POC Treatment Plan/Plan of Care Patient would benefit from OT for education, treatment and training to promote independence in ADL's, mobility, safety and/or upper extremity function for ADL's. Plan of Care: ADL Retraining, Functional Mobility, Group Exercise/Act as Ind, UE Funct Exercise/Act Treatment Duration: November 19, 2020 Frequency: At least 5 of 7 days/Wk (IRF) Estimated Hrs Per Day: 1.5 hours per day Rehab Potential: Good Time/GCodes Start Time: 10:30 Stop Time: 12:00 Total Time Billed (hr/min): 90 Billed Treatment Time 2604-0469 OT evaluation. [id number] OT/PT cotreat. [id number] OT tx 1, EVM (10'), ADL 3 (45'), FA 2 (35') PETEY BELLA OT Oct 27, 2020 12:00
[2020-10-27] MEDS ORDERED: ACETAMINOPHEN 500 MG TAB (TYLENOL) PO PRN (12:30)
[2020-10-27] MEDS ORDERED: ONDANSETRON 4 MG/2 ML (SDV) Z0FRAN IV PRN (12:30)
[2020-10-27] MEDS ORDERED: DIPHENOXYLATE/ATROPINE 2.5MG/0.025MG (LOMOTIL) TAB PO PRN (12:30)
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
[2020-10-27] MEDS ORDERED: HYDROcodone/APAP 5 MG/325 MG (LORTAB) TAB ONE (12:43)
[2020-10-27] MEDS: HYDROcodone/APAP 5 MG/325 MG (LORTAB) TAB PO PRN (12:52)
[2020-10-27] MEDS ORDERED: ACETAMINOPHEN 325 MG TABLET PO PRN (13:15)
[2020-10-27] MEDS: ENOXAPARIN 40 MG/0.4 ML (LOVENOX) SYR SC SCH (13:27)
--- NOTE | 2020-10-27 13:37 | ST Cognitive Linguistic Eval ---
Speech Evaluation-General Medical Diagnosis Sepsis Onset Date: Oct 19, 2020 Therapy Diagnosis Therapy Diagnosis: Cognitive communication Precautions Precautions: Fall Precautions/Isolations: Fall Prevention, Standard Precautions Referral Referring Physician: Dr. Carrillo Medical History Pertinent Medical History: CAD, COPD, DM, HTN, RI, Prostate CA, PVD Current History CAD, COPD, DM, HTN, RI, Prostate CA, PVD Reviewed History: Yes Social History Current Living Status: Alone Speech PLF-Current Status Prior Level of Function Prior to admitance to the ARU, patient lived at home alone where he was able to take care of his ADL's independently. Subjective Pt was alert and pleasant. Pt made jokes and could actively follow a complex conversation. Patient was cooperative with the cognitive assessment. Language Eval: Auditory Comprehends Simple Yes/No Ques: Functional Indent/Objects Multiple Soto: Functional Ident/Pics in Multiple Soto: Functional Follows 1-Step Commands: Functional Follows Complex Directions: Mild Follows General Conversations: Functional Language Eval: Verbal Language Completes Spontaneous Greeting: Functional Produces Auto, Serial Info: Functional Imitates Simple Words/Phrases: Functional Word Finding: Functional Requests Basic Needs: Functional States Basic Personal Info: Functional Expresses Complex Ideas: Functional Language Evaluation: Reading Comprehends Single Nouns: Functional Follows Simple Written Direct: Mild Comprehends Multiple Sentences: Functional Objective Cognitive Domain Attention: WNL Memory: Mild Problem Solving: Mild Executive Functions: WNL Visuospatial Skills: WNL Composite Severity Rating: Mild Objective Formal/Standardized Tests [facility] Mental Status Examination (UMS) Results 24/30 Oral Motor/Speech Production Within normal limits Impression Pt is a pleasant 80 y/o man admitted to the ARU for debility. Pt agreed to ST evaluation. Pt was administered the SLUMS, in which he scored 24/30 points, indicating mild cognitive deficits. Pt struggles with memory tasks and following complex directions. St will continue to treat pt 4-5x per week in the areas of cognitive functioning and safety. Speech Patient Assess Expression of Ideas/Wants: Expression (4) Understanding Verbal Content: Usually Understands (3) Brief Interview-Mental Status: Yes Repetition of Three Words: Three (3) Temporal Orientation: Year: Correct (3) Temporal Orientation: Month: Accurate within 5 days(2) Temporal Orientation: Day: Correct (1) Recall : Wear to say "Sock": Yes, no cue required (2) Recall : Color: Yes, after cueing (1) Recall : Bed: Yes,after cueing (1) Memory/Recall Ability: Current season, That he or she is in a hsp/hsp unit Speech Short Term Goals Short Term Goals Short Term Goals 1.) Patient will complete safety awareness activities related to their daily activities at 80% with minimal cues. 2.) Patient will complete memory activities related to their daily activities at 80% with minimal cues. 3.) Patient will complete recall of information activities related to their daily activities at 80% with minimal cues. Speech Scientific Affairs Manager Goals Halfway Goals Patient will improve cognitive-communication skills necessary for safety and daily living tasks with minimal assist. Speech-Plan Patient/Family Goals Patient/Family Goals: Pt plans to return home upon D/C from MAU where he will live independently. Treatment Plan Speech Therapy Treatment Plan: Continue Plan of Care Treatment Duration: November 03, 2020 Frequency: 4 times per week (4-5x per week) Estimated Hrs Per Day: .5 hour per day Rehab Potential: Good Barriers to Learning: Medical status and decreased cognitive abilities Pt/Family Agrees to Plan: Yes Safety Risks/Education Teaching Recipient: Patient, Family Teaching Methods: Demonstration, Discussion Response to Teaching: Verbalize Understanding, Reinforcement Needed Education Topics Provided: Safety and compensatory communication strategies Time Speech Therapy Time In: 13:15 Speech Therapy Time Out: 13:30 Total Billed Time: 15 Billed Treatment Time 1, KELLEY HUDDLESTON [address] Oct 27, 2020 13:36
[2020-10-27] MEDS: RT-ALBUTEROL SULF 2.5 MG/3 ML PRE-MIX VIAL IH SCH ×2 (14:22→19:05)
[2020-10-27] MEDS: ASPIRIN E.C. 81 MG (ECOTRIN) TAB PO SCH (18:13)
[2020-10-27] MEDS: RT-BUDESONIDE NEBS 0.5 MG/2ML (PULMICORT) AMP IH SCH (19:05)
[2020-10-27 20:04] VITALS: BP 153/73
[2020-10-27] MEDS: SENNA W/DOCUSATE (SENOKOT S) TABLET PO SCH (21:02)
[2020-10-27] MEDS: DICYCLOMINE 10 MG (BENTYL) CAP PO SCH (21:02)
[2020-10-27] MEDS: ISOSORBIDE MONONITRATE 60 MG (IMDUR) TAB PO SCH (21:02)
[2020-10-27] MEDS: DOCUSATE SODIUM 100 MG (COLACE) CAP PO SCH (21:02)
[2020-10-27] MEDS: polyethylene glycoL POWDER 17 GM (MIRALAX) PACK PO SCH (21:03)
[2020-10-28 05:16] LABS: BASOPHILS % (AUTO) 0 % (0-10); EOSINOPHILS # (AUTO) 0.4 10^3/uL (0.0-0.3); EOSINOPHILS % (AUTO) 4 % (0-10); HEMATOCRIT 35 % (40-54); HEMOGLOBIN 12.3 g/dL (13.3-17.7); LYMPHOCYTES # (AUTO) 2.1 10^3/uL (1.0-4.0); LYMPHOCYTES % (AUTO) 20 % (12-44); MEAN CORPUSCULAR HEMOGLOBIN 33 pg (25-34); MEAN CORPUSCULAR HGB CONC 35 g/dL (32-36); MEAN CORPUSCULAR VOLUME 92 fL (80-99); MONOCYTES # (AUTO) 0.9 10^3/uL (0.0-1.0); MONOCYTES % (AUTO) 9 % (0-12); NEUTROPHILS # (AUTO) 6.9 10^3/uL (1.8-7.8); NEUTROPHILS % (AUTO) 65 % (42-75); PLATELET COUNT 247 10^3/uL (130-400); WHITE BLOOD COUNT 10.7 10^3/uL (4.3-11.0)
[2020-10-28] MEDS: LEVOTHYROXINE 112 MCG (LEVOTHROID) TAB PO SCH (05:21)
[2020-10-28 05:37] LABS: ALANINE AMINOTRANSFERASE 18 U/L (0-55); ALBUMIN 3.4 GM/DL (3.2-4.5); ALKALINE PHOSPHATASE 64 U/L (40-136); BILIRUBIN,TOTAL 0.6 MG/DL (0.1-1.0); BUN/CREATININE RATIO 14; CALCIUM 8.4 MG/DL (8.5-10.1); CARBON DIOXIDE 21 MMOL/L (21-32); CHLORIDE 105 MMOL/L (98-107); CREATININE SERUM 0.76 MG/DL (0.60-1.30); GFR ESTIMATED > 60; GLUCOSE 138 MG/DL (70-105); POTASSIUM 4.3 MMOL/L (3.6-5.0); SODIUM 135 MMOL/L (135-145); TOTAL PROTEIN 6.4 GM/DL (6.4-8.2)
[2020-10-28] MEDS: RT-ALBUTEROL SULF 2.5 MG/3 ML PRE-MIX VIAL IH SCH ×4 (07:34→18:35)
[2020-10-28] MEDS: RT-BUDESONIDE NEBS 0.5 MG/2ML (PULMICORT) AMP IH SCH ×2 (07:35→18:35)
[2020-10-28 08:00] VITALS: BP 148/87
[2020-10-28] MEDS: ISOSORBIDE MONONITRATE 60 MG (IMDUR) TAB PO SCH ×2 (08:09→18:27)
[2020-10-28] MEDS: DICYCLOMINE 10 MG (BENTYL) CAP PO SCH ×2 (08:09→18:30)
[2020-10-28] MEDS: CLOPIDOGREL 75 MG (PLAVIX) TABLET PO SCH (08:09)
[2020-10-28] MEDS: lisINopril 20 MG (PRINIVIL) TABLET PO SCH (08:09)
[2020-10-28] MEDS: ZINC OXIDE 16% OINT (BUTT PASTE) 57 GM TUBE TOP PRN (08:10)
[2020-10-28] MEDS: CHOLESTYRAMINE 4 GM (QUESTRAN LITE, PREVALITE) PKT PO SCH (08:12)
[2020-10-28] MEDS: HYDROcodone/APAP 5 MG/325 MG (LORTAB) TAB PO PRN ×2 (08:20→14:21)
[2020-10-28] MEDS: CALCIUM CARBONATE 600 MG (CALCARB) TAB PO SCH (08:20)
[2020-10-28] MEDS: polyethylene glycoL POWDER 17 GM (MIRALAX) PACK PO SCH ×2 (08:35→18:37)
[2020-10-28] MEDS: DOCUSATE SODIUM 100 MG (COLACE) CAP PO SCH ×2 (08:35→18:37)
[2020-10-28] MEDS: SENNA W/DOCUSATE (SENOKOT S) TABLET PO SCH ×2 (08:42→18:37)
--- NOTE | 2020-10-28 08:59 | Occupational Ther Daily Note ---
OT Current Status-Daily Note Subjective Pt alert, lying in bed. Pt agrees to therapy. Pt c/o L foot pain, nrsg brought meds. Mental Status/Objective Patient Orientation: Person, Place, Time, Situation Attachments: IV (midline) ADL-Treatment Pt declined shower, agrees to sponge bath. Pt requests to use BSC. Independent with bed mobility. CGA using FWW for SPT, adhering to PWB, to BSC. CGA for pt to manipulate clothing. Assist to cleanse after BM while pt stabilized self using FWW. Pt bathed self sitting in recliner after set up except L foot (due to pain) and buttocks (due to instability of PWB). After set up, pt dressed upper body by self. Pt doffed socks by self then donned R sock by self and assist with L sock (due to pain). Pt threaded B feet into lower body clothing, attempted to hike pants over hip, had LOB and assist to finish hiking pants over hips. Independent sitting at sink to complete oral care. Therapy Code Descriptions/Definitions Functional [place] Measure: 0=Not Assessed/NA 4=Minimal Assistance 1=Total Assistance 5=Supervision or Setup 2=Maximal Assistance 6=Modified [place] 3=Moderate Assistance 7=Complete IndependenceSCALE: Activities may be completed with or without assistive devices. 6-Rymzgekjlx-udwtpsa completes the activity by him/herself with no assistance from a helper. 5-Set-up or Clean-up Assistance-helper sets up or cleans up; patient completes activity. [place] assists only prior to or following the activity. 4-Supervision or Touching Assistance-helper provides verbal cues and/or touching/steadying and/or contact guard assistance as patient completes activity. Assistance may be provided throughout the activity or intermittently. 3-Partial/Moderate Assistance-helper does LESS THAN HALF the effort. [place] lifts, holds or supports trunk or limbs, but provides less than half the effort. 2-Substantial/Maximal Assistance-helper does MORE THAN HALF the effort. [place] lifts or holds trunk or limbs and provides more than half the effort. 0-Aohiozccb-nnqnzy does ALL the effort. Patient does none of the effort to complete the activity. Or, the assistance of 2 or more helpers is required for the patient to complete the activity. If activity was not attempted, code reason: 7-Patient Refused. 9-Not Applicable-not attempted and the patient did not perform the activity before the current illness, exacerbation or injury. 10-Not Attempted due to Environmental Limitations-(lack of equipment, weather restraints, etc.). 88-Not Attempted due to Medical Conditions or Safety Concerns. Eating (QC): 6 Oral Hygiene (QC): 6 Shower/Bathe Self (QC): 4 Upper Body Dressing (QC): 5 Lower Body Dressing (QC): 3 On/Off Footwear: 3 Toileting Hygiene (QC): 3 Toilet Transfer (QC): 4 Other Treatment Pt propelled w/c with min A to therapy gym and back to room. Pt completed arm bike to increase strength and activity tolerance for daily functional tasks. 15 min at 15 vazquez resistance with 1 recovery break. 10 1/2 size shoe found for pt to use with mobility. After therapy, pt sitting in recliner with call light/phone in reach. All needs met in room. OT Short Term Goals Short Term Goals Time Frame: November 03, 2020 Oral hygiene: 5 Shower/bathe self: 4 Lower body dressin Putting on/taking off footwear: 4 OT Prison Goals Dinkey Engine Mechanic Goals Time Frame: November 19, 2020 Eating (QC): 6 Oral Hygiene (QC): 6 Toileting Hygiene (QC): 6 Shower/Bathe Self (QC): 6 Upper Body Dressing (QC): 6 Lower Body Dressing (QC): 6 On/Off Footwear (QC): 6 Additional Goals: 1-Demonstrate ADL Tasks, 2-Verbalize Understanding, 3- ImproveStrength/Ashley 1=Demonstrate adherence to instructed precautions during ADL tasks. 2=Patient will verbalize/demonstrate understanding of assistive devices/modifications for ADL. 3=Patient will improve strength/tolerance for activity to enable patient to perform ADL's. OT Education/Plan Problem List/Assessment Assessment: Decreased Activ Tolerance, Decreased UE Strength, Impaired Funct Balance, Impaired Self-Care Skills Discharge Recommendations Plan/Recommendations: Continue POC Treatment Plan/Plan of Care Patient would benefit from OT for education, treatment and training to promote independence in ADL's, mobility, safety and/or upper extremity function for ADL's. Plan of Care: ADL Retraining, Functional Mobility, Group Exercise/Act as Ind, UE Funct Exercise/Act Treatment Duration: November 19, 2020 Frequency: At least 5 of 7 days/Wk (IRF) Estimated Hrs Per Day: 1.5 hours per day Rehab Potential: Fair Time/GCodes Start Time: 07:30 Stop Time: 09:00 Total Time Billed (hr/min): 90 Billed Treatment Time 1 visit-ADL 5 (75 min) EX 1 (15 min) BRISEIDA DURAN Oct 28, 2020 08:59
--- NOTE | 2020-10-28 09:53 | Physical Therapy Daily Note ---
PT Daily Note-Current Subjective After Rx pt reports being SOB and wanted his oxygen on so MANAGER RESPIRATORY CARE put on 1L and nursing confirms. Reports working the WC is hard work and it wore him out. Pt states its harder to do exs on LLE due to boot size and weight. Pain Numeric Pain Scale: 3 Location: Left Location Body Site: Ankle Pain Description: Ache Comment: Reports pain significantly increases when weight bearing or walking Mental Status Patient Orientation: Person, Place, Time, Situation Attachments: Other-See Comments (mask while out of room) Transfers SCALE: Activities may be completed with or without assistive devices. 9-Nejmzlfmsu-stxczpi completes the activity by him/herself with no assistance from a helper. 5-Set-up or Clean-up Assistance-helper sets up or cleans up; patient completes activity. [place] assists only prior to or following the activity. 4-Supervision or Touching Assistance-helper provides verbal cues and/or touching/steadying and/or contact guard assistance as patient completes activity. Assistance may be provided throughout the activity or intermittently. 3-Partial/Moderate Assistance-helper does LESS THAN HALF the effort. [place] lifts, holds or supports trunk or limbs, but provides less than half the effort. 2-Substantial/Maximal Assistance-helper does MORE THAN HALF the effort. [place] lifts or holds trunk or limbs and provides more than half the effort. 6-Tzmvtnkmb-abovwj does ALL the effort. Patient does none of the effort to complete the activity. Or, the assistance of 2 or more helpers is required for the patient to complete the activity. If activity was not attempted, code reason: 7-Patient Refused. 9-Not Applicable-not attempted and the patient did not perform the activity before the current illness, exacerbation or injury. 10-Not Attempted due to Environmental Limitations-(lack of equipment, weather restraints, etc.). 88-Not Attempted due to Medical Conditions or Safety Concerns. Sit to Stand (QC): 4 Weight Bearing Right Lower Extremity: Right Full Weight Bearing Left Lower Extremity: Left Partial Weight Bearing CAM Boot Gait Training Does the Patient Walk?: Yes Distance: 25' x 2 Walk 10 feet (QC): 4 Gait Assistive Device: FWW Wheelchair Training Does the Pt Use a Wheelchair?: Yes Wheel 50 ft with 2 turns (QC): 5 Wheel 150 ft (QC): 4 Type of Wheelchair: Manual Exercises Seated Therapy Exercises: Ankle pumps, Sit to stand, Long arc quads, Shoulder Abd, Hamstring Curls, Hip abd/add Seated Reps: 12 Treatments Pt in recliner upon arrival performs sit-stand TF amb to doorway. Pt then wheels himself rest of way to therapy gym. Pt performs seated exs and then amb in // bars. After he wheels himself down hallway to windows and performs figure 8's. Pt returns to room at end of tx to rest in recliner with all needs met, call light in hand. Assessment Current Status: Good Progress Pt R hamstring was cramping during seated marches but resolved quickly after rest break. Pt amb in // bars and states it was hurting more and thought he was bearing more weight through LLE so ex was stopped. Pt has 1L O2 on at end of tx due to reported SOA. Nurse notified due to normally only wearing O2 at night. PT Short Term Goals Short Term Goals Time Frame: November 03, 2020 Roll Left & Right: 6 Sit to lyin (SBA) Lying to sitting on side of be: 4 (SBA) Sit to stand: 4 (BA) Chair/nzk-ao-febsh transfer: 4 (CGA) Walk 10 feet: 4 (CGA) Walk 50 feet with two turns: 4 (CGA) PT Detention Sergeant Goals Fpc Goals PT Fpc Goals Time Frame: November 17, 2020 Roll Left & Right (QC): 6 Sit to Lying (QC): 6 Lying-Sitting on Side/Bed(QC): 6 Sit to Stand (QC): 5 Chair/Woz-yc-Mnynd Xfer(QC): 5 Toilet Transfer (QC): 5 Car Transfer (QC): 5 Does the Patient Walk: Yes Walk 10 feet (QC): 5 Walk 50ft with 2 Turns (QC): 5 Walk 150 ft (QC): 5 Walking 10ft on Uneven Surface: 5 1 Step (curb) (QC): 4 4 Steps (QC): 4 12 Steps (QC): 9 Picking up an Object (QC): 4 Wheel 50 feet with 2 turns (QC: 6 Type: Manual Wheel 150 feet: 6 PT Plan Problem List Problem List: Activity Tolerance, Functional Strength, Safety Treatment/Plan Treatment Plan: Continue Plan of Care Treatment Plan: Bed Mobility, Education, Functional Activity Ashley, Functional Strength, Group Therapy, Gait, Safety, Therapeutic Exercise, Transfers Treatment Duration: November 17, 2020 Frequency: At least 5 of 7 days/Wk (IRF) Estimated Hrs Per Day: 1.5 hours per day Patient and/or Family Agrees t: Yes Safety Risks/Education Patient Education: Transfer Techniques, Correct Positioning, W/C Management, Safety Issues Teaching Recipient: Patient Teaching Methods: Demonstration, Discussion Response to Teaching: Verbalize Understanding, Return Demonstration Time/GCodes Time In: 900 Time Out: 1000 Total Billed Treatment Time: 60 Total Billed Treatment 1, WC x 2 (30m), FA (15m), EX (15m) KELBY DILLON MANAGER RESPIRATORY CARE Oct 28, 2020 09:53
--- NOTE | 2020-10-28 10:14 | Speech Therapy Daily Note ---
Speech Daily Progress Note Subjective Date Seen by Provider: Oct 28, 2020 Time Seen by Provider: 00:30 Pt was alert and pleasant. Pt agreed to ST services. Objective Patient completed problem solving tasks related to daily needs at 80% with moderate cuing. Assessment Assessment Current Status: Good Progress Treatment Plan Continue Plan of Care Speech Short Term Goals Short Term Goals Short Term Goals 1.) Patient will complete safety awareness activities related to their daily activities at 80% with minimal cues. 2.) Patient will complete memory activities related to their daily activities at 80% with minimal cues. 3.) Patient will complete recall of information activities related to their daily activities at 80% with minimal cues. Speech Prison Goals Steel Barrel Reamer Goals Patient will improve cognitive-communication skills necessary for safety and daily living tasks with minimal assist. Speech-Plan Patient/Family Goals Patient/Family Goals: Pt plans to return home upon D/C from ARU. Pt's children live close by to assist as needed Treatment Plan Speech Therapy Treatment Plan: Continue Plan of Care Treatment Duration: November 03, 2020 Frequency: 4 times per week (4-5x per week) Estimated Hrs Per Day: .5 hour per day Rehab Potential: Fair Barriers to Learning: Medical status and age Pt/Family Agrees to Plan: Yes Safety Risks/Education Teaching Recipient: Patient Teaching Methods: Demonstration, Discussion Response to Teaching: Verbalize Understanding, Return Demonstration, Reinforcement Needed Education Topics Provided: Safety awareness and problem solving skills Time Speech Therapy Time In: 11:00 Speech Therapy Time Out: 11:30 Total Billed Time: 30 Billed Treatment Time 1, YANDY Bains Oct 28, 2020 10:14
--- NOTE | 2020-10-28 10:30 | Individualized Plan of Care ---
Individualized Plan of Care Rehab Nursing IPOC Order Admission Date Oct 27, 2020 at 10:12 Current Orders Orders Admission Order(Inpt,Obs,Sdc) (10/27/20 09:37) Vital Signs: Per Unit Policy ( 08,16,00 (10/27/20 09:37) Medical Director Occupational Health-Inpt Rehab Con (10/27/20 09:37) Rehab Nursing Orders-Ipoc (10/27/20 09:37) Physical Therapy Rehab Orders (10/27/20 09:37) Occupational Therapy Rehab Ord (10/27/20 09:37) Speech Therapy Rehab Orders (10/27/20 09:37) Cbc With Automated Diff (10/28/20 06:00) Comprehensive Metabolic Panel (10/28/20 06:00) Precautions (Aru) (10/27/20 09:37) Rehab-Intensity Of Therapy (10/27/20 09:37) Initiate Admission Nursing Pro .admission (10/27/20 09:37) Alprazolam Tablet (Xanax Tablet) (10/27/20 09:45) Calcium Carbonate Chew Tablet (Antacid C (10/27/20 09:45) Diphenhydramine Tablet (Benadryl Tablet) (10/27/20 09:45) Docusate Sodium Capsule (Colace Capsule) (10/27/20 21:00) Docusate Sodium Capsule (Colace Capsule) (10/27/20 09:45) Bisacodyl Suppository (Dulcolax Supposit (10/27/20 09:45) Lactulose Oral Solution (Enulose Oral So (10/27/20 09:45) Na Phos/Na Biphos Enema (Fleet Enema Greg (10/27/20 09:45) Guaifenesin/Codeine Syrup (Robitussin Ac (10/27/20 09:45) Loperamide Tablet (Imodium Tablet) (10/27/20 09:45) Enoxaparin Injection (Lovenox Injection) (10/27/20 09:45) Melatonin Tablet (Melatonin Tablet) (10/27/20 09:45) Polyethylene Glycol Powder Pkt (Miralax (10/27/20 21:00) Ondansetron Oral Dissolve Tab (Zofran (10/27/20 09:45) Senna S Tablet (Senokot S Tablet) (10/27/20 21:00) Admission Arrival Bed Request (10/27/20 10:51) General/Regular (10/27/20 Lunch) Code/Resuscitation (10/27/20 12:27) Initiate Admission Nursing Pro .admission (10/27/20 12:27) Oxygen-Administer 07,19 (10/27/20 12:27) Alprazolam Tablet (Xanax Tablet) (10/27/20 12:30) Acetaminophen Tablet (Tylenol Tablet) (10/27/20 12:30) Albuterol Pre-Mix Nebs (Rt) (Proventil (10/27/20 15:00) Aspirin Enteric Coated Tablet (Ecotrin T (10/27/20 18:00) Budesonide Inhalation Solution (Pulmicor (10/27/20 21:00) Calcium Carbonate Chew Tablet (Antacid C (10/27/20 12:30) Calcium Carbonate Tablet (Calcarb 600 Ta (10/28/20 08:00) Carvedilol Tablet (Coreg Tablet) (10/27/20 21:00) Cholestyramine Lite Powder (Questran Lit (10/28/20 10:00) Clopidogrel Tablet (Plavix Tablet) (10/28/20 09:00) Dicyclomine Capsule (Bentyl Capsule) (10/27/20 21:00) Diphenoxylate/Atropine Tablet (Lomotil T (10/27/20 12:30) Enoxaparin Injection (Lovenox Injection) (10/27/20 12:30) Hydrocodone/Apap 5/325 Tablet (Lortab 5 (10/27/20 12:30) Isosorbide Mononitrate Tablet (Imdur Tab (10/27/20 21:00) Levofloxacin Tablet (Levaquin Tablet) (10/28/20 11:00) Levothyroxine Tablet (Synthroid Tablet) (10/28/20 06:00) Melatonin Tablet (Melatonin Tablet) (10/27/20 12:30) Nitroglycerin 0.4 Mg Btl 25's (Nitrostat (10/27/20 12:30) Ondansetron Injection (Zofran Injectio (10/27/20 12:30) Zinc Oxide 16% (Butt Paste) (10/27/20 12:30) Diphenhydramine Tablet (Benadryl Tablet) (10/27/20 12:30) Lisinopril Tablet (Zestril Tablet) (10/28/20 09:00) Consult Cardiology (10/27/20 12:27) Catheter(Urinary) Discontinue (10/27/20 12:27) Acetaminophen Tablet/Caplet (Tylenol T (10/27/20 13:15) Hydrocodone/Apap 5/325 Tablet (Lortab 5 (10/27/20 12:43) Patient Visit (10/27/20 ) Speech Sound Lang Comp (10/27/20 ) Treat. Speech/Lang/Voice (10/27/20 ) Patient Visit (10/27/20 ) Pt Eval Moderate Complexity (10/27/20 ) Exercise Therap, Ea 15 Min (10/27/20 ) Functional Activities, Ea 15 (10/27/20 ) Patient Visit (10/28/20 ) Treat. Speech/Lang/Voice (10/28/20 ) Patient Visit (10/28/20 ) Wheelchair Mgmt/Propulsn 15min (10/28/20 ) Functional Activities, Ea 15 (10/28/20 ) Exercise Therap, Ea 15 Min (10/28/20 ) Rehab Nursing Orders: Ongoing Assess. of Cognitive Status, Ongoing Assess. of Function Status, Bladder Management, Bladder Scan, Bladder Training, Bowel Man agement, Bowel Training, Disease Management & Educaiton, DVT Prophylaxis, Fall Prevention, Fluid/Electrolyte/Nutrition Mgmt, Infection Prevention, Medication Management & Education, Management of Risks & Complications, Nutrition Management, Pain Management, Patient/Family Support, Safety Management Intensity of Therapy to be met Patient to be seen: Min.3h per day/5 of 7d PT IPOC Problem List: Activity Tolerance, Functional Strength, Safety Treatment Plan: Continue Plan of Care Bed Mobility, Education, Functional Activity Ashley, Functional Strength, Group Therapy, Gait, Safety, Therapeutic Exercise, Transfers Treatment Duration: November 17, 2020 Frequency: At least 5 of 7 days/Wk (IRF) Estimated Hrs Per Day: 1.5 hours per day OT IPOC Problems: Decreased Activ Tolerance, Decreased UE Strength, Impaired Funct Balance, Impaired Self-Care Skills OT Treatment, Training and Edu: Yes Plan of Care: ADL Retraining, Functional Mobility, Group Exercise/Act as Ind, UE Funct Exercise/Act Treatment Duration: November 19, 2020 Frequency: At least 5 of 7 days/Wk (IRF) Estimated Hrs Per Day: 1.[address] IPOC Speech Therapy Treatment Plan: Continue Plan of Care Treatment Duration: November 03, 2020 Frequency: 4 times per week (4-5x per week) Estimated Hrs Per Day: .5 hour per day Medical Director Occupational Health/Case Mgmt Medical Director Occupational Health/Case Managemen: Discharge Planning Dietitian/Medical Data Analyst Dietitian/Medical Data Analyst to monitor nutritional status and make changes and/or recommendations as needed and work with speech pathology on dietary upgrades as the occur. Physician IPOC Medical Issues being managed closely and that require the 24 hour availability of a physician: Recent Salmonella sepsis with bacteremia and left foot fracture from fall and co-morbidities will require close monitoring for decompensation. Medical Issues: Bowel/Bladder Function, DVT Prophylaxis, Falls Precautions, Fluid/Electrolyte/Nutrition Balance, Infection Protection, Pain Management Brief Synthesis of Preadmission Screen, Post-Admission Evaluation, and Therapy Evaluations: PT OT will focus on regaining function with walking boot on left foot while ST works on cognitive deficits in order to return to independent living Medical Prognosis: Good Anticipated Length of Stay: 10 days MARY ARGUETA DO Oct 28, 2020 10:30
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
--- NOTE | 2020-10-28 12:36 | Progress Note - Cardiology ---
Cardiology SOAP Progress Note Subjective: Transferred to IRU for therapy No c/o CP, SOB, palpitations, syncope or near syncope C/O being tired after morning PT session Objective: I&O/Vital Signs 10/31/20 10/31/20 11/01/20 11/01/20 21:00 21:41 07:16 08:19 Temp 36.8 35.8 Pulse 71 Resp 20 B/P (MAP) 140/62 (88) Pulse Ox 95 93 O2 Delivery Nasal Cannula Nasal Cannula Nasal Cannula O2 Flow Rate 1.00 1.00 1.00 11/01/20 08:49 O2 Delivery Nasal Cannula O2 Flow Rate 1.00 Weight (Pounds): 219 Weight (Ounces): 0.0 Weight (Calculated Kilograms): 99.508994 Constitutional: AAO x 3, well-developed, well-nourished Respiratory: No accessory muscle use, No respiratory distress; chest expansion is symmetric, chest is bilaterally symmetric, lungs clear to auscultation Cardiovascular: regular rate-rhythm Gastrointestional: No tender; soft, round, audible bowel sounds Extremities: no lower extremity edema bilateral Neurologic/Psychiatric: grossly intact (moves all extremities) Skin: No rash on exposed areas, No ulcerations on exposed areas Results/Procedures: Labs Laboratory Tests 11/01/20 06:00: White Blood Count 4.3, Red Blood Count 3.62L, Hemoglobin 11.6L, Hematocrit 35L, Mean Corpuscular Volume 97, Mean Corpuscular Hemoglobin 32, Mean Corpuscular Hemoglobin Concent 33, Red Cell Distribution Width 13.7, Platelet Count 242, Mean Platelet Volume 8.8L, Immature Granulocyte % (Auto) 1, Neutrophils (%) (Auto) 47, Lymphocytes (%) (Auto) 33, Monocytes (%) (Auto) 13H, Eosinophils (%) (Auto) 6, Basophils (%) (Auto) 1, Neutrophils # (Auto) 2.0, Lymphocytes # (Auto) 1.4, Monocytes # (Auto) 0.5, Eosinophils # (Auto) 0.3, Basophils # (Auto) 0.0, Immature Granulocyte # (Auto) 0.0, Sodium Level 139, Potassium Level 4.4, Chloride Level 106, Carbon Dioxide Level 24, Anion Gap 9, Blood Urea Nitrogen 9, Creatinine 0.79, Estimat Glomerular Filtration Rate > 60, BUN/Creatinine Ratio 11, Glucose Level 122H, Calcium Level 8.5, Corrected Calcium 9.0, Magnesium Level 1.6, Total Bilirubin 0.6, Aspartate Amino Transf (AST/SGOT) 13, Alanine Aminotransferase (ALT/SGPT) 14, Alkaline Phosphatase 66, Total Protein 6.4, Albumin 3.4 A/P: Assessment: Gen malaise and physical deconditioning Sepsis of undetermined source associated with septic shock, resolved Ac renal failure: likely ATN due to shock - resolved Abdominal pain - management per medical/surgical services C-diff (+) CAD, s/p CABG x 3 in 2004 - Rest/Stress Regadenoson Rubidium-82 PET/CT on 04/25/17: mild to mod ischemia in LAD territory mod-sized infarction with mild residual ischemia in the RCA territory, LVEF 36% Ischemic cardiomyopathy. - Last cath and PCI at [facility] in late 2016: LM 30 ostial, LAD 100 after D2, D2 with severe prox stenosis, LCS mod diff, RI 30-40 prox, RCA occluded distally and collateralized; underwent laser atherectomy and 2.5x22 Resolute Anastacio MARCUS to D2 that was post dilated with 3 mm balloon (RCA not intervened on) - Chronic stable exertional angina pectoris Ischemic cm and HFrEF - Echo of 05-23-16 showed LVEF approx 35%. Global hypokinesis of the LV, somew hat more marked at the distal anteroapical area. Mild diastolic dysfunction of the LV. Mild diastolic dysfunction. Mild aortic, mitral and tricuspid regurg. No evidence of significant valvular stenosis. Mod enlargement of the LA and LV. Mild LVH S/p single ch ICD implant on 05/04/15; device functioning normally per interrogation of May 2020 DM II Hyperlipidemia Hypertension Obesity with BMI approx 33.5 Obstructive sleep apnea, treated with CPAP, managed by Dr Wiley H/o prostate and thyroid cancers for which he has been fully treated and they are stated to be in chronic remission. Prostate cancer followed by Dr Lilly; [facility] Mild bilat carotid plaque per u/s of 08/19/18 Chronic hardness of hearing Splenic mass diagnosed in September 2020 being managed by Med and Surg svces Right foot fracture Plan: Continue current regimen Monitor lab CANDY GARCIA Oct 28, 2020 12:36
[2020-10-28] MEDS: ENOXAPARIN 40 MG/0.4 ML (LOVENOX) SYR SC SCH (12:50)
[2020-10-28] MEDS: ASPIRIN E.C. 81 MG (ECOTRIN) TAB PO SCH (18:03)
[2020-10-28 18:42] VITALS: BP 169/93
[2020-10-28 19:45] VITALS: BP 142/70
[2020-10-29] MEDS: LEVOTHYROXINE 112 MCG (LEVOTHROID) TAB PO SCH (05:11)
[2020-10-29] MEDS: HYDROcodone/APAP 5 MG/325 MG (LORTAB) TAB PO PRN ×2 (05:11→18:30)
[2020-10-29] MEDS: RT-BUDESONIDE NEBS 0.5 MG/2ML (PULMICORT) AMP IH SCH ×2 (06:47→18:36)
[2020-10-29] MEDS: RT-ALBUTEROL SULF 2.5 MG/3 ML PRE-MIX VIAL IH SCH ×4 (06:47→18:37)
[2020-10-29 08:00] VITALS: BP 136/63
[2020-10-29] MEDS: CALCIUM CARBONATE 600 MG (CALCARB) TAB PO SCH (08:21)
[2020-10-29] MEDS: ISOSORBIDE MONONITRATE 60 MG (IMDUR) TAB PO SCH ×2 (08:21→18:26)
[2020-10-29] MEDS: lisINopril 20 MG (PRINIVIL) TABLET PO SCH (08:21)
[2020-10-29] MEDS: DICYCLOMINE 10 MG (BENTYL) CAP PO SCH ×2 (08:21→18:26)
[2020-10-29] MEDS: CLOPIDOGREL 75 MG (PLAVIX) TABLET PO SCH (08:21)
--- NOTE | 2020-10-29 09:16 | Occupational Ther Daily Note ---
OT Current Status-Daily Note Subjective Pt AxO, upright in chair, c/o min pain in L foot. Agrees to shower this date. Acknowledges PWB status. Mental Status/Objective Patient Orientation: Person, Place, Situation, Normal For Age ADL-Treatment Therapy Code Descriptions/Definitions Functional [place] Measure: 0=Not Assessed/NA 4=Minimal Assistance 1=Total Assistance 5=Supervision or Setup 2=Maximal Assistance 6=Modified [place] 3=Moderate Assistance 7=Complete IndependenceSCALE: Activities may be completed with or without assistive devices. 0-Lncwstsedr-nnkadxc completes the activity by him/herself with no assistance from a helper. 5-Set-up or Clean-up Assistance-helper sets up or cleans up; patient completes activity. [place] assists only prior to or following the activity. 4-Supervision or Touching Assistance-helper provides verbal cues and/or touching/steadying and/or contact guard assistance as patient completes activity. Assistance may be provided throughout the activity or intermittently. 3-Partial/Moderate Assistance-helper does LESS THAN HALF the effort. [place] lifts, holds or supports trunk or limbs, but provides less than half the effort. 2-Substantial/Maximal Assistance-helper does MORE THAN HALF the effort. [place] lifts or holds trunk or limbs and provides more than half the effort. 7-Ekvhujcec-wkftzc does ALL the effort. Patient does none of the effort to complete the activity. Or, the assistance of 2 or more helpers is required for the patient to complete the activity. If activity was not attempted, code reason: 7-Patient Refused. 9-Not Applicable-not attempted and the patient did not perform the activity before the current illness, exacerbation or injury. 10-Not Attempted due to Environmental Limitations-(lack of equipment, weather restraints, etc.). 88-Not Attempted due to Medical Conditions or Safety Concerns. Eating (QC): 6 Oral Hygiene (QC): 6 (sitting in w/c at sink) Bathing Location: L Arm, R Arm, L Upper Leg, R Upper Leg, L Lower Leg (including foot), R Lower Leg (including foot), Chest, Abdomen, Perineal Area Shower/Bathe Self (QC): 3 (SBA throughout, cues for PWB in stance and assist with bottom care.) Upper Body Dressing (QC): 5 (dons with s/u) Lower Body Dressing (QC): 3 (min A with doffing from L foot, CGA with hike in stance. Pt is edcuated on AE for LB dressing to assist in doffing. ) On/Off Footwear: 2 (Pt able to don both socks with increased time, requires max-mod A 2x during boot donning. Adaptive technqiues will be needed (decreased eye sight) for velcro ability for self care at home.) Toileting Hygiene (QC): 2 (bottom care with max A) Toilet Transfer (QC): 4 (CGA ) Other Treatment Dons LLE boot with max A. Pt ambulates from recliner to SPT in w/c. Pushed to bathroom, completes sit to stand and transfer with use of gbs, sits on chair while maintaining LLE precautions. Pt completes showering/ dressing as outlined in sit on sc. Dons brace prior to stance with mod A. Pt requires cues for placement of velcro and positioning in boot. In w/c, pt completes oral care. Returns to chair with increased time, use of walker, and maintenance of precautions. Pt educated on LE AE due to increased strain with sock donning, decreased ability doffing LLE pants. Pt demonstrates competency with sock aide with min cues. Left in recliner, all needs met, call light in reach. Education OT Patient Education: Correct positioning, Energy conservation, Instructions don/doff splint/brace, Modified ADL techniques, Progress toward Goal/Update tx plan, Purpose of tx/functional activities, Reviewed precautions, Safety issues, Transfer techniques, Use of adapted equipment Teaching Recipient: Patient Teaching Methods: Demonstration, Discussion Response to Teaching: Verbalize Understanding, Return Demonstration, Reinforcement Needed OT Short Term Goals Short Term Goals Time Frame: November 03, 2020 Oral hygiene: 5 Shower/bathe self: 4 Lower body dressin Putting on/taking off footwear: 4 OT Shelter Goals Fish Hatchery Worker Goals Time Frame: November 19, 2020 Eating (QC): 6 Oral Hygiene (QC): 6 Toileting Hygiene (QC): 6 Shower/Bathe Self (QC): 6 Upper Body Dressing (QC): 6 Lower Body Dressing (QC): 6 On/Off Footwear (QC): 6 Additional Goals: 1-Demonstrate ADL Tasks, 2-Verbalize Understanding, 3- ImproveStrength/Ashley 1=Demonstrate adherence to instructed precautions during ADL tasks. 2=Patient will verbalize/demonstrate understanding of assistive devices/modifications for ADL. 3=Patient will improve strength/tolerance for activity to enable patient to perform ADL's. OT Education/Plan Problem List/Assessment Assessment: Decreased Activ Tolerance, Decreased UE Strength, Dependent Transfers, Impaired Funct Balance, Impaired I ADL's, Impaired Self-Care Skills Discharge Recommendations Plan/Recommendations: Continue POC Therapy Discharge Recommendati: Bath Aide, Home & Family, Post Acute OT Equpiment Recommendations-D/C: Hip Kit Comment w/c. Treatment Plan/Plan of Care Treatment,Training & Education: Yes Patient would benefit from OT for education, treatment and training to promote independence in ADL's, mobility, safety and/or upper extremity function for ADL's. Plan of Care: ADL Retraining, Functional Mobility, Group Exercise/Act as Ind, UE Funct Exercise/Act Treatment Duration: November 19, 2020 Frequency: At least 5 of 7 days/Wk (IRF) Estimated Hrs Per Day: 1.5 hours per day Rehab Potential: Fair Time/GCodes Start Time: 08:00 Stop Time: 09:15 Total Time Billed (hr/min): 75 Billed Treatment Time 1, ADL 5 (75) RACHELLE CALLEJAS OTR Oct 29, 2020 09:16
[2020-10-29] MEDS: SENNA W/DOCUSATE (SENOKOT S) TABLET PO SCH ×2 (09:40→17:52)
[2020-10-29] MEDS: polyethylene glycoL POWDER 17 GM (MIRALAX) PACK PO SCH ×2 (09:40→17:52)
[2020-10-29] MEDS: DOCUSATE SODIUM 100 MG (COLACE) CAP PO SCH ×2 (09:40→17:51)
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
--- NOTE | 2020-10-29 10:37 | Physical Therapy Daily Note ---
PT Daily Note-Current Subjective Patient reports intense pain in L LE pre tx, upright in chair and consented to therapy. Appearance Patient upright in chair, with call button within reach and tray table nearby, all needs met. Mental Status Patient Orientation: Person, Place, Time, Normal For Age CAM boot Transfers SCALE: Activities may be completed with or without assistive devices. 8-Sxtflhyara-riisfmb completes the activity by him/herself with no assistance from a helper. 5-Set-up or Clean-up Assistance-helper sets up or cleans up; patient completes activity. [place] assists only prior to or following the activity. 4-Supervision or Touching Assistance-helper provides verbal cues and/or touching/steadying and/or contact guard assistance as patient completes activity. Assistance may be provided throughout the activity or intermittently. 3-Partial/Moderate Assistance-helper does LESS THAN HALF the effort. [place] lifts, holds or supports trunk or limbs, but provides less than half the effort. 2-Substantial/Maximal Assistance-helper does MORE THAN HALF the effort. [place] lifts or holds trunk or limbs and provides more than half the effort. 4-Xtlwdovoi-qhjwwr does ALL the effort. Patient does none of the effort to complete the activity. Or, the assistance of 2 or more helpers is required for the patient to complete the activity. If activity was not attempted, code reason: 7-Patient Refused. 9-Not Applicable-not attempted and the patient did not perform the activity before the current illness, exacerbation or injury. 10-Not Attempted due to Environmental Limitations-(lack of equipment, weather restraints, etc.). 88-Not Attempted due to Medical Conditions or Safety Concerns. Sit to Stand (QC): 4 CGA. Patient relies on UE's with sit <-> stand due to PWB status. Weight Bearing Right Lower Extremity: Right Full Weight Bearing Left Lower Extremity: Left Partial Weight Bearing CAM Boot Gait Training Does the Patient Walk?: Yes Distance: 4' x2 Gait Assistive Device: FWW Patient has high pain today and intermittently has difficulty maintaining PWB status, so walking was not included in today's treatment except a few feet for transferring to w/c and nustep. Wheelchair Training Does the Pt Use a Wheelchair?: Yes Wheel 50 ft with 2 turns (QC): 6 Type of Wheelchair: Manual 120' x2 Exercises Seated Therapy Exercises: Ankle pumps (R only), Long arc quads, Hip flexion, Hip abd/add (RTB, mini ball), Glut set Seated Reps: [address] Ex=Flex, Abd, Ext (abduction and flexion only with full weight bearing through R LE) Standing Reps: 20 Patient able to complete all reps on L LE with hip flexion and LAQ's despite pain, patient was exerting increased effort with L LE exercise. NuStep Minutes: 15 NuStep Workload: 3 Treatments LE strengthening, transfers, balance, endurance Assessment Current Status: Good Progress Patient is motivated to participate in therapy despite high pain reports. Steady with transfers. PT Short Term Goals Short Term Goals Time Frame: November 03, 2020 Roll Left & Right: 6 Sit to lyin (SBA) Lying to sitting on side of be: 4 (SBA) Sit to stand: 4 (BA) Chair/pax-gc-iwcce transfer: 4 (CGA) Walk 10 feet: 4 (CGA) Walk 50 feet with two turns: 4 (CGA) PT Manufacturing Assembler Goals [facility] Goals PT [facility] Goals Time Frame: November 17, 2020 Roll Left & Right (QC): 6 Sit to Lying (QC): 6 Lying-Sitting on Side/Bed(QC): 6 Sit to Stand (QC): 5 Chair/Jau-dc-Mwyza Xfer(QC): 5 Toilet Transfer (QC): 5 Car Transfer (QC): 5 Does the Patient Walk: Yes Walk 10 feet (QC): 5 Walk 50ft with 2 Turns (QC): 5 Walk 150 ft (QC): 5 Walking 10ft on Uneven Surface: 5 1 Step (curb) (QC): 4 4 Steps (QC): 4 12 Steps (QC): 9 Picking up an Object (QC): 4 Wheel 50 feet with 2 turns (QC: 6 Type: Manual Wheel 150 feet: 6 PT Plan Problem List Problem List: Activity Tolerance, Functional Strength, Safety, Balance, Gait, Transfer, Bed Mobility, ROM Treatment/Plan Treatment Plan: Continue Plan of Care Treatment Plan: Bed Mobility, Education, Functional Activity Ashley, Functional Strength, Group Therapy, Gait, Safety, Therapeutic Exercise, Transfers Treatment Duration: November 17, 2020 Frequency: At least 5 of 7 days/Wk (IRF) Estimated Hrs Per Day: 1.5 hours per day Patient and/or Family Agrees t: Yes Safety Risks/Education Patient Education: Transfer Techniques, Reviewed Precautions, Correct Positioning, W/C Management, Safety Issues Teaching Recipient: Patient Teaching Methods: Demonstration, Discussion Response to Teaching: Verbalize Understanding, Return Demonstration Time/GCodes Time In: 1000 Time Out: 1100 Total Billed Treatment Time: 60 Total Billed Treatment 1 visit: EX x2: 35' FA: 15' WCH: 10' NATACHA BAE PT Oct 29, 2020 10:37
[2020-10-29] MEDS: CHOLESTYRAMINE 4 GM (QUESTRAN LITE, PREVALITE) PKT PO SCH (11:08)
--- NOTE | 2020-10-29 11:31 | Speech Therapy Daily Note ---
Speech Daily Progress Note Subjective Date Seen by Provider: Oct 29, 2020 Time Seen by Provider: 00:30 Patient was resting in his recliner when I entered his room. Patient c/o foot pain where it is broken in 3 places. Objective Patient completed a series of q/a related to his needs and daily routine with 90% given minimal cues. Assessment Assessment Current Status: Good Progress Treatment Plan Continue Plan of Care Speech Short Term Goals Short Term Goals Short Term Goals 1.) Patient will complete safety awareness activities related to their daily activities at 80% with minimal cues. 2.) Patient will complete memory activities related to their daily activities at 80% with minimal cues. 3.) Patient will complete recall of information activities related to their daily activities at 80% with minimal cues. Speech Office Agent Goals Office Agent Goals Patient will improve cognitive-communication skills necessary for safety and daily living tasks with minimal assist. Speech-Plan Patient/Family Goals Patient/Family Goals: Patient would like to return home upon discharge, however he doesn't feel that is likely due to him living alone. Treatment Plan Speech Therapy Treatment Plan: Continue Plan of Care Treatment Duration: November 03, 2020 Frequency: 4 times per week (4-5x per week) Estimated Hrs Per Day: .5 hour per day Rehab Potential: Fair Barriers to Learning: Patient's recent health decline, age Pt/Family Agrees to Plan: Yes Safety Risks/Education Teaching Recipient: Patient Teaching Methods: Demonstration, Discussion Response to Teaching: Verbalize Understanding, Return Demonstration Education Topics Provided: Continued safety and communication of wants/needs Time Speech Therapy Time In: 11:00 Speech Therapy Time Out: 11:30 Total Billed Time: 30 Billed Treatment Time [address] Oct 29, 2020 11:31
--- NOTE | 2020-10-29 11:58 | Physical Therapy Daily Note ---
PT Daily Note-Current Subjective Patient seated upright pre tx, did not c/o pain. Consented to treatment in room. Appearance Patient upright in chair, with call button and tray within reach, all needs met. Mental Status Patient Orientation: Person, Place, Time, Normal For Age Transfers SCALE: Activities may be completed with or without assistive devices. 6-Jcrpuqrhzt-kqxxrfg completes the activity by him/herself with no assistance from a helper. 5-Set-up or Clean-up Assistance-helper sets up or cleans up; patient completes activity. [place] assists only prior to or following the activity. 4-Supervision or Touching Assistance-helper provides verbal cues and/or touching/steadying and/or contact guard assistance as patient completes activity. Assistance may be provided throughout the activity or intermittently. 3-Partial/Moderate Assistance-helper does LESS THAN HALF the effort. [place] lifts, holds or supports trunk or limbs, but provides less than half the effort. 2-Substantial/Maximal Assistance-helper does MORE THAN HALF the effort. [place] lifts or holds trunk or limbs and provides more than half the effort. 7-Bkuytfjak-fniwnb does ALL the effort. Patient does none of the effort to complete the activity. Or, the assistance of 2 or more helpers is required for the patient to complete the activity. If activity was not attempted, code reason: 7-Patient Refused. 9-Not Applicable-not attempted and the patient did not perform the activity before the current illness, exacerbation or injury. 10-Not Attempted due to Environmental Limitations-(lack of equipment, weather restraints, etc.). 88-Not Attempted due to Medical Conditions or Safety Concerns. Weight Bearing Right Lower Extremity: Right Full Weight Bearing Left Lower Extremity: Left Partial Weight Bearing CAM Boot Exercises Seated Therapy Exercises: Ankle pumps (R only), Long arc quads, Hip flexion, Hip abd/add (RTB, mini ball), Glut set Seated Reps: 20 Treatments LE strengthening, ROM Assessment Current Status: Fair Progress Better endurance with exercise, required fewer rest breaks PT Short Term Goals Short Term Goals Time Frame: November 03, 2020 Roll Left & Right: 6 Sit to lyin (SBA) Lying to sitting on side of be: 4 (SBA) Sit to stand: 4 (BA) Chair/hsy-ed-lhgzb transfer: 4 (CGA) Walk 10 feet: 4 (CGA) Walk 50 feet with two turns: 4 (CGA) PT Skilled Nursing Goals Merchandise Associate Goals PT Skilled Nursing Goals Time Frame: November 17, 2020 Roll Left & Right (QC): 6 Sit to Lying (QC): 6 Lying-Sitting on Side/Bed(QC): 6 Sit to Stand (QC): 5 Chair/Bya-oz-Pivum Xfer(QC): 5 Toilet Transfer (QC): 5 Car Transfer (QC): 5 Does the Patient Walk: Yes Walk 10 feet (QC): 5 Walk 50ft with 2 Turns (QC): 5 Walk 150 ft (QC): 5 Walking 10ft on Uneven Surface: 5 1 Step (curb) (QC): 4 4 Steps (QC): 4 12 Steps (QC): 9 Picking up an Object (QC): 4 Wheel 50 feet with 2 turns (QC: 6 Type: Manual Wheel 150 feet: 6 PT Plan Problem List Problem List: Activity Tolerance, Functional Strength, Safety, Balance, Gait, Transfer, Bed Mobility, ROM Treatment/Plan Treatment Plan: Continue Plan of Care Treatment Plan: Bed Mobility, Education, Functional Activity Ashley, Functional Strength, Group Therapy, Gait, Safety, Therapeutic Exercise, Transfers Treatment Duration: November 17, 2020 Frequency: At least 5 of 7 days/Wk (IRF) Estimated Hrs Per Day: 1.5 hours per day Patient and/or Family Agrees t: Yes Safety Risks/Education Patient Education: Correct Positioning, Safety Issues Teaching Recipient: Patient Teaching Methods: Demonstration, Discussion Response to Teaching: Verbalize Understanding, Return Demonstration Time/GCodes Time In: 1135 Time Out: 1150 Total Billed Treatment Time: 15 Total Billed Treatment 1 visit: EX: NATACHA MINOR PT Oct 29, 2020 11:58
[2020-10-29] MEDS: ENOXAPARIN 40 MG/0.4 ML (LOVENOX) SYR SC SCH (12:35)
--- NOTE | 2020-10-29 18:18 | Progress Note - Cardiology ---
Cardiology SOAP Progress Note Subjective: Report gen weakness No n/v/d No cp or palp or syncope No shortness of breath at rest Objective: I&O/Vital Signs 10/29/20 10/29/20 10/29/20 10/29/20 06:48 08:00 09:03 11:36 Temp 36.2 Pulse 82 Resp 16 B/P (MAP) 136/63 (87) Pulse Ox 94 95 96 O2 Delivery Nasal Cannula Nasal Cannula Nasal Cannula Room Air O2 Flow Rate 1.00 1.00 1.00 10/29/20 14:40 Pulse Ox 95 O2 Delivery Room Air 10/29/20 00:00 Intake Total 750 ml Output Total 900 ml Balance -150 ml Weight (Pounds): 219 Weight (Ounces): 0.0 Weight (Calculated Kilograms): 99.380834 Constitutional: AAO x 3, well-developed, well-nourished Respiratory: No accessory muscle use, No respiratory distress; chest expansion is symmetric, chest is bilaterally symmetric, lungs clear to auscultation Cardiovascular: regular rate-rhythm Gastrointestional: No tender; soft, round, audible bowel sounds Extremities: no lower extremity edema bilateral Neurologic/Psychiatric: grossly intact (moves all extremities) Skin: No rash on exposed areas, No ulcerations on exposed areas A/P: Assessment: Gen malaise and physical deconditioning Sepsis of undetermined source associated with septic shock, resolved Ac renal failure: likely ATN due to shock - resolved Abdominal pain - management per medical/surgical services C-diff (+) CAD, s/p CABG x 3 in 2004 - Rest/Stress Regadenoson Rubidium-82 PET/CT on 04/25/17: mild to mod ischemia in LAD territory mod-sized infarction with mild residual ischemia in the RCA territory, LVEF 36% Ischemic cardiomyopathy. - Last cath and PCI at [facility] in late 2017: LM 30 ostial, LAD 100 after D2, D2 with severe prox stenosis, LCS mod diff, RI 30-40 prox, RCA occluded distally and collateralized; underwent laser atherectomy and 2.5x22 Resolute Anastacio MARCUS to D2 that was post dilated with 3 mm balloon (RCA not intervened on) - Chronic stable exertional angina pectoris Ischemic cm and HFrEF - Echo of 05-23-16 showed LVEF approx 35%. Global hypokinesis of the LV, somewhat more marked at the distal anteroapical area. Mild diastolic dysfunction of the LV. Mild diastolic dysfunction. Mild aortic, mitral and tricuspid regurg. No evidence of significant valvular stenosis. Mod enlargement of the LA and LV. Mild LVH S/p single ch ICD implant on 05/04/15; device functioning normally per interrogation of May 2020 DM II Hyperlipidemia Hypertension Obesity with BMI approx 33.5 Obstructive sleep apnea, treated with CPAP, managed by Dr Wiley H/o prostate and thyroid cancers for which he has been fully treated and they are stated to be in chronic remission. Prostate cancer followed by Dr Lilly; [facility] Mild bilat carotid plaque per u/s of 08/19/18 Chronic hardness of hearing Splenic mass diagnosed in September 2020 being managed by Med and Surg svces Right foot fracture Plan: Continue current regimen Monitor BLADE Coombs MD FACP FACC CCDS Oct 29, 2020 18:18
[2020-10-29] MEDS: ASPIRIN E.C. 81 MG (ECOTRIN) TAB PO SCH (18:26)
[2020-10-29] MEDS ORDERED: fluCOnazole (DIFLUCAN) 100 MG TAB ONE (18:28)
[2020-10-29] MEDS ORDERED: NYSTATIN ORAL SUSP 5 ML UDC ONE (18:31)
[2020-10-29] MEDS: NYSTATIN ORAL SUSP 5 ML UDC PO SCH (18:39)
[2020-10-29] MEDS: fluCOnazole (DIFLUCAN) 100 MG TAB PO SCH (18:39)
[2020-10-29 18:45] VITALS: BP 142/69
[2020-10-29 20:00] VITALS: BP 147/79
[2020-10-30] MEDS: LEVOTHYROXINE 112 MCG (LEVOTHROID) TAB PO SCH (06:21)
[2020-10-30] MEDS: NYSTATIN ORAL SUSP 5 ML UDC PO SCH ×5 (06:21→21:21)
[2020-10-30] MEDS: RT-ALBUTEROL SULF 2.5 MG/3 ML PRE-MIX VIAL IH SCH ×4 (06:45→22:10)
[2020-10-30] MEDS: RT-BUDESONIDE NEBS 0.5 MG/2ML (PULMICORT) AMP IH SCH ×2 (06:45→22:10)
[2020-10-30] MEDS: CALCIUM CARBONATE 600 MG (CALCARB) TAB PO SCH (07:41)
[2020-10-30] MEDS: DICYCLOMINE 10 MG (BENTYL) CAP PO SCH ×2 (07:41→18:25)
[2020-10-30] MEDS: HYDROcodone/APAP 5 MG/325 MG (LORTAB) TAB PO PRN ×2 (07:42→17:10)
[2020-10-30] MEDS: CLOPIDOGREL 75 MG (PLAVIX) TABLET PO SCH (07:42)
[2020-10-30] MEDS: fluCOnazole (DIFLUCAN) 100 MG TAB PO SCH (07:42)
[2020-10-30] MEDS: ISOSORBIDE MONONITRATE 60 MG (IMDUR) TAB PO SCH ×2 (07:43→18:24)
[2020-10-30] MEDS: lisINopril 20 MG (PRINIVIL) TABLET PO SCH (07:43)
[2020-10-30] MEDS: DOCUSATE SODIUM 100 MG (COLACE) CAP PO SCH ×2 (07:43→17:03)
[2020-10-30] MEDS: polyethylene glycoL POWDER 17 GM (MIRALAX) PACK PO SCH ×2 (07:44→17:03)
[2020-10-30] MEDS: SENNA W/DOCUSATE (SENOKOT S) TABLET PO SCH ×2 (07:44→17:03)
[2020-10-30] MEDS: CHOLESTYRAMINE 4 GM (QUESTRAN LITE, PREVALITE) PKT PO SCH (07:44)
[2020-10-30 07:46] VITALS: BP 163/76
--- NOTE | 2020-10-30 10:20 | Physical Therapy Daily Note ---
PT Daily Note-Current Subjective Pt supine in bed upon arrival; agrees to supine ex. Pain Numeric Pain Scale: 0-No Pain Location: No Pain Reported Mental Status Patient Orientation: Person, Place, Time, Situation Attachments: Oxygen Transfers SCALE: Activities may be completed with or without assistive devices. 4-Petnagypwd-ygghyjv completes the activity by him/herself with no assistance from a helper. 5-Set-up or Clean-up Assistance-helper sets up or cleans up; patient completes activity. [place] assists only prior to or following the activity. 4-Supervision or Touching Assistance-helper provides verbal cues and/or touching/steadying and/or contact guard assistance as patient completes activity. Assistance may be provided throughout the activity or intermittently. 3-Partial/Moderate Assistance-helper does LESS THAN HALF the effort. [place] lifts, holds or supports trunk or limbs, but provides less than half the effort. 2-Substantial/Maximal Assistance-helper does MORE THAN HALF the effort. [place] lifts or holds trunk or limbs and provides more than half the effort. 3-Ewuhstqpj-hrjmaw does ALL the effort. Patient does none of the effort to complete the activity. Or, the assistance of 2 or more helpers is required for the patient to complete the activity. If activity was not attempted, code reason: 7-Patient Refused. 9-Not Applicable-not attempted and the patient did not perform the activity before the current illness, exacerbation or injury. 10-Not Attempted due to Environmental Limitations-(lack of equipment, weather restraints, etc.). 88-Not Attempted due to Medical Conditions or Safety Concerns. Weight Bearing Right Lower Extremity: Right Full Weight Bearing Left Lower Extremity: Left Partial Weight Bearing CAM Boot Exercises Supine Ex: Ankle pumps, Quad Set, Glut sets, Heel Slides, Short Arc Quads, Straight leg raise, Hip abd/add Supine Reps: 15 (x2) Treatments Pt completes supine ex. Pt remains in bed at end of tx w/ call light and bedside table w/in reach and all needs met. Assessment Current Status: Fair Progress Pt motivated w/ ex's and informs ANGLE FURNACEMAN that pt completes ex's outside of therapy PT Short Term Goals Short Term Goals Time Frame: November 03, 2020 Roll Left & Right: 6 Sit to lyin (SBA) Lying to sitting on side of be: 4 (SBA) Sit to stand: 4 (BA) Chair/dcy-gm-njgmw transfer: 4 (CGA) Walk 10 feet: 4 (CGA) Walk 50 feet with two turns: 4 (CGA) PT Assisted Goals Assisted Goals PT Green End Worker Goals Time Frame: November 17, 2020 Roll Left & Right (QC): 6 Sit to Lying (QC): 6 Lying-Sitting on Side/Bed(QC): 6 Sit to Stand (QC): 5 Chair/Xsa-za-Yjhow Xfer(QC): 5 Toilet Transfer (QC): 5 Car Transfer (QC): 5 Does the Patient Walk: Yes Walk 10 feet (QC): 5 Walk 50ft with 2 Turns (QC): 5 Walk 150 ft (QC): 5 Walking 10ft on Uneven Surface: 5 1 Step (curb) (QC): 4 4 Steps (QC): 4 12 Steps (QC): 9 Picking up an Object (QC): 4 Wheel 50 feet with 2 turns (QC: 6 Type: Manual Wheel 150 feet: 6 PT Plan Problem List Problem List: Activity Tolerance, Functional Strength, Safety, Balance, Gait, Transfer, Bed Mobility Treatment/Plan Treatment Plan: Continue Plan of Care Treatment Plan: Bed Mobility, Education, Functional Activity Ashley, Functional Strength, Group Therapy, Gait, Safety, Therapeutic Exercise, Transfers Treatment Duration: November 17, 2020 Frequency: At least 5 of 7 days/Wk (IRF) Estimated Hrs Per Day: 1.5 hours per day Patient and/or Family Agrees t: Yes Safety Risks/Education Patient Education: Safety Issues Teaching Recipient: Patient Teaching Methods: Discussion Response to Teaching: Verbalize Understanding Time/GCodes Time In: 923 Time Out: 938 Total Billed Treatment Time: 15 Total Billed Treatment 1, Ex (15m) LITTLE MCMILALN ANGLE FURNACEMAN October 30, 2020 10:20
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
[2020-10-30] MEDS: ENOXAPARIN 40 MG/0.4 ML (LOVENOX) SYR SC SCH (11:34)
--- NOTE | 2020-10-30 12:25 | Progress Note - Cardiology ---
Cardiology SOAP Progress Note Subjective: Gen weakness and malaise No cp or palp or syncope or shortness of breath at rest No n/v/d Objective: I&O/Vital Signs 10/30/20 10/30/20 10/30/20 10/30/20 06:46 07:46 09:04 10:51 Temp 36.6 Pulse 85 Resp 18 B/P (MAP) 163/76 (105) Pulse Ox 94 95 96 O2 Delivery Nasal Cannula Nasal Cannula Nasal Cannula Nasal Cannula O2 Flow Rate 1.00 1.00 1.00 1.00 Weight (Pounds): 219 Weight (Ounces): 0.0 Weight (Calculated Kilograms): 99.035747 Constitutional: AAO x 3, well-developed, well-nourished Respiratory: No accessory muscle use, No respiratory distress; chest expansion is symmetric, chest is bilaterally symmetric, lungs clear to auscultation Cardiovascular: regular rate-rhythm Gastrointestional: No tender; soft, round, audible bowel sounds Extremities: other (bruising around the R ankle), no lower extremity edema bilateral Neurologic/Psychiatric: grossly intact (moves all extremities) Skin: No rash on exposed areas, No ulcerations on exposed areas A/P: Assessment: Gen malaise and physical deconditioning, undergoing rehab Recent (September 2020) sepsis of undetermined source associated with septic shock, resolved Ac renal failure in September 2020: likely ATN due to shock - resolved C-diff (+): management per Medical services CAD, s/p CABG x 3 in 2004 - Rest/Stress Regadenoson Rubidium-82 PET/CT on 04/25/17: mild to mod ischemia in LAD territory mod-sized infarction with mild residual ischemia in the RCA territory, LVEF 36% Ischemic cardiomyopathy. - Last cath and PCI at [facility] in late 2016: LM 30 ostial, LAD 100 after D2, D2 with severe prox stenosis, LCS mod diff, RI 30-40 prox, RCA occluded distally and collateralized; underwent laser atherectomy and 2.5x22 Resolute [place] MARCUS to D2 that was post dilated with 3 mm balloon (RCA not intervened on) - Chronic stable exertional angina pectoris Ischemic cm and HFrEF - Echo of 05-23-16 showed LVEF approx 35%. Global hypokinesis of the LV, somewhat more marked at the distal anteroapical area. Mild diastolic dysfunction of the LV. Mild diastolic dysfunction. Mild aortic, mitral and tricuspid regurg. No evidence of significant valvular stenosis. Mod enlargement of the LA and LV. Mild LVH S/p single ch ICD implant on 05/04/15; device functioning normally per interrogation of May 2020 DM II Hyperlipidemia Hypertension Obesity with BMI approx 31 Obstructive sleep apnea, treated with CPAP, managed by Dr Wiley H/o prostate and thyroid cancers for which he has been fully treated and they are stated to be in chronic remission. Prostate cancer followed by Dr Lilly; [facility] Mild bilat carotid plaque per u/s of 08/19/18 Chronic hardness of hearing Splenic mass diagnosed in September 2020 being managed by Med and Surg svces Right foot fracture Plan: Continue current regimen Monitor BLADE Coombs MD FACP FACC CCDS October 30, 2020 12:25
[2020-10-30] MEDS: ASPIRIN E.C. 81 MG (ECOTRIN) TAB PO SCH (17:10)
[2020-10-30 18:13] VITALS: BP 137/76
[2020-10-30 20:00] VITALS: BP 139/86
[2020-10-31] MEDS: NYSTATIN ORAL SUSP 5 ML UDC PO SCH ×5 (06:50→20:57)
[2020-10-31] MEDS: LEVOTHYROXINE 112 MCG (LEVOTHROID) TAB PO SCH (06:50)
[2020-10-31 07:30] VITALS: BP 148/67
[2020-10-31] MEDS: RT-ALBUTEROL SULF 2.5 MG/3 ML PRE-MIX VIAL IH SCH ×4 (07:41→19:14)
[2020-10-31] MEDS: RT-BUDESONIDE NEBS 0.5 MG/2ML (PULMICORT) AMP IH SCH ×2 (07:41→19:14)
[2020-10-31] MEDS: CLOPIDOGREL 75 MG (PLAVIX) TABLET PO SCH (07:52)
[2020-10-31] MEDS: CALCIUM CARBONATE 600 MG (CALCARB) TAB PO SCH (07:52)
[2020-10-31] MEDS: fluCOnazole (DIFLUCAN) 100 MG TAB PO SCH (07:52)
[2020-10-31] MEDS: lisINopril 20 MG (PRINIVIL) TABLET PO SCH (07:52)
[2020-10-31] MEDS: DICYCLOMINE 10 MG (BENTYL) CAP PO SCH ×2 (07:53→17:57)
[2020-10-31] MEDS: polyethylene glycoL POWDER 17 GM (MIRALAX) PACK PO SCH ×2 (07:53→17:20)
[2020-10-31] MEDS: SENNA W/DOCUSATE (SENOKOT S) TABLET PO SCH ×2 (07:53→17:20)
[2020-10-31] MEDS: CHOLESTYRAMINE 4 GM (QUESTRAN LITE, PREVALITE) PKT PO SCH (07:53)
[2020-10-31] MEDS: ISOSORBIDE MONONITRATE 60 MG (IMDUR) TAB PO SCH ×2 (07:53→17:57)
[2020-10-31] MEDS: DOCUSATE SODIUM 100 MG (COLACE) CAP PO SCH ×2 (07:54→17:21)
[2020-10-31] MEDS: HYDROcodone/APAP 5 MG/325 MG (LORTAB) TAB PO PRN ×2 (08:06→20:58)
[2020-10-31] MEDS: ZINC OXIDE 16% OINT (BUTT PASTE) 57 GM TUBE TOP PRN (08:06)
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
[2020-10-31] MEDS ORDERED: LIDOCAINE 2% VISCOUS 15 ML UDC PO PRN (10:30)
[2020-10-31] MEDS: ENOXAPARIN 40 MG/0.4 ML (LOVENOX) SYR SC SCH (12:15)
--- NOTE | 2020-10-31 12:35 | Progress Note - Cardiology ---
Cardiology SOAP Progress Note Subjective: Gen malaise and weakness, improving R ankle and foot pain as before (with wgt bearing) No cp or palp or syncope or shortness of breath No n/v/d Objective: I&O/Vital Signs 10/31/20 10/31/20 10/31/20 07:30 07:41 11:18 Temp 36.5 Pulse 81 Resp 18 B/P (MAP) 148/67 (94) Pulse Ox 93 95 95 O2 Delivery Nasal Cannula Room Air Room Air O2 Flow Rate 1.00 Weight (Pounds): 219 Weight (Ounces): 0.0 Weight (Calculated Kilograms): 99.815360 Constitutional: AAO x 3, well-developed, well-nourished Respiratory: No accessory muscle use, No respiratory distress; chest expansion is symmetric, chest is bilaterally symmetric, lungs clear to auscultation Cardiovascular: regular rate-rhythm Gastrointestional: No tender; soft, round, audible bowel sounds Extremities: other (bruising around the R ankle), no lower extremity edema bilateral Neurologic/Psychiatric: grossly intact (moves all extremities) Skin: No rash on exposed areas, No ulcerations on exposed areas A/P: Assessment: Gen malaise and physical deconditioning, undergoing rehab Recent (September 2020) sepsis of undetermined source associated with septic shock, resolved Ac renal failure in September 2020: likely ATN due to shock - resolved C-diff (+): management per Medical services CAD, s/p CABG x 3 in 2004 - Rest/Stress Regadenoson Rubidium-82 PET/CT on 04/25/17: mild to mod ischemia in LAD territory mod-sized infarction with mild residual ischemia in the RCA territory, LVEF 36% Ischemic cardiomyopathy. - Last cath and PCI at [facility] in late 2017: LM 30 ostial, LAD 100 after D2, D2 with severe prox stenosis, LCS mod diff, RI 30-40 prox, RCA occluded distally and collateralized; underwent laser atherectomy and 2.5x22 Resolute Anastacio MARCUS to D2 that was post dilated with 3 mm balloon (RCA not intervened on) - Chronic stable exertional angina pectoris Ischemic cm and HFrEF - Echo of 05-23-16 showed LVEF approx 35%. Global hypokinesis of the LV, somewhat more marked at the distal anteroapical area. Mild diastolic dysfunction of the LV. Mild diastolic dysfunction. Mild aortic, mitral and tricuspid regurg. No evidence of significant valvular stenosis. Mod enlargement of the LA and LV. Mild LVH S/p single ch ICD implant on 05/04/15; device functioning normally per interrogation of May 2020 DM II Hyperlipidemia Hypertension Obesity with BMI approx 31 Obstructive sleep apnea, treated with CPAP, managed by Dr Wiley H/o prostate and thyroid cancers for which he has been fully treated and they are stated to be in chronic remission. Prostate cancer followed by Dr Lilly; thyroid cancer [facility] Mild bilat carotid plaque per u/s of 08/19/18 Chronic hardness of hearing Splenic mass diagnosed in September 2020 being managed by [facility] Right foot fracture following non-syncopal fall at home in September 2020 Plan: Continue current regimen Monitor BLADE Coombs MD FACP FACC CCDS October 31, 2020 12:35
[2020-10-31] MEDS: ASPIRIN E.C. 81 MG (ECOTRIN) TAB PO SCH (17:57)
[2020-10-31 20:04] VITALS: BP 146/68
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
[2020-11-01 06:09] LABS: BASOPHILS % (AUTO) 1 % (0-10); EOSINOPHILS # (AUTO) 0.3 10^3/uL (0.0-0.3); EOSINOPHILS % (AUTO) 6 % (0-10); HEMATOCRIT 35 % (40-54); HEMOGLOBIN 11.6 g/dL (13.3-17.7); LYMPHOCYTES # (AUTO) 1.4 10^3/uL (1.0-4.0); LYMPHOCYTES % (AUTO) 33 % (12-44); MEAN CORPUSCULAR HEMOGLOBIN 32 pg (25-34); MEAN CORPUSCULAR HGB CONC 33 g/dL (32-36); MEAN CORPUSCULAR VOLUME 97 fL (80-99); MEAN PLATELET VOLUME 8.8 fL (9.0-12.2); MONOCYTES # (AUTO) 0.5 10^3/uL (0.0-1.0); MONOCYTES % (AUTO) 13 % (0-12); NEUTROPHILS % (AUTO) 47 % (42-75); PLATELET COUNT 242 10^3/uL (130-400); WHITE BLOOD COUNT 4.3 10^3/uL (4.3-11.0)
[2020-11-01] MEDS: HYDROcodone/APAP 5 MG/325 MG (LORTAB) TAB PO PRN ×2 (06:29→20:15)
[2020-11-01] MEDS: NYSTATIN ORAL SUSP 5 ML UDC PO SCH ×5 (06:29→20:15)
[2020-11-01] MEDS: LEVOTHYROXINE 112 MCG (LEVOTHROID) TAB PO SCH (06:29)
[2020-11-01 06:34] LABS: ALANINE AMINOTRANSFERASE 14 U/L (0-55); ALBUMIN 3.4 GM/DL (3.2-4.5); ALKALINE PHOSPHATASE 66 U/L (40-136); BILIRUBIN,TOTAL 0.6 MG/DL (0.1-1.0); BUN/CREATININE RATIO 11; CALCIUM 8.5 MG/DL (8.5-10.1); CARBON DIOXIDE 24 MMOL/L (21-32); CHLORIDE 106 MMOL/L (98-107); CREATININE SERUM 0.79 MG/DL (0.60-1.30); GFR ESTIMATED > 60; GLUCOSE 122 MG/DL (70-105); MAGNESIUM 1.6 MG/DL (1.6-2.4); POTASSIUM 4.4 MMOL/L (3.6-5.0); SODIUM 139 MMOL/L (135-145); TOTAL PROTEIN 6.4 GM/DL (6.4-8.2)
[2020-11-01] MEDS: RT-ALBUTEROL SULF 2.5 MG/3 ML PRE-MIX VIAL IH SCH ×4 (07:16→18:52)
[2020-11-01] MEDS: RT-BUDESONIDE NEBS 0.5 MG/2ML (PULMICORT) AMP IH SCH ×2 (07:16→18:52)
[2020-11-01 08:19] VITALS: BP 140/62
[2020-11-01] MEDS: CLOPIDOGREL 75 MG (PLAVIX) TABLET PO SCH (08:22)
[2020-11-01] MEDS: CALCIUM CARBONATE 600 MG (CALCARB) TAB PO SCH (08:22)
[2020-11-01] MEDS: ISOSORBIDE MONONITRATE 60 MG (IMDUR) TAB PO SCH ×2 (08:22→18:10)
[2020-11-01] MEDS: lisINopril 20 MG (PRINIVIL) TABLET PO SCH (08:23)
[2020-11-01] MEDS: polyethylene glycoL POWDER 17 GM (MIRALAX) PACK PO SCH ×2 (08:23→18:11)
[2020-11-01] MEDS: fluCOnazole (DIFLUCAN) 100 MG TAB PO SCH (08:23)
[2020-11-01] MEDS: SENNA W/DOCUSATE (SENOKOT S) TABLET PO SCH ×2 (08:23→18:11)
[2020-11-01] MEDS: DICYCLOMINE 10 MG (BENTYL) CAP PO SCH ×2 (08:23→18:10)
[2020-11-01] MEDS: DOCUSATE SODIUM 100 MG (COLACE) CAP PO SCH ×2 (08:24→18:11)
--- NOTE | 2020-11-01 11:03 | Physical Therapy Daily Note ---
PT Daily Note-Current Subjective Pt. denies any pain in left foot/leg. States he is making progress and walking is a little better today Pain Location: No Pain Reported Mental Status Patient Orientation: Normal For Age Attachments: Other-See Comments (walking boot, mask) Transfers SCALE: Activities may be completed with or without assistive devices. 4-Qguwvmrmoa-qgtkccu completes the activity by him/herself with no assistance from a helper. 5-Set-up or Clean-up Assistance-helper sets up or cleans up; patient completes activity. [place] assists only prior to or following the activity. 4-Supervision or Touching Assistance-helper provides verbal cues and/or touching/steadying and/or contact guard assistance as patient completes activity. Assistance may be provided throughout the activity or intermittently. 3-Partial/Moderate Assistance-helper does LESS THAN HALF the effort. [place] lifts, holds or supports trunk or limbs, but provides less than half the effort. 2-Substantial/Maximal Assistance-helper does MORE THAN HALF the effort. [place] lifts or holds trunk or limbs and provides more than half the effort. 8-Dbxwlnxnl-gtfdwy does ALL the effort. Patient does none of the effort to complete the activity. Or, the assistance of 2 or more helpers is required for the patient to complete the activity. If activity was not attempted, code reason: 7-Patient Refused. 9-Not Applicable-not attempted and the patient did not perform the activity before the current illness, exacerbation or injury. 10-Not Attempted due to Environmental Limitations-(lack of equipment, weather restraints, etc.). 88-Not Attempted due to Medical Conditions or Safety Concerns. Roll Left & Right (QC): 6 Sit to Lying (QC): 6 Lying to Sitting/Side of Bed(Q: 6 Sit to Stand (QC): 5 Chair/Bbe-wb-Ewvci Xfer(QC): 5 instruction for use of hands and safety Weight Bearing Right Lower Extremity: Right Full Weight Bearing Left Lower Extremity: Left Partial Weight Bearing CAM Boot Gait Training Does the Patient Walk?: Yes Walk 10 feet (QC): 4 Gait Persons Needed: 1 Gait Assistive Device: FWW 15ftx1, 12ftx2 FWW min to CGA, narrow JOHN, instruction for equal step length and safety Wheelchair Training Does the Pt Use a Wheelchair?: Yes Wheel 50 ft with 2 turns (QC): 5 Wheel 150 ft (QC): 5 Type of Wheelchair: Manual required assist to manage leg rest etc Exercises Supine Ex: Bridging, Ankle pumps, Quad Set, Rolling, Glut sets, Heel Slides, Short Arc Quads, Scooting, Straight leg raise, Hip abd/add Supine Reps: 15 Seated Therapy Exercises: Ankle pumps, Sit to stand, Long arc quads, Hip flexion Seated Reps: 12 NuStep Minutes: 10 NuStep Workload: 4 Assessment Current Status: Good Progress PT Short Term Goals Short Term Goals Time Frame: November 03, 2020 Roll Left & Right: 6 Sit to lyin (SBA) Lying to sitting on side of be: 4 (SBA) Sit to stand: 4 (BA) Chair/qzx-og-yiaky transfer: 4 (CGA) Walk 10 feet: 4 (CGA) Walk 50 feet with two turns: 4 (CGA) PT Wall Insulation Sprayer Goals Half-Way Goals PT Wall Insulation Sprayer Goals Time Frame: November 17, 2020 Roll Left & Right (QC): 6 Sit to Lying (QC): 6 Lying-Sitting on Side/Bed(QC): 6 Sit to Stand (QC): 5 Chair/Mxp-wt-Wfdxb Xfer(QC): 5 Toilet Transfer (QC): 5 Car Transfer (QC): 5 Does the Patient Walk: Yes Walk 10 feet (QC): 5 Walk 50ft with 2 Turns (QC): 5 Walk 150 ft (QC): 5 Walking 10ft on Uneven Surface: 5 1 Step (curb) (QC): 4 4 Steps (QC): 4 12 Steps (QC): 9 Picking up an Object (QC): 4 Wheel 50 feet with 2 turns (QC: 6 Type: Manual Wheel 150 feet: 6 PT Plan Treatment/Plan Treatment Plan: Continue Plan of Care Treatment Plan: Bed Mobility, Education, Functional Activity Ashley, Functional Strength, Group Therapy, Gait, Safety, Therapeutic Exercise, Transfers Treatment Duration: November 17, 2020 Frequency: At least 5 of 7 days/Wk (IRF) Estimated Hrs Per Day: 1.5 hours per day Patient and/or Family Agrees t: Yes Safety Risks/Education Patient Education: Gait Training, Transfer Techniques, Correct Positioning, W/C Management, Disease Process, Safety Issues Teaching Recipient: Patient Teaching Methods: Demonstration, Discussion Response to Teaching: Verbalize Understanding, Return Demonstration, Reinforcement Needed Time/GCodes Time In: 1000 Time Out: 1100 Total Billed Treatment Time: 60 Total Billed Treatment 1,WC15m,GT20m,EX25m DON FLORES CARBURIZER November 01, 2020 11:03
--- NOTE | 2020-11-01 12:06 | Speech Therapy Daily Note ---
Speech Daily Progress Note Subjective Date Seen by Provider: November 01, 2020 Time Seen by Provider: 00:30 Pt was alert and pleasant. Pt agreed to ST services. Pt is eager to return home. Objective Patient completed memory activities related to daily activities at 90% with minimal cues. Assessment Assessment Current Status: Good Progress Treatment Plan Continue Plan of Care Speech Short Term Goals Short Term Goals Short Term Goals 1.) Patient will complete safety awareness activities related to their daily activities at 80% with minimal cues. 2.) Patient will complete memory activities related to their daily activities at 80% with minimal cues. 3.) Patient will complete recall of information activities related to their daily activities at 80% with minimal cues. Speech Lunchroom Monitor Goals Nursing Home Goals Patient will improve cognitive-communication skills necessary for safety and daily living tasks with minimal assist. Speech-Plan Patient/Family Goals Patient/Family Goals: Pt plans to return home from [facility] where his daughter lives nearby to assist in meeting his daily care needs. Treatment Plan Speech Therapy Treatment Plan: Continue Plan of Care Treatment Duration: November 03, 2020 Frequency: 4 times per week (4-5x per week) Estimated Hrs Per Day: .5 hour per day Rehab Potential: Fair Barriers to Learning: Medical status and age Pt/Family Agrees to Plan: Yes Safety Risks/Education Teaching Recipient: Patient Teaching Methods: Discussion Response to Teaching: Verbalize Understanding, Reinforcement Needed Education Topics Provided: Safety awareness and cognitive communication strategies Time Speech Therapy Time In: 11:30 Speech Therapy Time Out: 12:00 Total Billed Time: 30 Billed Treatment Time 1. YANDY Bains November 01, 2020 12:06
[2020-11-01] MEDS: CHOLESTYRAMINE 4 GM (QUESTRAN LITE, PREVALITE) PKT PO SCH (12:22)
[2020-11-01] MEDS: ENOXAPARIN 40 MG/0.4 ML (LOVENOX) SYR SC SCH (12:23)
--- NOTE | 2020-11-01 13:21 | Progress Note - Cardiology ---
Cardiology SOAP Progress Note Subjective: Gen malaise and weakness, slowly improving No cp or palp or syncope or shortness of breath at rest No n/v/d Objective: I&O/Vital Signs 11/01/20 11/01/20 11/01/20 07:16 08:19 08:49 Temp 35.8 Pulse 71 Resp 20 B/P (MAP) 140/62 (88) Pulse Ox 95 93 O2 Delivery Nasal Cannula Nasal Cannula Nasal Cannula O2 Flow Rate 1.00 1.00 1.00 Weight (Pounds): 219 Weight (Ounces): 0.0 Weight (Calculated Kilograms): 99.082703 Constitutional: AAO x 3, well-developed, well-nourished Respiratory: No accessory muscle use, No respiratory distress; chest expansion is symmetric, chest is bilaterally symmetric, lungs clear to auscultation Cardiovascular: regular rate-rhythm Gastrointestional: No tender; soft, round, audible bowel sounds Extremities: no lower extremity edema bilateral Neurologic/Psychiatric: grossly intact (moves all extremities) Skin: No rash on exposed areas, No ulcerations on exposed areas Results/Procedures: Labs Laboratory Tests 11/01/20 06:00: White Blood Count 4.3, Red Blood Count 3.62L, Hemoglobin 11.6L, Hematocrit 35L, Mean Corpuscular Volume 97, Mean Corpuscular Hemoglobin 32, Mean Corpuscular Hemoglobin Concent 33, Red Cell Distribution Width 13.7, Platelet Count 242, Mean Platelet Volume 8.8L, Immature Granulocyte % (Auto) 1, Neutrophils (%) (Auto) 47, Lymphocytes (%) (Auto) 33, Monocytes (%) (Auto) 13H, Eosinophils (%) (Auto) 6, Basophils (%) (Auto) 1, Neutrophils # (Auto) 2.0, Lymphocytes # (Auto) 1.4, Monocytes # (Auto) 0.5, Eosinophils # (Auto) 0.3, Basophils # (Auto) 0.0, Immature Granulocyte # (Auto) 0.0, Sodium Level 139, Potassium Level 4.4, Chloride Level 106, Carbon Dioxide Level 24, Anion Gap 9, Blood Urea Nitrogen 9, Creatinine 0.79, Estimat Glomerular Filtration Rate > 60, BUN/Creatinine Ratio 11, Glucose Level 122H, Calcium Level 8.5, Corrected Calcium 9.0, Magnesium Level 1.6, Total Bilirubin 0.6, Aspartate Amino Transf (AST/SGOT) 13, Alanine Aminotransferase (ALT/SGPT) 14, Alkaline Phosphatase 66, Total Protein 6.4, Albumin 3.4 Laboratory Tests 11/01/20 06:00 A/P: Assessment: Gen malaise and physical deconditioning, undergoing rehab Recent (September 2020) sepsis of undetermined source associated with septic shock, resolved Ac renal failure in September 2020: likely ATN due to shock - resolved C-diff (+): management per Medical services CAD, s/p CABG x 3 in 2004 - Rest/Stress Regadenoson Rubidium-82 PET/CT on 04/25/17: mild to mod ischemia in LAD territory mod-sized infarction with mild residual ischemia in the RCA territory, LVEF 36% Ischemic cardiomyopathy. - Last cath and PCI at [facility] in late 2016: LM 30 ostial, LAD 100 after D2, D2 with severe prox stenosis, LCS mod diff, RI 30-40 prox, RCA occluded distally and collateralized; underwent laser atherectomy and 2.5x22 Resolute Peetz MARCUS to D2 that was post dilated with 3 mm balloon (RCA not intervened on) - Chronic stable exertional angina pectoris Ischemic cm and HFrEF - Echo of 05-23-16 showed LVEF approx 35%. Global hypokinesis of the LV, somewhat more marked at the distal anteroapical area. Mild diastolic dysfunction of the LV. Mild diastolic dysfunction. Mild aortic, mitral and tricuspid regurg. No evidence of significant valvular stenosis. Mod enlargement of the LA and LV. Mild LVH S/p single ch ICD implant on 05/04/15; device functioning normally per interrogation of May 2020 DM II Hyperlipidemia Hypertension Obesity with BMI approx 31 Obstructive sleep apnea, treated with CPAP, managed by Dr Wiley H/o prostate and thyroid cancers for which he has been fully treated and they are stated to be in chronic remission. Prostate cancer followed by Dr Lilly; [facility] Mild bilat carotid plaque per u/s of 08/19/18 Chronic hardness of hearing Splenic mass diagnosed in September 2020 being managed by [facility] Right foot fracture following non-syncopal fall at home in September 2020 Plan: Continue current regimen Monitor lab Ok for d/c from cardiac standpoint BLADE PICKERING MD FACP FACC CCDS November 01, 2020 13:21
--- NOTE | 2020-11-01 14:13 | Occupational Ther Daily Note ---
OT Current Status-Daily Note Subjective Pt alert, lying in bed. Pt agrees to therapy. No c/o pain at this time. Mental Status/Objective Patient Orientation: Person, Place, Time, Situation Attachments: IV ADL-Treatment Pt agrees to shower. Supine to EOB independently. Pt transferred from EOB to w/c with SBA. Pt propelled w/c into bathroom and transferred to toilet, manipulated clothing and completed hygiene with SBA. SBA for shower transfer and to complete shower sitting on shower bench using grabbars, LH sponge and nesbitt nd held shower. Sitting at sink, pt completed oral care independently. After set up, pt able to complete upper body dressing by self. After set up, pt completed lower body dressing with SBA. Pt doffed socks by self then used sock aide to don R sock, L foot increased swelling and assist needed to don. Pt donned R shoe by self and walking boot by self. Therapy Code Descriptions/Definitions Functional [place] Measure: 0=Not Assessed/NA 4=Minimal Assistance 1=Total Assistance 5=Supervision or Setup 2=Maximal Assistance 6=Modified [place] 3=Moderate Assistance 7=Complete IndependenceSCALE: Activities may be completed with or without assistive devices. 5-Zjlpqfffan-ueqanof completes the activity by him/herself with no assistance from a helper. 5-Set-up or Clean-up Assistance-helper sets up or cleans up; patient completes activity. [place] assists only prior to or following the activity. 4-Supervision or Touching Assistance-helper provides verbal cues and/or touching/steadying and/or contact guard assistance as patient completes activity. Assistance may be provided throughout the activity or intermittently. 3-Partial/Moderate Assistance-helper does LESS THAN HALF the effort. [place] lifts, holds or supports trunk or limbs, but provides less than half the effort. 2-Substantial/Maximal Assistance-helper does MORE THAN HALF the effort. [place] lifts or holds trunk or limbs and provides more than half the effort. 7-Ehcpgmcfa-flcoii does ALL the effort. Patient does none of the effort to complete the activity. Or, the assistance of 2 or more helpers is required for the patient to complete the activity. If activity was not attempted, code reason: 7-Patient Refused. 9-Not Applicable-not attempted and the patient did not perform the activity before the current illness, exacerbation or injury. 10-Not Attempted due to Environmental Limitations-(lack of equipment, weather restraints, etc.). 88-Not Attempted due to Medical Conditions or Safety Concerns. Oral Hygiene (QC): 6 Shower/Bathe Self (QC): 4 Upper Body Dressing (QC): 5 Lower Body Dressing (QC): 4 On/Off Footwear: 3 Toileting Hygiene (QC): 4 Toilet Transfer (QC): 4 Other Treatment Pt propelled w/c throughout ARU to increase B UE strength and activity tolerance for daily functional tasks. After therapy, pt in room sitting in w/c with call light/phone in reach. All needs met in room. OT Short Term Goals Short Term Goals Time Frame: November 03, 2020 Oral hygiene: 5 Shower/bathe self: 4 Lower body dressin Putting on/taking off footwear: 4 OT Senior Business Architect Goals [facility] Goals Time Frame: November 19, 2020 Eating (QC): 6 Oral Hygiene (QC): 6 Toileting Hygiene (QC): 6 Shower/Bathe Self (QC): 6 Upper Body Dressing (QC): 6 Lower Body Dressing (QC): 6 On/Off Footwear (QC): 6 Additional Goals: 1-Demonstrate ADL Tasks, 2-Verbalize Understanding, 3- ImproveStrength/Ashley 1=Demonstrate adherence to instructed precautions during ADL tasks. 2=Patient will verbalize/demonstrate understanding of assistive devices/modifications for ADL. 3=Patient will improve strength/tolerance for activity to enable patient to perform ADL's. OT Education/Plan Problem List/Assessment Assessment: Decreased Activ Tolerance, Decreased UE Strength, Impaired Self- Care Skills Discharge Recommendations Plan/Recommendations: Continue POC Treatment Plan/Plan of Care Patient would benefit from OT for education, treatment and training to promote independence in ADL's, mobility, safety and/or upper extremity function for ADL's. Plan of Care: ADL Retraining, Functional Mobility, Group Exercise/Act as Ind, UE Funct Exercise/Act Treatment Duration: November 19, 2020 Frequency: At least 5 of 7 days/Wk (IRF) Estimated Hrs Per Day: 1.5 hours per day Rehab Potential: Fair Time/GCodes Start Time: 08:45 Stop Time: 10:00 Total Time Billed (hr/min): 75 Billed Treatment Time 1 visit-ADL 4 (60 min) EX 1 (15 min) BRISEIDA DURAN November 01, 2020 14:13
[2020-11-01] MEDS: CATHETER FLUSH 10 ML SYR IV SCH ×2 (14:14→22:09)
--- NOTE | 2020-11-01 14:21 | Physical Therapy Daily Note ---
PT Daily Note-Current Subjective Pt. in bed , family at bedside. Pt. agrees to in bed supine exercises. Pt. c/o fatigue and wants to rest after Rx. Pain Numeric Pain Scale: 3 Location: Left Location Body Site: Calf Pain Description: Ache Mental Status Patient Orientation: Normal For Age Transfers SCALE: Activities may be completed with or without assistive devices. 0-Nhewdndppo-wzaymxn completes the activity by him/herself with no assistance from a helper. 5-Set-up or Clean-up Assistance-helper sets up or cleans up; patient completes activity. [place] assists only prior to or following the activity. 4-Supervision or Touching Assistance-helper provides verbal cues and/or touching/steadying and/or contact guard assistance as patient completes activity. Assistance may be provided throughout the activity or intermittently. 3-Partial/Moderate Assistance-helper does LESS THAN HALF the effort. [place] lifts, holds or supports trunk or limbs, but provides less than half the effort. 2-Substantial/Maximal Assistance-helper does MORE THAN HALF the effort. [place] lifts or holds trunk or limbs and provides more than half the effort. 0-Ppsswbois-gsowld does ALL the effort. Patient does none of the effort to complete the activity. Or, the assistance of 2 or more helpers is required for the patient to complete the activity. If activity was not attempted, code reason: 7-Patient Refused. 9-Not Applicable-not attempted and the patient did not perform the activity before the current illness, exacerbation or injury. 10-Not Attempted due to Environmental Limitations-(lack of equipment, weather restraints, etc.). 88-Not Attempted due to Medical Conditions or Safety Concerns. pushes self up in bed indep with bed head flat and use of hands on rails Weight Bearing Right Lower Extremity: Right Full Weight Bearing Left Lower Extremity: Left Partial Weight Bearing CAM Boot Exercises Supine Ex: Bridging, Ankle pumps, Quad Set, Rolling, Glut sets, Lower trunk rotation, Heel Slides, Short Arc Quads, Scooting, Straight leg raise, Hip abd/add Supine Reps: 15 Assessment Current Status: Good Progress fatigued with Rx PT Short Term Goals Short Term Goals Time Frame: November 03, 2020 Roll Left & Right: 6 Sit to lyin (SBA) Lying to sitting on side of be: 4 (SBA) Sit to stand: 4 (BA) Chair/qss-ed-zrnle transfer: 4 (CGA) Walk 10 feet: 4 (CGA) Walk 50 feet with two turns: 4 (CGA) PT Jail Goals Jail Goals PT Jail Goals Time Frame: November 17, 2020 Roll Left & Right (QC): 6 Sit to Lying (QC): 6 Lying-Sitting on Side/Bed(QC): 6 Sit to Stand (QC): 5 Chair/Hfc-tl-Jffle Xfer(QC): 5 Toilet Transfer (QC): 5 Car Transfer (QC): 5 Does the Patient Walk: Yes Walk 10 feet (QC): 5 Walk 50ft with 2 Turns (QC): 5 Walk 150 ft (QC): 5 Walking 10ft on Uneven Surface: 5 1 Step (curb) (QC): 4 4 Steps (QC): 4 12 Steps (QC): 9 Picking up an Object (QC): 4 Wheel 50 feet with 2 turns (QC: 6 Type: Manual Wheel 150 feet: 6 PT Plan Treatment/Plan Treatment Plan: Continue Plan of Care Treatment Plan: Bed Mobility, Education, Functional Activity Ashley, Functional Strength, Group Therapy, Gait, Safety, Therapeutic Exercise, Transfers Treatment Duration: November 17, 2020 Frequency: At least 5 of 7 days/Wk (IRF) Estimated Hrs Per Day: 1.5 hours per day Patient and/or Family Agrees t: Yes Safety Risks/Education Patient Education: Correct Positioning Time/GCodes Time In: 1330 Time Out: 1345 Total Billed Treatment Time: 15 Total Billed Treatment 1,EX15m DON FLORES SENIOR LINUX SYSTEMS ADMINISTRATOR November 01, 2020 14:21
[2020-11-01] MEDS: ASPIRIN E.C. 81 MG (ECOTRIN) TAB PO SCH (17:14)
[2020-11-01 20:00] VITALS: BP 161/93
[2020-11-01] MEDS: NITROGLYCERIN 0.4 MG SL TABS BTL 25'S SL PRN ×2 (20:56→21:03)
[2020-11-02] MEDS: LEVOTHYROXINE 112 MCG (LEVOTHROID) TAB PO SCH (06:22)
[2020-11-02] MEDS: NYSTATIN ORAL SUSP 5 ML UDC PO SCH ×5 (06:23→20:22)
[2020-11-02] MEDS: CATHETER FLUSH 10 ML SYR IV SCH ×3 (06:24→22:27)
[2020-11-02] MEDS: RT-BUDESONIDE NEBS 0.5 MG/2ML (PULMICORT) AMP IH SCH ×2 (07:15→19:40)
[2020-11-02] MEDS: RT-ALBUTEROL SULF 2.5 MG/3 ML PRE-MIX VIAL IH SCH ×4 (07:15→19:40)
[2020-11-02 08:00] VITALS: BP 148/70
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
[2020-11-02] MEDS: HYDROcodone/APAP 5 MG/325 MG (LORTAB) TAB PO PRN ×2 (08:35→20:25)
[2020-11-02] MEDS: lisINopril 20 MG (PRINIVIL) TABLET PO SCH (08:38)
[2020-11-02] MEDS: DICYCLOMINE 10 MG (BENTYL) CAP PO SCH ×2 (08:38→18:42)
[2020-11-02] MEDS: CALCIUM CARBONATE 600 MG (CALCARB) TAB PO SCH (08:39)
[2020-11-02] MEDS: fluCOnazole (DIFLUCAN) 100 MG TAB PO SCH (08:39)
[2020-11-02] MEDS: CLOPIDOGREL 75 MG (PLAVIX) TABLET PO SCH (08:39)
[2020-11-02] MEDS: ISOSORBIDE MONONITRATE 60 MG (IMDUR) TAB PO SCH ×2 (08:39→18:42)
[2020-11-02] MEDS: DOCUSATE SODIUM 100 MG (COLACE) CAP PO SCH ×2 (08:41→20:24)
[2020-11-02] MEDS: SENNA W/DOCUSATE (SENOKOT S) TABLET PO SCH ×2 (08:41→20:30)
[2020-11-02] MEDS: polyethylene glycoL POWDER 17 GM (MIRALAX) PACK PO SCH ×2 (08:41→20:30)
[2020-11-02] MEDS: CHOLESTYRAMINE 4 GM (QUESTRAN LITE, PREVALITE) PKT PO SCH (09:59)
--- NOTE | 2020-11-02 10:00 | Occupational Ther Daily Note ---
OT Current Status-Daily Note Subjective Pt alert, lying in bed. Pt agrees to therapy. No c/o pain at this time. Mental Status/Objective Patient Orientation: Person, Place, Time, Situation Attachments: IV (midline), Oxygen ADL-Treatment 1st session([id number]): Pt declines shower today, agrees to sponge bath and change of clothing. Supine <--> EOB, independently. Set up for sponge bath, cleansed areas by self. After set up, pt able to complete dressing upper/lower body and footwear by self. Pt independent with toilet transfer and toileting using w/c and grabbars. Sitting at sink, pt completes oral care and hand washing by self. Pt dons/doffs walking boot by self. Therapy Code Descriptions/Definitions Functional [place] Measure: 0=Not Assessed/NA 4=Minimal Assistance 1=Total Assistance 5=Supervision or Setup 2=Maximal Assistance 6=Modified [place] 3=Moderate Assistance 7=Complete IndependenceSCALE: Activities may be completed with or without assistive devices. 6-Acwfbgntoy-inxkzat completes the activity by him/herself with no assistance from a helper. 5-Set-up or Clean-up Assistance-helper sets up or cleans up; patient completes activity. [place] assists only prior to or following the activity. 4-Supervision or Touching Assistance-helper provides verbal cues and/or touching/steadying and/or contact guard assistance as patient completes activity. Assistance may be provided throughout the activity or intermittently. 3-Partial/Moderate Assistance-helper does LESS THAN HALF the effort. [place] lifts, holds or supports trunk or limbs, but provides less than half the effort. 2-Substantial/Maximal Assistance-helper does MORE THAN HALF the effort. [place] lifts or holds trunk or limbs and provides more than half the effort. 2-Gjkerhwnk-vobmdi does ALL the effort. Patient does none of the effort to complete the activity. Or, the assistance of 2 or more helpers is required for the patient to complete the activity. If activity was not attempted, code reason: 7-Patient Refused. 9-Not Applicable-not attempted and the patient did not perform the activity before the current illness, exacerbation or injury. 10-Not Attempted due to Environmental Limitations-(lack of equipment, weather restraints, etc.). 88-Not Attempted due to Medical Conditions or Safety Concerns. Oral Hygiene (QC): 6 Upper Body Dressing (QC): 5 Lower Body Dressing (QC): 5 On/Off Footwear: 5 Toileting Hygiene (QC): 6 Toilet Transfer (QC): 6 Other Treatment 1st session([id number]): Pt completed B UE dowel kathy exercises one set of 10 with only dowel kathy then with 2# wt attached to dowel kathy 2 sets of 10. Pt transported back to room via w/c. After session, pt sitting in w/c with call light/phone in reach. Nrsg present in room. 2nd session([id number]): Pt propelled w/c around ARU to increase B UE stre ngthening and activity tolerance for daily functional tasks. After session, pt sitting in recliner with call light/phone in reach. All needs met in room. OT Short Term Goals Short Term Goals Time Frame: November 03, 2020 Oral hygiene: 5 Shower/bathe self: 4 Lower body dressin Putting on/taking off footwear: 4 OT Fdc Goals Fdc Goals Time Frame: November 19, 2020 Eating (QC): 6 Oral Hygiene (QC): 6 Toileting Hygiene (QC): 6 Shower/Bathe Self (QC): 6 Upper Body Dressing (QC): 6 Lower Body Dressing (QC): 6 On/Off Footwear (QC): 6 Additional Goals: 1-Demonstrate ADL Tasks, 2-Verbalize Understanding, 3- ImproveStrength/Ashley 1=Demonstrate adherence to instructed precautions during ADL tasks. 2=Patient will verbalize/demonstrate understanding of assistive devices/modifications for ADL. 3=Patient will improve strength/tolerance for activity to enable patient to perform ADL's. OT Education/Plan Problem List/Assessment Assessment: Decreased Activ Tolerance, Decreased UE Strength, Impaired Funct Balance Discharge Recommendations Plan/Recommendations: Continue POC Treatment Plan/Plan of Care Patient would benefit from OT for education, treatment and training to promote independence in ADL's, mobility, safety and/or upper extremity function for ADL's. Plan of Care: ADL Retraining, Functional Mobility, Group Exercise/Act as Ind, UE Funct Exercise/Act Treatment Duration: November 19, 2020 Frequency: At least 5 of 7 days/Wk (IRF) Estimated Hrs Per Day: 1.5 hours per day Rehab Potential: Fair Time/GCodes Start Time: 09:00 (1299) Stop Time: 10:00 (1314) Total Time Billed (hr/min): 75 Billed Treatment Time 1 visit([id number])-ADL 3 (45 min) EX 1 (15 min) 1 visit([id number])-EX 1 (15 min) BRISEIDA DURAN November 02, 2020 10:00
--- NOTE | 2020-11-02 10:30 | Speech Therapy Daily Note ---
Speech Daily Progress Note Subjective Date Seen by Provider: November 02, 2020 Time Seen by Provider: 00:30 Pt was alert and pleasant. Pt was finishing lunch. Pt agreed to ST services. Objective Patient completed memory activities related to his daily activities at 90% with minimal cues. Assessment Assessment Current Status: Good Progress Treatment Plan Continue Plan of Care Speech Short Term Goals Short Term Goals Short Term Goals 1.) Patient will complete safety awareness activities related to their daily activities at 80% with minimal cues. 2.) Patient will complete memory activities related to their daily activities at 80% with minimal cues. 3.) Patient will complete recall of information activities related to their daily activities at 80% with minimal cues. Speech Jewel Sawyer Goals Alf Goals Patient will improve cognitive-communication skills necessary for safety and daily living tasks with minimal assist. Speech-Plan Patient/Family Goals Patient/Family Goals: Pt plans to return home upon D/C from ARU. Pt lives alone. Treatment Plan Speech Therapy Treatment Plan: Continue Plan of Care Treatment Duration: November 12, 2020 Frequency: 4 times per week (4-5x per week) Estimated Hrs Per Day: .5 hour per day Rehab Potential: Fair Barriers to Learning: Medical status and age. Pt/Family Agrees to Plan: Yes Safety Risks/Education Teaching Recipient: Patient Teaching Methods: Discussion Response to Teaching: Verbalize Understanding, Reinforcement Needed Education Topics Provided: Safety awareness and cognitive communication strategies. Time Speech Therapy Time In: 11:30 Speech Therapy Time Out: 12:00 Total Billed Time: 30 Billed Treatment Time 1, YANDY Bains November 02, 2020 10:30
--- NOTE | 2020-11-02 11:07 | Physical Therapy Daily Note ---
PT Daily Note-Current Subjective Pt. states pain in left foot/leg is 3/10 but improving. Pt. wants to walk and exercise without O2, Pain Numeric Pain Scale: 3 Location: Left Location Body Site: Ankle Pain Description: Ache Mental Status Patient Orientation: Normal For Age Attachments: Other-See Comments (mask, walker boot) Transfers SCALE: Activities may be completed with or without assistive devices. 9-Nlfmvzeeky-heiqasm completes the activity by him/herself with no assistance from a helper. 5-Set-up or Clean-up Assistance-helper sets up or cleans up; patient completes activity. [place] assists only prior to or following the activity. 4-Supervision or Touching Assistance-helper provides verbal cues and/or touching/steadying and/or contact guard assistance as patient completes activity. Assistance may be provided throughout the activity or intermittently. 3-Partial/Moderate Assistance-helper does LESS THAN HALF the effort. [place] lifts, holds or supports trunk or limbs, but provides less than half the effort. 2-Substantial/Maximal Assistance-helper does MORE THAN HALF the effort. [place] lifts or holds trunk or limbs and provides more than half the effort. 3-Gnoleykhx-pigmvr does ALL the effort. Patient does none of the effort to complete the activity. Or, the assistance of 2 or more helpers is required for the patient to complete the activity. If activity was not attempted, code reason: 7-Patient Refused. 9-Not Applicable-not attempted and the patient did not perform the activity before the current illness, exacerbation or injury. 10-Not Attempted due to Environmental Limitations-(lack of equipment, weather restraints, etc.). 88-Not Attempted due to Medical Conditions or Safety Concerns. Roll Left & Right (QC): 6 Sit to Lying (QC): 6 Lying to Sitting/Side of Bed(Q: 6 Sit to Stand (QC): 5 Chair/Yrn-qf-Lcqlu Xfer(QC): 5 Weight Bearing Right Lower Extremity: Right Full Weight Bearing Left Lower Extremity: Left Partial Weight Bearing CAM Boot Gait Training Does the Patient Walk?: Yes Walk 10 feet (QC): 4 Walk 50 ft with 2 Turns(QC): 4 Gait Persons Needed: 1 Gait Assistive Device: FWW Wheelchair Training Does the Pt Use a Wheelchair?: Yes Wheel 50 ft with 2 turns (QC): 5 Wheel 150 ft (QC): 5 Type of Wheelchair: Manual reminders for brakes and assist for use of leg rest on WC Exercises Supine Ex: Bridging, Ankle pumps, Quad Set, Rolling, Glut sets, Lower trunk rotation, Short Arc Quads, Scooting, Straight leg raise, Hip abd/add Supine Reps: 15 NuStep Minutes: 10 NuStep Workload: 4 Treatments O2 sats on room air >95% Assessment Current Status: Good Progress PT Short Term Goals Short Term Goals Time Frame: November 03, 2020 Roll Left & Right: 6 Sit to lyin (SBA) Lying to sitting on side of be: 4 (SBA) Sit to stand: 4 (BA) Chair/fxu-tz-zqugh transfer: 4 (CGA) Walk 10 feet: 4 (CGA) Walk 50 feet with two turns: 4 (CGA) PT Library Sales Consultant Goals Detention Goals PT Library Sales Consultant Goals Time Frame: November 17, 2020 Roll Left & Right (QC): 6 Sit to Lying (QC): 6 Lying-Sitting on Side/Bed(QC): 6 Sit to Stand (QC): 5 Chair/Ytr-yr-Zvouc Xfer(QC): 5 Toilet Transfer (QC): 5 Car Transfer (QC): 5 Does the Patient Walk: Yes Walk 10 feet (QC): 5 Walk 50ft with 2 Turns (QC): 5 Walk 150 ft (QC): 5 Walking 10ft on Uneven Surface: 5 1 Step (curb) (QC): 4 4 Steps (QC): 4 12 Steps (QC): 9 Picking up an Object (QC): 4 Wheel 50 feet with 2 turns (QC: 6 Type: Manual Wheel 150 feet: 6 PT Plan Treatment/Plan Treatment Plan: Continue Plan of Care Treatment Plan: Bed Mobility, Education, Functional Activity Ashley, Functional Strength, Group Therapy, Gait, Safety, Therapeutic Exercise, Transfers Treatment Duration: November 17, 2020 Frequency: At least 5 of 7 days/Wk (IRF) Estimated Hrs Per Day: 1.5 hours per day Patient and/or Family Agrees t: Yes Safety Risks/Education Patient Education: Gait Training, Transfer Techniques, Correct Positioning, W/C Management, Disease Process, Safety Issues Teaching Recipient: Patient Teaching Methods: Demonstration, Discussion Response to Teaching: Verbalize Understanding, Return Demonstration, Reinforcement Needed Time/GCodes Time In: 1000 Time Out: 1100 Total Billed Treatment Time: 60 Total Billed Treatment 1,GT25m,EX20m,WC15m DON FLORES POTATO CHIP FRIER November 02, 2020 11:07
[2020-11-02] MEDS: ENOXAPARIN 40 MG/0.4 ML (LOVENOX) SYR SC SCH (12:24)
--- NOTE | 2020-11-02 14:00 | Physical Therapy Daily Note ---
PT Daily Note-Current Subjective sats he feels he is ready to go home. When this CLAIMS SPECIALIST reviewed functional tasks he would need to master before DC pt. agreed he isnt quite ready. Pt. has steps and would need to walk further etc Pain Location: No Pain Reported Mental Status Patient Orientation: Person, Place Attachments: Other-See Comments (walker boot) Transfers SCALE: Activities may be completed with or without assistive devices. 4-Gbilgnoxca-fhtblaj completes the activity by him/herself with no assistance from a helper. 5-Set-up or Clean-up Assistance-helper sets up or cleans up; patient completes activity. [place] assists only prior to or following the activity. 4-Supervision or Touching Assistance-helper provides verbal cues and/or touching/steadying and/or contact guard assistance as patient completes activity. Assistance may be provided throughout the activity or intermittently. 3-Partial/Moderate Assistance-helper does LESS THAN HALF the effort. [place] lifts, holds or supports trunk or limbs, but provides less than half the effort. 2-Substantial/Maximal Assistance-helper does MORE THAN HALF the effort. [place] lifts or holds trunk or limbs and provides more than half the effort. 2-Hopbhzipa-bgsust does ALL the effort. Patient does none of the effort to complete the activity. Or, the assistance of 2 or more helpers is required for the patient to complete the activity. If activity was not attempted, code reason: 7-Patient Refused. 9-Not Applicable-not attempted and the patient did not perform the activity before the current illness, exacerbation or injury. 10-Not Attempted due to Environmental Limitations-(lack of equipment, weather restraints, etc.). 88-Not Attempted due to Medical Conditions or Safety Concerns. Weight Bearing Right Lower Extremity: Right Full Weight Bearing Left Lower Extremity: Left Partial Weight Bearing CAM Boot Exercises Supine Ex: Bridging, Ankle pumps, Quad Set, Glut sets, Heel Slides, Short Arc Quads, Scooting, Straight leg raise, Hip abd/add Supine Reps: 20 Assessment Current Status: Good Progress pt does not demonstrate safe thinking and judgement , pt. revealed that he is considering getting up through the evening to walk to the bathroom here alone, this CLAIMS SPECIALIST explained that he needs to use the call wood for help to ambulate in to the bathroom PT Short Term Goals Short Term Goals Time Frame: November 03, 2020 Roll Left & Right: 6 Sit to lyin (SBA) Lying to sitting on side of be: 4 (SBA) Sit to stand: 4 (BA) Chair/ciy-dx-vcyna transfer: 4 (CGA) Walk 10 feet: 4 (CGA) Walk 50 feet with two turns: 4 (CGA) PT Tester Equipment Goals Half-Way Goals PT Tester Equipment Goals Time Frame: November 17, 2020 Roll Left & Right (QC): 6 Sit to Lying (QC): 6 Lying-Sitting on Side/Bed(QC): 6 Sit to Stand (QC): 5 Chair/Jxl-vp-[place]de[place] Xfer(QC): 5 Toilet Transfer (QC): 5 Car Transfer (QC): 5 Does the Patient Walk: Yes Walk 10 feet (QC): 5 Walk 50ft with 2 Turns (QC): 5 Walk 150 ft (QC): 5 Walking 10ft on Uneven Surface: 5 1 Step (curb) (QC): 4 4 Steps (QC): 4 12 Steps (QC): 9 Picking up an Object (QC): 4 Wheel 50 feet with 2 turns (QC: 6 Type: Manual Wheel 150 feet: 6 PT Plan Treatment/Plan Treatment Plan: Continue Plan of Care Treatment Plan: Bed Mobility, Education, Functional Activity Ashley, Functional Strength, Group Therapy, Gait, Safety, Therapeutic Exercise, Transfers Treatment Duration: November 17, 2020 Frequency: At least 5 of 7 days/Wk (IRF) Estimated Hrs Per Day: 1.5 hours per day Patient and/or Family Agrees t: Yes Safety Risks/Education Patient Education: Correct Positioning, Disease Process, Safety Issues Time/GCodes Time In: 1330 Time Out: 1345 Total Billed Treatment Time: 15 Total Billed Treatment 1,EX15m DON FLORES CLAIMS SPECIALIST November 02, 2020 14:00
--- NOTE | 2020-11-02 16:37 | Progress Note - Cardiology ---
Cardiology SOAP Progress Note Subjective: Sitting up in recliner at the bedside Episode of chest pain last night while watching television, lower left side, aching pain Resolved and has had no further episodes No c/o SOB or palpitations Objective: I&O/Vital Signs 11/04/20 11/04/20 11/04/20 11/04/20 07:05 07:59 09:00 11:13 Temp 36.4 Pulse 78 Resp 18 B/P (MAP) 134/64 (87) Pulse Ox 94 95 94 92 O2 Delivery Nasal Cannula Room Air Room Air Room Air O2 Flow Rate 0.50 Weight (Pounds): 219 Weight (Ounces): 0.0 Weight (Calculated Kilograms): 99.941022 Constitutional: AAO x 3, well-developed, well-nourished Respiratory: No accessory muscle use, No respiratory distress; chest expansion is symmetric, chest is bilaterally symmetric, lungs clear to auscultation Cardiovascular: regular rate-rhythm Gastrointestional: No tender; soft, round, audible bowel sounds Extremities: no lower extremity edema bilateral Neurologic/Psychiatric: grossly intact (moves all extremities) Skin: No rash on exposed areas, No ulcerations on exposed areas A/P: Assessment: Episode of chest pain overnight with no further recurrence Gen malaise and physical deconditioning, undergoing rehab Recent (September 2020) sepsis of undetermined source associated with septic shock, resolved Ac renal failure in September 2020: likely ATN due to shock - resolved C-diff (+): management per Medical services CAD, s/p CABG x 3 in 2004 - Rest/Stress Regadenoson Rubidium-82 PET/CT on 04/25/17: mild to mod ischemia in LAD territory mod-sized infarction with mild residual ischemia in the RCA territory, LVEF 36% Ischemic cardiomyopathy. - Last cath and PCI at [facility] in late 2016: LM 30 ostial, LAD 100 after D2, D2 with severe prox stenosis, LCS mod diff, RI 30-40 prox, RCA occluded distally and collateralized; underwent laser atherectomy and 2.5x22 Resolute [place] MARCUS to D2 that was post dilated with 3 mm balloon (RCA not intervened on) - Chronic stable exertional angina pectoris Ischemic cm and HFrEF - Echo of 05-23-16 showed LVEF approx 35%. Global hypokinesis of the LV, somewhat more marked at the distal anteroapical area. Mild diastolic dysfunction of the LV. Mild diastolic dysfunction. Mild aortic, mitral and tricuspid regurg. No evidence of significant valvular stenosis. Mod enlargement of the LA and LV. Mild LVH S/p single ch ICD implant on 05/04/15; device functioning normally per interrogation of May 2020 DM II Hyperlipidemia Hypertension Obesity with BMI approx 31 Obstructive sleep apnea, treated with CPAP, managed by Dr Wiley H/o prostate and thyroid cancers for which he has been fully treated and they are stated to be in chronic remission. Prostate cancer followed by Dr Lilly; [facility] Mild bilat carotid plaque per u/s of 08/19/18 Chronic hardness of hearing Splenic mass diagnosed in September 2020 being managed by Med and Surg svces Right foot fracture following non-syncopal fall at home in September 2020 Plan: Continue current regimen, including increased dose of Coreg Monitor lab CANDY GARCIA November 02, 2020 16:37
--- NOTE | 2020-11-02 16:58 | Progress Note - Cardiology ---
Cardiology SOAP Progress Note Subjective: Had cp yesterday, relieved with s/l NTG, no recurrence since Gen malaise and weakness No palp or syncope or shortness of breath at rest No n/v/d Objective: I&O/Vital Signs 11/02/20 11/02/20 11/02/20 08:00 09:00 11:05 Temp 36.2 Pulse 69 Resp 18 B/P (MAP) 148/70 (96) Pulse Ox 94 96 O2 Delivery Nasal Cannula Nasal Cannula Room Air O2 Flow Rate 1.00 1.00 Weight (Pounds): 219 Weight (Ounces): 0.0 Weight (Calculated Kilograms): 99.282186 Constitutional: AAO x 3, well-developed, well-nourished Respiratory: No accessory muscle use, No respiratory distress; chest expansion is symmetric, chest is bilaterally symmetric, lungs clear to auscultation Cardiovascular: regular rate-rhythm Gastrointestional: No tender; soft, round, audible bowel sounds Extremities: no lower extremity edema bilateral Neurologic/Psychiatric: grossly intact (moves all extremities) Skin: No rash on exposed areas, No ulcerations on exposed areas A/P: Assessment: Chronic, intermittent angina pectoris. Episode of chest pain overnight with no further recurrence Gen malaise and physical deconditioning, undergoing rehab Recent (September 2020) sepsis of undetermined source associated with septic shock, resolved Ac renal failure in September 2020: likely ATN due to shock - resolved C-diff (+): management per Medical services CAD, s/p CABG x 3 in 2004 - Rest/Stress Regadenoson Rubidium-82 PET/CT on 04/25/17: mild to mod ischemia i n LAD territory mod-sized infarction with mild residual ischemia in the RCA territory, LVEF 36% Ischemic cardiomyopathy. - Last cath and PCI at [facility] in late 2016: LM 30 ostial, LAD 100 after D2, D2 with severe prox stenosis, LCS mod diff, RI 30-40 prox, RCA occluded distally and collateralized; underwent laser atherectomy and 2.5x22 Resolute [place] MARCUS to D2 that was post dilated with 3 mm balloon (RCA not intervened on) - Chronic stable exertional angina pectoris Ischemic cm and HFrEF - Echo of 05-23-16 showed LVEF approx 35%. Global hypokinesis of the LV, somewhat more marked at the distal anteroapical area. Mild diastolic dysfunction of the LV. Mild diastolic dysfunction. Mild aortic, mitral and tricuspid regurg. No evidence of significant valvular stenosis. Mod enlargement of the LA and LV. Mild LVH S/p single ch ICD implant on 05/04/15; device functioning normally per in terrogation of May 2020 DM II Hyperlipidemia Hypertension Obesity with BMI approx 31 Obstructive sleep apnea, treated with CPAP, managed by Dr Wiley H/o prostate and thyroid cancers for which he has been fully treated and they are stated to be in chronic remission. Prostate cancer followed by Dr Lilly; thyroid cancer [facility] Mild bilat carotid plaque per u/s of 08/19/18 Chronic hardness of hearing Splenic mass diagnosed in September 2020 being managed by Med and Surg svces Right foot fracture following non-syncopal fall at home in September 2020 Plan: Continue current regimen, including increased dose of Coreg Monitor BLADE Coombs MD FACP FAC CCDS November 02, 2020 16:58
[2020-11-02] MEDS: ASPIRIN E.C. 81 MG (ECOTRIN) TAB PO SCH (18:35)
[2020-11-02 18:36] VITALS: BP 150/73
[2020-11-02 20:00] VITALS: BP 146/73
[2020-11-03] MEDS: LEVOTHYROXINE 112 MCG (LEVOTHROID) TAB PO SCH (06:10)
[2020-11-03] MEDS: CATHETER FLUSH 10 ML SYR IV SCH ×3 (06:11→21:57)
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
[2020-11-03] MEDS: NYSTATIN ORAL SUSP 5 ML UDC PO SCH ×5 (06:14→20:01)
[2020-11-03] MEDS: RT-BUDESONIDE NEBS 0.5 MG/2ML (PULMICORT) AMP IH SCH ×2 (07:23→19:09)
[2020-11-03] MEDS: RT-ALBUTEROL SULF 2.5 MG/3 ML PRE-MIX VIAL IH SCH ×4 (07:23→19:09)
[2020-11-03 08:00] VITALS: BP 133/73
[2020-11-03] MEDS: HYDROcodone/APAP 5 MG/325 MG (LORTAB) TAB PO PRN ×2 (08:22→20:01)
[2020-11-03] MEDS: ISOSORBIDE MONONITRATE 60 MG (IMDUR) TAB PO SCH ×2 (08:22→18:05)
[2020-11-03] MEDS: CALCIUM CARBONATE 600 MG (CALCARB) TAB PO SCH (08:22)
[2020-11-03] MEDS: lisINopril 20 MG (PRINIVIL) TABLET PO SCH (08:22)
[2020-11-03] MEDS: DICYCLOMINE 10 MG (BENTYL) CAP PO SCH ×2 (08:22→18:05)
[2020-11-03] MEDS: fluCOnazole (DIFLUCAN) 100 MG TAB PO SCH (08:23)
[2020-11-03] MEDS: CLOPIDOGREL 75 MG (PLAVIX) TABLET PO SCH (08:23)
[2020-11-03] MEDS: DOCUSATE SODIUM 100 MG (COLACE) CAP PO SCH (09:47)
[2020-11-03] MEDS: polyethylene glycoL POWDER 17 GM (MIRALAX) PACK PO SCH (09:48)
[2020-11-03] MEDS: SENNA W/DOCUSATE (SENOKOT S) TABLET PO SCH (09:48)
--- NOTE | 2020-11-03 09:54 | Occupational Ther Daily Note ---
OT Current Status-Daily Note Subjective Pt alert, sitting in recliner. Pt agrees to therapy. No c/o pain at this time. Mental Status/Objective Patient Orientation: Person, Place, Time, Situation Attachments: IV (midline) ADL-Treatment Pt declined shower, completed sponge bath sitting in recliner. After gathering supplies, pt able to complete sponge bath independently. After set up, pt able to complete upper body dressing by self. Verbal cues only for lower body dressing to sit and thread feet into clothing, set up only. Pt ambulated into bathroom and transferred to toilet independently. Pt stood at toilet to urinate with no LOB, independently. Ambulated to sink to complete hand washing. Therapy Code Descriptions/Definitions Functional [place] Measure: 0=Not Assessed/NA 4=Minimal Assistance 1=Total Assistance 5=Supervision or Setup 2=Maximal Assistance 6=Modified [place] 3=Moderate Assistance 7=Complete IndependenceSCALE: Activities may be completed with or without assistive devices. 9-Hhepkllhmq-svzfsyi completes the activity by him/herself with no assistance from a helper. 5-Set-up or Clean-up Assistance-helper sets up or cleans up; patient completes activity. [place] assists only prior to or following the activity. 4-Supervision or Touching Assistance-helper provides verbal cues and/or touching/steadying and/or contact guard assistance as patient completes activity. Assistance may be provided throughout the activity or intermittently. 3-Partial/Moderate Assistance-helper does LESS THAN HALF the effort. [place] lifts, holds or supports trunk or limbs, but provides less than half the effort. 2-Substantial/Maximal Assistance-helper does MORE THAN HALF the effort. [place] lifts or holds trunk or limbs and provides more than half the effort. 0-Cmrgdzlbi-gfnmkm does ALL the effort. Patient does none of the effort to complete the activity. Or, the assistance of 2 or more helpers is required for the patient to complete the activity. If activity was not attempted, code reason: 7-Patient Refused. 9-Not Applicable-not attempted and the patient did not perform the activity before the current illness, exacerbation or injury. 10-Not Attempted due to Environmental Limitations-(lack of equipment, weather restraints, etc.). 88-Not Attempted due to Medical Conditions or Safety Concerns. Shower/Bathe Self (QC): 5 Upper Body Dressing (QC): 5 Lower Body Dressing (QC): 5 Toileting Hygiene (QC): 6 Toilet Transfer (QC): 6 Other Treatment Pt propelled w/c to therapy gym to complete B UE exercises to increase strength and activity tolerance for daily functional. B UE pulleys with 1# wt attached to wrists for 5 min. Resistive clothes pins completed 1x with each hand. Wrist flex/ext/rad deviation completed 3 sets 10 reps, 2# with L hand 3# with R hand. After session, pt sitting in recliner with call light/phone in reach. All needs met in room. OT Short Term Goals Short Term Goals Time Frame: November 03, 2020 Oral hygiene: 5 Shower/bathe self: 4 Lower body dressin Putting on/taking off footwear: 4 OT News Director Goals News Director Goals Time Frame: November 19, 2020 Eating (QC): 6 Oral Hygiene (QC): 6 Toileting Hygiene (QC): 6 Shower/Bathe Self (QC): 6 Upper Body Dressing (QC): 6 Lower Body Dressing (QC): 6 On/Off Footwear (QC): 6 Additional Goals: 1-Demonstrate ADL Tasks, 2-Verbalize Understanding, 3- ImproveStrength/Ashley 1=Demonstrate adherence to instructed precautions during ADL tasks. 2=Patient will verbalize/demonstrate understanding of assistive devices /modifications for ADL. 3=Patient will improve strength/tolerance for activity to enable patient to perform ADL's. OT Education/Plan Problem List/Assessment Assessment: Decreased Activ Tolerance, Decreased UE Strength, Impaired Self- Care Skills Discharge Recommendations Plan/Recommendations: Continue POC Treatment Plan/Plan of Care Patient would benefit from OT for education, treatment and training to promote independence in ADL's, mobility, safety and/or upper extremity function for ADL's. Plan of Care: ADL Retraining, Functional Mobility, Group Exercise/Act as Ind, UE Funct Exercise/Act Treatment Duration: November 19, 2020 Frequency: At least 5 of 7 days/Wk (IRF) Estimated Hrs Per Day: 1.5 hours per day Rehab Potential: Fair Time/GCodes Start Time: 08:45 Stop Time: 10:00 Total Time Billed (hr/min): 75 Billed Treatment Time 1 visit-ADL 3 (45 min) EX 2 (30 min) BRISEIDA DURAN November 03, 2020 09:54
[2020-11-03] MEDS: CHOLESTYRAMINE 4 GM (QUESTRAN LITE, PREVALITE) PKT PO SCH (10:00)
--- NOTE | 2020-11-03 10:28 | Speech Therapy Daily Note ---
Speech Daily Progress Note Subjective Date Seen by Provider: November 03, 2020 Time Seen by Provider: 00:30 Pt was alert and pleasant. Pt agreed ST services. Pt is eager to return home. Objective Patient completed recall of information activities related to daily activities at 90% with minimal cues. Assessment Assessment Current Status: Good Progress Treatment Plan Continue Plan of Care Speech Short Term Goals Short Term Goals Short Term Goals 1.) Patient will complete safety awareness activities related to their daily activities at 80% with minimal cues. 2.) Patient will complete memory activities related to their daily activities at 80% with minimal cues. 3.) Patient will complete recall of information activities related to their daily activities at 80% with minimal cues. Speech Head Sugar Reprocess Operator Goals Prison Goals Patient will improve cognitive-communication skills necessary for safety and daily living tasks with minimal assist. Speech-Plan Patient/Family Goals Patient/Family Goals: Pt plans to return home where his family will be close to take care of needs as they arise. Treatment Plan Speech Therapy Treatment Plan: Continue Plan of Care Treatment Duration: November 12, 2020 Frequency: 4 times per week (4-5x per week) Estimated Hrs Per Day: .5 hour per day Rehab Potential: Fair Barriers to Learning: Medical status and age. Pt/Family Agrees to Plan: Yes Safety Risks/Education Teaching Recipient: Patient Teaching Methods: Discussion Response to Teaching: Verbalize Understanding, Reinforcement Needed Education Topics Provided: Safety awareness and compensatory memory strategies. Time Speech Therapy Time In: 11:00 Speech Therapy Time Out: 11:30 Total Billed Time: 30 Billed Treatment Time 1, YANDY Bains November 03, 2020 10:28
--- NOTE | 2020-11-03 11:05 | Physical Therapy Daily Note ---
PT Daily Note-Current Subjective Pt. agrees to Rx and asks if he can go home today. Pt. states he really only sits around at home and he feels he has proven that he is really good at that here. Pt. does not demonstrate safe awareness Pain Location: No Pain Reported Mental Status Patient Orientation: Person, Place Attachments: Other-See Comments (walker boot, mask) Transfers SCALE: Activities may be completed with or without assistive devices. 0-Ueffxwiktw-nfyyihp completes the activity by him/herself with no assistance from a helper. 5-Set-up or Clean-up Assistance-helper sets up or cleans up; patient completes activity. [place] assists only prior to or following the activity. 4-Supervision or Touching Assistance-helper provides verbal cues and/or touching/steadying and/or contact guard assistance as patient completes activity. Assistance may be provided throughout the activity or intermittently. 3-Partial/Moderate Assistance-helper does LESS THAN HALF the effort. [place] lifts, holds or supports trunk or limbs, but provides less than half the effort. 2-Substantial/Maximal Assistance-helper does MORE THAN HALF the effort. [place] lifts or holds trunk or limbs and provides more than half the effort. 0-Vvuwhwrur-pnexgh does ALL the effort. Patient does none of the effort to complete the activity. Or, the assistance of 2 or more helpers is required for the patient to complete the activity. If activity was not attempted, code reason: 7-Patient Refused. 9-Not Applicable-not attempted and the patient did not perform the activity before the current illness, exacerbation or injury. 10-Not Attempted due to Environmental Limitations-(lack of equipment, weather restraints, etc.). 88-Not Attempted due to Medical Conditions or Safety Concerns. Roll Left & Right (QC): 6 Sit to Lying (QC): 6 Lying to Sitting/Side of Bed(Q: 6 Sit to Stand (QC): 6 Chair/Ina-lr-Smnbe Xfer(QC): 5 Toilet Transfer (QC): 5 Car Transfer (QC): 6 Weight Bearing Right Lower Extremity: Right Full Weight Bearing Left Lower Extremity: Left Partial Weight Bearing CAM Boot Gait Training Does the Patient Walk?: Yes Walk 10 feet (QC): 4 Walk 50 ft with 2 Turns(QC): 4 Walk 150 ft (QC): 4 Walking 10ft/uneven surface-QC: 4 Gait Persons Needed: 1 Gait Assistive Device: FWW pt. needs CGA and guidance for safety and position in FWW as pt walks inside and outside of FWW at times and foot bumps walker etc. pt. does appear to maintain PWB as ordered. Stair Training Stair Training: Handrails/: 2 handrails #of Steps: 4 1 Step (curb) (QC): 4 4 Steps (QC): 4 12 Steps (QC): 88 Stairs: Pattern: Step to needs min assist and instruction for use of rails as well as sequence on steps Exercises Supine Ex: Ankle pumps, Rolling, Glut sets, Heel Slides, Scooting, Straight leg raise, Hip abd/add Supine Reps: 15 Seated Therapy Exercises: Ankle pumps, Sit to stand, Long arc quads, Hip flexion Seated Reps: 15 NuStep Minutes: 10 NuStep Workload: 3 Assessment Current Status: Good Progress pt. demonstrates poor safety awareness and needs FT supervision while on his feet, at risk for falls PT Short Term Goals Short Term Goals Time Frame: November 03, 2020 Roll Left & Right: 6 Sit to lyin (SBA) Lying to sitting on side of be: 4 (SBA) Sit to stand: 4 (BA) Chair/wje-wk-ouweu transfer: 4 (CGA) Walk 10 feet: 4 (CGA) Walk 50 feet with two turns: 4 (CGA) PT Dental Insurance Coordinator Goals Mcfp Goals PT Mcfp Goals Time Frame: November 17, 2020 Roll Left & Right (QC): 6 Sit to Lying (QC): 6 Lying-Sitting on Side/Bed(QC): 6 Sit to Stand (QC): 5 Chair/Uip-qq-Fdygx Xfer(QC): 5 Toilet Transfer (QC): 5 Car Transfer (QC): 5 Does the Patient Walk: Yes Walk 10 feet (QC): 5 Walk 50ft with 2 Turns (QC): 5 Walk 150 ft (QC): 5 Walking 10ft on Uneven Surface: 5 1 Step (curb) (QC): 4 4 Steps (QC): 4 12 Steps (QC): 9 Picking up an Object (QC): 4 Wheel 50 feet with 2 turns (QC: 6 Type: Manual Wheel 150 feet: 6 PT Plan Treatment/Plan Treatment Plan: Continue Plan of Care Treatment Plan: Bed Mobility, Education, Functional Activity Ashley, Functional Strength, Group Therapy, Gait, Safety, Therapeutic Exercise, Transfers Treatment Duration: November 17, 2020 Frequency: At least 5 of 7 days/Wk (IRF) Estimated Hrs Per Day: 1.5 hours per day Patient and/or Family Agrees t: Yes Safety Risks/Education Patient Education: Gait Training, Transfer Techniques, Steps, Correct Positioning, Disease Process, Safety Issues Teaching Recipient: Patient Teaching Methods: Demonstration, Discussion Response to Teaching: Verbalize Understanding, Return Demonstration, Reinforcement Needed Time/GCodes Time In: 1000 Time Out: 1100 Total Billed Treatment Time: 60 Total Billed Treatment 1,FA25m,GT15m,EX20m DON FLORES INSURANCE VERIFICATION SPECIALIST November 03, 2020 11:05
[2020-11-03] MEDS: ENOXAPARIN 40 MG/0.4 ML (LOVENOX) SYR SC SCH (13:45)
--- NOTE | 2020-11-03 13:52 | Physical Therapy Daily Note ---
PT Daily Note-Current Subjective Pt. agrees to Rx, needs to go to toilet Pain Location: No Pain Reported Transfers SCALE: Activities may be completed with or without assistive devices. 4-Iglkgsdndu-cpfpmjn completes the activity by him/herself with no assistance from a helper. 5-Set-up or Clean-up Assistance-helper sets up or cleans up; patient completes activity. [place] assists only prior to or following the activity. 4-Supervision or Touching Assistance-helper provides verbal cues and/or touching/steadying and/or contact guard assistance as patient completes activity. Assistance may be provided throughout the activity or intermittently. 3-Partial/Moderate Assistance-helper does LESS THAN HALF the effort. [place] lifts, holds or supports trunk or limbs, but provides less than half the effort. 2-Substantial/Maximal Assistance-helper does MORE THAN HALF the effort. [place] lifts or holds trunk or limbs and provides more than half the effort. 6-Wiridrqtq-cqbbsv does ALL the effort. Patient does none of the effort to complete the activity. Or, the assistance of 2 or more helpers is required for the patient to complete the activity. If activity was not attempted, code reason: 7-Patient Refused. 9-Not Applicable-not attempted and the patient did not perform the activity before the current illness, exacerbation or injury. 10-Not Attempted due to Environmental Limitations-(lack of equipment, weather restraints, etc.). 88-Not Attempted due to Medical Conditions or Safety Concerns. sit to stand SBA Weight Bearing Right Lower Extremity: Right Full Weight Bearing Left Lower Extremity: Left Partial Weight Bearing CAM Boot Gait Training Does the Patient Walk?: Yes Gait Assistive Device: FWW 30ft x 2 with several turns in tight spaces with pt needing mod assist for guidance and safety, pt. abandoning FWW at times ad then bearing more than 50% wt bearing, pt, needs near constant guidance for safety Exercises Seated Therapy Exercises: Ankle pumps, Sit to stand, Long arc quads, Hip flexion Seated Reps: 12 Assessment Current Status: Good Progress PT Short Term Goals Short Term Goals Time Frame: November 03, 2020 Roll Left & Right: 6 Sit to lyin (SBA) Lying to sitting on side of be: 4 (SBA) Sit to stand: 4 (BA) Chair/oad-co-aszmd transfer: 4 (CGA) Walk 10 feet: 4 (CGA) Walk 50 feet with two turns: 4 (CGA) PT Ecological Technical Officer Goals Ecological Technical Officer Goals PT Ecological Technical Officer Goals Time Frame: November 17, 2020 Roll Left & Right (QC): 6 Sit to Lying (QC): 6 Lying-Sitting on Side/Bed(QC): 6 Sit to Stand (QC): 5 Chair/Zrg-qq-Mbplt Xfer(QC): 5 Toilet Transfer (QC): 5 Car Transfer (QC): 5 Does the Patient Walk: Yes Walk 10 feet (QC): 5 Walk 50ft with 2 Turns (QC): 5 Walk 150 ft (QC): 5 Walking 10ft on Uneven Surface: 5 1 Step (curb) (QC): 4 4 Steps (QC): 4 12 Steps (QC): 9 Picking up an Object (QC): 4 Wheel 50 feet with 2 turns (QC: 6 Type: Manual Wheel 150 feet: 6 PT Plan Treatment/Plan Treatment Plan: Continue Plan of Care Treatment Plan: Bed Mobility, Education, Functional Activity Ashley, Functional Strength, Group Therapy, Gait, Safety, Therapeutic Exercise, Transfers Treatment Duration: November 17, 2020 Frequency: At least 5 of 7 days/Wk (IRF) Estimated Hrs Per Day: 1.5 hours per day Patient and/or Family Agrees t: Yes Safety Risks/Education Patient Education: Gait Training, Transfer Techniques, Correct Positioning Response to Teaching: Reinforcement Needed Time/GCodes Time In: 1330 Time Out: 1345 Total Billed Treatment Time: 15 Total Billed Treatment 1,FA15m DON FLORES TREASURY MANAGEMENT SALES CONSULTANT November 03, 2020 13:52
[2020-11-03] MEDS ORDERED: SENNA W/DOCUSATE (SENOKOT S) TABLET PO PRN (16:15)
[2020-11-03] MEDS ORDERED: polyethylene glycoL POWDER 17 GM (MIRALAX) PACK PO PRN (16:15)
--- NOTE | 2020-11-03 17:37 | Progress Note - Cardiology ---
Cardiology SOAP Progress Note Subjective: Gen weakness and malaise are improving No shortness of breath or palp or syncope Intermittent chest discomfort (chronic issue) No n/v/d Objective: I&O/Vital Signs 11/03/20 11/03/20 11/03/20 11/03/20 07:23 08:00 09:00 14:24 Temp 36.0 Pulse 79 Resp 20 B/P (MAP) 133/73 (93) Pulse Ox 96 96 92 O2 Delivery Nasal Cannula Nasal Cannula Nasal Cannula Nasal Cannula O2 Flow Rate 1.00 1.00 1.00 1.00 Weight (Pounds): 219 Weight (Ounces): 0.0 Weight (Calculated Kilograms): 99.633404 Constitutional: AAO x 3, well-developed, well-nourished Respiratory: No accessory muscle use, No respiratory distress; chest expansion is symmetric, chest is bilaterally symmetric, lungs clear to auscultation Cardiovascular: regular rate-rhythm Gastrointestional: No tender; soft, round, audible bowel sounds Extremities: no lower extremity edema bilateral Neurologic/Psychiatric: grossly intact (moves all extremities) Skin: No rash on exposed areas, No ulcerations on exposed areas A/P: Assessment: Chronic, intermittent angina pectoris. Episode of chest pain overnight with no further recurrence Gen malaise and physical deconditioning, undergoing rehab Recent (September 2020) sepsis of undetermined source associated with septic shock, resolved Ac renal failure in September 2020: likely ATN due to shock - resolved C-diff (+): management per Medical services CAD, s/p CABG x 3 in 2004 - Rest/Stress Regadenoson Rubidium-82 PET/CT on 04/25/17: mild to mod ischemia in LAD territory mod-sized infarction with mild residual ischemia in the RCA territory, LVEF 36% Ischemic cardiomyopathy. - Last cath and PCI at [facility] in late 2017: LM 30 ostial, LAD 100 after D2, D2 with severe prox stenosis, LCS mod diff, RI 30-40 prox, RCA occluded distally and collateralized; underwent laser atherectomy and 2.5x22 Resolute [place] MARCUS to D2 that was post dilated with 3 mm balloon (RCA not intervened on) - Chronic stable exertional angina pectoris Ischemic cm and HFrEF - Echo of 05-23-16 showed LVEF approx 35%. Global hypokinesis of the LV, somewhat more marked at the distal anteroapical area. Mild diastolic dysfunction of the LV. Mild diastolic dysfunction. Mild aortic, mitral and tricuspid regurg. No evidence of significant valvular stenosis. Mod enlargement of the LA and LV. Mild LVH S/p single ch ICD implant on 05/04/15; device functioning normally per interrogation of May 2020 DM II Hyperlipidemia Hypertension Obesity with BMI approx 31 Obstructive sleep apnea, treated with CPAP, managed by Dr Wiley H/o prostate and thyroid cancers for which he has been fully treated and they are stated to be in chronic remission. Prostate cancer followed by Dr Lilly; thyroid [facility] Mild bilat carotid plaque per u/s of 08/19/18 Chronic hardness of hearing Splenic mass diagnosed in September 2020 being managed by [facility] S[facility] Right foot fracture following non-syncopal fall at home in September 2020 Plan: Continue current regimen, including increased dose of Coreg Monitor lab from time to time BLADE PICKERING MD FACP FACC CCDS November 03, 2020 17:37
[2020-11-03] MEDS: ASPIRIN E.C. 81 MG (ECOTRIN) TAB PO SCH (18:05)
[2020-11-03 18:06] VITALS: BP 142/73
[2020-11-03 20:00] VITALS: BP 136/68
[2020-11-04] MEDS: CATHETER FLUSH 10 ML SYR IV SCH ×3 (06:11→20:27)
[2020-11-04] MEDS: NYSTATIN ORAL SUSP 5 ML UDC PO SCH ×5 (06:16→20:27)
[2020-11-04] MEDS: LEVOTHYROXINE 112 MCG (LEVOTHROID) TAB PO SCH (06:16)
[2020-11-04] MEDS: RT-ALBUTEROL SULF 2.5 MG/3 ML PRE-MIX VIAL IH SCH ×4 (07:04→22:05)
[2020-11-04] MEDS: RT-BUDESONIDE NEBS 0.5 MG/2ML (PULMICORT) AMP IH SCH ×2 (07:04→22:05)
[2020-11-04 07:59] VITALS: BP 134/64
[2020-11-04] MEDS: fluCOnazole (DIFLUCAN) 100 MG TAB PO SCH (08:01)
[2020-11-04] MEDS: ISOSORBIDE MONONITRATE 60 MG (IMDUR) TAB PO SCH ×2 (08:01→18:10)
[2020-11-04] MEDS: CLOPIDOGREL 75 MG (PLAVIX) TABLET PO SCH (08:01)
[2020-11-04] MEDS: DICYCLOMINE 10 MG (BENTYL) CAP PO SCH ×2 (08:01→18:10)
[2020-11-04] MEDS: CALCIUM CARBONATE 600 MG (CALCARB) TAB PO SCH (08:01)
[2020-11-04] MEDS: lisINopril 20 MG (PRINIVIL) TABLET PO SCH (08:01)
[2020-11-04] MEDS: HYDROcodone/APAP 5 MG/325 MG (LORTAB) TAB PO PRN ×2 (08:02→20:26)
--- NOTE | 2020-11-04 09:12 | Occupational Ther Daily Note ---
OT Current Status-Daily Note Subjective Pt alert, sitting in recliner. Pt states that he overdid it with PT and is tired. Agrees to therapy. No c/o pain. Mental Status/Objective Patient Orientation: Person, Place, Time, Situation Attachments: IV (midline) ADL-Treatment 1st session([id number])Pt declines shower, agrees to sponge bath. Pt ambulates into bathroom with FWW and sits at sink to complete sponge bath independently. Completes oral care independently. Standing at sink, pt completes toileting independently. Therapy Code Descriptions/Definitions Functional [place] Measure: 0=Not Assessed/NA 4=Minimal Assistance 1=Total Assistance 5=Supervision or Setup 2=Maximal Assistance 6=Modified [place] 3=Moderate Assistance 7=Complete IndependenceSCALE: Activities may be completed with or without assistive devices. 0-Vgnyvxqjly-vojmgvc completes the activity by him/herself with no assistance from a helper. 5-Set-up or Clean-up Assistance-helper sets up or cleans up; patient completes activity. [place] assists only prior to or following the activity. 4-Supervision or Touching Assistance-helper provides verbal cues and/or touching/steadying and/or contact guard assistance as patient completes activity. Assistance may be provided throughout the activity or intermittently. 3-Partial/Moderate Assistance-helper does LESS THAN HALF the effort. [place] lifts, holds or supports trunk or limbs, but provides less than half the effort. 2-Substantial/Maximal Assistance-helper does MORE THAN HALF the effort. [place] lifts or holds trunk or limbs and provides more than half the effort. 3-Ikadiziyc-mljhid does ALL the effort. Patient does none of the effort to complete the activity. Or, the assistance of 2 or more helpers is required for the patient to complete the activity. If activity was not attempted, code reason: 7-Patient Refused. 9-Not Applicable-not attempted and the patient did not perform the activity before the current illness, exacerbation or injury. 10-Not Attempted due to Environmental Limitations-(lack of equipment, weather restraints, etc.). 88-Not Attempted due to Medical Conditions or Safety Concerns. Oral Hygiene (QC): 6 Shower/Bathe Self (QC): 6 Upper Body Dressing (QC): 5 Toileting Hygiene (QC): 6 Toilet Transfer (QC): 6 Other Treatment 1st session([id number]): Pt ambulated to therapy gym using FWW. Pt completed arm bike for 15 min at 15 vazquez resistance to increase strength and activity tolerance for daily functional tasks. Pt then ambulated prison back to room then propelled w/c the rest of the way. At end of session, pt sitting in recliner with call light/phone in reach. All needs met in room. 2nd session([id number]): Pt completed medium resistance theraband exercises for B UE to increase strength for daily functional tasks. 2 exercises 3 sets 10 reps with multiple recovery breaks. After session, pt sitting in recliner with call light/phone in reach. All needs met in room. OT Short Term Goals Short Term Goals Time Frame: November 03, 2020 Oral hygiene: 5 Shower/bathe self: 4 Lower body dressin Putting on/taking off footwear: 4 OT Fpc Goals Fpc Goals Time Frame: November 19, 2020 Eating (QC): 6 Oral Hygiene (QC): 6 Toileting Hygiene (QC): 6 Shower/Bathe Self (QC): 6 Upper Body Dressing (QC): 6 Lower Body Dressing (QC): 6 On/Off Footwear (QC): 6 Additional Goals: 1-Demonstrate ADL Tasks, 2-Verbalize Understanding, 3- ImproveStrength/Ashley 1=Demonstrate adherence to instructed precautions during ADL tasks. 2=Patient will verbalize/demonstrate understanding of assistive devices/modifications for ADL. 3=Patient will improve strength/tolerance for activity to enable patient to perform ADL's. OT Education/Plan Problem List/Assessment Assessment: Decreased Activ Tolerance, Decreased UE Strength, Impaired Self- Care Skills Discharge Recommendations Plan/Recommendations: Continue POC Treatment Plan/Plan of Care Patient would benefit from OT for education, treatment and training to promote independence in ADL's, mobility, safety and/or upper extremity function for ADL's. Plan of Care: ADL Retraining, Functional Mobility, Group Exercise/Act as Ind, UE Funct Exercise/Act Treatment Duration: November 19, 2020 Frequency: At least 5 of 7 days/Wk (IRF) Estimated Hrs Per Day: 1.5 hours per day Rehab Potential: Fair Time/GCodes Start Time: 09:00 (1245) Stop Time: 10:00 (1300) Total Time Billed (hr/min): 75 Billed Treatment Time 1 visit([id number]): ADL 3 (45 min) EX 1 (15 min) 1 visit([id number]): EX 1 (15 min) BRISEIDA DURAN November 04, 2020 09:12
--- NOTE | 2020-11-04 09:35 | Progress Note - Cardiology ---
Cardiology SOAP Progress Note Subjective: No cp or palp or syncope No n/v/d No shortness of breath Gen malaise steadily improving Objective: I&O/Vital Signs 11/04/20 11/04/20 07:05 07:59 Temp 36.4 Pulse 78 Resp 18 B/P (MAP) 134/64 (87) Pulse Ox 94 95 O2 Delivery Nasal Cannula Room Air O2 Flow Rate 0.50 Weight (Pounds): 219 Weight (Ounces): 0.0 Weight (Calculated Kilograms): 99.417676 Constitutional: AAO x 3, well-developed, well-nourished Respiratory: No accessory muscle use, No respiratory distress; chest expansion is symmetric, chest is bilaterally symmetric, lungs clear to auscultation Cardiovascular: regular rate-rhythm Gastrointestional: No tender; soft, round, audible bowel sounds Extremities: no lower extremity edema bilateral Neurologic/Psychiatric: grossly intact (moves all extremities) Skin: No rash on exposed areas, No ulcerations on exposed areas A/P: Assessment: Chronic, intermittent angina pectoris, stable Gen malaise and physical deconditioning, undergoing rehab Recent (September 2020) sepsis of undetermined source associated with septic shock, resolved Ac renal failure in September 2020: likely ATN due to shock - resolved C-diff (+): management per Medical services CAD, s/p CABG x 3 in 2004 - Rest/Stress Regadenoson Rubidium-82 PET/CT on 04/25/17: mild to mod ischemia in LAD territory mod-sized infarction with mild residual ischemia in the RCA territory, LVEF 36% Ischemic cardiomyopathy. - Last cath and PCI at [facility] in late 2016: LM 30 ostial, LAD 100 after D2, D2 with severe prox stenosis, LCS mod diff, RI 30-40 prox, RCA occluded distally and collateralized; underwent laser atherectomy and 2.5x22 Resolute [place] MARCUS to D2 that was post dilated with 3 mm balloon (RCA not intervened on) - Chronic stable exertional angina pectoris Ischemic cm and HFrEF - Echo of 05-23-16 showed LVEF approx 35%. Global hypokinesis of the LV, somewhat more marked at the distal anteroapical area. Mild diastolic dysfunction of the LV. Mild diastolic dysfunction. Mild aortic, mitral and tricuspid regurg. No evidence of significant valvular stenosis. Mod enlargement of the LA and LV. Mild LVH S/p single ch ICD implant on 05/04/15; device functioning normally per interrogation of May 2020 DM II Hyperlipidemia Hypertension Obesity with BMI approx 31 Obstructive sleep apnea, treated with CPAP, managed by Dr Wiley H/o prostate and thyroid cancers for which he has been fully treated and they are stated to be in chronic remission. Prostate cancer followed by Dr Lilly; thyroid cancer [facility] Mild bilat carotid plaque per u/s of 08/19/18 Chronic hardness of hearing Splenic mass diagnosed in September 2020 being managed by Med and Surg svces Right foot fracture following non-syncopal fall at home in September 2020 Plan: No chest discomfort in more than 24 hrs Continue current regimen, including increased dose of Coreg Monitor lab from time to time BLADE PICKERING MD FACP FAC CCDS November 04, 2020 09:35
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
--- NOTE | 2020-11-04 10:11 | Physical Therapy Daily Note ---
PT Daily Note-Current Subjective Pt sitting in recliner upon arrival. Pt agrees to PT. Mental Status Patient Orientation: Person, Place, Time, Situation Attachments: Other-See Comments (CAM boot) Transfers SCALE: Activities may be completed with or without assistive devices. 0-Quwqptlmlg-yfdepim completes the activity by him/herself with no assistance from a helper. 5-Set-up or Clean-up Assistance-helper sets up or cleans up; patient completes activity. [place] assists only prior to or following the activity. 4-Supervision or Touching Assistance-helper provides verbal cues and/or touching/steadying and/or contact guard assistance as patient completes activity. Assistance may be provided throughout the activity or intermittently. 3-Partial/Moderate Assistance-helper does LESS THAN HALF the effort. [place] lifts, holds or supports trunk or limbs, but provides less than half the effort. 2-Substantial/Maximal Assistance-helper does MORE THAN HALF the effort. [place] lifts or holds trunk or limbs and provides more than half the effort. 0-Oiqunropr-vcumsm does ALL the effort. Patient does none of the effort to complete the activity. Or, the assistance of 2 or more helpers is required for the patient to complete the activity. If activity was not attempted, code reason: 7-Patient Refused. 9-Not Applicable-not attempted and the patient did not perform the activity before the current illness, exacerbation or injury. 10-Not Attempted due to Environmental Limitations-(lack of equipment, weather restraints, etc.). 88-Not Attempted due to Medical Conditions or Safety Concerns. Sit to Stand (QC): 5 Weight Bearing Right Lower Extremity: Right Full Weight Bearing Left Lower Extremity: Left Partial Weight Bearing CAM Boot Gait Training Does the Patient Walk?: Yes Distance: 150' Walk 10 feet (QC): 5 Walk 50 ft with 2 Turns(QC): 5 Walk 150 ft (QC): 5 Gait Persons Needed: 1 Gait Assistive Device: FWW Pt needs VC for WB as pt tries to put more than PWB. Wheelchair Training Does the Pt Use a Wheelchair?: Yes Wheel 50 ft with 2 turns (QC): 5 Wheel 150 ft (QC): 5 Type of Wheelchair: Manual Exercises NuStep Minutes: 15 NuStep Workload: 4 Treatments TF to standing and amb. in hallway. Pt uses NuStep then returns to [facility] to propel self in hallway and back to room. TF back to recliner to rest, all needs met, call light in hand. Assessment Current Status: Good Progress Pt needs VC to remember WB status. PT Short Term Goals Short Term Goals Time Frame: November 03, 2020 Roll Left & Right: 6 Sit to lyin (SBA) Lying to sitting on side of be: 4 (SBA) Sit to stand: 4 (BA) Chair/egi-pa-xrjjq transfer: 4 (CGA) Walk 10 feet: 4 (CGA) Walk 50 feet with two turns: 4 (CGA) PT Halfway Goals [place]illing Operator Goals PT Halfway Goals Time Frame: November 17, 2020 Roll Left & Right (QC): 6 Sit to Lying (QC): 6 Lying-Sitting on Side/Bed(QC): 6 Sit to Stand (QC): 5 Chair/Dgu-xf-Kefdt Xfer(QC): 5 Toilet Transfer (QC): 5 Car Transfer (QC): 5 Does the Patient Walk: Yes Walk 10 feet (QC): 5 Walk 50ft with 2 Turns (QC): 5 Walk 150 ft (QC): 5 Walking 10ft on Uneven Surface: 5 1 Step (curb) (QC): 4 4 Steps (QC): 4 12 Steps (QC): 9 Picking up an Object (QC): 4 Wheel 50 feet with 2 turns (QC: 6 Type: Manual Wheel 150 feet: 6 PT Plan Problem List Problem List: Activity Tolerance, Functional Strength, Gait Treatment/Plan Treatment Plan: Continue Plan of Care Treatment Plan: Bed Mobility, Education, Functional Activity Ashley, Functional Strength, Group Therapy, Gait, Safety, Therapeutic Exercise, Transfers Treatment Duration: November 17, 2020 Frequency: At least 5 of 7 days/Wk (IRF) Estimated Hrs Per Day: 1.5 hours per day Patient and/or Family Agrees t: Yes Safety Risks/Education Patient Education: Gait Training, Correct Positioning, Safety Issues Teaching Recipient: Patient Teaching Methods: Discussion Response to Teaching: Verbalize Understanding Time/GCodes Time In: 800 Time Out: 845 Total Billed Treatment Time: 45 Total Billed Treatment 1, GT (15m), WCH (15) & EX (15m) KELBY DILLON TRAIN ELECTRONIC TECHNICIAN November 04, 2020 10:11
--- NOTE | 2020-11-04 10:20 | Speech Therapy Daily Note ---
Speech Daily Progress Note Subjective Date Seen by Provider: November 04, 2020 Time Seen by Provider: 00:30 Pt was alert and pleasant. Pt agreed to ST services. Pt reported he is eager to go home but is not looking forward to being alone for social reasons. Objective Patient completed safety awareness tasks related to daily needs at 80% with maximum cuing. Assessment Assessment Current Status: Good Progress Treatment Plan Continue Plan of Care Speech Short Term Goals Short Term Goals Short Term Goals 1.) Patient will complete safety awareness activities related to their daily a ctivities at 80% with minimal cues. 2.) Patient will complete memory activities related to their daily activities at 80% with minimal cues. 3.) Patient will complete recall of information activities related to their daily activities at 80% with minimal cues. Speech Residential Goals Brake Repairer Goals Patient will improve cognitive-communication skills necessary for safety and daily living tasks with minimal assist. Speech-Plan Patient/Family Goals Patient/Family Goals: Pt plans to return home upon D/C from [facility] where he lives independently. Treatment Plan Speech Therapy Treatment Plan: Continue Plan of Care Treatment Duration: November 12, 2020 Frequency: 4 times per week (4-5x per week) Estimated Hrs Per Day: .5 hour per day Rehab Potential: Fair Barriers to Learning: Medical status. Pt/Family Agrees to Plan: Yes Safety Risks/Education Teaching Recipient: Patient Teaching Methods: Demonstration, Discussion Response to Teaching: Verbalize Understanding, Return Demonstration Education Topics Provided: Safety awareness and cognitive strategies. Time Speech Therapy Time In: 11:30 Speech Therapy Time Out: 12:00 Total Billed Time: 30 Billed Treatment Time 1, YANDY Bains November 04, 2020 10:20
[2020-11-04] MEDS: CHOLESTYRAMINE 4 GM (QUESTRAN LITE, PREVALITE) PKT PO SCH (10:58)
[2020-11-04] MEDS: ENOXAPARIN 40 MG/0.4 ML (LOVENOX) SYR SC SCH (13:04)
--- NOTE | 2020-11-04 16:20 | Physical Therapy Daily Note ---
PT Daily Note-Current Subjective Pt sitting in room visiting with daughter Josee. Pt agrees to PT. Daughter asks a few questions about possible DC and pt's progress. Pain Location: No Pain Reported Mental Status Patient Orientation: Person, Place, Situation Attachments: Other-See Comments (Cam boot) Transfers SCALE: Activities may be completed with or without assistive devices. 9-Dlkbkpicid-psfdspw completes the activity by him/herself with no assistance from a helper. 5-Set-up or Clean-up Assistance-helper sets up or cleans up; patient completes activity. [place] assists only prior to or following the activity. 4-Supervision or Touching Assistance-helper provides verbal cues and/or touching/steadying and/or contact guard assistance as patient completes activity. Assistance may be provided throughout the activity or intermittently. 3-Partial/Moderate Assistance-helper does LESS THAN HALF the effort. [place] lifts, holds or supports trunk or limbs, but provides less than half the effort. 2-Substantial/Maximal Assistance-helper does MORE THAN HALF the effort. [place] lifts or holds trunk or limbs and provides more than half the effort. 4-Shfmdsxoy-ftrtvt does ALL the effort. Patient does none of the effort to complete the activity. Or, the assistance of 2 or more helpers is required for the patient to complete the activity. If activity was not attempted, code reason: 7-Patient Refused. 9-Not Applicable-not attempted and the patient did not perform the activity before the current illness, exacerbation or injury. 10-Not Attempted due to Environmental Limitations-(lack of equipment, weather restraints, etc.). 88-Not Attempted due to Medical Conditions or Safety Concerns. Sit to Stand (QC): 5 Toilet Transfer (QC): 5 Weight Bearing Right Lower Extremity: Right Full Weight Bearing Left Lower Extremity: Left Partial Weight Bearing CAM Boot Gait Training Does the Patient Walk?: Yes Distance: 100' Walk 10 feet (QC): 5 Walk 50 ft with 2 Turns(QC): 5 Gait Persons Needed: 1 Gait Assistive Device: FWW Pt is encouraged to use WB status. NATIONAL SECRETARY also encourages picking up feet instead of shuffling. Treatments Discussion about progress and what questions or what is needed for DC. SW visits with Daughter as well after tx. TF to standing and amb. in hallway as well as uses BR. Pt returns to room to rest. All needs met, call light in lo kohler Assessment Current Status: Good Progress Pt recognizes and remembers he cannot shuffle feet but still needs occasional VC for adhering to WB status. PT Short Term Goals Short Term Goals Time Frame: November 03, 2020 Roll Left & Right: 6 Sit to lyin (SBA) Lying to sitting on side of be: 4 (SBA) Sit to stand: 4 (BA) Chair/acj-by-vuawb transfer: 4 (CGA) Walk 10 feet: 4 (CGA) Walk 50 feet with two turns: 4 (CGA) PT Retirement Goals Retirement Goals PT Shroud Line Tier Goals Time Frame: November 17, 2020 Roll Left & Right (QC): 6 Sit to Lying (QC): 6 Lying-Sitting on Side/Bed(QC): 6 Sit to Stand (QC): 5 Chair/Ijv-st-Rikum Xfer(QC): 5 Toilet Transfer (QC): 5 Car Transfer (QC): 5 Does the Patient Walk: Yes Walk 10 feet (QC): 5 Walk 50ft with 2 Turns (QC): 5 Walk 150 ft (QC): 5 Walking 10ft on Uneven Surface: 5 1 Step (curb) (QC): 4 4 Steps (QC): 4 12 Steps (QC): 9 Picking up an Object (QC): 4 Wheel 50 feet with 2 turns (QC: 6 Type: Manual Wheel 150 feet: 6 PT Plan Problem List Problem List: Activity Tolerance, Safety, Gait Treatment/Plan Treatment Plan: Continue Plan of Care Treatment Plan: Bed Mobility, Education, Functional Activity Ashley, Functional Strength, Group Therapy, Gait, Safety, Therapeutic Exercise, Transfers Treatment Duration: November 17, 2020 Frequency: At least 5 of 7 days/Wk (IRF) Estimated Hrs Per Day: 1.5 hours per day Patient and/or Family Agrees t: Yes Safety Risks/Education Patient Education: Gait Training, Correct Positioning, Safety Issues Teaching Recipient: Patient, Family Teaching Methods: Discussion Response to Teaching: Verbalize Understanding Time/GCodes Time In: 1355 Time Out: 1425 Total Billed Treatment Time: 30 Total Billed Treatment 1, FA (15m) & GT (15m) KELBY DILLON NATIONAL SECRETARY November 04, 2020 16:20
[2020-11-04] MEDS: ASPIRIN E.C. 81 MG (ECOTRIN) TAB PO SCH (18:12)
[2020-11-04 20:00] VITALS: BP 153/73
[2020-11-05] MEDS: NYSTATIN ORAL SUSP 5 ML UDC PO SCH ×5 (05:10→20:43)
[2020-11-05] MEDS: LEVOTHYROXINE 112 MCG (LEVOTHROID) TAB PO SCH (05:10)
[2020-11-05] MEDS: CATHETER FLUSH 10 ML SYR IV SCH ×3 (05:11→20:42)
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
[2020-11-05] MEDS: RT-ALBUTEROL SULF 2.5 MG/3 ML PRE-MIX VIAL IH SCH ×4 (06:56→18:35)
[2020-11-05] MEDS: RT-BUDESONIDE NEBS 0.5 MG/2ML (PULMICORT) AMP IH SCH ×2 (06:56→18:35)
[2020-11-05 08:00] VITALS: BP 126/61
[2020-11-05] MEDS: CALCIUM CARBONATE 600 MG (CALCARB) TAB PO SCH (08:07)
[2020-11-05] MEDS: lisINopril 20 MG (PRINIVIL) TABLET PO SCH (08:07)
[2020-11-05] MEDS: CLOPIDOGREL 75 MG (PLAVIX) TABLET PO SCH (08:07)
[2020-11-05] MEDS: DICYCLOMINE 10 MG (BENTYL) CAP PO SCH ×2 (08:07→17:14)
[2020-11-05] MEDS: ISOSORBIDE MONONITRATE 60 MG (IMDUR) TAB PO SCH ×2 (08:07→17:14)
[2020-11-05] MEDS: HYDROcodone/APAP 5 MG/325 MG (LORTAB) TAB PO PRN (08:08)
--- NOTE | 2020-11-05 09:29 | Progress Note - Cardiology ---
Cardiology SOAP Progress Note Objective: I&O/Vital Signs 11/07/20 11/08/20 11/08/20 20:39 06:48 06:53 Pulse Ox 92 98 O2 Delivery Room Air Room Air Weight (Pounds): 219 Weight (Ounces): 0.0 Weight (Calculated Kilograms): 99.805126 Constitutional: AAO x 3, well-developed, well-nourished Respiratory: No accessory muscle use, No respiratory distress; chest expansion is symmetric, chest is bilaterally symmetric, lungs clear to auscultation Cardiovascular: regular rate-rhythm Gastrointestional: No tender; soft, round, audible bowel sounds Extremities: no lower extremity edema bilateral Neurologic/Psychiatric: grossly intact (moves all extremities) Skin: No rash on exposed areas, No ulcerations on exposed areas Results/Procedures: Labs Laboratory Tests 11/08/20 05:55: Sodium Level 135, Potassium Level 4.5, Chloride Level 100, Carbon Dioxide Level 22, Anion Gap 13, Blood Urea Nitrogen 11, Creatinine 0.78, Estimat Glomerular Filtration Rate > 60, BUN/Creatinine Ratio 14, Glucose Level 136H, Calcium Level 8.6, Corrected Calcium 8.8, Total Bilirubin 0.6, Aspartate Amino Transf (AST/SGOT) 13, Alanine Aminotransferase (ALT/SGPT) 13, Alkaline Phosphatase 73, Total Protein 6.6, Albumin 3.7 11/08/20 06:51: White Blood Count 4.2L, Red Blood Count 3.77L, Hemoglobin 12.2L, Hematocrit 36L, Mean Corpuscular Volume 95, Mean Corpuscular Hemoglobin 32, Mean Corpuscular Hemoglobin Concent 34, Red Cell Distribution Width 14.8H, Platelet Count 228, Mean Platelet Volume 8.8L, Immature Granulocyte % (Auto) 0, Neutrophils (%) (Auto) 53, Lymphocytes (%) (Auto) 29, Monocytes (%) (Auto) 12, Eosinophils (%) (Auto) 6, Basophils (%) (Auto) 1, Neutrophils # (Auto) 2.2, Lymphocytes # (Auto) 1.2, Monocytes # (Auto) 0.5, Eosinophils # (Auto) 0.2, Basophils # (Auto) 0.0, Immature Granulocyte # (Auto) 0.0 A/P: Assessment: Chronic, intermittent angina pectoris, stable Gen malaise and physical deconditioning, undergoing rehab Recent (September 2020) sepsis of undetermined source associated with septic shock, resolved Ac renal failure in September 2020: likely ATN due to shock - resolved C-diff (+): management per Medical services CAD, s/p CABG x 3 in 2004 - Rest/Stress Regadenoson Rubidium-82 PET/CT on 04/25/17: mild to mod ischemia in LAD territory mod-sized infarction with mild residual ischemia in the RCA territory, LVEF 36% Ischemic cardiomyopathy. - Last cath and PCI at [facility] in late 2016: LM 30 ostial, LAD 100 after D2, D2 with severe prox stenosis, LCS mod diff, RI 30-40 prox, RCA occluded distally and collateralized; underwent laser atherectomy and 2.5x22 Resolute Mariah x MARCUS to D2 that was post dilated with 3 mm balloon (RCA not intervened on) - Chronic stable exertional angina pectoris Ischemic cm and HFrEF - Echo of 05-23-16 showed LVEF approx 35%. Global hypokinesis of the LV, somewhat more marked at the distal anteroapical area. Mild diastolic dysfunction of the LV. Mild diastolic dysfunction. Mild aortic, mitral and tricuspid regurg. No evidence of significant valvular stenosis. Mod enlargement of the LA and LV. Mild LVH S/p single ch ICD implant on 05/04/15; device functioning normally per interrogation of May 2020 DM II Hyperlipidemia Hypertension Obesity with BMI approx 31 Obstructive sleep apnea, treated with CPAP, managed by Dr Wiley H/o prostate and thyroid cancers for which he has been fully treated and they are stated to be in chronic remission. Prostate cancer followed by Dr Lilly; [facility] Mild bilat carotid plaque per u/s of 08/19/18 Chronic hardness of hearing Splenic mass diagnosed in September 2020 being managed by [facility] Right foot fracture following non-syncopal fall at home in September 2020 Plan: No chest discomfort in more than 24 hrs Continue current regimen, including increased dose of Coreg Monitor lab from time to time CANDY GARCIA November 05, 2020 09:29
--- NOTE | 2020-11-05 09:35 | Occupational Ther Daily Note ---
OT Current Status-Daily Note Subjective Pt expresses min pain in LLE. Pain meds administered. Pt agrees to tx. Pt states pain in chest that "is normal when (he) rushes around," as a pressure. Nursing notified after session as it resolves with rest. End of session expresses 4-5/10 pain in LLE though "feels better than before." Mental Status/Objective Patient Orientation: Person, Place, Situation, Normal For Age ADL-Treatment Therapy Code Descriptions/Definitions Functional [place] Measure: 0=Not Assessed/NA 4=Minimal Assistance 1=Total Assistance 5=Supervision or Setup 2=Maximal Assistance 6=Modified [place] 3=Moderate Assistance 7=Complete IndependenceSCALE: Activities may be completed with or without assistive devices. 9-Alusxbgpma-gwccfbf completes the activity by him/herself with no assistance from a helper. 5-Set-up or Clean-up Assistance-helper sets up or cleans up; patient completes activity. [place] assists only prior to or following the activity. 4-Supervision or Touching Assistance-helper provides verbal cues and/or touching/steadying and/or contact guard assistance as patient completes activity. Assistance may be provided throughout the activity or intermittently. 3-Partial/Moderate Assistance-helper does LESS THAN HALF the effort. [place] lifts, holds or supports trunk or limbs, but provides less than half the effort. 2-Substantial/Maximal Assistance-helper does MORE THAN HALF the effort. [place] lifts or holds trunk or limbs and provides more than half the effort. 9-Ploketlte-byhyqs does ALL the effort. Patient does none of the effort to complete the activity. Or, the assistance of 2 or more helpers is required for the patient to complete the activity. If activity was not attempted, code reason: 7-Patient Refused. 9-Not Applicable-not attempted and the patient did not perform the activity before the current illness, exacerbation or injury. 10-Not Attempted due to Environmental Limitations-(lack of equipment, weather restraints, etc.). 88-Not Attempted due to Medical Conditions or Safety Concerns. Eating (QC): 6 Oral Hygiene (QC): 6 (IND at sink) Bathing Location: L Arm, R Arm, L Upper Leg, R Upper Leg, Chest, Abdomen, Buttocks, Perineal Area Shower/Bathe Self (QC): 5 (s/u with all items at sink; completes with IND.) Upper Body Dressing (QC): 5 (s/u) Lower Body Dressing (QC): 4 (s/u, threads in seat with L then R, then completes hike with SBA.) Toileting Hygiene (QC): 4 (SBA for bottom hygiene, good balance. Compeltes with 50/50 WB though L/R) Toilet Transfer (QC): 4 (SUP- stance during urination) Other Treatment Pt sit to stand and ambulates with PWB (cues for hand position/ UE compensation) to w/c. Pt sits in w/c and then stands to complete sponge bath at sink in sit/ in stance. Pt able to dress self IND, however, boot not removed from LLE. Pt completes w/c mobility to downstairs lobby. Pt states slight pressure in chest, expresses this is "normal" for him and once his pain medications kick in it usually calms down. Pt rests and chest pressure is relieved, pushed back upstairs. Pt propels chair from room to laundry room, able to ambulate with good ability with walker to stance at washer. Completes laundry with good ability. Ambulates to gym, completing 10 reps of back flies/ ext rotation, however, chest pain reoccurs slightly. Pt rests and is relieved. Pt ambulates ~20 feet, unable to maintain precautions, returns to sit and is pushed to room. Cues for hand dottie cement/ increased pressure on walker during LLE step. Sits in recliner with all needs met, call light in reach. Education OT Patient Education: Correct positioning, Exercise program, Progress toward Goal/Update tx plan, Purpose of tx/functional activities, Reviewed precautions, Safety issues, Transfer techniques, Use of adapted equipment Teaching Recipient: Patient Teaching Methods: Demonstration, Discussion Response to Teaching: Verbalize Understanding, Return Demonstration OT Short Term Goals Short Term Goals Time Frame: November 03, 2020 Oral hygiene: 5 Shower/bathe self: 4 Lower body dressin Putting on/taking off footwear: 4 OT Group Home Goals Group Home Goals Time Frame: November 19, 2020 Eating (QC): 6 Oral Hygiene (QC): 6 Toileting Hygiene (QC): 6 Shower/Bathe Self (QC): 6 Upper Body Dressing (QC): 6 Lower Body Dressing (QC): 6 On/Off Footwear (QC): 6 Additional Goals: 1-Demonstrate ADL Tasks, 2-Verbalize Understanding, 3-ImproveStrength/Ashley 1=Demonstrate adherence to instructed precautions during ADL tasks. 2=Patient will verbalize/demonstrate understanding of assistive devices/modifications for ADL. 3=Patient will improve strength/tolerance for activity to enable patient to perform ADL's. OT Education/Plan Problem List/Assessment Assessment: Decreased Activ Tolerance, Decreased UE Strength, Dependent Transfers, Impaired I ADL's, Impaired Self-Care Skills Discharge Recommendations Plan/Recommendations: Continue POC Therapy Discharge Recommendati: Home & Family Treatment Plan/Plan of Care Treatment,Training & Education: Yes Patient would benefit from OT for education, treatment and training to promote independence in ADL's, mobility, safety and/or upper extremity function for ADL's. Plan of Care: ADL Retraining, Functional Mobility, Group Exercise/Act as Ind, UE Funct Exercise/Act Treatment Duration: November 19, 2020 Frequency: At least 5 of 7 days/Wk (IRF) Estimated Hrs Per Day: 1.5 hours per day Rehab Potential: Fair Time/GCodes Start Time: 08:00 Stop Time: 09:15 Total Time Billed (hr/min): 75 Billed Treatment Time 1, ADL 3, FA, EX= 75 RACHELLE CALLEJAS OTR November 05, 2020 09:35
--- NOTE | 2020-11-05 12:08 | Progress Note - Cardiology ---
Cardiology SOAP Progress Note Subjective: Gen weakness has improved No cp or palp or syncope or shortness of breath No n/v/d Objective: I&O/Vital Signs 11/05/20 11/05/20 11/05/20 11/05/20 06:34 08:00 09:00 10:27 Temp 35.8 Pulse 75 Resp 20 B/P (MAP) 126/61 (82) Pulse Ox 94 97 94 93 O2 Delivery Room Air Room Air Room Air Room Air Weight (Pounds): 219 Weight (Ounces): 0.0 Weight (Calculated Kilograms): 99.068403 Constitutional: AAO x 3, well-developed, well-nourished Respiratory: No accessory muscle use, No respiratory distress; chest expansion is symmetric, chest is bilaterally symmetric, lungs clear to auscultation Cardiovascular: regular rate-rhythm Gastrointestional: No tender; soft, round, audible bowel sounds Extremities: no lower extremity edema bilateral Neurologic/Psychiatric: grossly intact (moves all extremities) Skin: No rash on exposed areas, No ulcerations on exposed areas A/P: Assessment: Chronic, intermittent angina pectoris, stable Gen malaise and physical deconditioning, undergoing rehab Recent (September 2020) sepsis of undetermined source associated with septic shock, resolved Ac renal failure in September 2020: likely ATN due to shock - resolved C-diff (+): management per Medical services CAD, s/p CABG x 3 in 2004 - Rest/Stress Regadenoson Rubidium-82 PET/CT on 04/25/17: mild to mod ischemia in LAD territory mod-sized infarction with mild residual ischemia in the RCA territory, LVEF 36% Ischemic cardiomyopathy. - Last cath and PCI at [facility] in late 2016: LM 30 ostial, LAD 100 after D2, D2 with severe prox stenosis, LCS mod diff, RI 30-40 prox, RCA occluded distally and collateralized; underwent laser atherectomy and 2.5x22 Resolute Anastacio MARCUS to D2 that was post dilated with 3 mm balloon (RCA not intervened on) - Chronic stable exertional angina pectoris Ischemic cm and HFrEF - Echo of 05-23-16 showed LVEF approx 35%. Global hypokinesis of the LV, somewhat more marked at the distal anteroapical area. Mild diastolic dysfunction of the LV. Mild diastolic dysfunction. Mild aortic, mitral and tricuspid regurg. No evidence of significant valvular stenosis. Mod enlargement of the LA and LV. Mild LVH S/p single ch ICD implant on 05/04/15; device functioning normally per interrogation of May 2020 DM II Hyperlipidemia Hypertension Obesity with BMI approx 31 Obstructive sleep apnea, treated with CPAP, managed by Dr Wiley H/o prostate and thyroid cancers for which he has been fully treated and they are stated to be in chronic remission. Prostate cancer followed by Dr Lilly; [facility] Mild bilat carotid plaque per u/s of 08/19/18 Chronic hardness of hearing Splenic mass diagnosed in September 2020 being managed by [facility] Right foot fracture following non-syncopal fall at home in September 2020 Plan: Continue current regimen, including increased dose of Coreg Monitor lab from time to time BLADE PICKERING MD FACP FACC CCDS November 05, 2020 12:08
--- NOTE | 2020-11-05 12:15 | Physical Therapy Daily Note ---
PT Daily Note-Current Subjective Pt sitting in recliner upon arrival. Pt agrees to PT. Pt gives lunch order to Dietary to start tx. Pain Location: No Pain Reported Mental Status Patient Orientation: Person, Place, Time, Situation Transfers SCALE: Activities may be completed with or without assistive devices. 1-Sirbxkjcuw-hsiodom completes the activity by him/herself with no assistance from a helper. 5-Set-up or Clean-up Assistance-helper sets up or cleans up; patient completes activity. [place] assists only prior to or following the activity. 4-Supervision or Touching Assistance-helper provides verbal cues and/or touching/steadying and/or contact guard assistance as patient completes activity. Assistance may be provided throughout the activity or intermittently. 3-Partial/Moderate Assistance-helper does LESS THAN HALF the effort. [place] lifts, holds or supports trunk or limbs, but provides less than half the effort. 2-Substantial/Maximal Assistance-helper does MORE THAN HALF the effort. [place] lifts or holds trunk or limbs and provides more than half the effort. 9-Krredqgbo-iazpcy does ALL the effort. Patient does none of the effort to complete the activity. Or, the assistance of 2 or more helpers is required for the patient to complete the activity. If activity was not attempted, code reason: 7-Patient Refused. 9-Not Applicable-not attempted and the patient did not perform the activity before the current illness, exacerbation or injury. 10-Not Attempted due to Environmental Limitations-(lack of equipment, weather restraints, etc.). 88-Not Attempted due to Medical Conditions or Safety Concerns. Sit to Stand (QC): 5 Toilet Transfer (QC): 5 Weight Bearing Right Lower Extremity: Right Full Weight Bearing Left Lower Extremity: Left Partial Weight Bearing CAM Boot Gait Training Does the Patient Walk?: Yes Distance: 150' x2 Walk 10 feet (QC): 5 Walk 50 ft with 2 Turns(QC): 5 Walk 150 ft (QC): 5 Gait Persons Needed: 1 Gait Assistive Device: FWW Wheelchair Training Does the Pt Use a Wheelchair?: No Exercises Seated Therapy Exercises: Long arc quads, Hip flexion, Glut set Seated Reps: 15 Standing: Hamstring curls, 3 way Ex=Flex, Abd, Ext, Marching, Mini squats, Sit to Stand Standing Reps: 15 Treatments [id number]: TF to standing and uses BR. Amb. in hallway. After walk, takes RB then completes Seated EX followed by Standing EX with a couple of RB as needed. Amb. in hallway and returns to room at end of tx. All needs met, call light in hand. [id number]: TF to standing, amb. in hallway and completes 1 set of 4 steps before returning to room. All needs met, resting in recliner with call light in hand. Assessment Current Status: Good Progress Pt devaughn. tx well. Pt is looking forward to getting home and back to his regular routine. PT Short Term Goals Short Term Goals Time Frame: November 03, 2020 Roll Left & Right: 6 Sit to lyin (SBA) Lying to sitting on side of be: 4 (SBA) Sit to stand: 4 (BA) Chair/loi-go-bhczd transfer: 4 (CGA) Walk 10 feet: 4 (CGA) Walk 50 feet with two turns: 4 (CGA) PT Correction Goals Returned Case Inspector Goals PT Correction Goals Time Frame: November 17, 2020 Roll Left & Right (QC): 6 Sit to Lying (QC): 6 Lying-Sitting on Side/Bed(QC): 6 Sit to Stand (QC): 5 Chair/Ncq-ry-Oihcl Xfer(QC): 5 Toilet Transfer (QC): 5 Car Transfer (QC): 5 Does the Patient Walk: Yes Walk 10 feet (QC): 5 Walk 50ft with 2 Turns (QC): 5 Walk 150 ft (QC): 5 Walking 10ft on Uneven Surface: 5 1 Step (curb) (QC): 4 4 Steps (QC): 4 12 Steps (QC): 9 Picking up an Object (QC): 4 Wheel 50 feet with 2 turns (QC: 6 Type: Manual Wheel 150 feet: 6 PT Plan Treatment/Plan Treatment Plan: Continue Plan of Care Treatment Plan: Bed Mobility, Education, Functional Activity Ashley, Functional Strength, Group Therapy, Gait, Safety, Therapeutic Exercise, Transfers Treatment Duration: November 17, 2020 Frequency: At least 5 of 7 days/Wk (IRF) Estimated Hrs Per Day: 1.5 hours per day Patient and/or Family Agrees t: Yes Safety Risks/Education Patient Education: Steps, Correct Positioning, Safety Issues Teaching Recipient: Patient, Family Teaching Methods: Demonstration, Discussion Response to Teaching: Verbalize Understanding Time/GCodes Time In: 1100 Time Out: 1405 Total Billed Treatment Time: 80 Total Billed Treatment [id number]: 1, FA (15m), GT (15m) & EX x2 (30m) [id number]: 1, FA (20m) KELBY DILLON MAT WEAVER November 05, 2020 12:15
[2020-11-05] MEDS: ENOXAPARIN 40 MG/0.4 ML (LOVENOX) SYR SC SCH (12:23)
--- NOTE | 2020-11-05 14:11 | Speech Therapy Daily Note ---
Speech Daily Progress Note Subjective Date Seen by Provider: November 05, 2020 Time Seen by Provider: 00:30 Pt was alert and pleasant, sitting up in the recliner. Pt reported enjoying not having to leave his room for therapy services with ST. Objective Patient completed problem solving tasks related to his daily needs at 80% with minimal cuing. Assessment Assessment Current Status: Good Progress Treatment Plan Continue Plan of Care Speech Short Term Goals Short Term Goals Short Term Goals 1.) Patient will complete safety awareness activities related to their daily activities at 80% with minimal cues. 2.) Patient will complete memory activities related to their daily activities at 80% with minimal cues. 3.) Patient will complete recall of information activities related to their daily activities at 80% with minimal cues. Speech Food Technologist Goals Food Technologist Goals Patient will improve cognitive-communication skills necessary for safety and daily living tasks with minimal assist. Speech-Plan Patient/Family Goals Patient/Family Goals: Pt plans to return home upon ARU where he lives independently. Treatment Plan Speech Therapy Treatment Plan: Continue Plan of Care Treatment Duration: November 12, 2020 Frequency: 4 times per week (4-5x per week) Estimated Hrs Per Day: .5 hour per day Rehab Potential: Fair Barriers to Learning: Medical status and age. Pt/Family Agrees to Plan: Yes Safety Risks/Education Teaching Recipient: Patient Teaching Methods: Demonstration, Discussion Response to Teaching: Verbalize Understanding, Return Demonstration, Reinforcement Needed Education Topics Provided: Safety awareness in the home and memory strategies. Time Speech Therapy Time In: 13:00 Speech Therapy Time Out: 13:30 Total Billed Time: 30 Billed Treatment Time 1. YANDY Bains November 05, 2020 14:11
[2020-11-05] MEDS: ASPIRIN E.C. 81 MG (ECOTRIN) TAB PO SCH (17:14)
[2020-11-05 19:49] VITALS: BP 139/67
[2020-11-06] MEDS: HYDROcodone/APAP 5 MG/325 MG (LORTAB) TAB PO PRN ×2 (00:56→07:59)
[2020-11-06] MEDS: NYSTATIN ORAL SUSP 5 ML UDC PO SCH ×5 (05:21→20:28)
[2020-11-06] MEDS: LEVOTHYROXINE 112 MCG (LEVOTHROID) TAB PO SCH (05:21)
[2020-11-06] MEDS: CATHETER FLUSH 10 ML SYR IV SCH ×3 (05:21→20:28)
[2020-11-06] MEDS: RT-ALBUTEROL SULF 2.5 MG/3 ML PRE-MIX VIAL IH SCH ×4 (06:57→20:11)
[2020-11-06] MEDS: RT-BUDESONIDE NEBS 0.5 MG/2ML (PULMICORT) AMP IH SCH ×2 (06:57→20:11)
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
[2020-11-06 07:57] VITALS: BP 121/49
[2020-11-06] MEDS: CALCIUM CARBONATE 600 MG (CALCARB) TAB PO SCH (07:59)
[2020-11-06] MEDS: DICYCLOMINE 10 MG (BENTYL) CAP PO SCH ×2 (07:59→17:09)
[2020-11-06] MEDS: ISOSORBIDE MONONITRATE 60 MG (IMDUR) TAB PO SCH ×2 (07:59→17:09)
[2020-11-06] MEDS: lisINopril 20 MG (PRINIVIL) TABLET PO SCH (07:59)
[2020-11-06] MEDS: CLOPIDOGREL 75 MG (PLAVIX) TABLET PO SCH (07:59)
--- NOTE | 2020-11-06 08:59 | Cardiology Progress Note ---
Subjective Date Seen by Provider: November 06, 2020 Time Seen by Provider: 08:58 Subjective/Events-last exam Patient was seen at bedside, sitting comfortably, denied any active pain. F eeling better Review of Systems General: No Chills, No Night Sweats; Fatigue; No Malaise, No Appetite, No Other HEENT: No Head Aches, No Visual Changes, No Eye Pain, No Ear Pain, No Dysphasia, No Sinus Congestion, No Post Nasal Drip, No Sore Throat, No Other Pulmonary: No Dyspnea, No Cough, No Pleuritic Chest Pain, No Other Cardiovascular: No: Chest Pain, Palpitations, Orthopnea, Paroxysmal Noc. Dyspnea, Edema, Lt Headedness, Other Objective-Cardiology Exam Last Set of Vital Signs Vital Signs 11/04/20 11/06/20 22:05 07:57 Temp 36.6 Pulse 82 Resp 16 B/P (MAP) 121/49 (73) Pulse Ox 96 O2 Delivery Room Air O2 Flow Rate 2.00 Capillary Refill : General: Alert, Oriented X3, Cooperative HEENT: Atraumatic, PERRLA Neck: Supple, No JVD, No Thyromegaly Lungs: Clear to Auscultation, Normal Air Movement Heart: Regular Rate, Normal S1, Normal S2, No Murmurs Abdomen: Normal Bowel Sounds, Soft, No Tenderness, No Hepatosplenomegaly, No Masses Extremities: No Clubbing, No Cyanosis, No Edema, Normal Pulses, No Tenderness/Swelling Skin: No Rashes, No Breakdown, No Significant Lesion Neuro: Normal Gait, Normal Speech, Strength at 5/5 X4 Ext, Normal Tone, Sensation Intact Psych/Mental Status: Mental Status NL, Mood NL A/P-Cardiology Assessment/Plan Chronic, intermittent angina pectoris, stable angina, continue to monitor Gen malaise and physical deconditioning, undergoing rehab Recent (September 2020) sepsis of undetermined source associated with septic shock, resolved Ac renal failure in September 2020: likely ATN due to shock - resolved C-diff (+), resolved, management per Medical services CAD, s/p CABG x 3 in 2004 - Rest/Stress Regadenoson Rubidium-82 PET/CT on 04/25/17: mild to mod ischemia in LAD territory mod-sized infarction with mild residual ischemia in the RCA territory, LVEF 36% Ischemic cardiomyopathy. - Last cath and PCI at [facility] in late 2017: LM 30 ostial, LAD 100 after D2, D2 with severe prox stenosis, LCS mod diff, RI 30-40 prox, RCA occluded di stally and collateralized; underwent laser atherectomy and 2.5x22 Resolute Brea MARCUS to D2 that was post dilated with 3 mm balloon (RCA not intervened on) - Chronic stable exertional angina pectoris Ischemic cm and HFrEF - Echo of 05-23-16 showed LVEF approx 35%. Global hypokinesis of the LV, somewhat more marked at the distal anteroapical area. Mild diastolic dysfunction of the LV. Mild diastolic dysfunction. Mild aortic, mitral and tricuspid regurg. No evidence of significant valvular stenosis. Mod enlargement of the LA and LV. Mild LVH S/p single ch ICD implant on 05/04/15; device functioning normally per interrogation of May 2020 DM II Hyperlipidemia, continue to monitor lipids Hypertension, monitor blood pressure Obesity with BMI approx 31 Obstructive sleep apnea, treated with CPAP, managed by Dr Wiley H/o prostate and thyroid cancers for which he has been fully treated and they are stated to be in chronic remission. Prostate cancer followed by Dr Lilly; thyroid cancer [facility] Mild bilat carotid plaque per u/s of 08/19/18 Chronic hardness of hearing Splenic mass diagnosed in September 2020 being managed by Med and Surg svces Right foot fracture following non-syncopal fall at home in September 2020 CLARKE PATEL MD November 06, 2020 08:59
--- NOTE | 2020-11-06 10:06 | Physical Therapy Daily Note ---
PT Daily Note-Current Subjective Pt sitting in recliner upon arrival. Pt agrees to PT. Mental Status Patient Orientation: Person, Place, Time, Situation Attachments: Other-See Comments (CAM boot) Transfers SCALE: Activities may be completed with or without assistive devices. 1-Leivosiqwj-gjsphjs completes the activity by him/herself with no assistance from a helper. 5-Set-up or Clean-up Assistance-helper sets up or cleans up; patient completes activity. [place] assists only prior to or following the activity. 4-Supervision or Touching Assistance-helper provides verbal cues and/or touching/steadying and/or contact guard assistance as patient completes activity. Assistance may be provided throughout the activity or intermittently. 3-Partial/Moderate Assistance-helper does LESS THAN HALF the effort. [place] lifts, holds or supports trunk or limbs, but provides less than half the effort. 2-Substantial/Maximal Assistance-helper does MORE THAN HALF the effort. [place] lifts or holds trunk or limbs and provides more than half the effort. 8-Rkgykadek-cfzmzv does ALL the effort. Patient does none of the effort to complete the activity. Or, the assistance of 2 or more helpers is required for the patient to complete the activity. If activity was not attempted, code reason: 7-Patient Refused. 9-Not Applicable-not attempted and the patient did not perform the activity before the current illness, exacerbation or injury. 10-Not Attempted due to Environmental Limitations-(lack of equipment, weather restraints, etc.). 88-Not Attempted due to Medical Conditions or Safety Concerns. Sit to Stand (QC): 5 Weight Bearing Right Lower Extremity: Right Full Weight Bearing Left Lower Extremity: Left Partial Weight Bearing CAM Boot Gait Training Does the Patient Walk?: Yes Distance: 450' Walk 10 feet (QC): 5 Walk 50 ft with 2 Turns(QC): 5 Walk 150 ft (QC): 5 Gait Persons Needed: 1 Gait Assistive Device: FWW Pt attempts CHEMIST ENZYMES for short distance but returns to FWW due to stability. Pt agrees to return to FWW and feels safer with it. Wheelchair Training Does the Pt Use a Wheelchair?: No Treatments TF to standing and amb. in hallway with a couple short RB as needed. Pt returns to room to rest in recliner at end of tx with all needs met, call light in hand. Assessment Current Status: Good Progress Pt takes a couple short RB due to feel fatigued and a little pressure in chest. PT Short Term Goals Short Term Goals Time Frame: November 03, 2020 Roll Left & Right: 6 Sit to lyin (SBA) Lying to sitting on side of be: 4 (SBA) Sit to stand: 4 (BA) Chair/ogf-jm-vzioo transfer: 4 (CGA) Walk 10 feet: 4 (CGA) Walk 50 feet with two turns: 4 (CGA) PT Biometrics Consultant Goals Mcfp Goals PT Biometrics Consultant Goals Time Frame: November 17, 2020 Roll Left & Right (QC): 6 Sit to Lying (QC): 6 Lying-Sitting on Side/Bed(QC): 6 Sit to Stand (QC): 5 Chair/Eqy-wb-Nlchj Xfer(QC): 5 Toilet Transfer (QC): 5 Car Transfer (QC): 5 Does the Patient Walk: Yes Walk 10 feet (QC): 5 Walk 50ft with 2 Turns (QC): 5 Walk 150 ft (QC): 5 Walking 10ft on Uneven Surface: 5 1 Step (curb) (QC): 4 4 Steps (QC): 4 12 Steps (QC): 9 Picking up an Object (QC): 4 Wheel 50 feet with 2 turns (QC: 6 Type: Manual Wheel 150 feet: 6 PT Plan Problem List Problem List: Activity Tolerance Treatment/Plan Treatment Plan: Continue Plan of Care Treatment Plan: Bed Mobility, Education, Functional Activity Ashley, Functional Strength, Group Therapy, Gait, Safety, Therapeutic Exercise, Transfers Treatment Duration: November 17, 2020 Frequency: At least 5 of 7 days/Wk (IRF) Estimated Hrs Per Day: 1.5 hours per day Patient and/or Family Agrees t: Yes Safety Risks/Education Patient Education: Gait Training, Safety Issues Teaching Recipient: Patient Teaching Methods: Discussion Response to Teaching: Verbalize Understanding Time/GCodes Time In: 840 Time Out: 905 Total Billed Treatment Time: 25 Total Billed Treatment 1, GT x2 (25m) KELBY DILLNO ELECTRIC TRUCK DRIVER November 06, 2020 10:06
[2020-11-06] MEDS: ENOXAPARIN 40 MG/0.4 ML (LOVENOX) SYR SC SCH (11:42)
[2020-11-06] MEDS: ASPIRIN E.C. 81 MG (ECOTRIN) TAB PO SCH (17:09)
[2020-11-06 20:00] VITALS: BP 138/80
[2020-11-07] MEDS: HYDROcodone/APAP 5 MG/325 MG (LORTAB) TAB PO PRN (04:19)
[2020-11-07] MEDS: LEVOTHYROXINE 112 MCG (LEVOTHROID) TAB PO SCH (06:05)
[2020-11-07] MEDS: CATHETER FLUSH 10 ML SYR IV SCH ×3 (06:05→22:03)
[2020-11-07] MEDS: NYSTATIN ORAL SUSP 5 ML UDC PO SCH ×2 (06:06→08:16)
[2020-11-07] MEDS: RT-ALBUTEROL SULF 2.5 MG/3 ML PRE-MIX VIAL IH SCH ×4 (06:36→19:00)
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
[2020-11-07 07:30] VITALS: BP 130/59
[2020-11-07] MEDS: CALCIUM CARBONATE 600 MG (CALCARB) TAB PO SCH (08:16)
[2020-11-07] MEDS: DICYCLOMINE 10 MG (BENTYL) CAP PO SCH ×2 (08:16→18:31)
[2020-11-07] MEDS: ISOSORBIDE MONONITRATE 60 MG (IMDUR) TAB PO SCH ×2 (08:16→18:31)
[2020-11-07] MEDS: CLOPIDOGREL 75 MG (PLAVIX) TABLET PO SCH (08:16)
[2020-11-07] MEDS: lisINopril 20 MG (PRINIVIL) TABLET PO SCH (08:16)
--- NOTE | 2020-11-07 10:52 | Cardiology Progress Note ---
Subjective Date Seen by Provider: November 07, 2020 Time Seen by Provider: 10:51 Subjective/Events-last exam Patient was seen at bedside, sitting comfortably, no new complaint Review of Systems General: No Chills, No Night Sweats; Fatigue; No Malaise, No Appetite, No Other HEENT: No Head Aches, No Visual Changes, No Eye Pain, No Ear Pain, No Dysphasia, No Sinus Congestion, No Post Nasal Drip, No Sore Throat, No Other Pulmonary: No Dyspnea, No Cough, No Pleuritic Chest Pain, No Other Cardiovascular: No: Chest Pain, Palpitations, Orthopnea, Paroxysmal Noc. Dyspnea, Edema, Lt Headedness, Other Objective-Cardiology Exam Last Set of Vital Signs Vital Signs 11/04/20 11/07/20 11/07/20 22:05 07:30 09:02 Temp 36.2 Pulse 68 Resp 20 B/P (MAP) 130/59 (82) Pulse Ox 94 O2 Delivery Room Air O2 Flow Rate 2.00 Capillary Refill : General: Alert, Oriented X3, Cooperative HEENT: Atraumatic, PERRLA Neck: Supple, No JVD, No Thyromegaly Lungs: Clear to Auscultation, Normal Air Movement Heart: Regular Rate, Normal S1, Normal S2, No Murmurs Abdomen: Normal Bowel Sounds, Soft, No Tenderness, No Hepatosplenomegaly, No Masses Extremities: No Clubbing, No Cyanosis, No Edema, Normal Pulses, No Tenderness/Swelling Skin: No Rashes, No Breakdown, No Significant Lesion Neuro: Normal Gait, Normal Speech, Strength at 5/5 X4 Ext, Normal Tone, Sensation Intact Psych/Mental Status: Mental Status NL, Mood NL A/P-Cardiology Admission Diagnosis Chest pain Coronary artery disease Hypertension Hyperlipidemia Assessment/Plan Chronic, intermittent angina pectoris, stable angina, continue to monitor Gen malaise and physical deconditioning, undergoing rehab Recent (September 2020) sepsis of undetermined source associated with septic shock, resolved Ac renal failure in September 2020: likely ATN due to shock - resolved C-diff (+), resolved, management per Medical services CAD, s/p CABG x 3 in 2004 - Rest/Stress Regadenoson Rubidium-82 PET/CT on 04/25/17: mild to mod ischemia in LAD territory mod-sized infarction with mild residual ischemia in the RCA territory, LVEF 36% Ischemic cardiomyopathy. - Last cath and PCI at [facility] in late 2017: LM 30 ostial, LAD 100 after D2, D2 with severe prox stenosis, LCS mod diff, RI 30-40 prox, RCA occluded distally and collateralized; underwent laser atherectomy and 2.5x22 Resolute Anastacio MARCUS to D2 that was post dilated with 3 mm balloon (RCA not intervened on) - Chronic stable exertional angina pectoris Ischemic cm and HFrEF - Echo of 05-23-16 showed LVEF approx 35%. Global hypokinesis of the LV, somewhat more marked at the distal anteroapical area. Mild diastolic dysfunction of the LV. Mild diastolic dysfunction. Mild aortic, mitral and tricuspid regurg. No evidence of significant valvular stenosis. Mod enlargement of the LA and LV. Mild LVH S/p single ch ICD implant on 05/04/15; device functioning normally per interrogation of May 2020 DM II, followed and managed by primary care physician Hyperlipidemia, continue to monitor lipids Hypertension, monitor blood pressure Obesity with BMI approx 31 Obstructive sleep apnea, treated with CPAP, managed by Dr Wiley H/o prostate and thyroid cancers for which he has been fully treated and they are stated to be in chronic remission. Prostate cancer followed by Dr Lilly; [facility] Mild bilat carotid plaque per u/s of 08/19/18 Chronic hardness of hearing Splenic mass diagnosed in September 2020 being managed by [facility] Right foot fracture following non-syncopal fall at home in September 2020 CLARKE PATEL MD November 07, 2020 10:52
[2020-11-07] MEDS: RT-BUDESONIDE NEBS 0.5 MG/2ML (PULMICORT) AMP IH SCH ×2 (11:31→19:00)
[2020-11-07] MEDS: ENOXAPARIN 40 MG/0.4 ML (LOVENOX) SYR SC SCH (11:47)
[2020-11-07] MEDS: ASPIRIN E.C. 81 MG (ECOTRIN) TAB PO SCH (18:31)
[2020-11-07 18:32] VITALS: BP 152/72
[2020-11-07 20:00] VITALS: BP 154/71
[2020-11-08] MEDS: CATHETER FLUSH 10 ML SYR IV SCH (05:42)
[2020-11-08] MEDS: LEVOTHYROXINE 112 MCG (LEVOTHROID) TAB PO SCH (05:42)
[2020-11-08 06:20] LABS: ALBUMIN 3.7 GM/DL (3.2-4.5)
[2020-11-08 06:21] LABS: CHLORIDE 100 MMOL/L (98-107); POTASSIUM 4.5 MMOL/L (3.6-5.0); SODIUM 135 MMOL/L (135-145)
[2020-11-08 06:22] LABS: CALCIUM 8.6 MG/DL (8.5-10.1)
[2020-11-08 06:23] LABS: GLUCOSE 136 MG/DL (70-105); TOTAL PROTEIN 6.6 GM/DL (6.4-8.2)
[2020-11-08 06:24] LABS: CARBON DIOXIDE 22 MMOL/L (21-32)
[2020-11-08 06:25] LABS: BILIRUBIN,TOTAL 0.6 MG/DL (0.1-1.0)
[2020-11-08 06:26] LABS: ALKALINE PHOSPHATASE 73 U/L (40-136); CREATININE SERUM 0.78 MG/DL (0.60-1.30); GFR ESTIMATED > 60
[2020-11-08 06:28] LABS: BUN/CREATININE RATIO 14
[2020-11-08 06:29] LABS: ALANINE AMINOTRANSFERASE 13 U/L (0-55)
[2020-11-08] MEDS: RT-ALBUTEROL SULF 2.5 MG/3 ML PRE-MIX VIAL IH SCH ×4 (06:48→18:36)
[2020-11-08] MEDS: RT-BUDESONIDE NEBS 0.5 MG/2ML (PULMICORT) AMP IH SCH ×2 (06:50→18:37)
[2020-11-08 06:57] LABS: BASOPHILS % (AUTO) 1 % (0-10); EOSINOPHILS # (AUTO) 0.2 10^3/uL (0.0-0.3); EOSINOPHILS % (AUTO) 6 % (0-10); HEMATOCRIT 36 % (40-54); HEMOGLOBIN 12.2 g/dL (13.3-17.7); LYMPHOCYTES # (AUTO) 1.2 10^3/uL (1.0-4.0); LYMPHOCYTES % (AUTO) 29 % (12-44); MEAN CORPUSCULAR HEMOGLOBIN 32 pg (25-34); MEAN CORPUSCULAR HGB CONC 34 g/dL (32-36); MEAN CORPUSCULAR VOLUME 95 fL (80-99); MEAN PLATELET VOLUME 8.8 fL (9.0-12.2); MONOCYTES # (AUTO) 0.5 10^3/uL (0.0-1.0); MONOCYTES % (AUTO) 12 % (0-12); NEUTROPHILS # (AUTO) 2.2 10^3/uL (1.8-7.8); NEUTROPHILS % (AUTO) 53 % (42-75); PLATELET COUNT 228 10^3/uL (130-400); WHITE BLOOD COUNT 4.2 10^3/uL (4.3-11.0)
[2020-11-08 08:00] VITALS: BP 137/65
--- NOTE | 2020-11-08 08:29 | Speech Therapy Daily Note ---
Speech Daily Progress Note Subjective Date Seen by Provider: November 08, 2020 Time Seen by Provider: 00:30 Pt was alert and pleasant. Pt agreed to ST services. Pt reported some pain in his chest following PT and OT. Objective Patient completed safety awareness activities related to their daily activities at 90% with no cues. Assessment Assessment Current Status: Good Progress Treatment Plan Discontinue ST, Goals Met Speech Short Term Goals Short Term Goals Short Term Goals 1.) Patient will complete safety awareness activities related to their daily activities at 80% with minimal cues. 2.) Patient will complete memory activities related to their daily activities at 80% with minimal cues. 3.) Patient will complete recall of information activities related to their daily activities at 80% with minimal cues. Speech Correction Goals Correction Goals Patient will improve cognitive-communication skills necessary for safety and daily living tasks with minimal assist. Speech-Plan Patient/Family Goals Patient/Family Goals: Pt plans to return home upon D/C from ARU tomorrow. Treatment Plan Speech Therapy Treatment Plan: Discontinue ST, Goals Met Treatment Duration: November 09, 2020 Frequency: 4 times per week (4-5x per week) Estimated Hrs Per Day: .5 hour per day Rehab Potential: Fair Barriers to Learning: Medical status and age. Pt/Family Agrees to Plan: Yes Safety Risks/Education Teaching Recipient: Patient Teaching Methods: Demonstration, Discussion Response to Teaching: Verbalize Understanding, Return Demonstration Education Topics Provided: Safety awareness and compensatory memory strategies. Time Speech Therapy Time In: 10:15 Speech Therapy Time Out: 10:45 Total Billed Time: 30 Billed Treatment Time 1, SLTS No QUALITY CODES: EXPRESSION OF IDEAS/WANTS: 4 UNDERSTANDING VERBAL CONTENT: 4 BRIEF INTERVIEW MENTAL STATUS: YES REPETITION OF 3 WORDS: 3 TEMPORAL ORIENTATION: YEAR, CORRECT, MONTH, CORRECT, DAY, CORRECT RECALL SOCK, YES WITH CUE, COLOR, YES WITH CUE, BED, YES WITH CUE MEMORY/RECALL ABILITY: SEASON, THAT SHE IS IN THE HOSPITAL, LOCATION OF ROOM YANDY DUVAL November 08, 2020 08:29
--- NOTE | 2020-11-08 08:34 | Progress Note - Cardiology ---
Cardiology SOAP Progress Note Objective: I&O/Vital Signs 11/08/20 11/08/20 11/09/20 19:54 21:00 06:58 Temp 37.1 Pulse 82 Resp 20 B/P (MAP) 152/78 (102) Pulse Ox 96 94 97 O2 Delivery Room Air Room Air Weight (Pounds): 219 Weight (Ounces): 0.0 Weight (Calculated Kilograms): 99.403335 Constitutional: AAO x 3, well-developed, well-nourished Respiratory: No accessory muscle use, No respiratory distress; chest expansion is symmetric, chest is bilaterally symmetric, lungs clear to auscultation Cardiovascular: regular rate-rhythm Gastrointestional: No tender; soft, round, audible bowel sounds Extremities: no lower extremity edema bilateral Neurologic/Psychiatric: grossly intact (moves all extremities) Skin: No rash on exposed areas, No ulcerations on exposed areas Results/Procedures: Labs A/P: Assessment: Chronic, intermittent angina pectoris, stable Gen malaise and physical deconditioning, undergoing rehab Recent (September 2020) sepsis of undetermined source associated with septic shock, resolved Ac renal failure in September 2020: likely ATN due to shock - resolved C-diff (+): management per Medical services CAD, s/p CABG x 3 in 2004 - Rest/Stress Regadenoson Rubidium-82 PET/CT on 04/25/17: mild to mod ischemia in LAD territory mod-sized infarction with mild residual ischemia in the RCA territory, LVEF 36% Ischemic cardiomyopathy. - Last cath and PCI at [facility] in late 2016: LM 30 ostial, LAD 100 after D2, D2 with severe prox stenosis, LCS mod diff, RI 30-40 prox, RCA occluded distally and collateralized; underwent laser atherectomy and 2.5x22 Resolute Blair MARCUS to D2 that was post dilated with 3 mm balloon (RCA not intervened on) - Chronic stable exertional angina pectoris Ischemic cm and HFrEF - Echo of 05-23-16 showed LVEF approx 35%. Global hypokinesis of the LV, somewhat more marked at the distal anteroapical area. Mild diastolic dysfunction of the LV. Mild diastolic dysfunction. Mild aortic, mitral and tricuspid regurg. No evidence of significant valvular stenosis. Mod enlargement of the LA and LV. Mild LVH S/p single ch ICD implant on 05/04/15; device functioning normally per interrogation of May 2020 DM II Hyperlipidemia Hypertension Obesity with BMI approx 31 Obstructive sleep apnea, treated with CPAP, managed by Dr Wiley H/o prostate and thyroid cancers for which he has been fully treated and they are stated to be in chronic remission. Prostate cancer followed by Dr Lilly; thyroid cancer [facility] Mild bilat carotid plaque per u/s of 08/19/18 Chronic hardness of hearing Splenic mass diagnosed in September 2020 being managed by Med and Surg sv[facility] Right foot fracture following non-syncopal fall at home in September 2020 Plan: Continue current regimen, including increased dose of Coreg Monitor lab from time to time CANDY GARCIA November 08, 2020 08:34
[2020-11-08] MEDS: DICYCLOMINE 10 MG (BENTYL) CAP PO SCH ×2 (08:45→18:51)
[2020-11-08] MEDS: ISOSORBIDE MONONITRATE 60 MG (IMDUR) TAB PO SCH ×2 (08:45→18:51)
[2020-11-08] MEDS: CALCIUM CARBONATE 600 MG (CALCARB) TAB PO SCH (08:45)
[2020-11-08] MEDS: CLOPIDOGREL 75 MG (PLAVIX) TABLET PO SCH (08:45)
[2020-11-08] MEDS: lisINopril 20 MG (PRINIVIL) TABLET PO SCH (08:45)
--- NOTE | 2020-11-08 08:53 | Physical Therapy Daily Note ---
PT Daily Note-Current Subjective Pt. agrees to Rx, states he is going hoe tomorrow. When asked if he knows how much weight he is to bear on LLE pt. states "I dont know" REedcuated pt on wt bearing precautions . Pt. follows them sporadically Pain Location: No Pain Reported Mental Status Patient Orientation: Person, Place, Time, Situation Attachments: Other-See Comments (boot , mask) Transfers SCALE: Activities may be completed with or without assistive devices. 0-Gzftjlcscn-ijsceta completes the activity by him/herself with no assistance from a helper. 5-Set-up or Clean-up Assistance-helper sets up or cleans up; patient completes activity. [place] assists only prior to or following the activity. 4-Supervision or Touching Assistance-helper provides verbal cues and/or touching/steadying and/or contact guard assistance as patient completes activity. Assistance may be provided throughout the activity or intermittently. 3-Partial/Moderate Assistance-helper does LESS THAN HALF the effort. [place] lifts, holds or supports trunk or limbs, but provides less than half the effort. 2-Substantial/Maximal Assistance-helper does MORE THAN HALF the effort. [place] lifts or holds trunk or limbs and provides more than half the effort. 0-Qbrjfnbwd-triljb does ALL the effort. Patient does none of the effort to complete the activity. Or, the assistance of 2 or more helpers is required for the patient to complete the activity. If activity was not attempted, code reason: 7-Patient Refused. 9-Not Applicable-not attempted and the patient did not perform the activity before the current illness, exacerbation or injury. 10-Not Attempted due to Environmental Limitations-(lack of equipment, weather restraints, etc.). 88-Not Attempted due to Medical Conditions or Safety Concerns. Roll Left & Right (QC): 6 Sit to Lying (QC): 6 Lying to Sitting/Side of Bed(Q: 6 Sit to Stand (QC): 6 Chair/Hpg-bq-Afbcd Xfer(QC): 6 Toilet Transfer (QC): 6 Car Transfer (QC): 6 cues at car to sit , then put feet in etc Weight Bearing Right Lower Extremity: Right Full Weight Bearing Left Lower Extremity: Left Partial Weight Bearing CAM Boot Gait Training Does the Patient Walk?: Yes Walk 10 feet (QC): 5 Walk 50 ft with 2 Turns(QC): 5 Walk 150 ft (QC): 5 Walking 10ft/uneven surface-QC: 5 Gait Persons Needed: 1 Gait Assistive Device: FWW 150ft, 75 ft x 2 FWW SBA, no LOB, reminders for wt bearing precautions Stair Training Stair Training: Handrails/: 2 handrails #of Steps: 4 1 Step (curb) (QC): 4 4 Steps (QC): 4 12 Steps (QC): 88 Stairs: Pattern: Step to needs cues for proper sequence Balance Picking up an Object (QC): 88 Exercises Supine Ex: Ankle pumps, Quad Set, Rolling, Heel Slides, Straight leg raise, Hip abd/add Supine Reps: 12 Seated Therapy Exercises: Ankle pumps, Sit to stand, Long arc quads, Hip flexion Seated Reps: 12 NuStep Minutes: 12 NuStep Workload: 3 Assessment Current Status: Good Progress PT Short Term Goals Short Term Goals Time Frame: November 03, 2020 Roll Left & Right: 6 Sit to lyin (SBA) Lying to sitting on side of be: 4 (SBA) Sit to stand: 4 (BA) Chair/trq-qa-knchd transfer: 4 (CGA) Walk 10 feet: 4 (CGA) Walk 50 feet with two turns: 4 (CGA) PT Half-Way Goals Half-Way Goals PT Half-Way Goals Time Frame: November 17, 2020 Roll Left & Right (QC): 6 Sit to Lying (QC): 6 Lying-Sitting on Side/Bed(QC): 6 Sit to Stand (QC): 5 Chair/Rmw-jl-Cpgdq Xfer(QC): 5 Toilet Transfer (QC): 5 Car Transfer (QC): 5 Does the Patient Walk: Yes Walk 10 feet (QC): 5 Walk 50ft with 2 Turns (QC): 5 Walk 150 ft (QC): 5 Walking 10ft on Uneven Surface: 5 1 Step (curb) (QC): 4 4 Steps (QC): 4 12 Steps (QC): 9 Picking up an Object (QC): 4 Wheel 50 feet with 2 turns (QC: 6 Type: Manual Wheel 150 feet: 6 PT Plan Treatment/Plan Treatment Plan: Continue Plan of Care Treatment Plan: Bed Mobility, Education, Functional Activity Ashley, Functional Strength, Group Therapy, Gait, Safety, Therapeutic Exercise, Transfers Treatment Duration: November 17, 2020 Frequency: At least 5 of 7 days/Wk (IRF) Estimated Hrs Per Day: 1.5 hours per day Patient and/or Family Agrees t: Yes Safety Risks/Education Patient Education: Gait Training, Transfer Techniques, Steps, Correct Positioning, Disease Process, Safety Issues Teaching Recipient: Patient Teaching Methods: Demonstration, Discussion Response to Teaching: Verbalize Understanding, Return Demonstration, Reinforcement Needed Time/GCodes Time In: 800 Time Out: 900 Total Billed Treatment Time: 60 Total Billed Treatment 1,FA30m,EX15m,GT15m DON FLORES MARBLE HELPER November 08, 2020 08:53
[2020-11-08] MEDS ORDERED: CARV12.53 PO ×2 (09:36)
[2020-11-08] MEDS ORDERED: ACHD5005 PO ×2 (09:36)
[2020-11-08] MEDS ORDERED: FURO20TA4 PO ×2 (09:36)
[2020-11-08] MEDS ORDERED: LISI20TA26 PO ×2 (09:36)
[2020-11-08] MEDS ORDERED: GLIP5TAB13 PO ×2 (09:36)
--- NOTE | 2020-11-08 09:38 | D/C HH Face to Face Order ---
D/C Face to Face Orders Reconcile Patient Problems Problems Reviewed?: Yes Instructions for Patient Via [facility], Patient Instructions/FollowUp: PCP 1 week Physician to follow Patient: [facility] Discharge Diet for Home: ADA Diet Patient Problems: s/p salmonella sepsis left foot fracture falls Patient Data-Allergies,Ht & Wt Patient Allergies: Coded Allergies: sulfamethoxazole (Verified Allergy, Severe, HIVES, 05/04/15) trimethoprim (Verified Allergy, Severe, HIVES, 05/04/15) Sulfa (Sulfonamide Antibiotics) (Verified Allergy, Unknown, HIVES, 05/04/15) dapagliflozin (Verified Allergy, Unknown, DIZZINESS, 05/04/15) simvastatin (Unverified Allergy, Unknown, TAKES LOVASTATIN AT HOME, 02/22/10) Height (Feet): 5 Height (Inches): 10.00 Weight (Pounds): 219 Weight (Ounces): 0.0 Home Health Need/Face to Face Date of Face to Face: November 08, 2020 Clinical Findings: Generalized weakness and fatigue, Instability, Muscle weakness, Non or partial weight bearing, Pain with ambulation, Unsteady gait I have seen Pt ufhv-rk-sdom: Yes Discharged To: Home Diagnosis/Conditions: s/p salmonella sepsis left foot fracture falls Patient is Homebound due to: Chasity fall risk due to instabilty, Non-weight bearing, Pain w/ambulation Homebound Status Due to the above stated illness, injury or surgical procedure (medical condition or diagnosis) and associated clinical findings, the patient is homebound because of his/her inability to leave home except with aid of a supportive device and/or person AND leaving the home requires a considerable and taxing effort or is medically contraindicated. Pt req the following assistanc: Walker Home Health Nursing Orders Home Health Services Order: Nursing Services, Bin Worker-Evaluate & Treat, Physical Therapy-Evaluate & Treat Certify Stmt I certify that this patient is under my care and that I, a nurse practitioner or a physician; a neurology physician assistant working with me, had a face to face encounter that - meets the physician face to face encounter requirements with this patient as dated. MARY ARGUETA DO November 08, 2020 09:38
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
--- NOTE | 2020-11-08 10:12 | Occupational Ther Daily Note ---
OT Current Status-Daily Note Subjective Pt alert, sitting in recliner. Pt states that he is fatigued. Agrees to therapy. Initially no c/o pain though during treatment, c/o chest pain. Took BP 169/81 then 153/77, reported to nrsg. Mental Status/Objective Patient Orientation: Person, Place, Time, Situation Attachments: IV (midline) ADL-Treatment Pt agrees to shower. Pt transported clothing into bathroom. Transferred on/off toilet independently. Completed toileting independently. Transferred into shower independently. Reminder to sit while threading clothing on/off feet for safety and to maintain wt bearing precautions. Sitting on shower bench using grabbars and hand held shower to complete shower independently. Pt able to complete dressing upper/lower body and footwear independently. Pt does take multiple recovery breaks during session due to fatigue and SOA (O2 levels stay around 95%). Pt stands at sink to complete oral care independently. Therapy Code Descriptions/Definitions Functional [place] Measure: 0=Not Assessed/NA 4=Minimal Assistance 1=Total Assistance 5=Supervision or Setup 2=Maximal Assistance 6=Modified [place] 3=Moderate Assistance 7=Complete IndependenceSCALE: Activities may be completed with or without assistive devices. 0-Zpirfthkqg-agepvwv completes the activity by him/herself with no assistance from a helper. 5-Set-up or Clean-up Assistance-helper sets up or cleans up; patient completes activity. [place] assists only prior to or following the activity. 4-Supervision or Touching Assistance-helper provides verbal cues and/or touching/steadying and/or contact guard assistance as patient completes activity. Assistance may be provided throughout the activity or intermittently. 3-Partial/Moderate Assistance-helper does LESS THAN HALF the effort. [place] lifts, holds or supports trunk or limbs, but provides less than half the effort. 2-Substantial/Maximal Assistance-helper does MORE THAN HALF the effort. [place] lifts or holds trunk or limbs and provides more than half the effort. 3-Zlwyvhhfe-ecghbq does ALL the effort. Patient does none of the effort to complete the activity. Or, the assistance of 2 or more helpers is required for the patient to complete the activity. If activity was not attempted, code reason: 7-Patient Refused. 9-Not Applicable-not attempted and the patient did not perform the activity before the current illness, exacerbation or injury. 10-Not Attempted due to Environmental Limitations-(lack of equipment, weather restraints, etc.). 88-Not Attempted due to Medical Conditions or Safety Concerns. Eating (QC): 6 (Per clinical judgment, pt able to set up own meal and use regular utensils to eat.) Oral Hygiene (QC): 6 Shower/Bathe Self (QC): 6 Upper Body Dressing (QC): 6 Lower Body Dressing (QC): 6 On/Off Footwear: 6 Toileting Hygiene (QC): 6 Toilet Transfer (QC): 6 Other Treatment Pt completed nut/bolt task with 1# wt attached to each wrist to increase fine and gross motor strength for daily functional tasks. Pt then completed bicep curls (30 reps) and alternating shldr press (3 sets 10 reps) to increase B UE strength. After therapy, pt sitting in recliner with call light/phone in reach. All needs met in room. OT Short Term Goals Short Term Goals Time Frame: November 03, 2020 Oral hygiene: 5 Shower/bathe self: 4 Lower body dressin Putting on/taking off footwear: 4 OT Long-Term Goals Long-Term Goals Time Frame: November 19, 2020 Eating (QC): 6 (met) Oral Hygiene (QC): 6 (met) Toileting Hygiene (QC): 6 (met) Shower/Bathe Self (QC): 6 (met) Upper Body Dressing (QC): 6 (met) Lower Body Dressing (QC): 6 (met) On/Off Footwear (QC): 6 (met) Additional Goals: 1-Demonstrate ADL Tasks, 2-Verbalize Understanding, 3- ImproveStrength/Ashley 1=Demonstrate adherence to instructed precautions during ADL tasks. 2=Patient will verbalize/demonstrate understanding of assistive devices/modifications for ADL. 3=Patient will improve strength/tolerance for activity to enable patient to perform ADL's. OT Education/Plan Problem List/Assessment Assessment: Decreased Activ Tolerance, Decreased UE Strength, Impaired Self- Care Skills Discharge Recommendations Plan/Recommendations: Continue POC Treatment Plan/Plan of Care Patient would benefit from OT for education, treatment and training to promote independence in ADL's, mobility, safety and/or upper extremity function for ADL's. Plan of Care: ADL Retraining, Functional Mobility, Group Exercise/Act as Ind, UE Funct Exercise/Act Treatment Duration: November 19, 2020 Frequency: At least 5 of 7 days/Wk (IRF) Estimated Hrs Per Day: 1.5 hours per day Rehab Potential: Fair Time/GCodes Start Time: 09:00 Stop Time: 10:15 Total Time Billed (hr/min): 75 Billed Treatment Time 1 visit-ADL 4 (60 min) EX 1 (15 min) BRISEIDA DURAN November 08, 2020 10:12
[2020-11-08] MEDS: ENOXAPARIN 40 MG/0.4 ML (LOVENOX) SYR SC SCH (12:50)
--- NOTE | 2020-11-08 13:15 | Physical Therapy Daily Note ---
PT Daily Note-Current Subjective Agrees to Rx, wants to stay put in room til he goes to bathroom, states just took a laxative Pain Location: No Pain Reported Mental Status Patient Orientation: Normal For Age Transfers SCALE: Activities may be completed with or without assistive devices. 7-Vdtccnmrqy-vkorych completes the activity by him/herself with no assistance from a helper. 5-Set-up or Clean-up Assistance-helper sets up or cleans up; patient completes activity. [place] assists only prior to or following the activity. 4-Supervision or Touching Assistance-helper provides verbal cues and/or touching/steadying and/or contact guard assistance as patient completes activity. Assistance may be provided throughout the activity or intermittently. 3-Partial/Moderate Assistance-helper does LESS THAN HALF the effort. [place] lifts, holds or supports trunk or limbs, but provides less than half the effort. 2-Substantial/Maximal Assistance-helper does MORE THAN HALF the effort. [place] lifts or holds trunk or limbs and provides more than half the effort. 7-Ccznwcbxp-kcgevg does ALL the effort. Patient does none of the effort to complete the activity. Or, the assistance of 2 or more helpers is required for the patient to complete the activity. If activity was not attempted, code reason: 7-Patient Refused. 9-Not Applicable-not attempted and the patient did not perform the activity before the current illness, exacerbation or injury. 10-Not Attempted due to Environmental Limitations-(lack of equipment, weather restraints, etc.). 88-Not Attempted due to Medical Conditions or Safety Concerns. Weight Bearing Right Lower Extremity: Right Full Weight Bearing Left Lower Extremity: Left Partial Weight Bearing CAM Boot Exercises Seated Therapy Exercises: Ankle pumps, Sit to stand, Shoulder Flex, Long arc quads, Hip flexion, Hip abd/add Seated Reps: 15 Treatments pt. donned walker boot and right shoe indep with some cues Assessment Current Status: Good Progress PT Short Term Goals Short Term Goals Time Frame: November 03, 2020 Roll Left & Right: 6 Sit to lyin (SBA) Lying to sitting on side of be: 4 (SBA) Sit to stand: 4 (BA) Chair/iyn-xs-fystt transfer: 4 (CGA) Walk 10 feet: 4 (CGA) Walk 50 feet with two turns: 4 (CGA) PT Retirement Goals Retirement Goals PT Film Sound Coordinator Goals Time Frame: November 17, 2020 Roll Left & Right (QC): 6 Sit to Lying (QC): 6 Lying-Sitting on Side/Bed(QC): 6 Sit to Stand (QC): 5 Chair/Upu-ru-Kotee Xfer(QC): 5 Toilet Transfer (QC): 5 Car Transfer (QC): 5 Does the Patient Walk: Yes Walk 10 feet (QC): 5 Walk 50ft with 2 Turns (QC): 5 Walk 150 ft (QC): 5 Walking 10ft on Uneven Surface: 5 1 Step (curb) (QC): 4 4 Steps (QC): 4 12 Steps (QC): 9 Picking up an Object (QC): 4 Wheel 50 feet with 2 turns (QC: 6 Type: Manual Wheel 150 feet: 6 PT Plan Treatment/Plan Treatment Plan: Continue Plan of Care Treatment Plan: Bed Mobility, Education, Functional Activity Ashley, Functional Strength, Group Therapy, Gait, Safety, Therapeutic Exercise, Transfers Treatment Duration: November 17, 2020 Frequency: At least 5 of 7 days/Wk (IRF) Estimated Hrs Per Day: 1.5 hours per day Patient and/or Family Agrees t: Yes Safety Risks/Education Patient Education: Correct Positioning Time/GCodes Time In: 1300 Time Out: 1315 Total Billed Treatment Time: 15 Total Billed Treatment 1,GILAm DON FLORES ACADEMIC AFFAIRS COORDINATOR November 08, 2020 13:15
[2020-11-08] MEDS: ASPIRIN E.C. 81 MG (ECOTRIN) TAB PO SCH (18:51)
[2020-11-08 19:54] VITALS: BP 152/78
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
[2020-11-09] MEDS: LEVOTHYROXINE 112 MCG (LEVOTHROID) TAB PO SCH (05:10)
[2020-11-09] MEDS: RT-BUDESONIDE NEBS 0.5 MG/2ML (PULMICORT) AMP IH SCH (06:58)
[2020-11-09] MEDS: RT-ALBUTEROL SULF 2.5 MG/3 ML PRE-MIX VIAL IH SCH ×2 (06:58→10:46)
[2020-11-09 08:00] VITALS: BP 147/65
--- NOTE | 2020-11-09 08:27 | Therapy Team Discharge Summary ---
Therapy Discharge Summary Discharge Recommendations Date of Discharge Physical Therapy Patient came to rehab following sepsis. Upon evaluation patient performed bed mobility with independence, supine <-> sit with CGA, sit <-> stand and transfers with min assist, car transfer min assist, ambulated 10' with a rolling walker with CGA but needed min assist for 10' over an uneven surface, and propelled a manual WC 100' with independence. Patient has been performing bed mobility and transfer training, balance and endurance training, functional strengthening, stair training, gait training, and education. Patient has made good progress and has met all of his mcc goals. Now, patient performs bed mobility and transfers with independence, car transfer independent, ambulates 150' with a rolling walker with setup (including 50' with at least 2 turns of 90 degrees and 10' over an uneven surface), and can go up and down 4 steps using 2 handrails wi th CGA. Patient is not compliant with his weight bearing status. Patient is being discharged from this facility today and will be discharged from PT at this time. Occupational Therapy Decreased Activ Tolerance, Decreased UE Strength, Impaired Self-Care Skills PT Commuter Pilot Goals Care Home Goals PT Commuter Pilot Goals Time Frame: November 17, 2020 Roll Left to Right (QC): 6 Sit to Lying (QC): 6 Lying-Sitting on Side/Bed(QC): 6 Sit to Stand (QC): 5 Chair/Kpz-ed-Lboij Xfer(QC): 5 Car Transfer (QC): 5 Does the Patient Walk: Yes Walk 10 feet (QC): 5 Walk 10ft-Uneven Surface(QC): 5 Walk 50ft with 2 Turns (QC): 5 Walk 150 ft (QC): 5 Wheel 50 feet with 2 turns (QC: 6 1 Step (curb) (QC): 4 4 Steps (QC): 4 12 Steps (QC): 9 Picking up an Object (QC): 4 OT Care Home Goals Commuter Pilot Goals Time Frame: November 19, 2020 Eating (QC): 6 (met) Oral Hygiene (QC): 6 (met) Shower/Bathe Self (QC): 6 (met) Upper Body Dressing (QC): 6 (met) Lower Body Dressing (QC): 6 (met) On/Off Footwear (QC): 6 (met) Toileting Hygiene (QC): 6 (met) Toilet/Commode Transfer (QC): 5 Additional Goals: 1-Demonstrate ADL Tasks, 2-Verbalize Understanding, 3-ImproveStrength/Ashley 1=Demonstrate adherence to instructed precautions during ADL tasks. 2=Patient will verbalize/demonstrate understanding of assistive devices/modifications for ADL. 3=Patient will improve strength/tolerance for activity to enable patient to perform ADL's. Speech Care Home Goals Commuter Pilot Goals Patient will improve cognitive-communication skills necessary for safety and daily living tasks with minimal assist. NATACHA BAE PT November 09, 2020 08:27
[2020-11-09] MEDS: CLOPIDOGREL 75 MG (PLAVIX) TABLET PO SCH (09:07)
[2020-11-09] MEDS: DICYCLOMINE 10 MG (BENTYL) CAP PO SCH (09:07)
[2020-11-09] MEDS: CALCIUM CARBONATE 600 MG (CALCARB) TAB PO SCH (09:07)
[2020-11-09] MEDS: ISOSORBIDE MONONITRATE 60 MG (IMDUR) TAB PO SCH (09:08)
[2020-11-09] MEDS: lisINopril 20 MG (PRINIVIL) TABLET PO SCH (09:08)
--- NOTE | 2020-11-09 10:27 | Therapy Team Discharge Summary ---
Therapy Discharge Summary Discharge Recommendations Date of Discharge Occupational Therapy Decreased Activ Tolerance, Decreased UE Strength, Impaired Self-Care Skills Speech-Language Pathology Pt is a 80 y/o man admitted to the ARU for debility. Pt has received ST services with focus on memory, following directions, and safety awareness. Pt's long-term memory is intact, though he struggled to remember new events. Pt is discharging to his home where his family will assist him. PT Detention Goals Studio Technician Goals PT Detention Goals Time Frame: November 17, 2020 Roll Left to Right (QC): 6 Sit to Lying (QC): 6 Lying-Sitting on Side/Bed(QC): 6 Sit to Stand (QC): 5 Chair/Cuc-sc-Haddb Xfer(QC): 5 Car Transfer (QC): 5 Does the Patient Walk: Yes Walk 10 feet (QC): 5 Walk 10ft-Uneven Surface(QC): 5 Walk 50ft with 2 Turns (QC): 5 Walk 150 ft (QC): 5 Wheel 50 feet with 2 turns (QC: 6 1 Step (curb) (QC): 4 4 Steps (QC): 4 12 Steps (QC): 9 Picking up an Object (QC): 4 OT Detention Goals Studio Technician Goals Time Frame: November 19, 2020 Eating (QC): 6 (met) Oral Hygiene (QC): 6 (met) Shower/Bathe Self (QC): 6 (met) Upper Body Dressing (QC): 6 (met) Lower Body Dressing (QC): 6 (met) On/Off Footwear (QC): 6 (met) Toileting Hygiene (QC): 6 (met) Toilet/Commode Transfer (QC): 5 Additional Goals: 1-Demonstrate ADL Tasks, 2-Verbalize Understanding, 3- ImproveStrength/Ashley 1=Demonstrate adherence to instructed precautions during ADL tasks. 2=Patient will verbalize/demonstrate understanding of assistive devices/modifications for ADL. 3=Patient will improve strength/tolerance for activity to enable patient to perform ADL's. Speech Studio Technician Goals Detention Goals Patient will improve cognitive-communication skills necessary for safety and daily living tasks with minimal assist. YANDY DUVAL November 09, 2020 10:27
[2020-11-09] MEDS: ENOXAPARIN 40 MG/0.4 ML (LOVENOX) SYR SC SCH (12:34)
[2020-11-09 15:52] VITALS: BP 147/65
--- NOTE | 2020-11-10 14:32 | Therapy Team Discharge Summary ---
Therapy Discharge Summary Discharge Recommendations Date of Discharge November 09, 2020 at 13:40 Therapy D/C Recommendations: Home w/ Family Support Occupational Therapy Pt. was seen by Occupational therapy to increase overall strength and independence with daily tasks. Pt. was able to complete all ADL tasks with Mod I with safety concerns due to inability to maintain weight bearing status. Pt. discharged home with family support. No further OT warranted at this time. Decreased Activ Tolerance, Impaired I ADL's PT Assembler Gold Frame Goals Assembler Gold Frame Goals PT Long-Term Goals Time Frame: November 17, 2020 Roll Left to Right (QC): 6 Sit to Lying (QC): 6 Lying-Sitting on Side/Bed(QC): 6 Sit to Stand (QC): 5 Chair/Ypm-zq-Kwuvw Xfer(QC): 5 Car Transfer (QC): 5 Does the Patient Walk: Yes Walk 10 feet (QC): 5 Walk 10ft-Uneven Surface(QC): 5 Walk 50ft with 2 Turns (QC): 5 Walk 150 ft (QC): 5 Wheel 50 feet with 2 turns (QC: 6 1 Step (curb) (QC): 4 4 Steps (QC): 4 12 Steps (QC): 9 Picking up an Object (QC): 4 OT Assembler Gold Frame Goals Long-Term Goals Time Frame: November 19, 2020 Eating (QC): 6 (met) Oral Hygiene (QC): 6 (met) Shower/Bathe Self (QC): 6 (met) Upper Body Dressing (QC): 6 (met) Lower Body Dressing (QC): 6 (met) On/Off Footwear (QC): 6 (met) Toileting Hygiene (QC): 6 (met) Toilet/Commode Transfer (QC): 5 Additional Goals: 1-Demonstrate ADL Tasks, 2-Verbalize Understanding, 3- ImproveStrength/Ashley 1=Demonstrate adherence to instructed precautions during ADL tasks. 2=Patient will verbalize/demonstrate understanding of assistive devices/modifications for ADL. 3=Patient will improve strength/tolerance for activity to enable patient to perform ADL's. Speech Long-Term Goals Assembler Gold Frame Goals Patient will improve cognitive-communication skills necessary for safety and daily living tasks with minimal assist. ALKA PACHECO OT November 10, 2020 14:32
== END 2020-11-09 13:40 | disposition home health service (06) | DRG 872 ==
PROVIDERS: ADMIT Internal Medicine; ATTEND Internal Medicine
DX: A02.1 Salmonella sepsis (principal); I50.20 Unspecified systolic (congestive) heart failure; B37.0 Candidal stomatitis; I11.0 Hypertensive heart disease with heart failure; I25.119 Atherosclerotic heart disease of native coronary artery with unspecified angina pectoris; I73.9 Peripheral vascular disease, unspecified; E78.5 Hyperlipidemia, unspecified; G47.33 Obstructive sleep apnea (adult) (pediatric); J44.9 Chronic obstructive pulmonary disease, unspecified; E11.9 Type 2 diabetes mellitus without complications; S92.322D Displaced fracture of second metatarsal bone, left foot, subsequent encounter for fracture with routine healing; S92.332D Displaced fracture of third metatarsal bone, left foot, subsequent encounter for fracture with routine healing; I25.5 Ischemic cardiomyopathy; E66.9 Obesity, unspecified; R16.1 Splenomegaly, not elsewhere classified; I65.23 Occlusion and stenosis of bilateral carotid arteries; E89.0 Postprocedural hypothyroidism; H91.90 Unspecified hearing loss, unspecified ear; I25.2 Old myocardial infarction; Z95.1 Presence of aortocoronary bypass graft; Z95.810 Presence of automatic (implantable) cardiac defibrillator; Z95.5 Presence of coronary angioplasty implant and graft; Z85.850 Personal history of malignant neoplasm of thyroid; Z85.46 Personal history of malignant neoplasm of prostate; Z88.2 Allergy status to sulfonamides; Z79.82 Long term (current) use of aspirin; Z79.84 Long term (current) use of oral hypoglycemic drugs; Z68.33 Body mass index [BMI] 33.0-33.9, adult; W19.XXXD Unspecified fall, subsequent encounter
CPT/HCPCS: 36415; 80053; 83735; 85025; 93005; 94640; 94760

== ENCOUNTER → 2021-01-11 | Outpatient (CLI) | payer MEDICARE, OTHER ==
[~2021-01-11] MED LIST changes: +CARV12.53 PO; +GLIP5TAB13 PO; +LISI20TA26 PO; -OMEP40CA27 PO; +OMEP40CA6 PO
[2021-01-11 09:31] LABS: BASOPHILS % (AUTO) 0 % (0-10); EOSINOPHILS # (AUTO) 0.2 10^3/uL (0.0-0.3); EOSINOPHILS % (AUTO) 3 % (0-10); HEMATOCRIT 39 % (40-54); HEMOGLOBIN 13.8 g/dL (13.3-17.7); LYMPHOCYTES # (AUTO) 1.3 X 10^3 (1.0-4.0); LYMPHOCYTES % (AUTO) 24 % (12-44); MEAN CORPUSCULAR HEMOGLOBIN 31 pg (25-34); MEAN CORPUSCULAR HGB CONC 36 g/dL (32-36); MEAN CORPUSCULAR VOLUME 87 fL (80-99); MEAN PLATELET VOLUME 8.8 fL (9.0-12.2); MONOCYTES # (AUTO) 0.5 X 10^3 (0.0-1.0); MONOCYTES % (AUTO) 10 % (0-12); NEUTROPHILS # (AUTO) 3.2 X 10^3 (1.8-7.8); NEUTROPHILS % (AUTO) 62 % (42-75); PLATELET COUNT 202 10^3/uL (130-400); WHITE BLOOD COUNT 5.3 10^3/uL (4.3-11.0)
[2021-01-11 09:37] LABS: BASOPHILS % (AUTO) 0 % (0-10); EOSINOPHILS # (AUTO) 0.2 10^3/uL (0.0-0.3); EOSINOPHILS % (AUTO) 3 % (0-10); HEMATOCRIT 39 % (40-54); HEMOGLOBIN 13.8 g/dL (13.3-17.7); LYMPHOCYTES # (AUTO) 1.4 X 10^3 (1.0-4.0); LYMPHOCYTES % (AUTO) 26 % (12-44); MEAN CORPUSCULAR HEMOGLOBIN 31 pg (25-34); MEAN CORPUSCULAR HGB CONC 35 g/dL (32-36); MEAN CORPUSCULAR VOLUME 87 fL (80-99); MONOCYTES # (AUTO) 0.6 X 10^3 (0.0-1.0); MONOCYTES % (AUTO) 11 % (0-12); NEUTROPHILS # (AUTO) 3.1 X 10^3 (1.8-7.8); NEUTROPHILS % (AUTO) 59 % (42-75); PLATELET COUNT 205 10^3/uL (130-400); WHITE BLOOD COUNT 5.2 10^3/uL (4.3-11.0)
[2021-01-11 09:56] LABS: ALANINE AMINOTRANSFERASE 9 U/L (0-55); ALKALINE PHOSPHATASE 65 U/L (40-136); BILIRUBIN,TOTAL 0.7 MG/DL (0.1-1.0); BUN/CREATININE RATIO 14; CARBON DIOXIDE 21 MMOL/L (21-32); CHLORIDE 102 MMOL/L (98-107); CREATININE SERUM 0.79 MG/DL (0.60-1.30); GFR ESTIMATED > 60; GLUCOSE 193 MG/DL (70-105); POTASSIUM 4.2 MMOL/L (3.6-5.0); SODIUM 134 MMOL/L (135-145); TOTAL PROTEIN 7.2 GM/DL (6.4-8.2)
[2021-01-11 09:57] LABS: ALANINE AMINOTRANSFERASE 9 U/L (0-55); ALKALINE PHOSPHATASE 62 U/L (40-136); BILIRUBIN,TOTAL 0.7 MG/DL (0.1-1.0); BUN/CREATININE RATIO 14; CALCIUM 8.9 MG/DL (8.5-10.1); CARBON DIOXIDE 21 MMOL/L (21-32); CHLORIDE 102 MMOL/L (98-107); CREATININE SERUM 0.79 MG/DL (0.60-1.30); GFR ESTIMATED > 60; GLUCOSE 193 MG/DL (70-105); POTASSIUM 4.2 MMOL/L (3.6-5.0); SODIUM 134 MMOL/L (135-145); TOTAL PROTEIN 7.1 GM/DL (6.4-8.2)
[2021-01-11 10:19] LABS: FREE T4 (FREE THYROXINE) 1.39 NG/DL (0.70-1.48)
== END ==
LOC: EDSTATUS 11-02 09:03 → LAB 09:04
PROVIDERS: ATTEND Urology
DX: C61 Malignant neoplasm of prostate (principal)
CPT/HCPCS: 36415; 80053; 84153; 84403; 84432; 84439; 84443; 85025; 86800

== ENCOUNTER 2021-01-18 12:36 | Outpatient (RCR) | payer MEDICARE, OTHER | END 2021-01-19 07:48 | disposition home or self-care (01) | LOC: ONC 12:36 | PROVIDERS: ATTEND Internal Medicine Hematology & Oncology | DX: C73 Malignant neoplasm of thyroid gland (principal); C61 Malignant neoplasm of prostate; K43.9 Ventral hernia without obstruction or gangrene; I25.10 Atherosclerotic heart disease of native coronary artery without angina pectoris; I10 Essential (primary) hypertension; E78.5 Hyperlipidemia, unspecified; E78.00 Pure hypercholesterolemia, unspecified; E11.9 Type 2 diabetes mellitus without complications; E66.9 Obesity, unspecified | CPT/HCPCS: 99213 ==

== ENCOUNTER → 2021-08-12 | Outpatient (CLI) | payer MEDICARE, OTHER ==
[~2021-08-12] MED LIST changes: -BENA40TA5 PO; +BENA40TA84 PO; +DICY20TA PO; -DICY20TA10 PO; -LEVO500T80 PO; +LEVO500T81 PO; -MAGN400T8 PO; +MGX400T PO
== END ==
LOC: CARD 13:00
PROVIDERS: ATTEND Nurse Practitioner Family
DX: I25.5 Ischemic cardiomyopathy (principal); I08.0 Rheumatic disorders of both mitral and aortic valves
CPT/HCPCS: 93306

== ENCOUNTER → 2021-11-30 | Outpatient (CLI) | payer MEDICARE, OTHER ==
[2021-11-30 15:40] LABS: HEMATOCRIT 40 % (40-54); HEMOGLOBIN 14.2 g/dL (13.3-17.7); MEAN CORPUSCULAR HEMOGLOBIN 32 pg (25-34); MEAN CORPUSCULAR HGB CONC 36 g/dL (32-36); MEAN CORPUSCULAR VOLUME 89 fL (80-99); MEAN PLATELET VOLUME 8.6 fL (9.0-12.2); PLATELET COUNT 194 10^3/uL (130-400); WHITE BLOOD COUNT 6.9 10^3/uL (4.3-11.0)
[2021-11-30 16:04] LABS: ALBUMIN 4.2 GM/DL (3.2-4.5); POTASSIUM 3.9 MMOL/L (3.6-5.0)
[2021-11-30 16:05] LABS: CALCIUM 9.3 MG/DL (8.5-10.1)
[2021-11-30 16:06] LABS: TOTAL PROTEIN 7.7 GM/DL (6.4-8.2)
[2021-11-30 16:08] LABS: BILIRUBIN,TOTAL 0.9 MG/DL (0.1-1.0)
[2021-11-30 16:10] LABS: CREATININE SERUM 0.66 MG/DL (0.60-1.30)
== END ==
LOC: LAB 15:12
PROVIDERS: ATTEND Urology
DX: C61 Malignant neoplasm of prostate (principal); E29.1 Testicular hypofunction
CPT/HCPCS: 36415; 80053; 84153; 84403; 85027

== ENCOUNTER 2022-01-16 13:02 | Outpatient (RCR) | payer MEDICARE, OTHER ==
[2022-01-06 09:51] LABS: BASOPHILS % (AUTO) 0 % (0-10); EOSINOPHILS # (AUTO) 0.3 10^3/uL (0.0-0.3); EOSINOPHILS % (AUTO) 4 % (0-10); HEMATOCRIT 38 % (40-54); HEMOGLOBIN 13.9 g/dL (13.3-17.7); LYMPHOCYTES # (AUTO) 1.2 10^3/uL (1.0-4.0); LYMPHOCYTES % (AUTO) 17 % (12-44); MEAN CORPUSCULAR HEMOGLOBIN 32 pg (25-34); MEAN CORPUSCULAR HGB CONC 37 g/dL (32-36); MEAN CORPUSCULAR VOLUME 89 fL (80-99); MEAN PLATELET VOLUME 9.1 fL (9.0-12.2); MONOCYTES # (AUTO) 0.7 10^3/uL (0.0-1.0); MONOCYTES % (AUTO) 10 % (0-12); NEUTROPHILS # (AUTO) 4.6 10^3/uL (1.8-7.8); NEUTROPHILS % (AUTO) 68 % (42-75); PLATELET COUNT 186 10^3/uL (130-400); WHITE BLOOD COUNT 6.8 10^3/uL (4.3-11.0)
[2022-01-06 10:14] LABS: ALBUMIN 4.1 GM/DL (3.2-4.5); BILIRUBIN,TOTAL 0.8 MG/DL (0.1-1.0); CALCIUM 9.1 MG/DL (8.5-10.1); CREATININE SERUM 0.76 MG/DL (0.60-1.30); POTASSIUM 4.1 MMOL/L (3.6-5.0); TOTAL PROTEIN 7.2 GM/DL (6.4-8.2)
[2022-01-06 10:38] LABS: FREE T4 (FREE THYROXINE) 1.31 NG/DL (0.70-1.48)
== END 2022-01-29 | disposition home or self-care (01) ==
LOC: ONC 13:02
PROVIDERS: ATTEND Internal Medicine Hematology & Oncology
DX: C73 Malignant neoplasm of thyroid gland (principal); I25.10 Atherosclerotic heart disease of native coronary artery without angina pectoris; Z95.810 Presence of automatic (implantable) cardiac defibrillator; I51.7 Cardiomegaly; I10 Essential (primary) hypertension; E78.2 Mixed hyperlipidemia; I65.23 Occlusion and stenosis of bilateral carotid arteries; Z95.1 Presence of aortocoronary bypass graft
CPT/HCPCS: 36415; 80053; 84432; 84439; 84443; 85025; 86800; 99213